=== PATIENT | male | born 1935 | race Caucasian/White ===

== ENCOUNTER 2016-07-21 20:59 | Inpatient (IN) | payer MEDICARE, OTHER ==
[~2016-07-21] VITALS: Ht 190.5 cm; Wt 129.3 kg
[~2016-07-21 20:59] MED LIST: ASPI-275 PO; GLPZ5T PO; HYDR25TA4 PO; INSU100I SUBQ; INSU100I9 SUBQ; LISI-567 PO; MELO-259 PO; METF10002 PO; MULT-56 PO; OMEG1CAP31 PO; SIMV40TA5 PO; TAMS0.4C98 PO; VIT1CAPS8 PO
[2016-07-21 21:15] VITALS: BP 147/65; PULSE 65; RESP 18; O2SAT 96
--- NOTE | 2016-07-21 21:22 | ED.REPORT ---
HPI-Abd Pain M 40 and Over Date of Service Jul 21, 2016 ED Provider: Jordy Mahoney MD Patient is a 81 year old male with a history of diabetes mellitus, coronary artery disease, hypertension, cardiac pacemaker, and known large abdominal wall hernia who presents to the ED via EMS with severe right-sided abdominal pain associated with his hernia which started after eating dinner tonight. Patient states that the pain waxes and wanes, and is sometimes unbearable. He reports associated nausea but denies vomiting. His pain is improved on arrival to the ED , after receiving Fentanyl and Zofran from EMS. The patient states that he has a hernia from a previous appendectomy, with subsequent rupture of initial hernia repair. His previous surgeons stated that the hernia could not be repaired again due to the complexity of the hernia. The patient reports that food often comes back up after eating and that he was advised to use a band around his abdomen in order to improve this. However, he states that his symptoms are improved without this band. The patient underwent Barium swallow this morning to investigate this further, which showed mild esophageal dysmotility, reducible hiatal hernia, and moderate reflux. Patient was informed that this procedure could cause constipation. He reports a small bowel movement this morning before the procedure, but he has not had another bowel movement since that time. He denies a fever. Nursing Notes Stated Complaint: ABDOMINAL PAIN Chief Complaint: Male Abdominal Pain Nursing Notes Reviewed: Yes Allergies: Coded Allergies: Tuna (Verified Allergy, Unknown, 07/21/16) Uncoded Allergies: artificial sweeteners (Allergy, Intermediate, 03/31/10) vision changes Scheduled Alfuzosin ER (Alfuzosin ER) 10 Mg Tab.er.24h 10 MG PO DAILY Aspirin (Ecotrin) 325 Mg Tablet.dr 325 MG PO DAILY Atorvastatin (Lipitor) 20 Mg Tablet 20 MG PO DAILY Hydrochlorothiazide (Hydrochlorothiazide) 25 Mg Tablet 25 MG PO DAILY Insulin Aspart (NovoLOG U-100 Pen) 100 Unit/Ml Insuln.pen 12 UNITS SUBQ TIDAC If blood sugar between 130-160 give 12 units Novolog sliding scale raised in increments to a max of 20 units Insulin Detemir (Levemir U100 Flexpen Insulin) 100 Unit/1 Ml Insuln.pen 40 UNIT SUBQ QPM-INSULIN Lisinopril (Lisinopril) 20 Mg Tablet 20 MG PO DAILY Multivitamin (Daily Vitamin) 1 Each Tablet 1 EACH PO DAILY [place]-3 Fatty Acids/Fish Oil (Fish Oil Softgel) 1 Each Capsule 1 EACH PO DAILY Vit C/Vit E/[place]in/Min/[place]-3 (Ocuvite Softgel) 1 Each Capsule 1 EACH PO DAILY General Time Seen by MD: 21:22 Chief Complaint Abdominal pain Hx Obtained From: Patient Arrived By: Ambulance Sudden in Onset?: No Onset Occurred: 1 - 4 hours ago Symptom Duration: Waxes and wanes Location: : Diffuse Quality: Painful, Stabbing Severity: Current: Mild Severity: Maximum: Severe Recent Healthcare: No recent doctor visit, No recent hospitalization Similar Sx Previous: Yes Past Medical History Past Medical History Abdominal Hernia 1. Coronary artery disease. a. CABG in 1992. b. CABG in 2002. 2. 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 3. Diabetes mellitus type 2. 4. Hypertension. 5. Hyperlipidemia. 6. Benign prostatic hypertrophy. 7. History of diabetic foot ulcers. 8. Osteoarthritis. 9. Chronic back pain. Reports: Coronary artery disease, Diabetes mellitus, Hyperlipidemia, Hypertension Past Surgical History 1. CABG in 1992 and 2002. 2. Pacemaker placement in 2005. 3. Appendectomy. 4. multiple abdominal wall hernia repairs Reports: Appendectomy, CABG Reports: Pacemaker insertion Smoking History Never Smoker Social History Other Social History: Good social support, , Local resident Ambulatory Status Independent Review of Systems Constitutional: Denies: Chills, Fever GI: Reports: Abdominal pain, Constipation, Nausea, Vomiting Complete sys rev & neg: except as marked. Physical Exam Initial Vital Signs Vital Signs (First) Date Time Temp Pulse Resp B/P Pulse Ox O2 Delivery O2 Flow Rate FiO2 07/21/16 21:15 36.6 65 18 147/65 96 Room Air Initial VS: Reviewed Head / Eyes: Atraumatic, Normocephalic, PERRL ENT: Mucous membranes moist, Conjunctiva normal, No scleral icterus Neck: Supple, Full range of motion Extremities: Vascular intact, Neuro intact, No swelling Skin: Warm, Dry, No cyanosis Neurologic: Alert, Oriented, Nonfocal Psychiatric: Mood/affect normal, Behavior normal, Normal thought content General/Constitutional: Awake, Alert, No acute distress, Well hydrated Respiratory / Chest: Breath sounds NL, Breath sounds = bilat, No respiratory distress, No rales, No rhonchi, No wheezing Cardiovascular: Heart rate NL, Regular rhythm, Heart sounds NL, No murmurs Abdomen: Soft, BS normoactive Tenderness/Guarding/Rebound: Positive: Tender diffuse Organomegaly / Mass / Hernia: Positive: Hernia is tender (mildly, but not firm) , Hernia umbilical (large paramedian hernia on the right) Back: Painless range of motion Interpretation & Diagnostics Lab Results Interpretation Result Diagram: 07/21/16211207/21/162112 Test 07/21/16 21:13 07/21/16 22:00 White Blood Count 10.3th/mm3 (3.8-10.1) Red Blood Count 4.50mil/mm3 (4.40-5.80) Hemoglobin 14.3g/dL (13.8-17.2) Hematocrit 41.6% (41.0-50.0) Mean Corpuscular Volume 92.4fL (81-100) Mean Corpuscular Hemoglobin 31.8pg (27.0-35.0) Mean Corpuscular Hemoglobin Concent 34.4% (32.0-37.0) Red Cell Distribution Width 12.9% (12.3-15.4) Platelet Count 218bil/L (150-400) Neutrophils (%) (Auto) 77.3% (40-74) Lymphocytes (%) (Auto) 13.0% (14-46) Monocytes (%) (Auto) 8.0% (4-12) Eosinophils (%) (Auto) 1.4% (0-5) Basophils (%) (Auto) 0.1% (0-3) Hold Purple Top Tube Received (Received) Hold Blue Top Tube Received (Received) Sodium Level 138mEq/L (134-144) Potassium Level 4.6mEq/L (3.5-5.2) Chloride Level 100mEq/L (97-108) Carbon Dioxide Level 19mmol/L (18-29) Blood Urea Nitrogen 34mg/dL (8-27) Creatinine 1.50mg/dL (0.76-1.27) Estimat Glomerular Filtration Rate 48mL/min (>59) Glucose Level 175mg/dL (60-99) Calcium Level 10.1mg/dL (8.5-10.1) Magnesium Level 1.8mg/dL (1.6-2.6) Total Bilirubin 0.4mg/dL (0.0-1.2) Aspartate Amino Transf (AST/SGOT) 24U/L (0-50) Alanine Aminotransferase (ALT/SGPT) 24U/L (0-44) Alkaline Phosphatase 92U/L (25-160) Total Protein 7.8g/dL (6.4-8.4) Albumin 4.6g/dL (3.4-5.0) Lipase 12U/L (13-60) Hold Red Top Tube Received (Received) Hold [place] Top Tube Received (Received) Hold Urine Received (Received) CT Abd / Pelvis Interpretation CONCLUSION: Incarcerated umbilical hernia causing bowel obstruction. Cannot exclude mild diverticulitis affecting the sigmoid colon. No perforation or abscess. Cholelithiasis is noted. Ultrasound could further evaluate. Nonspecific prostate enlargement is noted and would require further evaluation for complete characterization. Please correlate. Indeterminate right renal cyst or cystic lesion required further evaluation to completely characterize. Radiologist: Lewis Kaur DO 07/22/2016 - 12:09:31 AM [facility] Study type: Abdominal CT IV contrast Interpretation / Wet Read by: Interpret - Radiologist Re-Eval/Medical Decision Med Decision/Clinical Course 81-year-old with a large ventral hernia related to prior abdominal surgery for ruptured appendix. He just had a barium swallow with fairly viscus barium, now has crampy colicky pain that is worsening and improving in waves, but significant and severe on arrival. CT scan shows high-grade bowel obstruction associated with this hernia. He is difficult to control his regards his nausea. He was given an NG tube, and is admitted now to medicine service with consultation to surgery. Transported in stable condition. Radiology also sees some evidence of low grade diverticulitis, and he is begun with antibiotics for that possibility while in the hospital. Source of Hx: Old records Time of Eval: 21:30 Re-Evaluation/Progress Note: Patient has now started vomiting in the ED. Time of Eval: 00:20 Re-Evaluation/Progress Note: Informed the patient and his of the results of his CT scan, with the finding of a bowel obstruction and an incarcerated hernia. Patient understands and agrees with the plan to be admitted to the hospital for further care. All questions were addressed. Consultation #1: Referral / Consult Name: Kei Moise MD Consulted With: Surgeon Call Returned at: 00:20 Crusher Loader Operator: Will see patient, Agrees with eval, Agrees with plan Note: Spoke with Dr. Moise, surgeon, who agrees to act as consult during patient's hospital admission. Consultation #2: Referral / Consult Name: Varun Richardson MD Consulted With: Hospitalist Call Returned at: 00:22 Crusher Loader Operator: Will see patient, Agrees with eval, Agrees with plan, Accepts admit Note: Spoke with Dr. Richardson, hospitalist, who agrees to accept admit. Counseled Regarding: Diagnosis, Lab results, Need for admission Discharge & Departure Primary Impression: Incarcerated umbilical hernia Additional Impressions: Small bowel obstruction Diverticulitis Diverticulitis site: unspecified part of intestinal tract Diverticulitis bleeding: without bleeding Diverticulitis complication: without perforation or abscess Qualified Code: K57.92 - Diverticulitis of intestine, part unspecified, without perforation or abscess without bleeding Disposition: ADMITTED TO HOSPITAL Vital Signs - All Vital Signs Date Time Temp Pulse Resp B/P Pulse Ox O2 Delivery O2 Flow Rate FiO2 07/22/16 00:40 100 16 152/86 97 Room Air 07/21/16 21:15 36.6 65 18 147/65 96 Room Air )( All Prior VS Reviewed: Yes Condition: Stable Referrals: Brady Martinez MD (PCP) Ashley Attestation Portions of this note were transcribed by Merly Manzano. I, Dr. Mahoney personally performed the history, physical exam and medical decision-making; I reviewed and confirmed the accuracy of the information in the transcribed note. Signed by: Ashley Portillo, 07/22/2016 0148 copies to: Brady Martinez MD, Christopher W MD Jul 21, 2016 21:22 Merly Manzano Jul 21, 2016 21:34
[2016-07-21 21:29] LABS: BASOPHILS % (AUTO) 0.1 % (0-3); EOSINOPHILS % (AUTO) 1.4 % (0-5); Mean Corpuscular Hemoglobin 31.8 pg (27.0-35.0); Mean Corpuscular Volume 92.4 fL (81-100); NEUTROPHILS % (AUTO) 77.3 % (40-74); Platelet Count 218 bil/L (150-400)
[2016-07-21] MEDS ORDERED: 0.9% Sodium Chloride 1,000 ML IV ONE (21:35)
[2016-07-21] MEDS ORDERED: Ondansetron 2 mg/mL 2 mL Inj IVPUSH ONE (21:35)
[2016-07-21 21:47] LABS: Magnesium 1.8 mg/dL (1.6-2.6)
[2016-07-21] MEDS: HYDROmorphone 1 mg/mL Inj IVPUSH PRN ×3 (22:10→23:34)
[2016-07-21] MEDS ORDERED: Promethazine Inj 12.5 MG in Dextrose 5%-Pha MIX 50 ML IV ONE (22:30)
[2016-07-22] VITALS (7 sets, daily range): BP systolic 147–169; BP diastolic 74–86; PULSE 65–102; RESP 16–20; O2SAT 92–97
[2016-07-22] MEDS ORDERED: Piperacillin-Tazo 3.375 Gm Inj 3.375 GM in Dextrose 5% Minibag Plus 50 ML IV ONE (00:15)
[2016-07-22] MEDS ORDERED: Alum-Mag Hydrox-Simeth 30 mL Suspension PO PRN (00:25)
[2016-07-22] MEDS ORDERED: Polyethylene Glycol (PEG) 17 Gm Powder PO PRN (00:25)
[2016-07-22] MEDS: 0.9% Sodium Chloride 1,000 ML IV SCH ×3 (01:02→18:02)
[2016-07-22] MEDS ORDERED: Glucose 40% Oral Gel 15 Gm Tube PO PRN ×2 (01:10→10:20)
[2016-07-22] MEDS: HYDROmorphone 1 mg/mL Inj IVPUSH PRN ×2 (01:20→04:08)
[2016-07-22] MEDS ORDERED: ATOR20TA PO (02:07)
[2016-07-22] MEDS ORDERED: ALFU10TA11 PO (02:07)
--- NOTE | 2016-07-22 02:27 | NUR ---
Admission Pt here for SBO. NG placed to low cont sxn. Pt tolerated procedure. Appears to be resting comfortably. No complaints. Oriented to call light/fall precautions. Abd is soft and distended. NG output is bright yellow fluid. Care ongoing
--- NOTE | 2016-07-22 02:40 | PCM.HPMED ---
Subjective Date of Service Jul 22, 2016 Primary Provider: Admitting Physician: Primary Care Physician: Brady Martinez MD Attending Physician: Admit Status: From the Emergency Department, Full Admit, Non-Telemetry Chief Complaint: Abdominal pain History of Present Illness: Cholo Verdugo is a 81 year old male with Diabetes mellitus, coronary artery disease, hypertension, cardiac pacemaker, and known large abdominal wall hernia who presents to [facility] Emergency department via EMS with severe right-sided abdominal pain. Pain was 8/110 intensity at the time, sharp pain associated with his hernia that started after eating dinner tonight. Patient states that the patient waxes and wanes, and is sometimes unbearable. He reports associated nausea but denies vomiting. Patient reported some bowel movement this morning. Denies any melena or hematochezia. Denies any fever or chills. The patient states that he has a hernia from a previous appendectomy, which has ruptured in the past. His previous surgeons stated that the hernia could not be repaired again due to the complexity of the hernia. The patient reports that food often comes back up after eating food and that he was advised to use a band around his abdomen in order to improve this. However, he states that his symptoms are improved without this band. The patient underwent Barium swallow this morning to investigate this further, which showed mild esophageal dysmotility, reducible hiatal hernia, and moderate reflux. Case discussed with Dr Mahoney, CT finding discussed and he spoke to Dr Moise from surgery. NG tube placed. Review of Systems: Pertinent positives as noted in HPI. All other systems were reviewed and are negative Allergies Coded Allergies: Tuna (Verified Allergy, Unknown, 07/21/16) Uncoded Allergies: artificial sweeteners (Allergy, Intermediate, 03/31/10) vision changes Home Medications From [facility], not yet confirmed Cholo Verdugo [id number] 07/14/2016 01:10 PM 06/26 alfuzosin ER 10 mg tablet,extended release 24 hr take 1 tablet by oral route every day aspirin 81 mg tablet,delayed release take 1 tablet by oral route every day atorvastatin 20 mg tablet take 1 tablet by oral route every evening (replaces simvastatin) hydrochlorothiazide 25 mg tablet TAKE 1 TABLET DAILY FOR HEART Levemir FlexTouch 100 unit/mL (3 mL) subcutaneous insulin pen inject by subcutaneous route per prescriber's instructions. Insulin dosing requires individualization. lisinopril 20 mg tablet take 1 tablet (20MG) by oral route every day for high blood pressure. Multiple Vitamin Tab take 1 tablet by ORAL route every day with food nitroglycerin 0.[address] 1 tablet (0.4MG) by Sublingual route at the 1st sign of attack; may repeat every 5 min until relief; if pain persists after 3 tablets in 15 min, prompt medical attention is recommended Novolog Flexpen 100 unit/mL subcutaneous inject by subcutaneous route as per insulin sliding scale protocol,12-20 units with each meal for diabetes. Ocuvite tablet Vitamin B-12 take 1 capsule by oral route every day Zantac 1 tablet by mouth daily as needed PMH 1. Coronary artery disease. a. CABG in 1992. b. CABG in 2002. 2. 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 3. Diabetes mellitus type 2. 4. Hypertension. 5. Hyperlipidemia. 6. Benign prostatic hypertrophy. 7. History of diabetic foot ulcers. 8. Osteoarthritis. 9. Chronic back pain. 10. Incisional hernia 11. Obesity . Surgical History 1. CABG in 1992 and 2002. 2. Pacemaker placement in 2005. 3. Appendectomy. Family History His father of heart disease. His mother of old age. Social History Hx Alcohol Use: No Hx Substance Use: No Hx Tobacco Use: No Smoking Status: Former Smoker (quit 1963) Exam Vital Signs Vital Sign - Last Date Time Temp Pulse Resp B/P Pulse Ox O2 Delivery O2 Flow Rate FiO2 07/21/16 21:15 36.6 65 18 147/65 96 Room Air Exam General: Alert, Oriented X3, Cooperative, No acute Distress Eyes: PERRLA, Scleral Anicteric Mouth: Mouth Normal, Mucous Membranes Moist/[place] Neck: Supple, no Thyromegaly, trachea central. Chest & Lungs: Clear to auscultation & percussion, No adventitious breath sounds, no crackles, no wheeze Cardiovascular: Normal S1, Normal S2, No Murmurs/Rubs/Gallops, Regular Rate/ Rhythm, (No JVD, no peripheral edema) Pulses: Radial (present and equal), Dorsalis Pedi (present and equal) Abdomen: Soft, large paramedian hernia on the right, mildly tender on palpation Back: Painless range of motion Musculoskeletal: Unremarkable. Normal range of motion, no swollen or erythematous joints Extremities: No edema, no cyanosis, no clubbing. Skin: No rashes. Warm and dry, no erythematous areas Neurological: Grossly neurologically intact, Normal Speech, Sensation Intact Lymphatic: Lymph nodes Cervical and Axillary not palpable. Lab and Diagnostics Labs Laboratory Tests Test 07/21/16 21:13 07/21/16 22:00 White Blood Count 10.3th/mm3 (3.8-10.1) Red Blood Count 4.50mil/mm3 (4.40-5.80) Hemoglobin 14.3g/dL (13.8-17.2) Hematocrit 41.6% (41.0-50.0) Mean Corpuscular Volume 92.4fL (81-100) Mean Corpuscular Hemoglobin 31.8pg (27.0-35.0) Mean Corpuscular Hemoglobin Concent 34.4% (32.0-37.0) Red Cell Distribution Width 12.9% (12.3-15.4) Platelet Count 218bil/L (150-400) Neutrophils (%) (Auto) 77.3% (40-74) Lymphocytes (%) (Auto) 13.0% (14-46) Monocytes (%) (Auto) 8.0% (4-12) Eosinophils (%) (Auto) 1.4% (0-5) Basophils (%) (Auto) 0.1% (0-3) Hold Purple Top Tube Received (Received) Hold Blue Top Tube Received (Received) Sodium Level 138mEq/L (134-144) Potassium Level 4.6mEq/L (3.5-5.2) Chloride Level 100mEq/L (97-108) Carbon Dioxide Level 19mmol/L (18-29) Blood Urea Nitrogen 34mg/dL (8-27) Creatinine 1.50mg/dL (0.76-1.27) Estimat Glomerular Filtration Rate 48mL/min (>59) Glucose Level 175mg/dL (60-99) Calcium Level 10.1mg/dL (8.5-10.1) Magnesium Level 1.8mg/dL (1.6-2.6) Total Bilirubin 0.4mg/dL (0.0-1.2) Aspartate Amino Transf (AST/SGOT) 24U/L (0-50) Alanine Aminotransferase (ALT/SGPT) 24U/L (0-44) Alkaline Phosphatase 92U/L (25-160) Total Protein 7.8g/dL (6.4-8.4) Albumin 4.6g/dL (3.4-5.0) Lipase 12U/L (13-60) Hold Red Top Tube Received (Received) Hold [place] Top Tube Received (Received) Hold Urine Received (Received) Result Diagram: 07/21/16211207/21/162112 X-Rays, CTs and MRIs X-RAY BARIUM SWALLOW ESOPHAGUS 07/21 IMPRESSION: 1. Mild esophageal dysmotility. 2. Small reducible hernia and moderate reflux. Dictated by: Paul Reyes RRA Interpreted: Cecilia Guerin MD on 07/21/2016 at 11:11 Transcribed by: DANIELLE on 07/21/2016 at 11:12 Approved by: Cecilia Guerin MD, PhD on 07/21/2016 at 17:08 CT Abdomen and pelvis with contrast Conclusion: Incarcerated umbilical hernia causing bowel obstruction. Cannot exclude mild diverticulitis affecting the sigmoid colon. No perforation or abscess. Cholelithiasis is noted. Ultrasound could further evaluate. read by Lewis Kaur DO Assessment & Plan Cholo Verdugo is a 81 year old male with Diabetes mellitus, coronary artery disease, hypertension, cardiac pacemaker, and known large abdominal wall hernia who presents to [facility] Emergency department via EMS with severe right-sided abdominal pain. 1. Acute abdominal pain due to Small bowel obstruction with incarcerated umbilical hernia. Present on admission Patient had been evaluated by the General surgeons concerning surgery to his umbilical hernia but was not a good surgical candidate. If this turns into an emergency situation, proceed with surgery without any prior cardiac testing - nothing by mouth - IV fluids resuscitation, holding diuretics - Surgical consult, obtained - continue NG tube decompression 2. Hiatal Hernia with Esophageal dysmotility. Present on admission Etiology of the esophageal dysmotility is unclear. I am not sure if there is a link to issue described above. - consider Gastroenterology consult 3. Acute Kidney injury due to pre renal azotemia. Present on admission due to hypovolemia from inadequate PO intake in the last few days - continue IV fluids - avoid nephrotoxic insults in hospital - monitor urine output 4 Diabetes Type 2 - low correction Lispro algorithm - will half dose of long acting insulin while NPO - holding Nutritional insulin coverage 5 Hypertension, Chronic - holding Lisinopril for now till renal function clears - holding Hydrochlorothiazide to avoid dehydration while NPO - will use Calcium channel trey or beta trey if BP is required - Acetaminophen as needed for mild pain/fever/headache - Bowel regimen as needed - Antiemetic as needed Patient admitted under inpatient status with expected length of stay > 2 midnights for severity of present symptoms, complexities of treatment plan and risk for adverse event . Resuscitation Status: CPR: Attempt Resuscitation Varun Richardson MD Jul 22, 2016 00:30
[2016-07-22] MEDS ORDERED: HYDROmorphone 1 mg/mL Inj IVPUSH PRN (06:05)
[2016-07-22 08:17] LABS: BASOPHILS % (AUTO) 0.1 % (0-3); EOSINOPHILS % (AUTO) 0 % (0-5); MONOCYTES % (AUTO) 8.9 % (4-12); Mean Corpuscular Volume 93.2 fL (81-100); NEUTROPHILS % (AUTO) 86.2 % (40-74); Platelet Count 202 bil/L (150-400)
[2016-07-22] MEDS ORDERED: Insulin LISPRO 300 Unit/3 mL Inj SUBQ SCH (08:30)
--- NOTE | 2016-07-22 09:09 | DRSVH ---
PROCEDURE: CT ABDOMEN AND PELVIS WITH CONTRAST ([id number]) INDICATIONS: abdo pain, recurrent hernia/obstruction TECHNIQUE: After the administration of intravenous contrast, 5 mm thick sections acquired from the diaphragm to the symphysis. 5 mm coronal and sagittal reformats were acquired. For radiation dose reduction, the following was used: automated exposure control, adjustment of mA and/or kV according to patient siz e. COMPARISON: None. FINDINGS: Preliminary report by scene shifter radiology Image quality: Excellent. ABDOMEN: Lung bases: Lung bases are clear. Heart size is normal. Permanent pacemaker. Distal esophagus is fl uid-filled, compatible with reflux noted on prior esophagram. Solid organs: Liver and spleen are normal in size and enhancement. Gallbladder contains numerous ga llstones. Biliary system is non dilated. Atrophic pancreas enhances normally. No adrenal nodules. Kidneys demonstrate normal size and enhancement, without hydronephrosis there is a punctate nonobstru cting calculus in the lower pole of the left kidney and a small exophytic hypodense cyst or cystic ma ss in the lower pole of the right kidney.. Peritoneum and bowel: Dilated bowel loops are present proximal to bowel entrapped within a periumbili mague ventral hernia on the right. There are numerous subcutaneous sutures down midline raising possibi lity of incisional hernia. Bowel loops distal to the hernia appear normal in caliber, compatible with obstruction within the hernia. No apparent bowel wall thickening although difficult to assess second sully to beam hardening artifact from the dense contrast material within bowel from prior esophagram. T he appendix is normal. There is sigmoid diverticulosis with probable fat stranding although partially obscured by artifact. Nodes and vessels: No retroperitoneal or mesenteric adenopathy by size criteria. Atheromatous aorta and inferior vena cava are normal in size. Miscellaneous: No ascites PELVIS: Genitourinary: Bladder wall thickness is normal. The prostate is markedly enlarged measuring 9.7 x 9 .7 cm. Miscellaneous: No inguinal hernias or adenopathy. Bones: No suspicious bony lesions. Multilevel degenerative disc disease. No vertebral body compress ion fractures. IMPRESSION: 1. Partial small bowel obstruction secondary to incarcerated hernia in the right periumbilical region . 2. Sigmoid diverticulosis. Mild diverticulitis cannot be excluded. 3. Cholelithiasis. 4. Marked prostatic hypertrophy. Prostate cancer cannot be excluded. Findings are concordant with the preliminary report Dictated by: Jonas Au M.D. on 07/22/2016 at 8:53 Approved by: Jonas Au M.D. on 07/22/2016 at 9:08
--- NOTE | 2016-07-22 09:15 | CONS ---
[address] [address] CONSULTATION REPORT PATIENT: SAYRA NGUYEN : 1935 MR#: [id number] ADMIT: 07/22/2016 JOB ID: [id number] DATE OF SERVICE: 07/22/2016 CHIEF COMPLAINT: SBO, incisional hernia. HISTORY OF PRESENT ILLNESS: The patient is an 81-year-old male who presented to the emergency department yesterday due to abdominal pain. The patient has been having some dysphagia issues, so the patient underwent a barium swallow just yesterday morning. After the study, the patient started to have progressive abdominal pain related to his pre-existing ventral hernia. This started to get worse at noon and the hernia protruded out and became rock hard. The patient has a history of ruptured appendicitis back in the 70s in [place], and he has had this incisional hernia for at least five plus years. Workup in the emergency department yesterday did demonstrate a white blood count of 10.3, and a CT scan was performed that suggested incarcerated ventral hernia causing the small bowel obstruction. Currently, the patient is in a hospital bed with an NG tube in place. His pain is almost completely gone, and he has been burping. So far, he has not had any flatus or bowel movement. His hernia is nice and soft this morning. PAST MEDICAL HISTORY: Diabetes, CAD status post CABG x2, hypertension, pacemaker insertion, BPH, osteoarthritis, chronic back pain, ruptured appendicitis back in the 70s in [place] with subsequent incisional ventral hernia. MEDICATIONS AT HOME: Include alfuzosin, aspirin, Lipitor, hydrochlorothiazide, insulin, lisinopril, vitamins. ALLERGIES: 1. TUNA. 2. ARTIFICIAL SWEETENERS. SOCIAL HISTORY: The patient lives with his in [place]. He has a son. He does not smoke. FAMILY HISTORY: Positive for heart disease. REVIEW OF SYSTEMS: Positive for the recent dysphagia and ventral hernia and abdominal pain. All other systems reviewed were negative. PHYSICAL EXAMINATION: The patient is currently in the hospital bed with an NG tube in place. His BMI is 35.6. Head is normocephalic, atraumatic. There is no scleral icterus. NG tube is in place through his nose. Neck is supple. Heart is in regular rate. Lungs are clear. Abdomen is obese. There is a visible large protrusion through the right periumbilical region. It is nice and soft this morning. There is no tenderness to palpation. The fascial defect is large and I am able to push through the fascial defect. However, the hernia comes right back out with tensing of his abdomen. Extremities show no clubbing and no cyanosis. Neurologically, the patient is awake and alert, and answers appropriately. LABORATORY EXAMINATION: Last night showed a white blood count 10.3, hematocrit 41.6, platelet count is 218. Sodium is 138, potassium 4.6, creatinine 1.5. Total bilirubin 0.4. Lipase of 12. DIAGNOSTIC STUDIES: The barium swallow that he had yesterday morning showed mild esophageal dysmotility, a small reducible hernia and moderate reflux. ASSESSMENT: This is an 81-year-old, obese male with diabetes, hypertension, pacemaker and coronary artery bypass graft x2 who has a snf pre-existing incisional hernia, which got acutely worse yesterday. Currently, the hernia is nice and soft without any strangulation. I would get an abdominal x-ray today and possibly remove his nasogastric tube and start him on a diet. Options were discussed with the patient in terms of followup with the surgery clinic to schedule for elective repair versus referral to the [facility] for repair. In the meantime the patient should be provided with an abdominal binder. The patient will think about it and get back to me on his decision but at this time, I do not think we need to proceed to urgent surgical repair. KHANG
[2016-07-22] MEDS: Insulin LISPRO 300 Unit/3 mL Inj SUBQ SCH ×3 (10:27→20:30)
--- NOTE | 2016-07-22 10:29 | DRSVH ---
PROCEDURE: X-RAY ABDOMEN WITH ERECT AND/OR DECUBITUS VIEWS ([id number]) INDICATIONS: f/u sbo TECHNIQUE: 2 views of the abdomen were acquired. COMPARISON: [facility], CR, CHEST 2VW, 02/18/2014, 9:09. [facility], CT, CT ABD PELVIS W CON, 07/21/2016, 23:42. FINDINGS: Surgical changes and devices: None. Bowel: Abnormal bowel gas pattern is present. Asymmetric dilatation of small bowel throughout the a bdomen and pelvis with paucity of gas within the colon. No pneumatosis or bowel wall thickening. No pneumoperitoneum. Soft tissues: No masses; visualized solid organ contours appear normal in size. No suspicious abdom inal calcifications. Bones: No suspicious bony abnormalities. IMPRESSION: Persistent small bowel obstructive pattern. Dictated by: Paul ROCKWELL Interpreted: Dmitriy Au MD on 07/22/2016 at 10:27 Transcribed by: JULIETTE on 07/22/2016 at 10:28 Approved by: Jonas Au M.D. on 07/22/2016 at 14:16
--- NOTE | 2016-07-22 14:11 | DRSVH ---
PROCEDURE: X-RAY KUB ([id number]) INDICATIONS: f/u sbo, follow oral contrast TECHNIQUE: One view of the abdomen acquired. COMPARISON: [facility], CR, XR ABD W ERECT + OR DECUB 2 VW, 07/22/2016, 9:29. FINDINGS: Surgical changes and devices: None. Bowel: Abnormal bowel gas pattern is present. Asymmetric dilatation of small bowel throughout the a bdomen and pelvis with paucity of gas within the colon. No pneumatosis or bowel wall thickening. No pneumoperitoneum. Soft tissues: No suspicious abdominal calcifications. Visualized solid organ contours appear normal in size. Bones: No suspicious bony lesions. IMPRESSION: Persistent small bowel obstructive pattern redemonstrated. Dictated by: Paul ROCKWELL Interpreted: Dmitriy Au MD on 07/22/2016 at 14:11 Transcribed by: JULIETTE on 07/22/2016 at 14:11 Approved by: Jonas Au M.D. on 07/22/2016 at 14:18
--- NOTE | 2016-07-22 19:49 | PCM.PNMED ---
Subjective Date of Service Jul 22, 2016 Subjective Patient is feeling a little bit better than he was yesterday. However, he is still very weak and had a significant amount of difficulty just getting up out of bed into the wheelchair to go down for his x-ray. His abdominal pain and discomfort has improved. Exam Vital Signs Vital Sign - Last Date Time Temp Pulse Resp B/P Pulse Ox O2 Delivery O2 Flow Rate FiO2 07/22/16 16:25 36.6 65 155/76 93 Room Air 07/22/16 14:44 20 Intake and Output 07/21/16 07/21/16 07/22/16 Cumulative From/Thru 15:00 23:00 07:00 07/21/16 21:15 - 07/22/16 05:44 Intake Total 1243 ml 1243 ml Output Total 1000 ml 1000 ml Balance 243 ml 243 ml Intake Oral 0 ml 0 ml IV Total 1243 ml 1243 ml Output Urine Total 150 ml 150 ml Gastric Drainage Total 350 ml 350 ml Emesis 500 ml 500 ml Exam General: Patient does not appear to be in any significant distress at present time. HEENT: Head is atraumatic normocephalic. Eyes: Pupils are equally round and reactive to light and accommodation. Extraocular muscles are intact. Sclera are white anicteric. Subconjunctival mucosa is pink. Ears are unremarkable. There is a nasogastric tube in the nose, site is unremarkable. Oropharynx: There are no mucosal lesions, there is no thrush, there is no pharyngitis. Neck: Is supple, there are no nodes, or masses, or tenderness. Chest: Is clear to auscultation and percussion. There are no rales, rhonchi, wheezes or rubs. However, breath sounds are slightly diminished at the bases. Heart: Rate, rhythm is regular. There is no murmur, rub or gallop. Abdomen: Hypoactive bowel sounds are present. Abdomen is soft, nontender, no organomegaly or masses were appreciated. Extremities: Are symmetrical and well perfused. There is no edema, there is no cellulitis, no rash. Neurologic: There are no focal neurological deficits. Cranial nerves II through XII are intact. There are no sensory or motor deficits. Psychiatric: Patients mood is calm and shows no sign of agitation. Genital: Deferred Rectal: Deferred Lab and Diagnostics Result Diagram: 07/22/16 0800 07/22/16 0800 X-Rays, CTs and MRIs X-RAY BARIUM SWALLOW ESOPHAGUS 07/21 IMPRESSION: 1. Mild esophageal dysmotility. 2. Small reducible hernia and moderate reflux. Dictated by: Paul ROCKWELL Interpreted: Cecilia Guerin MD on 07/21/2016 at 11:11 Transcribed by: DANIELLE on 07/21/2016 at 11:12 Approved by: Cecilia Guerin MD, PhD on 07/21/2016 at 17:08 CT Abdomen and pelvis with contrast Conclusion: Incarcerated umbilical hernia causing bowel obstruction. Cannot exclude mild diverticulitis affecting the sigmoid colon. No perforation or abscess. Cholelithiasis is noted. Ultrasound could further evaluate. read by Lewis Kaur DO PROCEDURE: X-RAY KUB ([id number]) INDICATIONS: f/u sbo, follow oral contrast TECHNIQUE: One view of the abdomen acquired. COMPARISON: [facility], CR, XR ABD W ERECT + OR DECUB 2 VW, 2016, 9:29. FINDINGS: Surgical changes and devices: None. Bowel: Abnormal bowel gas pattern is present. Asymmetric dilatation of small bowel throughout the abdomen and pelvis with paucity of gas within the colon. No pneumatosis or bowel wall thickening. No pneumoperitoneum. Soft tissues: No suspicious abdominal calcifications. Visualized solid organ contours appear normal in size. Bones: No suspicious bony lesions. IMPRESSION: Persistent small bowel obstructive pattern redemonstrated. Dictated by: Paul ROCKWELL Interpreted: Dmitriy Au MD on 07/22/2016 at 14: 11 Transcribed by: JULIETTE on 07/22/2016 at 14:11 Approved by: Jonas Au M.D. on 07/22/2016 at 14:18 Assessment & Plan Cholo Verdugo is an 81 year old male with Diabetes mellitus, coronary artery disease, status post coronary artery bypass graft 2, hypertension, cardiac pacemaker, and known large abdominal wall hernia who presents to [facility] Emergency department via EMS with severe right-sided abdominal pain. 1. Acute abdominal pain due to Small bowel obstruction with incarcerated umbilical hernia. Present on admission Patient had been evaluated by the General surgeons concerning surgery to his umbilical hernia but was not a good surgical candidate. If this turns into an emergency situation, proceed with surgery without any prior cardiac testing - Continue Nothing by mouth - IV fluids resuscitation, holding diuretics - Surgical consult, obtained with Dr. Jonas Pack recommends the following: "This is an 81-year-old, obese male with diabetes, hypertension, pacemaker and coronary artery bypass graft x2 who has a snf pre-existing incisional hernia, which got acutely worse yesterday. Currently, the hernia is nice and soft without any strangulation. I would get an abdominal x-ray today and possibly remove his nasogastric tube and start him on a diet. Options were discussed with the patient in terms of followup with the surgery clinic to schedule for elective repair versus referral to the [facility] for repair. In the meantime the patient should be provided with an abdominal binder. The patient will think about it and get back to me on his decision but at this time, I do not think we need to proceed to urgent surgical repair." - Continue NG tube decompression for now 2. Hiatal Hernia with Esophageal dysmotility. Present on admission Etiology of the esophageal dysmotility is unclear. I am not sure if there is a link to issue described above. - consider Gastroenterology consult 3. Acute Kidney injury due to pre renal azotemia. Present on admission due to hypovolemia from inadequate PO intake in the last few days - continue IV fluids - avoid nephrotoxic insults in hospital - monitor urine output - Check daily labs 4. Diabetes Type 2 - low correction Lispro algorithm - will half dose of long acting insulin while NPO - holding Nutritional insulin coverage 5 Hypertension, Chronic - holding Lisinopril for now till renal function clears - holding Hydrochlorothiazide to avoid dehydration while NPO - will use Calcium channel trey or beta trey if BP is required - Acetaminophen as needed for mild pain/fever/headache - Bowel regimen as needed - Antiemetic as needed Disposition: Patient is likely to have NG tube removed tomorrow and will begin a clear liquid diet. Suspect patient will be able to be discharged next 24-48 hours. . Pain Evaluation: Adequate Pain Control GI Prophylaxis: Proton Pump Inhibitor VTE Prophylaxis: Sub-Q Heparin (Unfractionated) Resuscitation Status: CPR: Attempt Resuscitation Jordy Spivey MD Jul 22, 2016 19:49
--- NOTE | 2016-07-22 19:58 | NUR ---
activity/NG Pt up to go to xray and Cat scan a couple times today, SOB with activity weened pt off O2 sating 93-94% on RA. NG clamped at 3pm, per Dr Pack's instructions, no nausea the rest of the shift. Pt passed gas x1 Abdominal binder place pt MD orders.
[2016-07-22] MEDS: Heparin 5,000 Unit/mL Inj SUBQ SCH (21:07)
[2016-07-22] MEDS: Ondansetron 2 mg/mL 2 mL Inj IVPUSH PRN (21:12)
[2016-07-22] MEDS: Pantoprazole 4 mg/mL 10 mL Inj IVPUSH SCH (21:38)
[2016-07-23] MEDS: Ondansetron 2 mg/mL 2 mL Inj IVPUSH PRN (01:42)
[2016-07-23] MEDS: Insulin LISPRO 300 Unit/3 mL Inj SUBQ SCH ×4 (02:30→20:30)
[2016-07-23 04:08] VITALS: BP 144/73; PULSE 66; RESP 18; O2SAT 94
[2016-07-23] MEDS: 0.9% Sodium Chloride 1,000 ML IV SCH ×3 (04:13→22:48)
[2016-07-23 06:09] LABS: BASOPHILS % (AUTO) 0.1 % (0-3); EOSINOPHILS % (AUTO) 0.3 % (0-5); MONOCYTES % (AUTO) 12.3 % (4-12); Mean Corpuscular Hemoglobin 31.5 pg (27.0-35.0); Mean Corpuscular Volume 95.6 fL (81-100); NEUTROPHILS % (AUTO) 78.5 % (40-74); Platelet Count 187 bil/L (150-400)
[2016-07-23 06:21] LABS: Magnesium 1.8 mg/dL (1.6-2.6)
--- NOTE | 2016-07-23 07:57 | NUR ---
Social Work Initial Assessment: SW met with patient at bedside to discuss discharge plan. Patient is a 81 year old male admitted on 07/22/16 for SBO incerated ventral hernia. Patient payer as Medicare and [employer]. Patient has no longterm disability nor VA benefits. Patient PCP as MD Martinez. Patient states residing with Sarah, in [facility]. Patient states being independent with needs and uses a cane at home. Patient states pharmacy of choice as [facility]. Patient has no previous HHC, SNF, or AD history. Patient denied completion of AD form at this time. Patient currently has NG tube. Patient denied any discharge needs at this time. SW to follow as further needs arise. PLAN: Home with , via POV, pending clinical course. SW to follow as further needs arise. Arlet ANTHONY Addendum: 07/23/16 at 0800 by GARY DEWITT Amended: Links added.
--- NOTE | 2016-07-23 08:23 | PCM.PNSURG ---
Subjective Visit Information: Reason for Visit Sbo Incerated Ventral Hernia Surgery/Surgery Date Post-Op Day # Date of Admission: Jul 22, 2016 at 00:54 Hospital Day # Subjective: NGT has been clamped since yesterday afternoon, been passing flatus 6-7 times and had a BM this AM while at Xray, feeling a lot better, slept well Objective Objective Awake, sitting up at edge of bed Abd: soft, nontender hernia site, abd binder in place Vital Sign- Last 8 Hours Date Time Temp Pulse Resp B/P Pulse Ox O2 Delivery O2 Flow Rate FiO2 07/23/16 04:08 36.5 66 18 144/73 94 Room Air 07/23/16 03:51 Supplement Oxygen Intake and Output- Last 8 Hour 07/23/16 Cumulative From/Thru 07:00 07/21/16 21:15 - 07/23/16 06:31 Intake Total 1207 ml 2450 ml Output Total 1125 ml 3225 ml Balance 82 ml -775 ml Intake Oral 0 ml 0 ml IV Total 1207 ml 2450 ml Output Urine Total 375 ml 1025 ml Gastric Drainage Total 650 ml 1600 ml Emesis 100 ml 600 ml # Bowel Movements 0 0 Result Diagram: 07/23/16 0525 07/23/16 0525 Assessment & Plan Impression SBO, resolved Ventral incisional hernia DM Problems: Plan D/C NGT and start clears and advance as tolerated OK to d/c home later today if tolerates diet. F/U with Gen Surg Clinic to discuss repair of ventral hernia VTE Prophylaxis: Sub-Q Heparin (Unfractionated) Resuscitation Status: CPR: Attempt Resuscitation Lokesh Pack MD Jul 23, 2016 08:23
[2016-07-23] MEDS: Pantoprazole 4 mg/mL 10 mL Inj IVPUSH SCH ×2 (08:34→22:36)
[2016-07-23] MEDS: Heparin 5,000 Unit/mL Inj SUBQ SCH ×2 (09:10→22:38)
--- NOTE | 2016-07-23 09:15 | NUR ---
NG tube NG tube d/c intact per order Pt tolerated well No complaints of nausea at this time
[2016-07-23 09:34] VITALS: BP 147/62; PULSE 67; RESP 24; O2SAT 99
--- NOTE | 2016-07-23 10:14 | DRSVH ---
PROCEDURE: X-RAY ABDOMEN WITH ERECT AND/OR DECUBITUS VIEWS ([id number]) INDICATIONS: SMALL BOWEL OBSTRUCTION TECHNIQUE: 2 views of the abdomen were acquired. COMPARISON: [facility], CR, XR KUB, 07/22/2016, 13:32. FINDINGS: Surgical changes and devices: None. Bowel: Residual contrast agent seen throughout the bowel and there is persistent dilation of multiple small bowel loops and otherwise normal appearance of contrast media within the colon. Soft tissues: No masses; visualized solid organ contours appear normal in size. No suspicious abdom inal calcifications. Bones: No suspicious bony abnormalities. IMPRESSION: Persistent small bowel dilatation with contrast media noted within the colon suggesting p artial small bowel obstruction. Recommend clinical correlation. Dictated by: Paul Reyes RRA Interpreted: Cecilia Guerin MD on 07/23/2016 at 10:12 Transcribed by: DANIELLE on 07/23/2016 at 10:13 Approved by: Cecilia Guerin MD, PhD on 07/23/2016 at 10:55
--- NOTE | 2016-07-23 12:47 | NUR ---
ACTIVITY/GI Patient denies pain. NGT was d/cd per orders. Clear liquids was started. Patient has been tolerating clear liquids without any nausea or abdominal pain. Denies SOB. Patient has been able to ambulate in the room with SBA. Gait is steady. + Flatus. Per patient he had a small BM this morning. Care continues.
--- NOTE | 2016-07-23 17:27 | NUR ---
Ambulation / DC Pt ambulating with steady gait independently in room and to bathroom. All D/C instruction understood and reviewed. Pt states that she understands all instructions. Leaves via WC with caregiver friend for transportation to home. All belongings with pt. IV discontinued. Addendum: 07/23/16 at 1740 by OLGA GANDHI RN WRONG PT DISREGARD
[2016-07-23 17:28] VITALS: BP 166/72; PULSE 65; RESP 19; O2SAT 96
[2016-07-23 19:50] VITALS: BP 148/68; PULSE 61; RESP 20; O2SAT 97
--- NOTE | 2016-07-23 21:43 | PCM.PNMED ---
Subjective Date of Service Jul 23, 2016 Subjective Patient is feeling much better and is pleased to have his nasogastric tube removed. He is drinking very little clear liquids and has not advanced his diet and clear liquids as of yet. He has no other new complaints. Exam Vital Signs Vital Sign - Last Date Time Temp Pulse Resp B/P Pulse Ox O2 Delivery O2 Flow Rate FiO2 07/23/16 19:50 37.0 61 20 148/68 97 Room Air Intake and Output 07/22/16 07/22/16 07/23/16 Cumulative From/Thru 15:00 23:00 07:00 07/21/16 21:15 - 07/23/16 06:31 Intake Total 0 ml 1207 ml 2450 ml Output Total 1100 ml 1125 ml 3225 ml Balance -1100 ml 82 ml -775 ml Intake Oral 0 ml 0 ml 0 ml IV Total 1207 ml 2450 ml Output Urine Total 500 ml 375 ml 1025 ml Gastric Drainage Total 600 ml 650 ml 1600 ml Emesis 100 ml 600 ml # Bowel Movements 0 0 Exam General: Patient does not appear to be in any significant distress at present time. He appears to be feeling much better. HEENT: Head is atraumatic normocephalic. Eyes: Pupils are equally round and reactive to light and accommodation. Extraocular muscles are intact. Sclera are white anicteric. Subconjunctival mucosa is pink. Ears are unremarkable. The nasogastric tube has been removed from the nose. Oropharynx: There are no mucosal lesions, there is no thrush, there is no pharyngitis. Neck: Is supple, there are no nodes, or masses, or tenderness. Chest: Is clear to auscultation and percussion. There are no rales, rhonchi, wheezes or rubs. However, breath sounds are slightly diminished at the bases. Heart: Rate, rhythm is regular. There is no new murmur, rub or gallop. Abdomen: Hypoactive bowel sounds are present. Abdomen is distended and tympanitic, soft and nontender. The ventral wall hernia is easily reducible. Extremities: Are symmetrical and well perfused. There is no edema, there is no cellulitis, no rash. Neurologic: There are no focal neurological deficits. Cranial nerves II through XII are intact. There are no sensory or motor deficits. Psychiatric: Patients mood is calm and shows no sign of agitation. Genital: Deferred Rectal: Deferred Lab and Diagnostics Result Diagram: 07/23/1625 07/23/16524 X-Rays, CTs and MRIs X-RAY BARIUM SWALLOW ESOPHAGUS 07/21 IMPRESSION: 1. Mild esophageal dysmotility. 2. Small reducible hernia and moderate reflux. Dictated by: Paul ROCKWELL Interpreted: Cecilia Guerin MD on 07/21/2016 at 11:11 Transcribed by: DANIELLE on 07/21/2016 at 11:12 Approved by: Cecilia Guerin MD, PhD on 07/21/2016 at 17:08 CT Abdomen and pelvis with contrast Conclusion: Incarcerated umbilical hernia causing bowel obstruction. Cannot exclude mild diverticulitis affecting the sigmoid colon. No perforation or abscess. Cholelithiasis is noted. Ultrasound could further evaluate. read by Lewis Kaur DO PROCEDURE: X-RAY KUB ([id number]) INDICATIONS: f/u sbo, follow oral contrast TECHNIQUE: One view of the abdomen acquired. COMPARISON: [facility], CR, XR ABD W ERECT + OR DECUB 2 VW, 2016, 9:29. FINDINGS: Surgical changes and devices: None. Bowel: Abnormal bowel gas pattern is present. Asymmetric dilatation of small bowel throughout the abdomen and pelvis with paucity of gas within the colon. No pneumatosis or bowel wall thickening. No pneumoperitoneum. Soft tissues: No suspicious abdominal calcifications. Visualized solid organ contours appear normal in size. Bones: No suspicious bony lesions. IMPRESSION: Persistent small bowel obstructive pattern redemonstrated. Dictated by: Paul ROCKWELL Interpreted: Dmitriy Au MD on 07/22/2016 at 14: 11 Transcribed by: JULIETTE on 07/22/2016 at 14:11 Approved by: Jonas Au M.D. on 07/22/2016 at 14:18 Assessment & Plan Cholo Verdugo is an 81 year old male with Diabetes mellitus, coronary artery disease, status post coronary artery bypass graft 2, hypertension, cardiac pacemaker, and known large abdominal wall hernia who presents to [facility] Emergency department via EMS with severe right-sided abdominal pain. 1. Acute abdominal pain due to Small bowel obstruction with incarcerated umbilical hernia. Present on admission Patient had been evaluated by the General surgeons concerning surgery to his umbilical hernia but was not a good surgical candidate. If this turns into an emergency situation, proceed with surgery without any prior cardiac testing - Continue Nothing by mouth - IV fluids resuscitation, holding diuretics - Surgical consult, obtained with Dr. 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 Currently, the hernia is nice and soft without any strangulation. I would get an abdominal x-ray today and possibly remove his nasogastric tube and start him on a diet. Options were discussed with the patient in terms of followup with the surgery clinic to schedule for elective repair versus referral to the [facility] for repair. In the meantime the patient should be provided with an abdominal binder. The patient will think about it and get back to me on his decision but at this time, I do not think we need to proceed to urgent surgical repair." - NG tube was removed this morning - Advance diet as tolerated. Will start with clear liquids. 2. Hiatal Hernia with Esophageal dysmotility. Present on admission Etiology of the esophageal dysmotility is unclear. I am not sure if there is a link to issue described above. - consider Gastroenterology consult 3. Acute Kidney injury due to pre renal azotemia. Present on admission due to hypovolemia from inadequate PO intake in the last few days - continue IV fluids - avoid nephrotoxic insults in hospital - monitor urine output - Check daily labs 4. Diabetes Type 2 - Continue low correction Lispro algorithm - We have given half dose of long acting insulin while NPO and will need to increase long-acting insulin in accordance with his oral intake. - Continue holding Nutritional insulin coverage 5 Hypertension, Chronic - Continue holding Lisinopril for now till renal function clears - Continue holding Hydrochlorothiazide to avoid dehydration while by mouth intake is minimal - will use Calcium channel trey or beta trey if BP is required - Acetaminophen as needed for mild pain/fever/headache - Bowel regimen as needed - Antiemetic as needed Disposition: Dependent on how patient does with NG tube out and how he tolerates advancing a diet uspect patient will be able to be discharged next 24- 48 hours. . Pain Evaluation: Adequate Pain Control GI Prophylaxis: Proton Pump Inhibitor VTE Prophylaxis: Sub-Q Heparin (Unfractionated) VTE Mechanical Devices: Intermittant Pneumatic CD Resuscitation Status: CPR: Attempt Resuscitation CareyJordy MD Jul 23, 2016 21:43
[2016-07-24] MEDS: Insulin LISPRO 300 Unit/3 mL Inj SUBQ SCH ×2 (02:30→10:13)
[2016-07-24 05:06] VITALS: BP 144/69; PULSE 60; RESP 20; O2SAT 99
[2016-07-24 06:18] LABS: BASOPHILS % (AUTO) 0.2 % (0-3); EOSINOPHILS % (AUTO) 3.1 % (0-5); MONOCYTES % (AUTO) 12.2 % (4-12); Mean Corpuscular Hemoglobin 31.4 pg (27.0-35.0); Mean Corpuscular Volume 96.5 fL (81-100); NEUTROPHILS % (AUTO) 68.3 % (40-74); Platelet Count 152 bil/L (150-400)
[2016-07-24 06:39] LABS: Magnesium 1.8 mg/dL (1.6-2.6)
--- NOTE | 2016-07-24 06:39 | NUR ---
GI Medium formed stool overnight. Denies nausea or pain. Appears comfortable. Abdominal binder on, up independently in room.
--- NOTE | 2016-07-24 08:44 | PCM.PNSURG ---
Subjective Visit Information: Reason for Visit Sbo Incerated Ventral Hernia Surgery/Surgery Date Post-Op Day # Date of Admission: Jul 22, 2016 at 00:54 Hospital Day #3 Subjective: Drinking liquids with no nausea or vomiting. Several formed bowel movements last night. Continues to pass flatus. Denies pain. Ambulatory in the room. Requesting hospital discharge. Postop General: Other (as above) Gastrointestinal: Good Appetite, Tolerating Oral Feedings, No N/V, Passing Stool Pain Management: No or Minimal Pain Postop Activity: Ambulating in Room Only Objective Vital Sign- Last 8 Hours Date Time Temp Pulse Resp B/P Pulse Ox O2 Delivery O2 Flow Rate FiO2 07/24/16 05:06 36.9 60 20 144/69 99 Room Air Intake and Output- Last 8 Hour 07/24/16 Cumulative From/Thru 07:00 07/21/16 21:15 - 07/24/16 06:38 Intake Total 2016 ml 6837 ml Output Total 375 ml 4300 ml Balance 1641 ml 2537 ml Intake Oral 820 ml 1970 ml IV Total 1196 ml 4867 ml Output Urine Total 375 ml 2100 ml Gastric Drainage Total 1600 ml Emesis 600 ml # Voids 1 1 # Bowel Movements 1 1 General: Alert, Cooperative, No Acute Distress Lungs: Clear to Auscultation Heart: Regular Rate/Rhythm Abdomen: Soft, Non-tender, Protuberant, Other (reducible ventral hernia to palpation) Extremities: Thigh&Calf Soft/Nontender Neuro: Normal Speech Catheters: None Result Diagram: 07/24/16 0504 07/24/16 0504 Assessment & Plan Impression Primary diagnoses: 1. Partial small bowel obstruction. Resolved. 2. Incisional ventral abdominal hernia, reducible. Other diagnoses: 1. Coronary artery disease. a. CABG in 1992. b. CABG in 2002. 2. 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 3. Diabetes mellitus type 2. 4. Hypertension. 5. Hyperlipidemia. 6. Benign prostatic hypertrophy. 7. History of diabetic foot ulcers. 8. Osteoarthritis. 9. Chronic back pain. 10. Incisional hernia 11. Obesity, BMI 35.6 12. Former cigarette smoker Problems: Plan 1. Diet as tolerated. 2. Follow up with a general surgeon either as [facility] or in 3-6 weeks for planning of repair of incisional ventral hernia. VTE Prophylaxis: Sub-Q Heparin (Unfractionated) Resuscitation Status: CPR: Attempt Resuscitation Juan Alicea PA-C Jul 24, 2016 08:44
[2016-07-24] MEDS: Heparin 5,000 Unit/mL Inj SUBQ SCH (10:10)
[2016-07-24] MEDS: Pantoprazole 4 mg/mL 10 mL Inj IVPUSH SCH (10:10)
--- NOTE | 2016-07-24 10:14 | PCM.DIMED ---
Discharge Instructions Date of Service Jul 24, 2016 Dates of Hospitalization Jul 22, 2016 at 00:54 Discharge Diagnosis Discharge Diagnosis Incarcerated ventral hernia with bowel obstruction Diet Heart Healthy Activity No restrictions (May resume usual activity gradually as tolerated) Call your provider Fever or Chills, Shortness of breath, Bleeding, Chest pain, Vomitting, Excessive diarrhea, Weakness (unilateral), Other Patient Instructions Follow-up Provider: Brady Martinez MD Follow-up with PCP in: 1 week Provider: Lokesh Pack MD Follow-up in: 2 weeks (For elective Hernia repair) Jordy Spivey MD Jul 24, 2016 10:14
--- NOTE | 2016-07-24 11:29 | NUR ---
Social Work Discharge: SW acknowledged order for discharge. SW met with patient at bedside to discuss discharge plan. Patient states plan as home with who to assist with needs. Patient states to provide transport home upon discharge. Patient states being independent with needs and has no identified discharge needs at this time. Patient ambulating in room. No other needs identified at this time. SW to follow. PLAN: Home with via POV, pending clinical course. SW to follow. Arlet ANTHONY
--- NOTE | 2016-07-24 11:55 | NUR ---
Discharge Patient DC to home with spouse. All DC education and instructions given to patient and spouse by this RN. Both verbalize understanding of all. Follow up appt. made for patient prior to DC with Dr. Pack at surgery clinic. IV access DC'd with no s/s of infection. No new prescriptions given at this time.
--- NOTE | 2016-07-25 01:55 | PCM.DC.MED ---
Discharge Summary Date of Service Jul 24, 2016 Dates of Hospitalization Date of Hospital Admission Jul 22, 2016 at 00:54 Date of Discharge: Jul 24, 2016 Providers: Admitting Physician: Varun Richardson MD Primary Care Physician: Brady Martinez MD Attending Physician: Varun Richardson MD Diagnosis at Time of Discharge Diagnosis at Time of Discharge Incarcerated ventral hernia with bowel obstruction Procedures XRay, CTs & MRIs X-RAY BARIUM SWALLOW ESOPHAGUS 07/21 IMPRESSION: 1. Mild esophageal dysmotility. 2. Small reducible hernia and moderate reflux. Dictated by: Paul ROCKWELL Interpreted: Cecilia Guerin MD on 07/21/2016 at 11:11 Transcribed by: DANIELLE on 07/21/2016 at 11:12 Approved by: Cecilia Guerin MD, PhD on 07/21/2016 at 17:08 CT Abdomen and pelvis with contrast Conclusion: Incarcerated umbilical hernia causing bowel obstruction. Cannot exclude mild diverticulitis affecting the sigmoid colon. No perforation or abscess. Cholelithiasis is noted. Ultrasound could further evaluate. read by Lewis Kaur DO PROCEDURE: X-RAY KUB ([id number]) INDICATIONS: f/u sbo, follow oral contrast TECHNIQUE: One view of the abdomen acquired. COMPARISON: [facility], CR, XR ABD W ERECT + OR DECUB 2 VW, 2016, 9:29. FINDINGS: Surgical changes and devices: None. Bowel: Abnormal bowel gas pattern is present. Asymmetric dilatation of small bowel throughout the abdomen and pelvis with paucity of gas within the colon. No pneumatosis or bowel wall thickening. No pneumoperitoneum. Soft tissues: No suspicious abdominal calcifications. Visualized solid organ contours appear normal in size. Bones: No suspicious bony lesions. IMPRESSION: Persistent small bowel obstructive pattern redemonstrated. Dictated by: Paul ROCKWELL Interpreted: Dmitriy Au MD on 07/22/2016 at 14: 11 Transcribed by: JULIETTE on 07/22/2016 at 14:11 Approved by: Jonas Au M.D. on 07/22/2016 at 14:18 Brief History Cholo Verdugo is a 81 year old male with Diabetes mellitus, coronary artery disease, hypertension, cardiac pacemaker, and known large abdominal wall hernia who presents to [facility] Emergency department via EMS with severe right-sided abdominal pain. Pain was 8/110 intensity at the time, sharp pain associated with his hernia that started after eating dinner tonight. Patient states that the patient waxes and wanes, and is sometimes unbearable. He reports associated nausea but denies vomiting. Patient reported some bowel movement this morning. Denies any melena or hematochezia. Denies any fever or chills. The patient states that he has a hernia from a previous appendectomy, which has ruptured in the past. His previous surgeons stated that the hernia could not be repaired again due to the complexity of the hernia. The patient reports that food often comes back up after eating food and that he was advised to use a band around his abdomen in order to improve this. However, he states that his symptoms are improved without this band. The patient underwent Barium swallow this morning to investigate this further, which showed mild esophageal dysmotility, reducible hiatal hernia, and moderate reflux. Case discussed with Dr Mahoney, CT finding discussed and he spoke to Dr Moise from surgery. NG tube placed. Hospital Course Cholo Verdugo is an 81 year old male with Diabetes mellitus, coronary artery disease, status post coronary artery bypass graft 2, hypertension, cardiac pacemaker, and known large abdominal wall hernia who presents to [facility] Emergency department via EMS with severe right-sided abdominal pain. 1. Acute abdominal pain due to Small bowel obstruction with incarcerated umbilical hernia. Present on admission Patient had been evaluated by the General surgeons concerning surgery to his umbilical hernia but was not a good surgical candidate. If this turns into an emergency situation, proceed with surgery without any prior cardiac testing - Continue Nothing by mouth - IV fluids resuscitation, holding diuretics - Surgical consult, obtained with Dr. 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 Currently, the hernia is nice and soft without any strangulation. I would get an abdominal x-ray today and possibly remove his nasogastric tube and start him on a diet. Options were discussed with the patient in terms of followup with the surgery clinic to schedule for elective repair versus referral to the [facility] for repair. In the meantime the patient should be provided with an abdominal binder. The patient will think about it and get back to me on his decision but at this time, I do not think we need to proceed to urgent surgical repair." - NG tube was removed this morning - Advance diet as tolerated. Will start with clear liquids. 2. Hiatal Hernia with Esophageal dysmotility. Present on admission Etiology of the esophageal dysmotility is unclear. I am not sure if there is a link to issue described above. - consider Gastroenterology consult 3. Acute Kidney injury due to pre renal azotemia. Present on admission due to hypovolemia from inadequate PO intake in the last few days - continue IV fluids - avoid nephrotoxic insults in hospital - monitor urine output - Check daily labs 4. Diabetes Type 2 - Continue low correction Lispro algorithm - We have given half dose of long acting insulin while NPO and will need to increase long-acting insulin in accordance with his oral intake. - Continue holding Nutritional insulin coverage 5 Hypertension, Chronic - Continue holding Lisinopril for now till renal function clears - Continue holding Hydrochlorothiazide to avoid dehydration while by mouth intake is minimal - will use Calcium channel trey or beta trey if BP is required - Acetaminophen as needed for mild pain/fever/headache - Bowel regimen as needed - Antiemetic as needed Disposition: Patient is being discharged home with his . . Exam Vital Signs (Last) Date Time Temp Pulse Resp B/P Pulse Ox O2 Delivery O2 Flow Rate FiO2 07/24/16 05:06 36.9 60 20 144/69 99 Room Air Exam General: Patient does not appear to be in any significant distress at present time. He appears to be feeling much better. HEENT: Head is atraumatic normocephalic. Eyes: Pupils are equally round and reactive to light and accommodation. Extraocular muscles are intact. Sclera are white anicteric. Subconjunctival mucosa is pink. Ears are unremarkable. The nasogastric tube has been removed from the nose. Oropharynx: There are no mucosal lesions, there is no thrush, there is no pharyngitis. Neck: Is supple, there are no nodes, or masses, or tenderness. Chest: Is clear to auscultation and percussion. There are no rales, rhonchi, wheezes or rubs. However, breath sounds are slightly diminished at the bases. Heart: Rate, rhythm is regular. There is no new murmur, rub or gallop. Abdomen: Hypoactive bowel sounds are present. Abdomen is distended and tympanitic, soft and nontender. The ventral wall hernia is easily reducible. Extremities: Are symmetrical and well perfused. There is no edema, there is no cellulitis, no rash. Neurologic: There are no focal neurological deficits. Cranial nerves II through XII are intact. There are no sensory or motor deficits. Psychiatric: Patients mood is calm and shows no sign of agitation. Genital: Deferred Rectal: Deferred Test 07/21/16 21:13 07/21/16 22:00 07/22/16 08:00 07/23/16 05:25 Hold Purple Top Tube Received (Received) Hold Blue Top Tube Received (Received) Lipase 12U/L (13-60) Hold Red Top Tube Received (Received) Hold [place] Top Tube Received (Received) Hold Urine Received (Received) Hemoglobin A1c 7.1% (4.8-5.6) Phosphorus Level 4.0mg/dL (2.5-4.9) Test 07/24/16 05:04 White Blood Count 4.5th/mm3 (3.8-10.1) Red Blood Count 3.44mil/mm3 (4.40-5.80) Hemoglobin 10.8g/dL (13.8-17.2) Hematocrit 33.2% (41.0-50.0) Mean Corpuscular Volume 96.5fL (81-100) Mean Corpuscular Hemoglobin 31.4pg (27.0-35.0) Mean Corpuscular Hemoglobin Concent 32.5% (32.0-37.0) Red Cell Distribution Width 13.0% (12.3-15.4) Platelet Count 152bil/L (150-400) Neutrophils (%) (Auto) 68.3% (40-74) Lymphocytes (%) (Auto) 16.0% (14-46) Monocytes (%) (Auto) 12.2% (4-12) Eosinophils (%) (Auto) 3.1% (0-5) Basophils (%) (Auto) 0.2% (0-3) Sodium Level 139mEq/L (134-144) Potassium Level 4.3mEq/L (3.5-5.2) Chloride Level 107mEq/L (97-108) Carbon Dioxide Level 20mmol/L (18-29) Blood Urea Nitrogen 34mg/dL (8-27) Creatinine 1.28mg/dL (0.76-1.27) Estimat Glomerular Filtration Rate 57mL/min (>59) Glucose Level 152mg/dL (60-99) Calcium Level 7.8mg/dL (8.5-10.1) Magnesium Level 1.8mg/dL (1.6-2.6) Total Bilirubin 0.4mg/dL (0.0-1.2) Aspartate Amino Transf (AST/SGOT) 22U/L (0-50) Alanine Aminotransferase (ALT/SGPT) 20U/L (0-44) Alkaline Phosphatase 58U/L (25-160) Total Protein 5.5g/dL (6.4-8.4) Albumin 3.5g/dL (3.4-5.0) Discharge Medications Discharge Medications Alfuzosin ER (Alfuzosin ER) 10 Mg Tab.er.24h 10 MG PO DAILY (Reported) Aspirin (Ecotrin) 325 Mg Tablet.dr 325 MG PO DAILY (Reported) Atorvastatin (Lipitor) 20 Mg Tablet 20 MG PO DAILY (Reported) Hydrochlorothiazide (Hydrochlorothiazide) 25 Mg Tablet 25 MG PO DAILY (Reported ) Insulin Aspart (NovoLOG U-100 Pen) 100 Unit/Ml Insuln.pen 12 UNITS SUBQ TIDAC ( Reported) If blood sugar between 130-160 give 12 units Novolog sliding scale raised in increments to a max of 20 units Insulin Detemir (Levemir U100 Flexpen Insulin) 100 Unit/1 Ml Insuln.pen 40 UNIT SUBQ QPM-INSULIN (Reported) Lisinopril (Lisinopril) 20 Mg Tablet 20 MG PO DAILY (Reported) Multivitamin (Daily Vitamin) 1 Each Tablet 1 EACH PO DAILY (Reported) [place]-3 Fatty Acids/Fish Oil (Fish Oil Softgel) 1 Each Capsule 1 EACH PO DAILY ( Reported) Vit C/Vit E/Lutein/Min/[place]-3 (Ocuvite Softgel) 1 Each Capsule 1 EACH PO DAILY (Reported) Followup Plan Disposition: Patient being discharged home with his . Discharge Diet: Heart Healthy Discharge Activity: No restrictions (May resume usual activity gradually as tolerated) Follow-up Provider: Brady Martinez MD Follow-up with PCP in: 1 week Provider: Lokesh Pack MD Follow-up in: 2 weeks (For elective Hernia repair) Time spent Time spent on discharging this patient was greater than 35 minutes, over half of which was involved in counseling and coordination of care. Jordy Spivey MD Jul 25, 2016 01:55
[2016-09-19] MEDS ORDERED: PSYL798P2 PO (13:09)
== END 2016-07-24 11:55 | disposition home or self-care (01) | DRG 394 ==
LOC: SED 20:59 → EDUNIT# 20:59 → EDBD 20:59 → OSC 07-22 00:54
PROVIDERS: ADMIT Hospitalist; ATTEND Hospitalist
DX: K43.6 Other and unspecified ventral hernia with obstruction, without gangrene (principal); N17.9 Acute kidney failure, unspecified; E11.9 Type 2 diabetes mellitus without complications; I25.10 Atherosclerotic heart disease of native coronary artery without angina pectoris; I10 Essential (primary) hypertension; M19.90 Unspecified osteoarthritis, unspecified site; R13.10 Dysphagia, unspecified; N40.0 Benign prostatic hyperplasia without lower urinary tract symptoms; E78.5 Hyperlipidemia, unspecified; Z87.891 Personal history of nicotine dependence; Z98.61 Coronary angioplasty status; Z90.49 Acquired absence of other specified parts of digestive tract; Z95.0 Presence of cardiac pacemaker; Z79.4 Long term (current) use of insulin; Z79.82 Long term (current) use of aspirin

== ENCOUNTER 2016-08-08 12:55 | Inpatient (IN) | payer MEDICARE, OTHER ==
[~2016-08-08] VITALS: Ht 190.5 cm; Wt 122.2 kg
[~2016-08-08 12:55] MED LIST changes: +ALFU10TA11 PO; +ATOR20TA PO
[2016-08-08 12:58] VITALS: BP 126/53; PULSE 74; RESP 15; O2SAT 97
--- NOTE | 2016-08-08 13:40 | ED.REPORT ---
HPI-General Illness Date of Service Aug 08, 2016 ED Provider: Malcolm Wise PA-C Al is a 81-year-old male with a history of diabetes and heart disease who is brought in by his with chief complaint of increased fatigue and confusion. reports increased exhaustion, disorientation, forgetfulness and confusion over the last 9 days. She reports that he had a Borges catheter placed approximately 10 days ago. He was discharged from the hospital figure second after an admission for a bowel obstruction secondary to incarcerated hernia. he has an appointment to be seen by a surgeon on Thursday. He has an appointment to be seen by urology August 20. Admits recent history of diarrhea and shortness of breath. Denies fever, chills, sweats, melena, hematochezia, hematuria, wheezes or upper respiratory symptoms, back pain. Also complains of pain and swelling in his left middle finger. Nursing Notes Stated Complaint: WEAKNESS/DECREASED LOC Chief Complaint: General Complaint Nursing Notes Reviewed: Yes Allergies: Coded Allergies: Tuna (Verified Allergy, Unknown, 08/08/16) Uncoded Allergies: artificial sweeteners (Allergy, Intermediate, 03/31/10) vision changes Scheduled Alfuzosin ER (Alfuzosin ER) 10 Mg Tab.er.24h 10 MG PO BID Aspirin (Aspirin) 325 Mg Tablet 325 MG PO QAM Atorvastatin (Lipitor) 20 Mg Tablet 20 MG PO DAILY Hydrochlorothiazide (Hydrochlorothiazide) 25 Mg Tablet 25 MG PO DAILY Insulin Aspart (NovoLOG U-100 Pen) 100 Unit/Ml Insuln.pen 12 UNITS SUBQ TIDAC If blood sugar between 130-160 give 12 units Novolog sliding scale raised in increments to a max of 20 units Insulin Detemir (Levemir Flextouch) 100 Unit/1 Ml Insuln.pen 40 UNITS SUBQ QPM Lisinopril (Lisinopril) 20 Mg Tablet 20 MG PO DAILY Multivitamin (Multivitamins) 1 Each Capsule 1 EACH PO DAILY [place]-3S/Dha/Epa/Fish Oil/D3 (Fish Oil + D3 Softgel) 1 Each Capsule 1 EACH PO DAILY Vit C/Vit E/Lutein/Min/[place]-3 (Ocuvite Softgel) 1 Each Capsule 1 EACH PO DAILY General Time Seen by MD: 13:09 Chief Complaint Weakness Past Medical History Past Medical History Abdominal Hernia 1. Coronary artery disease. a. CABG in 1992. b. CABG in 2002. 2. 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 3. Diabetes mellitus type 2. 4. Hypertension. 5. Hyperlipidemia. 6. Benign prostatic hypertrophy. 7. History of diabetic foot ulcers. 8. Osteoarthritis. 9. Chronic back pain. Reports: Coronary artery disease, Diabetes mellitus, Hyperlipidemia, Hypertension Past Surgical History 1. CABG in 1992 and 2002. 2. Pacemaker placement in 2005. 3. Appendectomy. 4. multiple abdominal wall hernia repairs Reports: Appendectomy, CABG Reports: Pacemaker insertion Smoking History Former Smoker Social History Other Social History: Good social support, , Local resident Ambulatory Status Independent Review of Systems Negative unless stated otherwise in history of present illness Physical Exam General: Well appearing, well developed, well nourished, no acute distress. Head: Atraumatic, normocephalic. No mastoid tenderness. Eyes: No scleral icterus or injection. No discharge. PERRL. Vision grossly intact. Ears: Pinna and tragus nontender with manipulation. External auditory canal patent, atraumatic and without discharge. Tympanic membrane mantilla, shiny and translucent without fluid, bulging, retraction or perforation. Hearing grossly intact. Nose: Symmetrical, nares patent without discharge. No frontal or maxillary sinus tenderness. Mouth/pharynx: normal dentition, mucus membranes moist. Tonsils 2+ and symmetrical, uvula midline. Pharynx noninjected, no cobblestoning or discharge. Voice clear. Neck: No tenderness or lymphadenopathy. Trachea midline. Respiratory: Regular rate and rhythm. Breath sounds present, clear to auscultation and equal bilaterally. No respiratory distress. No increased work of breathing, speaks in complete sentences. Cardiovascular: Regular rate and rhythm, without murmur, gallop or rub. No pedal edema. Gastrointestinal: Right anterior abdominal hernia, supported with a truss. No erythema, peritoneal signs, tenderness, guarding or rebound. Hyperactive bowel sounds Skin: Warm and dry. Left third finger: Reduced range of motion in the PIP and DIP joint with overlying swelling, erythema and tenderness from roughly the PIP joint to the distal end. Slight [place] nodes noted. Neurological: Grossly nonfocal. Psychological: Alert and oriented. Speech appropriate, linear and logical. Behavior appropriate. Vital Signs Vital Signs Date Time Temp Pulse Resp B/P Pulse Ox O2 Delivery O2 Flow Rate FiO2 08/08/16 12:58 36.0 74 15 126/53 97 Room Air Initial VS: Reviewed, Vital signs normal Interpretation & Diagnostics Lab Results Interpretation Result Diagram: 08/08/16 1335 08/08/16 1335 Test 08/08/16 13:28 08/08/16 13:35 Urine Color Yellow (YELLOW) Urine Appearance Cloudy (CLEAR,HAZY) Urine pH 6.0 (5.0-8.0) Urine Specific [place] 1.025 (1.003-1.035) Urine Protein 100mg/dL (NEG,TRACE) Urine Glucose (UA) Negativemg/dL (NEGATIVE) Urine Ketones Negativemg/dL (NEGATIVE) Urine Occult Blood Large (NEGATIVE) Urine Nitrite Negative (NEGATIVE) Urine Bilirubin Negative (NEGATIVE) Urine Urobilinogen Normalmg/dL (NORMAL) Urine Leukocyte Esterase Large (NEGATIVE) Urine RBC 11-50/hpf (0-2) Urine WBC Packed/hpf (0-5) Urine Epithelial Cells Occasional/hpf (NONE-MOD) Urine Crystals None seen (NONE SEEN) Urine Bacteria Many/hpf (NONE-FEW) Urine Hyaline Casts None/lpf (NONE) Urine Granular Casts None seen (NONE SEEN) Urine Waxy Casts None seen (NONE SEEN) Urine Red Blood Cell Casts None seen (NONE SEEN) Urine White Blood Cell Casts None seen (NONE SEEN) Urine Mucus None seen (None Seen) Urine Trichomonas None seen (NONE SEEN) Urine Yeast None (NONE SEEN) Urinalysis Comment None Urine Culture Reflexed Indicated White Blood Count 16.7th/mm3 (3.8-10.1) Red Blood Count 3.57mil/mm3 (4.40-5.80) Hemoglobin 10.9g/dL (13.8-17.2) Hematocrit 33.4% (41.0-50.0) Mean Corpuscular Volume 93.6fL (81-100) Mean Corpuscular Hemoglobin 30.5pg (27.0-35.0) Mean Corpuscular Hemoglobin Concent 32.6% (32.0-37.0) Red Cell Distribution Width 12.7% (12.3-15.4) Platelet Count 285bil/L (150-400) Neutrophils (%) (Auto) 90.0% (40-74) Lymphocytes (%) (Auto) 4.0% (14-46) Monocytes (%) (Auto) 5.1% (4-12) Eosinophils (%) (Auto) 0.2% (0-5) Basophils (%) (Auto) 0.1% (0-3) Prothrombin Time 11.4sec (8.1-12.5) Prothromb Time International Ratio 1.06ratio Activated Partial Thromboplast Time 29.8sec (22.8-33.0) Sodium Level 132mEq/L (134-144) Potassium Level 5.0mEq/L (3.5-5.2) Chloride Level 97mEq/L (97-108) Carbon Dioxide Level 15mmol/L (18-29) Blood Urea Nitrogen 62mg/dL (8-27) Creatinine 1.96mg/dL (0.76-1.27) Estimat Glomerular Filtration Rate 35mL/min (>59) Glucose Level 396mg/dL (60-99) Lactic Acid Level 2.1mmol/L (0.4-2.0) Calcium Level 8.2mg/dL (8.5-10.1) Total Bilirubin 0.5mg/dL (0.0-1.2) Aspartate Amino Transf (AST/SGOT) 41U/L (0-50) Alanine Aminotransferase (ALT/SGPT) 88U/L (0-44) Alkaline Phosphatase 183U/L (25-160) Total Protein 6.2g/dL (6.4-8.4) Albumin 3.1g/dL (3.4-5.0) Lab Results Interpretation: Mildly elevated lactate at 2.1 Elevated BUN and creatinine with estimated GFR of 35 Glucose of 396 Mildly elevated ALT, ALP Mildly reduced total protein and albumin, Sodium, carbon dioxide and calcium Leukocytosis at 16.7 with left shift. Anemia noted with a hemoglobin of 10.9 and hematocrit of 33.4 Evidence of urinary tract infection with cloudy appearance elevated urine protein occult blood and leukocyte esterase, red blood cells white blood cells and bacteria Re-Eval/Medical Decision Med Decision/Clinical Course I discussed this case with Dr. Dubon. 81-year-old male with a recent history of bowel obstruction and catheterization presents with increased confusion and fatigue. Physical exam is benign, with the exception of redness, swelling and tenderness of the left third digit. Vital signs normal. Evidence of urinary tract infection on urinalysis. CBC reveals leukocytosis and anemia. CMP reveals reduced kidney function. Lactate 2.1. Though the patient is not clearly septic, seems reasonable to seek admission considering reduced level of consciousness with leukocytosis. I discussed the case with Dr. Enciso who accepts admission. I started IV ceftriaxone at her request. Time of Eval: 14:48 Re-Evaluation/Progress Note: Discussed lab results with Dr. Dubon, who feels this result to pursue admission. I discussed this with the patient and family who are amenable. Consultation : Referral / Consult Name: Keyon Enciso MD Consulted With: Hospitalist Requested Call at: 14:48 Call Returned at: 14:56 Dam Attendant: Accepts admit Note: Start Rocephin Discharge & Departure Primary Impression: Urinary tract infection associated with catheterization of urinary tract Encounter type: initial encounter Qualified Code: T83.51XA - Infection and inflammatory reaction due to indwelling urinary catheter, initial encounter Disposition: ADMITTED TO HOSPITAL Referrals: Brady Martinez MD (PCP) EDSupervising Provider for APC: Shan Dubon MD copies to: Brady Martinez MD, Seth PA-C Aug 08, 2016 13:40
[2016-08-08 13:45] LABS: BASOPHILS % (AUTO) 0.1 % (0-3); Mean Corpuscular Volume 93.6 fL (81-100)
[2016-08-08 13:50] LABS: APPEARANCE,URINE CLOUDY (CLEAR,HAZY); COLOR,URINE YELLOW (YELLOW)
[2016-08-08 13:51] LABS: EOSINOPHILS % (AUTO) 0.2 % (0-5); MONOCYTES % (AUTO) 5.1 % (4-12); Mean Corpuscular Hemoglobin 30.5 pg (27.0-35.0); Platelet Count 285 bil/L (150-400)
[2016-08-08 13:51] LABS: OCCULT BLOOD,URINE LARGE (NEGATIVE); UROBILINOGEN,URINE NORMAL (NORMAL)
[2016-08-08] MEDS ORDERED: cefTRIAXone Inj 1,000 MG in Dextrose 5% Minibag Plus 50 ML IV ONE (15:00)
[2016-08-08] MEDS: 0.9% Sodium Chloride 1,000 ML IV SCH (15:00)
[2016-08-08] MEDS: 0.9% Sodium Chloride 500 ML IV SCH ×2 (15:19→21:59)
[2016-08-08] MEDS ORDERED: Glucose 40% Oral Gel 15 Gm Tube PO PRN (15:20)
[2016-08-08] MEDS ORDERED: Ondansetron 2 mg/mL 2 mL Inj IVPUSH PRN (15:20)
[2016-08-08] MEDS ORDERED: OMEG-86 PO (15:36)
[2016-08-08] MEDS ORDERED: MULT1CAP33 PO (15:36)
[2016-08-08] MEDS ORDERED: INSU100I25 SUBQ (15:36)
[2016-08-08] MEDS ORDERED: ASPI325T32 PO (15:36)
[2016-08-08 15:47] LABS: INR 1.06 ratio
--- NOTE | 2016-08-08 16:35 | NUR ---
Admit Pt was admitted to [facility] room 1017 at 1635 via stretcher. Pt was able to transfer SBA to bed. Pt A&Ox3. ROTHMAN. Denies pain or nausea. NS running at 100cc/hr. Borges catheter present on admission with leg bag attached. Family at bedside. Significant hernia on his right side of the abdomen. Abdominal binder at bedside. Care continues.
[2016-08-08 16:40] VITALS: BP 169/51; PULSE 73; RESP 16; O2SAT 97
--- NOTE | 2016-08-08 17:27 | DRSVH ---
PROCEDURE: US ABDOMEN, LIMITED ([id number]) INDICATIONS: Liver, transaminitis, evaluate hepatitis. TECHNIQUE: Real-time focused scanning was performed of the abdomen with image documentation. COMPARISON: [facility], CT, CT ABD PELVIS W CON, 07/21/2016, 23:42. FINDINGS: Liver is diffusely increased in echogenicity. No focal hepatic abnormalities identified. Normal hepatic size. No discrete hepatic masses visualized. A 5 mm hepatic dome cyst is present. Multiple gallstones and no gallbladder wall thickening. No biliary dilatation. Pancreas not visuali zed. IMPRESSION: 1. Increased hepatic echogenicity noted, likely related to fatty infiltration of the liver but other sources of hepatocellular disease cannot be excluded. Recommend clinical correlation. 2. Cholelithiasis without evidence for cholecystitis. Dictated by: Paul ROCKWELL Interpreted: Brook Mcintosh MD on 08/08/2016 at 17:12 Transcribed by: BIANCA on 08/08/2016 at 20:27 Approved by: Brook Mcintosh M.D. on 08/09/2016 at 17:05
--- NOTE | 2016-08-08 17:42 | PCM.HPMED ---
Subjective Date of Service Aug 08, 2016 Primary Provider: Admitting Physician: Primary Care Physician: Brady Martinez MD Attending Physician: Chief Complaint: Fatigued/confused per HISTORY was OBTAINED FROM PATIENT / [facility] NOTES History of present illness 81-year-old male with 10 day history of Galvan catheter07/29/16, she has become confused and tired per , initially seen at urgent care then sent to the ER.lightheaded. galvan placed in PCP office due to inability to void, w/ >1L output after 2 attempts w/ subsequent hematuria eventually resolved. He had taken alfuzosin chronically has not missed dosing, pending urologist visit. prior UTI hx. ongoing exhaustion. fecal incontinence formed last night while asleep. + BM no vomiting no abdominal pain currently, Third finger swelling Last admitted 07/22 - 07/24/2016 for incisional ventral hernia related bowel obstruction, given complicated patient, deemed nonoperative at [facility], treated with NG tube/bowel rest, referred to [facility] for repair 2016 In the ER afebrile heart rate 74, 126/53, room air weight 122 kg // Rocephin normal saline Review of Systems - none of the following - F/C/sick contact / wt change/ MALIK / / sob / cough / cp / acid reflux // bleeding/bruising / leg swelling / rash ambulates FAMILY HX heart disease, brother prostate cancer SOCIAL HXformer smoker no etoh MEDICATIONS Alfuzosin ER (Alfuzosin ER) 10 Mg Tab.er.24h 10 MG PO DAILY Aspirin (Ecotrin) 325 Mg Tablet. 325 MG PO DAILY Atorvastatin (Lipitor) 20 Mg Tablet 20 MG PO DAILY Hydrochlorothiazide (Hydrochlorothiazide) 25 Mg Tablet 25 MG PO DAILY Insulin Aspart (NovoLOG U-100 Pen) 100 Unit/Ml Insuln.pen 12 UNITS SUBQ TIDAC If blood sugar between 130-160 give 12 units Novolog sliding scale raised in increments to a max of 20 units Insulin Detemir (Levemir U100 Flexpen Insulin) 100 Unit/1 Ml Insuln.pen 40 UNIT SUBQ QPM-INSULIN Lisinopril (Lisinopril) 20 Mg Tablet 20 MG PO DAILY Multivitamin (Daily Vitamin) 1 Each Tablet 1 EACH PO DAILY [place]-3 Fatty Acids/Fish Oil (Fish Oil Softgel) 1 Each Capsule 1 EACH PO DAILY Vit C/Vit E/Lutein/Min/[place]-3 (Ocuvite Softgel) 1 Each Capsule 1 EACH PO DAILY Past Medical/Surgical HX CABG 2, 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 Osteoarthritis.. Chronic back pain. Allergies Coded Allergies: Tuna (Verified Allergy, Unknown, 08/08/16) Uncoded Allergies: artificial sweeteners (Allergy, Intermediate, 03/31/10) vision changes PMH Social History Hx Alcohol Use: No Hx Substance Use: No Hx Tobacco Use: No Smoking Status: Former Smoker Exam Vital Signs Vital Sign - Last Date Time Temp Pulse Resp B/P Pulse Ox O2 Delivery O2 Flow Rate FiO2 08/08/16 12:58 36.0 74 15 126/53 97 Room Air Lab and Diagnostics Labs Exam on admission room air NAD A and O x 3 mood affect WNL NC/AT no icterus no injected eyes EOMI PERRL /no pharyngeal lesions/ no oral lesions / hearing intact Supple neck CTAB equal chest rise / no accessory muscle use / speaks in full sentences / no rrw RRR S1 S2 / no mrg / 2+ radial pulses Soft nt nd + BS no hepatosplenomegaly No edema no cyanosis no ecchymosis of lower extremities No rash / no jaundice ROTHMAN symmetrical facies sternotomy scar right lower abdomen scars from tube/drain x 2 infraumbilical laparatomy scar reducible RLQ hernia Trop pending 90% neutrophils lactic acid 2.1 UCx pending UA travis esterase and bacteria present no yeast LFT ALT 88, alkaline phosphatase 183 albumin 3.1 Imaging 07/23/2016 PROCEDURE: X-RAY ABDOMEN WITH ERECT AND/OR DECUBITUS VIEWS ([id number] ) INDICATIONS: SMALL BOWEL OBSTRUCTION TECHNIQUE: 2 views of the abdomen were acquired. COMPARISON: [facility], CR, XR KUB, 07/22/2016, 13:32. FINDINGS: Surgical changes and devices: None. Bowel: Residual contrast agent seen throughout the bowel and there is persistent dilation of multiple small bowel loops and otherwise normal appearance of contrast media within the colon. Soft tissues: No masses; visualized solid organ contours appear normal in size. No suspicious abdominal calcifications. Bones: No suspicious bony abnormalities. IMPRESSION: Persistent small bowel dilatation with contrast media noted within the colon suggesting partial small bowel obstruction. Recommend clinical correlation. 07/21/16 PROCEDURE: CT ABDOMEN AND PELVIS WITH CONTRAST ([id number]) INDICATIONS: abdo pain, recurrent hernia/obstruction TECHNIQUE: After the administration of intravenous contrast, 5 mm thick sections acquired from the diaphragm to the symphysis. 5 mm coronal and sagittal reformats were acquired. For radiation dose reduction, the following was used: automated exposure control, adjustment of mA and/or kV according to patient size. COMPARISON: None. 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 ABDOMEN: Lung bases: Lung bases are clear. Heart size is normal. Permanent pacemaker. Distal esophagus is fluid-filled, compatible with reflux noted on prior esophagram. Solid organs: Liver and spleen are normal in size and enhancement. Gallbladder contains numerous gallstones. Biliary system is non dilated. Atrophic pancreas enhances normally. No adrenal nodules. Kidneys demonstrate normal size and enhancement, without hydronephrosis there is a punctate nonobstructing calculus in the lower pole of the left kidney and a small exophytic hypodense cyst or cystic mass in the lower pole of the right kidney.. Peritoneum and bowel: Dilated bowel loops are present proximal to bowel entrapped within a periumbilical ventral hernia on the right. There are numerous subcutaneous sutures down midline raising possibility of incisional hernia. Bowel loops distal to the hernia appear normal in caliber, compatible with obstruction within the hernia. No apparent bowel wall thickening although difficult to assess secondary to beam hardening artifact from the dense contrast material within bowel from prior esophagram. The appendix is normal. There is sigmoid diverticulosis with probable fat stranding although partially obscured by artifact. Nodes and vessels: No retroperitoneal or mesenteric adenopathy by size criteria. Atheromatous aorta and inferior vena cava are normal in size. Miscellaneous: No ascites PELVIS: Genitourinary: Bladder wall thickness is normal. The prostate is markedly enlarged measuring 9.7 x 9.7 cm. Miscellaneous: No inguinal hernias or adenopathy. Bones: No suspicious bony lesions. Multilevel degenerative disc disease. No vertebral body compression fractures. IMPRESSION: 1. Partial small bowel obstruction secondary to incarcerated hernia in the right periumbilical region. 2. Sigmoid diverticulosis. Mild diverticulitis cannot be excluded. 3. Cholelithiasis. 4. Marked prostatic hypertrophy. Prostate cancer cannot be excluded. Result Diagram: 08/08/16 1335 08/08/165 Assessment & Plan Active issues and reason for admission Confusion/lethargy due to Galvan associated UTI with leukocytosis/lactic acidosis --change galvan, cover MRSA/gram neg w/ rocephine/vanco --pending ucx Mild hyponatremia, likely due to dehydration --poor eating and lightheaded at home lately --IVF mild elevated Creatinine 1.96 -- Baseline 1.3-1.5 New transaminitis -- Ultrasound liver pending --previously told in the 1970s that he had hepatitis when attempting to donate blood, no risk factors but pending hepatitis panel Chronic issues known prior to admission, present on admission CABG 2, 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 Osteoarthritis.. Chronic back pain. --resume home medications, Sliding-scale insulin Diet cardiac DM DVT prophylaxis scd ambulate Code full Disposition inpt Assessment and plan were discussed with patient family. Keyon Enciso MD Aug 08, 2016 15:32
[2016-08-08] MEDS: Insulin LISPRO 300 Unit/3 mL Inj SUBQ SCH ×2 (17:54→22:24)
[2016-08-08] MEDS ORDERED: Vancomycin Inj 2,000 MG in 0.9% Sodium Chloride 500 ML IV ONE (18:25)
--- NOTE | 2016-08-08 18:31 | PCM.PHAPRO ---
Progress Fatigued/confused per HISTORY was OBTAINED FROM PATIENT / MEDITECH NOTES History of present illness 81-year-old male with 10 day history of Galvan catheter07/29/16, she has become confused and tired per , initially seen at urgent care then sent to the ER.lightheaded. galvan placed in PCP office due to inability to void, w/ >1L output after 2 attempts w/ subsequent hematuria eventually resolved. He had taken alfuzosin chronically has not missed dosing, pending urologist visit. prior UTI hx. ongoing exhaustion. fecal incontinence formed last night while asleep. + BM no vomiting no abdominal pain currently, Third finger swelling Last admitted 07/22 - 07/24/2016 for incisional ventral hernia related bowel obstruction, given complicated patient, deemed nonoperative at [facility], treated with NG tube/bowel rest, referred to [facility] for repair 2016 In the ER afebrile heart rate 74, 126/53, room air weight 122 kg // Rocephin normal saline Review of Systems - none of the following - F/C/sick contact / wt change/ MALIK / / sob / cough / cp / acid reflux // bleeding/bruising / leg swelling / rash ambulates FAMILY HX heart disease, brother prostate cancer SOCIAL HXformer smoker no etoh MEDICATIONS Alfuzosin ER (Alfuzosin ER) 10 Mg Tab.er.24h 10 MG PO DAILY Aspirin (Ecotrin) 325 Mg Tablet.dr 325 MG PO DAILY Atorvastatin (Lipitor) 20 Mg Tablet 20 MG PO DAILY Hydrochlorothiazide (Hydrochlorothiazide) 25 Mg Tablet 25 MG PO DAILY Insulin Aspart (NovoLOG U-100 Pen) 100 Unit/Ml Insuln.pen 12 UNITS SUBQ TIDAC If blood sugar between 130-160 give 12 units Novolog sliding scale raised in increments to a max of 20 units Insulin Detemir (Levemir U100 Flexpen Insulin) 100 Unit/1 Ml Insuln.pen 40 UNIT SUBQ QPM-INSULIN Lisinopril (Lisinopril) 20 Mg Tablet 20 MG PO DAILY Multivitamin (Daily Vitamin) 1 Each Tablet 1 EACH PO DAILY [place]-3 Fatty Acids/Fish Oil (Fish Oil Softgel) 1 Each Capsule 1 EACH PO DAILY Vit C/Vit E/Lutein/Min/[place]-3 (Ocuvite Softgel) 1 Each Capsule 1 EACH PO DAILY Past Medical/Surgical HX CABG 2, 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 Osteoarthritis.. Chronic back pain. Patient is an 75 y.o. male receiving vancomycin for catheter uti.. WBC count is 16.7 and the patient is afebrile. Patient is 75 kg, 75 inches tall with a SCr of 1.96 mg/dL-- estimated CrCl of 44mL/min. Based on patient parameters vancomycin will be dosed at 1750mg q24h with a target trough of 15-20 /mL. Trough will be drawn prior to the 3th dose on 08/10 @ 1900. Pharmacy will follow daily and adjust as appropriate. Thank you for the consult in the care of this patient. RTM PharmD Uriah Patel Aug 08, 2016 18:31
[2016-08-08] MEDS ORDERED: Alfuzosin 10 mg ER24 Tablet PO SCH (20:30)
[2016-08-08] MEDS: Vancomycin Dose per Pharmacist XX SCH (21:03)
[2016-08-08 22:10] VITALS: BP 156/77; RESP 16; O2SAT 96
[2016-08-08] MEDS: Insulin GLARgine 100 Unit/mL Syringe SUBQ SCH (22:23)
[2016-08-08] MEDS ORDERED: Lidocaine 2% 6mL Topical Jelly TOPICAL ONE (22:30)
[2016-08-09] MEDS: 0.9% Sodium Chloride 1,000 ML IV SCH ×3 (01:00→20:59)
[2016-08-09 01:23] VITALS: BP 137/69; PULSE 60; RESP 16; O2SAT 96
--- NOTE | 2016-08-09 04:07 | NUR ---
Galvan catheter Changed leg bag to larger collection bag, draining freely to gravity. Md decided to wait and change galvan catheter during day in case urology is required to assist based on difficulty of insertion at clinic. IV fluids and antibiotics infused. Pt has remained alert and fully oriented, bed alarm on for safety. Pt has not been out of bed this shift. Hourly rounding ongoing.
[2016-08-09 04:08] LABS: Hepatitis A Antibody IgM Negative (Negative); Hepatitis B Core Antibody IgM Negative (Negative)
[2016-08-09] MEDS: 0.9% Sodium Chloride 500 ML IV SCH ×4 (04:39→20:59)
[2016-08-09 05:26] VITALS: BP 147/77; PULSE 64; RESP 16; O2SAT 93
[2016-08-09 06:41] LABS: Mean Corpuscular Hemoglobin 30.3 pg (27.0-35.0); Mean Corpuscular Volume 93.8 fL (81-100)
[2016-08-09] MEDS: Vancomycin Dose per Pharmacist XX SCH (08:13)
[2016-08-09] MEDS: Insulin LISPRO 300 Unit/3 mL Inj SUBQ SCH ×4 (08:13→22:23)
--- NOTE | 2016-08-09 10:45 | DRSVH ---
PROCEDURE: X-RAY FINGERS, TWO VIEWS INDICATIONS: pain,left middle finger TECHNIQUE: AP hand, 2 views of the third finger(s) acquired. COMPARISON: None. FINDINGS: Bones: No fractures or dislocations. No suspicious bony lesions. Prominent PIP in the IP degenerat mauri changes particularly within the second and third digit are present Soft tissues: No suspicious soft tissue calcifications. IMPRESSION: Prominent PIP and DIP joint space narrowing particularly within the second and third digi ts suggestive of osteoarthritis. Dictated by: Brook Mcintosh M.D. on 08/09/2016 at 10:42 Approved by: Brook Mcintosh M.D. on 08/09/2016 at 10:43
--- NOTE | 2016-08-09 10:48 | NUR ---
Borges Cath Changed Borges cath per MD order. Pt had some thick drainage from the urethra prior to new cath change. Pt tolerated cath change well, used a 14f coude. Large collection container hanging to gravity.
[2016-08-09 12:32] VITALS: BP 161/72; PULSE 63; RESP 16; O2SAT 97
--- NOTE | 2016-08-09 15:54 | NUR ---
Evaluation completed. Please go to "Notes" then click on "Assessments and Notes" (bottom left corner of screen). Then select appropriate discipline tab on top of screen.
--- NOTE | 2016-08-09 16:14 | PCM.PNMED ---
Subjective Date of Service Aug 09, 2016 Subjective Afebrile. Confusion resolved. Complaints of fatigue. Galvan exchanged. Left middle finger swelling and pain but improving. KAMILLA and acidosis improving. Exam Vital Signs Vital Sign - Last Date Time Temp Pulse Resp B/P Pulse Ox O2 Delivery O2 Flow Rate FiO2 08/09/16 12:32 36.9 63 16 161/72 97 Room Air Intake and Output 08/08/16 08/08/16 08/09/16 Cumulative From/Thru 15:00 23:00 07:00 08/08/16 12:58 - 08/09/16 03:05 Intake Total 610 ml 1247 ml 1857 ml Output Total 400 ml 400 ml Balance 210 ml 1247 ml 1457 ml Intake Oral 400 ml 400 ml IV Total 210 ml 1247 ml 1457 ml Output Urine Total 400 ml 400 ml # Bowel Movements 0 0 Exam NAD A and O x 3 mood affect WNL NC/AT no icterus no injected eyes EOMI PERRL /no pharyngeal lesions/ no oral lesions / hearing intact Supple neck CTAB equal chest rise / no accessory muscle use / speaks in full sentences / no rrw RRR S1 S2 / no mrg / 2+ radial pulses Soft nt nd + BS no hepatosplenomegaly No edema no cyanosis no ecchymosis of lower extremities No rash / no jaundice sternotomy scar right lower abdomen scars from tube/drain x 2 infraumbilical laparatomy scar reducible RLQ hernia IVs and Medications Medications Reviewed: Medications were reviewed in detail Lab and Diagnostics Result Diagram: 08/09/1637 08/09/1637 Assessment & Plan Active issues and reason for admission # Sepsis due to UTI -evidences of sepsis: Confusion/lethargy , acute liver injury, leukocytosis/ lactic acidosis, acidosis with initial bicarbonate 15, KAMILLA with initial creatinine 1.96 --changed galvan, initially covered MRSA/gram neg w/ rocephine/vanco,will descalate to ceftriaxone , urine culture not helpful --ucx bacterial contamination # KAMILLA -initial Creatinine 1.96, improved to 1.4, bicarbonate improved from 15 to 19 -- Baseline cr 1.3-1.5 # Mild hyponatremia, likely due to dehydration, improved --IVF # transaminitis due to sepsis -- Ultrasound liver unrevealing --previously told in the 1970s that he had hepatitis when attempting to donate blood, no risk factors but pending hepatitis panel #Left middle finger osteoarthritis, acute -X-ray consistent with osteoarthritis -Pain control. Swelling improving # Dm -levemir 15 u HS ,ISS Chronic issues known prior to admission, present on admission #CABG 2, 3 blood vessels then 4blood vessel #Pacemaker, hypertension #GERD #UTI history Diabetes type II Appendectomy/recurrent incisional hernia associated small bowel obstructions Hiatal hernia/esophageal dysmotility AK I Hypertension Diet cardiac DM DVT prophylaxis scd ambulate Code full Disposition discharge in 2-3 days pending improvement of sepsis VTE Mechanical Devices: Intermittant Pneumatic CD Gary Jolly MD Aug 09, 2016 16:13
[2016-08-09] MEDS ORDERED: cefTRIAXone Inj 1,000 MG in Dextrose 5% Minibag Plus 50 ML IV SCH (17:50)
[2016-08-09] MEDS ORDERED: Vancomycin Inj 1,500 MG in 0.9% Sodium Chloride 500 ML IV SCH (20:00)
[2016-08-09 20:14] VITALS: BP 174/72; PULSE 64; RESP 18; O2SAT 98
[2016-08-09] MEDS: Insulin GLARgine 100 Unit/mL Syringe SUBQ SCH (22:22)
[2016-08-10 04:47] VITALS: BP 171/72; PULSE 63; RESP 16; O2SAT 96
[2016-08-10 06:49] LABS: BASOPHILS % (AUTO) 0.2 % (0-3); EOSINOPHILS % (AUTO) 1.6 % (0-5); MONOCYTES % (AUTO) 6.5 % (4-12); Mean Corpuscular Volume 93.5 fL (81-100); NEUTROPHILS % (AUTO) 83.4 % (40-74); Platelet Count 299 bil/L (150-400)
[2016-08-10] MEDS: 0.9% Sodium Chloride 1,000 ML IV SCH (07:00)
[2016-08-10] MEDS: 0.9% Sodium Chloride 500 ML IV SCH (07:19)
--- NOTE | 2016-08-10 07:32 | NUR ---
Galvan Pt complains of minimal pain in L hand, no complaints r/t galvan. IV running 100 ml/h, patent but pump frequently requires backprime. No complaints of SOB or chest pain. No N/V this shift. Pt AOx4. Care continues
[2016-08-10 07:43] LABS: Magnesium 1.7 mg/dL (1.6-2.6)
[2016-08-10] MEDS: Insulin LISPRO 300 Unit/3 mL Inj SUBQ SCH ×2 (08:00→12:09)
[2016-08-10 08:04] VITALS: BP 163/70; PULSE 60; RESP 20; O2SAT 98
--- NOTE | 2016-08-10 10:47 | PCM.DIMED ---
Discharge Instructions Date of Service Aug 10, 2016 Dates of Hospitalization Aug 08, 2016 at 15:30 Discharge Diagnosis Discharge Diagnosis # Sepsis due to UTI # KAMILLA ,resolved # recent Small bowel obstruction with incarcerated umbilical hernia # Mild hyponatremia, likely due to dehydration, improved # transaminitis due to sepsis #Left middle finger osteoarthritis, acute # Dm Chronic issues known prior to admission, present on admission #CABG 2, #Pacemaker, hypertension #GERD #UTI history # Diabetes type II Diet Low fat, Low Sodium, Heart Healthy, Diabetic Activity Limited until seen by PCP Call your provider Fever or Chills, Shortness of breath, Bleeding, Chest pain, Vomitting, Excessive diarrhea, Weakness (unilateral) Patient Instructions you were hospitalized due to urinary tract infection. You received IV antibiotics. Please continue Augmentin for 5 more days. Follow-up plan Please follow-up with PCP in 1 week. Please follow-up with surgery Dr. Pack tomorrow as scheduled. Please follow-up with urology. Follow-up Provider: Brady Martinez MD Follow-up with PCP in: 1 week Provider: Lokesh Pack MD Follow-up in: 1 week (08/11/16 10 Am ) Gary Jolly MD Aug 10, 2016 10:47
[2016-08-10] MEDS ORDERED: AMOX-366 PO (10:49)
--- NOTE | 2016-08-10 11:12 | NUR ---
Social Work Note: Initial Assessment Data& Assessment: EMR Reviewed. SW met with pt at bedside to discuss discharge planning, SW role explained. SW provided SW phone number on pt white board. Cholo Verdugo is a 81 year old male admitted on 08/08/2016 for UTI and Confusion. Pt has [employer] and [employer] supplemental insurance coverage. Pt sees Brady Martinez MD for primary care. Pt lives in [place] with his in a one story home and is independent at baseline. Pt drives and uses a cane for ambulation assistance. Pt denies any HH or SNF hx. Pt denies any LTC insurance or VA benefits. Pt is a retired [employer] though. Pt provided with [employer] paperwork to review and complete when possible. Pt confirmed he has someone coming to transport him home. Pt is hoping to be discharged today in order to make it to another appointment tomorrow morning. Pt denies any other needs at this time. SW to continue to follow if any needs arise. Plan: Anticipated discharge home via POV when medically ready. Pt confirmed he has someone coming to transport him home. Pt denies any other needs at this time. SW to continue to follow if any needs arise. RAJ Deshpande Addendum: 08/10/16 at 1117 by MYRIAM DEWITT Amended: Links added.
--- NOTE | 2016-08-10 11:17 | NUR ---
YELENA signed RAJ Deshpande
[2016-08-10 14:13] VITALS: BP 174/72; PULSE 65; RESP 20; O2SAT 98
--- NOTE | 2016-08-10 14:59 | NUR ---
Discharge He discharged about 1450 and started to walk out on his own. The FIELD AGRONOMIST went after him to ensure that he had a ride to go home which he did. Discussed and gave him the discharge paperwork (MD/nurse instructions, care notes, hard copy prescriptions). Discontinued his IV intact. Noted some redness around his IV site. His questions and concerns were addressed. He took all his belongings with him. Addendum: 08/10/16 at 1504 by GAIL RESTREPO RN Before discharge this nurse changed his Borges bag to a leg bag per his request. Sent a fresh Borges bag home with him for night time use.
--- NOTE | 2016-08-10 15:53 | PCM.DC.MED ---
Discharge Summary Date of Service Aug 10, 2016 Dates of Hospitalization Date of Hospital Admission Aug 08, 2016 at 15:30 Date of Discharge: Aug 10, 2016 Providers: Admitting Physician: Keyon Enciso MD Primary Care Physician: Brady Martinez MD Attending Physician: Keyon Enciso MD Diagnosis at Time of Discharge Diagnosis at Time of Discharge # Sepsis due to UTI # KAMILLA ,resolved # recent Small bowel obstruction with incarcerated umbilical hernia # Mild hyponatremia, likely due to dehydration, improved # transaminitis due to sepsis #Left middle finger osteoarthritis, acute # Dm Chronic issues known prior to admission, present on admission #CABG 2, #Pacemaker, hypertension #GERD #UTI history # Diabetes type II Consultations none Procedures XRay, CTs & MRIs PROCEDURE: X-RAY FINGERS, TWO VIEWS INDICATIONS: pain,left middle finger TECHNIQUE: AP hand, 2 views of the third finger(s) acquired. COMPARISON: None. FINDINGS: Bones: No fractures or dislocations. No suspicious bony lesions. Prominent PIP in the IP degenerative changes particularly within the second and third digit are present Soft tissues: No suspicious soft tissue calcifications. IMPRESSION: Prominent PIP and DIP joint space narrowing particularly within the second and third digits suggestive of osteoarthritis. Dictated by: Brook Mcintosh M.D. on 08/09/2016 at 10:42 PROCEDURE: US ABDOMEN, LIMITED ([id number]) INDICATIONS: Liver, transaminitis, evaluate hepatitis. TECHNIQUE: Real-time focused scanning was performed of the abdomen with image documentation. COMPARISON: [facility], CT, CT ABD PELVIS W CON, 07/21/2016, 23:42. FINDINGS: Liver is diffusely increased in echogenicity. No focal hepatic abnormalities identified. Normal hepatic size. No discrete hepatic masses visualized. A 5 mm hepatic dome cyst is present. Multiple gallstones and no gallbladder wall thickening. No biliary dilatation. Pancreas not visualized. IMPRESSION: 1. Increased hepatic echogenicity noted, likely related to fatty infiltration of the liver but other sources of hepatocellular disease cannot be excluded. Recommend clinical correlation. 2. Cholelithiasis without evidence for cholecystitis. Dictated by: Paul Reyes RRA Interpreted: Brook Mcintosh MD on 08/08/2016 at 17:12 Brief History as per HPI performed by Dr enciso on 08/08/16 History of present illness 81-year-old male with 10 day history of Galvan catheter2/7/17, she has become confused and tired per , initially seen at urgent care then sent to the ER.lightheaded. galvan placed in PCP office due to inability to void, w/ >1L output after 2 attempts w/ subsequent hematuria eventually resolved. He had taken alfuzosin chronically has not missed dosing, pending urologist visit. prior UTI hx. ongoing exhaustion. fecal incontinence formed last night while asleep. + BM no vomiting no abdominal pain currently, Third finger swelling Last admitted 07/22 - 07/24/2016 for incisional ventral hernia related bowel obstruction, given complicated patient, deemed nonoperative at [facility], treated with NG tube/bowel rest, referred to [facility] for repair 2016 In the ER afebrile heart rate 74, 126/53, room air weight 122 kg // Rocephin normal saline Hospital Course Active issues and reason for admission # Sepsis due to UTI -evidences of sepsis: Confusion/lethargy , acute liver injury, leukocytosis/ lactic acidosis, acidosis with initial bicarbonate 15, KAMILLA with initial creatinine 1.96 --changed galvan, initially covered MRSA/gram neg w/ rocephine/vanco,will descalate to ceftriaxone , urine culture not helpful. Will discharge him on Augmentin for 5 more days --ucx bacterial contamination # KAMILLA -initial Creatinine 1.96, improved to 1.4, bicarbonate improved from 15 to 19 -- Baseline cr 1.3-1.5 #Recent SBO due to incarcerated hernia -He has an appointment for surgical evaluation tomorrow # Urinary retention due to BPH -Discharged with Galvan. Follow-up with Dr. Oz Pack # Mild hyponatremia, likely due to dehydration, improved --IVF # transaminitis due to sepsis -- Ultrasound liver unrevealing --previously told in the 1970s that he had hepatitis when attempting to donate blood, no risk factors but pending hepatitis panel #Left middle finger osteoarthritis, acute -X-ray consistent with osteoarthritis -Pain control. Swelling improving # Dm -levemir 15 u HS ,ISS. Patient takes Levemir 45 units and his lispiro 12 units 3 times a day. advised to follow his blood glucose closely. Chronic issues known prior to admission, present on admission #CABG 2, #Pacemaker, hypertension #GERD #UTI history Diabetes type II Appendectomy/ Hiatal hernia/esophageal dysmotility AK I Hypertension Diet cardiac DM DVT prophylaxis scd ambulate Code full Disposition discharge in 2-3 days pending improvement of sepsis Exam Vital Signs (Last) Date Time Temp Pulse Resp B/P Pulse Ox O2 Delivery O2 Flow Rate FiO2 08/10/16 14:13 36.6 65 20 174/72 98 Room Air Exam NAD A and O x 3 mood affect WNL NC/AT no icterus no injected eyes EOMI PERRL /no pharyngeal lesions/ no oral lesions / hearing intact Supple neck CTAB equal chest rise / no accessory muscle use / speaks in full sentences / no rrw RRR S1 S2 / no mrg / 2+ radial pulses Soft nt nd + BS no hepatosplenomegaly No edema no cyanosis no ecchymosis of lower extremities No rash / no jaundice sternotomy scar right lower abdomen scars from tube/drain x 2 infraumbilical laparatomy scar reducible RLQ hernia Test 08/08/16 13:28 08/08/16 13:35 08/08/16 15:50 08/08/16 18:12 Urine Color Yellow (YELLOW) Urine Appearance Cloudy (CLEAR,HAZY) Urine pH 6.0 (5.0-8.0) Urine Specific [place] 1.025 (1.003-1.035) Urine Protein 100mg/dL (NEG,TRACE) Urine Glucose (UA) Negativemg/dL (NEGATIVE) Urine Ketones Negativemg/dL (NEGATIVE) Urine Occult Blood Large (NEGATIVE) Urine Nitrite Negative (NEGATIVE) Urine Bilirubin Negative (NEGATIVE) Urine Urobilinogen Normalmg/dL (NORMAL) Urine Leukocyte Esterase Large (NEGATIVE) Urine RBC 11-50/hpf (0-2) Urine WBC Packed/hpf (0-5) Urine Epithelial Cells Occasional/hpf (NONE-MOD) Urine Crystals None seen (NONE SEEN) Urine Bacteria Many/hpf (NONE-FEW) Urine Hyaline Casts None/lpf (NONE) Urine Granular Casts None seen (NONE SEEN) Urine Waxy Casts None seen (NONE SEEN) Urine Red Blood Cell Casts None seen (NONE SEEN) Urine White Blood Cell Casts None seen (NONE SEEN) Urine Mucus None seen (None Seen) Urine Trichomonas None seen (NONE SEEN) Urine Yeast None (NONE SEEN) Urinalysis Comment None Urine Culture Reflexed Indicated Prothrombin Time 11.4sec (8.1-12.5) Prothromb Time International Ratio 1.06ratio Activated Partial Thromboplast Time 29.8sec (22.8-33.0) Lactic Acid Level 2.1mmol/L (0.4-2.0) Ammonia 29ug/dL (18-53) Troponin T 0.017ug/L (0.0-0.011) Hepatitis A IgM Antibody Negative (Negative) Hepatitis B Surface Antigen Negative (Negative) Hepatitis B Core IgM Antibody Negative (Negative) Hepatitis C Antibody <0.1s/co ratio (0.0-0.9) Hepatitis C Comment Comment (.) Test 08/10/16 05:50 White Blood Count 13.3th/mm3 (3.8-10.1) Red Blood Count 3.36mil/mm3 (4.40-5.80) Hemoglobin 10.4g/dL (13.8-17.2) Hematocrit 31.4% (41.0-50.0) Mean Corpuscular Volume 93.5fL (81-100) Mean Corpuscular Hemoglobin 31.0pg (27.0-35.0) Mean Corpuscular Hemoglobin Concent 33.1% (32.0-37.0) Red Cell Distribution Width 12.4% (12.3-15.4) Platelet Count 299bil/L (150-400) Neutrophils (%) (Auto) 83.4% (40-74) Lymphocytes (%) (Auto) 6.9% (14-46) Monocytes (%) (Auto) 6.5% (4-12) Eosinophils (%) (Auto) 1.6% (0-5) Basophils (%) (Auto) 0.2% (0-3) Sodium Level 135mEq/L (134-144) Potassium Level 4.4mEq/L (3.5-5.2) Chloride Level 100mEq/L (97-108) Carbon Dioxide Level 19mmol/L (18-29) Blood Urea Nitrogen 36mg/dL (8-27) Creatinine 1.16mg/dL (0.76-1.27) Estimat Glomerular Filtration Rate 64mL/min (>59) Glucose Level 141mg/dL (60-99) Calcium Level 8.3mg/dL (8.5-10.1) Magnesium Level 1.7mg/dL (1.6-2.6) Total Bilirubin 0.3mg/dL (0.0-1.2) Aspartate Amino Transf (AST/SGOT) 61U/L (0-50) Alanine Aminotransferase (ALT/SGPT) 96U/L (0-44) Alkaline Phosphatase 185U/L (25-160) Total Protein 5.9g/dL (6.4-8.4) Albumin 3.0g/dL (3.4-5.0) Microbiology Results Ordered: URINE CULT Procedure Result Verified Site Microbiology ROSA CULT URINE Final 08/09/16 Organism 1 BACTERIAL CONTAMINATION U COLONY COUNT/QUANTITY >100,000 CFU/ml SENSITIVITY COMMENTS > Three organisms isolated, no further workup Discharge Medications Discharge Medications Alfuzosin ER (Alfuzosin ER) 10 Mg Tab.er.24h 10 MG PO BID (Reported) Amoxicillin/Clav K 875-125 mg (Augmentin 875-125 mg) 1 Each Tablet 1 TABLET PO BID Prescribed by: ZACH TIWARI MD Aspirin (Aspirin) 325 Mg Tablet 325 MG PO QAM (Reported) Atorvastatin (Lipitor) 20 Mg Tablet 20 MG PO DAILY (Reported) Hydrochlorothiazide (Hydrochlorothiazide) 25 Mg Tablet 25 MG PO DAILY (Reported ) Insulin Aspart (NovoLOG U-100 Pen) 100 Unit/Ml Insuln.pen 12 UNITS SUBQ TIDAC ( Reported) If blood sugar between 130-160 give 12 units Novolog sliding scale raised in increments to a max of 20 units Insulin Detemir (Levemir Flextouch) 100 Unit/1 Ml Insuln.pen 40 UNITS SUBQ QPM ( Reported) Lisinopril (Lisinopril) 20 Mg Tablet 20 MG PO DAILY (Reported) Multivitamin (Multivitamins) 1 Each Capsule 1 EACH PO DAILY (Reported) [place]-3S/Dha/Epa/Fish Oil/D3 (Fish Oil + D3 Softgel) 1 Each Capsule 1 EACH PO DAILY (Reported) Vit C/Vit E/Lutein/Min/[place]-3 (Ocuvite Softgel) 1 Each Capsule 1 EACH PO DAILY (Reported) Followup Plan Disposition: home Follow-up plan Please follow-up with PCP in 1 week. Please follow-up with surgery Dr. Pack tomorrow as scheduled. Please follow-up with urology. Discharge Diet: Low fat, Low Sodium, Heart Healthy, Diabetic Discharge Activity: Limited until seen by PCP Patient Instructions you were hospitalized due to urinary tract infection. You received IV antibiotics. Please continue Augmentin for 5 more days. Follow-up Provider: Brady Martinez MD Follow-up with PCP in: 1 week Provider: Lokesh Pack MD Follow-up in: 1 week (08/11/16 10 Am ) Time spent 35 minutes coordinating discharge copies to: Brady Martinez MD; Cecilia Pack MD; Lokesh Pack MD, Melaku MD Aug 10, 2016 15:53
[2016-08-10] MEDS ORDERED: Vancomycin Serum Trough XX ONE (19:00)
[2016-08-11] MEDS ORDERED: CYAN1TAB42 PO (14:04)
[2016-08-11] MEDS ORDERED: NITR0.4T SL (14:04)
[2016-08-11] MEDS ORDERED: RANI75TA21 PO (14:04)
[2016-09-19] MEDS ORDERED: PSYL798P2 PO (13:09)
== END 2016-08-10 14:52 | disposition home or self-care (01) | DRG 699 ==
LOC: SED 12:55 → OSC 15:30
PROVIDERS: ADMIT Urology; ATTEND Urology
DX: T83.511A Infection and inflammatory reaction due to indwelling urethral catheter, initial encounter (principal); E87.2 Acidosis; E87.1 Hypo-osmolality and hyponatremia; N17.9 Acute kidney failure, unspecified; N39.0 Urinary tract infection, site not specified; I25.10 Atherosclerotic heart disease of native coronary artery without angina pectoris; Z95.1 Presence of aortocoronary bypass graft; Z95.0 Presence of cardiac pacemaker; E11.9 Type 2 diabetes mellitus without complications; I10 Essential (primary) hypertension; E78.5 Hyperlipidemia, unspecified; Z87.891 Personal history of nicotine dependence; Z79.4 Long term (current) use of insulin; M19.042 Primary osteoarthritis, left hand; N40.0 Benign prostatic hyperplasia without lower urinary tract symptoms

== ENCOUNTER 2016-08-11 08:54 | Inpatient (IN) | payer MEDICARE, OTHER ==
[~2016-08-11] VITALS: Ht 190.5 cm; Wt 121.6 kg
[2016-08-11] VITALS (7 sets, daily range): BP systolic 135–152; BP diastolic 49–68; PULSE 60–68; RESP 11–24; O2SAT 95–98
[~2016-08-11 08:54] MED LIST changes: +AMOX-366 PO; -ASPI-275 PO; +ASPI325T32 PO; -GLPZ5T PO; +INSU100I25 SUBQ; -INSU100I9 SUBQ; -MELO-259 PO; -METF10002 PO; -MULT-56 PO; +MULT1CAP33 PO; +OMEG-86 PO; -OMEG1CAP31 PO; -SIMV40TA5 PO; -TAMS0.4C98 PO
--- NOTE | 2016-08-11 09:04 | ED.REPORT ---
HPI-Trauma Multiple Date of Service Aug 11, 2016 ED Provider: Gera Cruz MD 81 year old male with a history of chronic back pain, CAD, CABG x2, diabetes, and HTN presents to the ER via EMS due to a mechanical ground level fall secondary to generalized weakness this morning upon awakening. He states that he stood up out of bed and fell when he took his first step, striking his head and right arm on a cabinet. Patient denies LOC, lateralized weakness, facial droop, slurred speech, chest pain, use of blood thinners, and any other injuries secondary to the fall. Patient was discharged from the hospital here yesterday after a three day admission for UTI and sepsis. Nursing Notes Stated Complaint: GROUND LEVEL FALL Nursing Notes Reviewed: Yes Allergies: Coded Allergies: Tuna (Verified Allergy, Unknown, 08/11/16) Uncoded Allergies: artificial sweeteners (Allergy, Intermediate, 03/31/10) vision changes Scheduled Alfuzosin ER (Alfuzosin ER) 10 Mg Tab.er.24h 10 MG PO BID Amoxicillin/Clav K 875-125 mg (Augmentin 875-125 mg) 1 Each Tablet 1 TABLET PO BID Aspirin (Aspirin) 325 Mg Tablet 325 MG PO QAM Atorvastatin (Lipitor) 20 Mg Tablet 20 MG PO DAILY Cyanocobalamin/Folic Acid (Vitamin H37-Hdbcd Acid Tablet) 1 Each Tablet 1 EACH PO DAILY Hydrochlorothiazide (Hydrochlorothiazide) 25 Mg Tablet 25 MG PO DAILY Insulin Detemir (Levemir Flextouch) 100 Unit/1 Ml Insuln.pen 40 UNITS SUBQ QPM Lisinopril (Lisinopril) 20 Mg Tablet 20 MG PO DAILY Multivitamin (Multivitamins) 1 Each Capsule 1 EACH PO DAILY [place]-3S/Dha/Epa/Fish Oil/D3 (Fish Oil + D3 Softgel) 1 Each Capsule 1 EACH PO DAILY Vit C/Vit E/Lutein/Min/[place]-3 (Ocuvite Softgel) 1 Each Capsule 1 EACH PO DAILY Scheduled PRN Insulin Aspart (NovoLOG U-100 Pen) 100 Unit/Ml Insuln.pen 0-21 UNITS SUBQ TID PRN PRN sliding scale Nitroglycerin SL (Nitrostat) 0.4 Mg Tab.subl 0.4 MG SL Q5MIN PRN PRN For Chest Pain Ranitidine (Zantac OTC) 75 Mg Tablet 75 MG PO DAILY PRN PRN For Dyspepsia or Heartburn General Time Seen by Provider: 09:03 Chief Complaint Head pain/injury Hx Obtained From: Patient Arrived By: Ambulance Onset Occurred: Just prior to arrival Symptom Duration: Since onset Caused by: Fall from (ground level) Context: Occurred at: Home Location: : Arm right: Head Quality: Painful Severity: Current: Moderate Severity: Maximum: Moderate Associated with: Denies: Chest pain, Loss of consciousness..., Neuro symptoms pre-arriv Recent Healthcare: Recent hospitalization Past Medical History Past Medical History Abdominal Hernia 1. Coronary artery disease. a. CABG in 1992. b. CABG in 2002. 2. 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 3. Diabetes mellitus type 2. 4. Hypertension. 5. Hyperlipidemia. 6. Benign prostatic hypertrophy. 7. History of diabetic foot ulcers. 8. Osteoarthritis. 9. Chronic back pain. Reports: Coronary artery disease, Diabetes mellitus, Hyperlipidemia, Hypertension Past Surgical History 1. CABG in 1992 and 2002. 2. Pacemaker placement in 2005. 3. Appendectomy. 4. multiple abdominal wall hernia repairs Reports: Appendectomy, CABG Reports: Pacemaker insertion Smoking History Former Smoker Social History Other Social History: Good social support, , Local resident Ambulatory Status Independent Review of Systems Constitutional: Reports: Weakness - generalized, Denies: Chills, Fever Respiratory: Reports: Shortness of breath, Denies: Non-productive cough Cardiovascular: Denies: Chest pain GI: Denies: Nausea, Vomiting Musculoskeletal: Reports: Extremity pain (Right Arm), Denies: Back pain, Joint pain, Lumbar pain, Neck pain, Thoracic pain Neurologic: Reports: Headache, Denies: Change LOC, Confusion, Dizziness, Focal weakness, Lightheaded, Slurred speech, Syncope Complete sys rev & neg: except as marked. Physical Exam Physical Exam Notes: Initial Vital Signs Vital Signs (First) Date Time Temp Pulse Resp B/P Pulse Ox O2 Delivery O2 Flow Rate FiO2 08/11/16 09:07 36.5 60 11 152/49 95 Room Air Initial VS: Reviewed ENT: Mucous membranes moist, Conjunctiva normal, No scleral icterus Skin: Warm, Dry, No cyanosis General/Constitutional: Awake, Alert, Well developed, Well nourished Head / Eyes: Atraumatic, Normocephalic, PERRL, No periorbital swelling, Eyelids NL Neck: Atraumatic, Supple, Full range of motion, No swelling, Non-tender, No midline vertebral tend, No masses, No crepitus, No JVD, No tracheal deviation Respiratory / Chest: Atraumatic, Breath sounds NL, Breath sounds = bilat, No respiratory distress, No rales, No rhonchi, No wheezing, No stridor Midline sternotomy scar. Cardiovascular: Heart rate NL, Regular rhythm, Heart sounds NL, Cap refill not delayed, Peripheral circulation NL Abdomen: Atraumatic, Soft, Non-tender, No guarding, No rebound, No distention Reducible anterior abdominal wall hernia. Midline surgical scar. Back: Atraumatic, Inspection NL, Non-tender, No midline vertebral tend, No paraspinal tenderness, No CVA tenderness Upper Extremity / MS: Full range of motion, No deformity, Neurologic intact, Vascular intact Upper Ext Brief Normals: Shoulder R exam normal, Shoulder L exam normal, Elbow R exam normal, Elbow L exam normal, Wrist R exam normal, Wrist L exam normal 6x6cm skin tear to the right proximal forearm. No focal bony tenderness of the upper extremities. Lower Extremity / Pelvis / MS: Full range of motion, No deformity, Neurologic intact, Vascular intact Urine bag on the right lower extremity. Superficial abrasion over the right knee. Male Genitourinary: Inspection NL, Penis NL, Testes NL Borges catheter present. Interpretation & Diagnostics Lab Results Interpretation Result Diagram: 08/11/16 0924 08/11/16 0924 Test 08/11/16 09:24 08/11/16 09:45 White Blood Count 20.0th/mm3 (3.8-10.1) Red Blood Count 3.85mil/mm3 (4.40-5.80) Hemoglobin 11.9g/dL (13.8-17.2) Hematocrit 35.5% (41.0-50.0) Mean Corpuscular Volume 92.2fL (81-100) Mean Corpuscular Hemoglobin 30.9pg (27.0-35.0) Mean Corpuscular Hemoglobin Concent 33.5% (32.0-37.0) Red Cell Distribution Width 12.6% (12.3-15.4) Platelet Count 353bil/L (150-400) Neutrophils (%) (Auto) 92.1% (40-74) Lymphocytes (%) (Auto) 2.3% (14-46) Monocytes (%) (Auto) 4.3% (4-12) Eosinophils (%) (Auto) 0.1% (0-5) Basophils (%) (Auto) 0.1% (0-3) Prothrombin Time 12.4sec (8.1-12.5) Prothromb Time International Ratio 1.16ratio D-Dimer > 35.0mg/L (<0.50) Sodium Level 132mEq/L (134-144) Potassium Level 4.7mEq/L (3.5-5.2) Chloride Level 96mEq/L (97-108) Carbon Dioxide Level 16mmol/L (18-29) Blood Urea Nitrogen 48mg/dL (8-27) Creatinine 1.81mg/dL (0.76-1.27) Estimat Glomerular Filtration Rate 38mL/min (>59) Glucose Level 284mg/dL (60-99) Calcium Level 9.0mg/dL (8.5-10.1) Magnesium Level 1.9mg/dL (1.6-2.6) Total Bilirubin 0.5mg/dL (0.0-1.2) Aspartate Amino Transf (AST/SGOT) 114U/L (0-50) Alanine Aminotransferase (ALT/SGPT) 133U/L (0-44) Alkaline Phosphatase 218U/L (25-160) Pro-B-Type Natriuretic Peptide 4458pg/mL (0-486) Total Protein 7.3g/dL (6.4-8.4) Albumin 3.2g/dL (3.4-5.0) Procalcitonin 2.27ng/mL (0.00-0.08) Lactic Acid Level 1.3mmol/L (0.4-2.0) ECG Interpretation ECG Interpretation: Atrial-sensed ventricular-paced rhythm, rate 60 When compared to 02/18/2014 patient remaines in atrial-sensed ventricular-paced rhythm, decreased from 100bpm to 60bpm. Time: 09:58 Interpreted by: ED physician X-Ray Chest Interpretation Chest Xray Interpretation: IMPRESSION: 1. No acute cardiopulmonary disease. Dictated by: Charles Zheng M.D. on 08/11/2016 at 10:45 Approved by: Charles Zheng M.D. on 08/11/2016 at 10:47 View: Portable, 1 view Interpretation / Wet Read by: Interpret - Radiologist CT Head Interpretation IMPRESSION: 1. No acute intracranial abnormality. 2. Left frontal extra-axial mass consistent with a meningioma appears slightly increased in size compared to the prior study given differences in technique. 3. Mild cerebral volume loss and chronic white matter small vessel ischemic changes. Dictated by: Charles Zheng M.D. on 08/11/2016 at 10:34 Approved by: Charles Zheng M.D. on 08/11/2016 at 10:39 Study: Head CT no contrast Interpretation / Wet Read by: Interpret - Radiologist Re-Eval/Medical Decision Med Decision/Clinical Course 81 year old male with a history of chronic back pain, CAD, CABG x2, diabetes, and HTN presents to the ER via EMS due to a mechanical ground level fall secondary to generalized weakness this morning upon awakening. He states that he stood up out of bed and fell when he took his first step, striking his head and right arm on a cabinet. Patient denies LOC, lateralized weakness, facial droop, slurred speech, chest pain, use of blood thinners, and any other injuries secondary to the fall. Patient was discharged from the hospital here yesterday after a three day admission for UTI and sepsis. Upon arrival, the patient is afebrile with stable vital signs and in no apparent distress though he reports feeling generally weak and fatigued. Laboratory studies were notable as below: Leukocytosis 20 up from 13 Hct 35.5 stable Troponin 0.062 elevated from 0.017 two days ago BUN 48 up from 36 Creatinine 1.81 up from 1.16 Glucose 284 Moderately elevated transaminases BNP 4458 EKG was obtained and interpreted by myself as documented above. CXR: Obtained, reviewed and interpreted by myself shows no evidence of acute infiltrates, effusions or pneumothorax. Cardiac and mediastinal silhouette normal. No bony or soft tissue abnormalities. CT scan of the head demonstrated no acute intracranial process The patient has significant leukocytosis he is afebrile without any signs of acute infectious process. CT scan of the head demonstrates no evidence of intracranial hemorrhage resulting from his fall. Chest x-ray demonstrates no pneumonia. While the patient does have a positive troponin EKG does not demonstrate ST elevation TN. His elevated troponin is difficult to interpret in the setting of his significant acute kidney injury and therefore we have opted to withhold heparinization. He has received 324 mg of aspirin. The patient is at this time unable to adequately care for himself at home due to his generalized weakness. I discussed the patient with the admitting hospitalist and he will be transferred for further workup and management. Re-Evaluation/Progress : Time of Eval: 11:15 Re-Evaluation/Progress Note: Patient is now accompanied by his who is at the bedside. Discussed lab and radiology results and need for admission. Patient is amenable to the plan. All other questions addressed. Consultation : Consulted With: Hospitalist Call Returned at: 11:12 Sports Editor: Agrees with eval, Agrees with plan, Accepts admit Counseled Regarding: Diagnosis, Lab results, Need for admission Discharge & Departure Impression: Primary Impression: NSTEMI (non-ST elevated myocardial infarction) Additional Impressions: Acute kidney injury Fall from ground level Generalized weakness Leukocytosis Leukocytosis type: unspecified Qualified Code: D72.829 - Elevated white blood cell count, unspecified Closed head injury Encounter type: initial encounter Qualified Code: S09.90XA - Unspecified injury of head, initial encounter Disposition: ADMITTED TO HOSPITAL Discharge Condition All VS Reviewed: Yes Condition: Stable Additional Instructions: Thank you for seeking care at emergency room. It is difficult for us to make definitive diagnoses in the ED but we believe that you are experiencing . Our primary goal today in the ED was to evaluate you for any life-threatening conditions. Your evaluation was reassuring. You will be discharged with a prescription for . Please take as directed. You should follow-up with your primary doctor this week. You should return to the ED immediately if you develop worsening , or any other concerning signs or symptoms. Thank you for letting us partake in your care today. Referrals: Brady Martinez MD (PCP) Crit Care Except Billable Proc Time Spent: 75-104 minutes Services Performed: Patient management by me, Time spent at bedside, Reviewing test results, Reviewing imaging, Discussing patient care, Documentation in record, Time with fam/surrogate Scribe Attestation Portions of this note were transcribed by Jules Holt. I, Dr. Cruz, personally performed the history, physical exam and medical decision-making; I reviewed and confirmed the accuracy of the information in the transcribed note. Signed by: Ashley Chacon, 08/11/2016 and 11:16 copies to: Brady Martinez MD, Beck O MD Aug 11, 2016 09:04 JULES HOLT Aug 11, 2016 09:22
[2016-08-11 09:28] LABS: BASOPHILS % (AUTO) 0.1 % (0-3); EOSINOPHILS % (AUTO) 0.1 % (0-5); MONOCYTES % (AUTO) 4.3 % (4-12); Mean Corpuscular Hemoglobin 30.9 pg (27.0-35.0); Mean Corpuscular Volume 92.2 fL (81-100); NEUTROPHILS % (AUTO) 92.1 % (40-74); Platelet Count 353 bil/L (150-400)
[2016-08-11 09:32] LABS: INR 1.16 ratio
[2016-08-11 10:06] LABS: TROPONIN T 0.062 ug/L (0.0-0.011)
--- NOTE | 2016-08-11 10:41 | DRSVH ---
PROCEDURE: CT BRAIN WITHOUT CONTRAST ([id number]) INDICATIONS: trauma TECHNIQUE: Noncontrast 4.5 mm thick angled axial sections acquired from the foramen magnum to the vertex, with c oronal reformats. COMPARISON: [facility], CT, BRAIN W/O CONTRAST, 03/31/2010, 11:39. FINDINGS: Image quality: There is mild motion artifact limiting evaluation. CSF spaces: Basal cisterns are patent. No extra-axial fluid collections. The ventricles are symmet adrien in size. There is mild cerebral volume loss, with resultant ventricular and sulcal prominence. Brain: No intracranial hemorrhage or midline shift. There is a left frontal extra-axial calcified m ass redemonstrated which appears slightly increased in size compared to the prior study. This measur es up to approximately 1.8 x 0.8 x 1.7 cm and again likely represents a meningioma. There is mild as sociated mass effect on the underlying frontal lobe. There are a few subcortical, periventricular an d deep white matter hypodensities consistent with mild chronic small vessel ischemic changes. There is intracranial internal carotid artery atherosclerosis. Skull and face: Calvarium and visualized facial bones appear intact, without suspicious lesions. Sinuses: Visualized sinuses and mastoids are clear. IMPRESSION: 1. No acute intracranial abnormality. 2. Left frontal extra-axial mass consistent with a meningioma appears slightly increased in size co mpared to the prior study given differences in technique. 3. Mild cerebral volume loss and chronic white matter small vessel ischemic changes. Dictated by: Charles Zheng M.D. on 08/11/2016 at 10:34 Approved by: Charles Zheng M.D. on 08/11/2016 at 10:39
--- NOTE | 2016-08-11 10:48 | DRSVH ---
PROCEDURE: X-RAY CHEST ONE VIEW, PORTABLE ([id number]) INDICATIONS: sob TECHNIQUE: One view of the chest was acquired. COMPARISON: [facility], CR, CHEST 2VW, 02/18/2014, 9:09. FINDINGS: Surgical changes and devices: Left chest wall pacemaker and leads appear stable in position. Postsur gical changes are also redemonstrated in the mediastinum. Lungs and pleura: No pleural effusions or pneumothorax. Visualized lungs are clear. Mediastinum: Mediastinal contours appear unchanged. Heart size is borderline enlarged. Bones and chest wall: No suspicious bony lesions. Overlying soft tissues appear unremarkable. IMPRESSION: 1. No acute cardiopulmonary disease. Dictated by: Charles Zheng M.D. on 08/11/2016 at 10:45 Approved by: Charles Zheng M.D. on 08/11/2016 at 10:47
[2016-08-11] MEDS ORDERED: Polyethylene Glycol (PEG) 17 Gm Powder PO PRN (11:50)
[2016-08-11] MEDS ORDERED: Ondansetron 2 mg/mL 2 mL Inj IVPUSH PRN (11:50)
[2016-08-11] MEDS ORDERED: Alum-Mag Hydrox-Simeth 30 mL Suspension PO PRN (11:50)
[2016-08-11 12:55] LABS: Magnesium 1.9 mg/dL (1.6-2.6)
[2016-08-11] MEDS: 0.9% Sodium Chloride 1,000 ML IV SCH ×2 (12:59→19:59)
[2016-08-11] MEDS ORDERED: CYAN1TAB42 PO (14:04)
[2016-08-11] MEDS ORDERED: NITR0.4T SL (14:04)
[2016-08-11] MEDS ORDERED: RANI75TA21 PO (14:04)
--- NOTE | 2016-08-11 14:20 | DRSVH ---
PROCEDURE: US VENOUS LEG DUPLEX BILATERAL INDICATIONS: swelling TECHNIQUE: Real-time imaging, as well as color and pulse Doppler interrogation, were performed of the deep veins of both legs from the inguinal ligament to the popliteal fossa. COMPARISON: None. FINDINGS: The deep veins are normally compressible, and free of intraluminal thrombus. Color and pu lse Doppler demonstrate normal phasic intravascular flow. There is normal augmentation response to d istal compression maneuver. IMPRESSION: No deep venous thrombosis identified within either the left or right lower extremities. Dictated by: Paul ROCKWELL Interpreted: Brook Mcintosh MD on 08/11/2016 at 14:19 Transcribed by: PAM on 08/11/2016 at 14:20 Approved by: Brook Mcintosh M.D. on 08/11/2016 at 16:48
[2016-08-11] MEDS: Piperacillin-Tazo 3.375 Gm Inj 3.375 GM in Dextrose 5% Minibag Plus 50 ML IV SCH (15:01)
--- NOTE | 2016-08-11 15:23 | NUR ---
ADMIT Report received from Kavitha Polk RN in ED. Pt brought onto floor via gurney. Unable/weak to transfer. Belongings recorded, waiver signed. at bedside. VSS, no c/o pain, A&Ox3, TELE placed. Med rec finished by admit nurse, paged. IV NS continued from ED. Admission interventions to be finished shortly. Pt oriented to unit, room, call light. Plan of care on board and explained to pt.
[2016-08-11] MEDS ORDERED: Glucose 40% Oral Gel 15 Gm Tube PO PRN (15:25)
[2016-08-11] MEDS: Insulin LISPRO 300 Unit/3 mL Inj SUBQ SCH ×2 (17:30→22:00)
--- NOTE | 2016-08-11 17:34 | DRSVH ---
[facility] [address] [place] [address] Echocardiogram Report Name: SAYRA NGUYEN Date: 08/11/2016 Height: 75 in Hospital Exam Location: [facility] Weight: 266 lb Gender: Male BSA: 2.5 m2 : 1935 Age: 81 yrs BP: 146/52 mmHg Reason For Study: CAD Ordering Physician: Performed By: Zaria Gutierrez Referring Physician: Brady Martinez Interpretation Summary Left ventricular wall thickness is mildly increased. Left ventricular systolic function is normal. The ejection fraction is estimated to be 55-60%. There is a mild dyssynchronous contraction pattern due to the paced rhythm. The right ventricle grossly appears normal in size with probable normal systolic function. There is a pacemaker lead in the right ventricle. The right ventricular systolic pressure is estimated at 36 mmHg assuming a right atrial pressure of 3 mm Hg. The left atrium is mildly dilated. The right atrium is mildly dilated. There is mild aortic regurgitation, mitral regurgitation, and tricuspid regurgitation. The aortic root is mildly dilated. The ascending aorta is mild-moderately enlarged. The aortic arch is mildly enlarged. No significant changes since prior echo study on 07/13/2010. Procedure: A two-dimensional transthoracic echocardiogram with color flow and Doppler was performed. The study quality was technically difficult. Comparison is made with the echocardiogram of 07-13-10. The patient has a paced rhythm. Left Ventricle: The left ventricle is normal in size. Left ventricular wall thickness is mildly increased. Left ventricular systolic function is normal. The ejection fraction is estimated to be 55-60%. There is a mild dyssynchronous contraction pattern due to the paced rhythm. Right Ventricle: The right ventricle grossly appears normal in size with probable normal systolic function. There is a pacemaker lead in the right ventricle. Atria: The left atrium is mildly dilated. The right atrium is mildly dilated. There is a catheter/pacemaker lead seen in the right atrium. The interatrial septum is intact with no evidence for an atrial septal defect. Mitral Valve: The mitral valve is grossly normal. There is mild mitral regurgitation. Aortic Valve: The aortic valve is trileaflet. The aortic valve opens well. The aortic valve is mildly calcified. There is mild aortic regurgitation. Tricuspid Valve: The tricuspid valve leaflets are thin and pliable. There is mild tricuspid regurgitation. The right ventricular systolic pressure is estimated at 36 mmHg assuming a right atrial pressure of 3 mm Hg. Pulmonic Valve: The pulmonic valve is normal in structure and function. There is trace pulmonic regurgitation. Great Vessels: The aortic root is mildly dilated. The ascending aorta is mild-moderately enlarged. The aortic arch is mildly enlarged. The IVC is of normal diameter and collapses greater than 50% with a sniff. This suggests a low right atrial pressure of 3 mm Hg. Pericardium/ Pleura There is no pericardial effusion. There is no pleural effusion. MMode/2D Measurements & Calculations LVIDd LA dimension: 5.8 cm RA long axis: 5.0 cm Ao root diam : 5.6 cm LVIDs LA A2 area: 23.8 cm RA area: 23.3 cm Aortic Jxn: 3.6 cm : 3.8 cm LA A4 area: 26.9 cm RA vol: 91.6 ml asc Aorta Diam FS: 31.7 % LA length (vol) RA : 37.0 ml/m IVSd: 1.3 cm RVDd major: 6.3 cm Ao Arch Diam (Prox LVPWd LA vol: 89.5 ml Trans): 3.6 cm : 1.0 cm LA vol index : 36.1 ml/m2 ARLETTE (plan) LV monreal. diameter/BSA LV sys. diameter/BSA RVD1 (basal) : 4.4 cm2 (cm/m^2): 2.2 (cm/m^2): 1.5 : 4.1 cm RVD2 (mid) : 3.9 cm Doppler Measurements & Calculations Ao V2 max MV E max rigoberto MV E/A: 0.91 TR max rigoberto : 174.5 cm/sec : 76.8 cm/sec Med Peak E' Rigoberto : 286.6 cm/sec Ao max PG MV A max rigoberto TR max PG : 12.2 mmHg : 84.8 cm/sec E/E' med: 10.9 : 32.8 mmHg Ao mean PG MV P1/2t: 104.5 msec Lat Peak E' Rigoberto PA V2 max : 110.4 cm/sec LVOT Max Rigoberto E/E' lat: 7.2 PA mean PG : 97.0 cm/sec E/e' average: 9.0 sev ratio Pulm A Revs Dur PA Accel Time : 0.11 sec MV A dur: 0.16 sec MV dec time MV P1/2t max rigoberto Ao V2 mean LV V1 max PG : 0.35 sec : 110.9 cm/sec MVA(P1/2t): 2.1 cm2 Ao V2 VTI: 43.0 cm LV V1 VTI : 24.2 cm PA V2 mean Pulm A Revs Dur - MV A : 74.8 cm/sec Dur: -0.03 msec Reading Physician:PM
--- NOTE | 2016-08-11 17:59 | PCM.HPMED ---
Subjective Date of Service Aug 11, 2016 Primary Provider: Admitting Physician: Gary Jolly MD Primary Care Physician: Brayd Martinez MD Attending Physician: Gary Jolly MD Admit Status: Full Admit, Admit to Green Team Chief Complaint: Generalized weakness/1 day falling episode/1 day History of Present Illness: 81-year-old gentleman with indwelling Borges inserted 2 weeks ago for urinary retention was discharged yesterday from hospital after admitted for sepsis due to UTI and KAMILLA. He initially presented with confusion and Kamilla creatinine 1.96. He was treated with IV fluids and antibiotics. Confusion resolved ,KAMILLA and leukocytosis resolved and discharged home on oral Augmentin. He also had a recent admission for small bowel obstruction due to incarcerated incisional hernia few weeks ago. He had an appointment with surgeon today at 10 Am for evaluation of hernia repair which he did not want to miss the appt. He had 2 episodes of watery diarrhea after discharge from hospital. He had 2 episodes of fall last night. He felt lightheaded and fell twice. He injured his right elbow and right knee when he fell. He states he has generalized weakness. Denies chest pain. Denies fever. Denies abdominal pain. Denies pain at hernia site. Denies nausea or vomiting. In ED, HR 60, RR 11, BP 152/49, saturating 95% on room air, afebrile Worsened Leukocytosis at 20,Na 132, bicarbonate 16, creatinine 1.84, LA 1.3, LFT 3-4x elevated, troponin is elevated at 0.062, BNP 4458, elevated d-dimer > 35, lower extremity duplex negative for DVT EKG no ST-T wave changes, chest x-ray unremarkable. Brain CT and echo unremarkable Review of Systems: A comprehensive review of systems performed, pertinent positives and negatives included history of present illness Allergies Coded Allergies: Tuna (Verified Allergy, Unknown, 08/11/16) Uncoded Allergies: artificial sweeteners (Allergy, Intermediate, 03/31/10) vision changes Home Medications Alfuzosin ER (Alfuzosin ER) 10 Mg Tab.er.24h 10 MG PO BID Amoxicillin/Clav K 875-125 mg (Augmentin 875-125 mg) 1 Each Tablet 1 TABLET PO BID Aspirin (Aspirin) 325 Mg Tablet 325 MG PO QAM Atorvastatin (Lipitor) 20 Mg Tablet 20 MG PO DAILY Cyanocobalamin/Folic Acid (Vitamin J12-Hlfyj Acid Tablet) 1 Each Tablet 1 EACH PO DAILY Hydrochlorothiazide (Hydrochlorothiazide) 25 Mg Tablet 25 MG PO DAILY Insulin Detemir (Levemir Flextouch) 100 Unit/1 Ml Insuln.pen 40 UNITS SUBQ QPM Lisinopril (Lisinopril) 20 Mg Tablet 20 MG PO DAILY Multivitamin (Multivitamins) 1 Each Capsule 1 EACH PO DAILY [place]-3S/Dha/Epa/Fish Oil/D3 (Fish Oil + D3 Softgel) 1 Each Capsule 1 EACH PO DAILY Vit C/Vit E/Lutein/Min/[place]-3 (Ocuvite Softgel) 1 Each Capsule 1 EACH PO DAILY Scheduled PRN Insulin Aspart (NovoLOG U-100 Pen) 100 Unit/Ml Insuln.pen 0-21 UNITS SUBQ TID PRN PRN sliding scale Nitroglycerin SL (Nitrostat) 0.4 Mg Tab.subl 0.4 MG SL Q5MIN PRN PRN For Chest Pain Ranitidine (Zantac OTC) 75 Mg Tablet 75 MG PO DAILY PRN PRN For Dyspepsia or Heartburn PMH 1. Coronary artery disease. a. CABG in 1992. b. CABG in 2002. 2. 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 3. Diabetes mellitus type 2. 4. Hypertension. 5. Hyperlipidemia. 6. Benign prostatic hypertrophy. 7. History of diabetic foot ulcers. 8. Osteoarthritis. 9. Chronic back pain. 10. Incisional hernia 11. Obesity 12. Recent sepsis due to UTI Indwelling Borges catheter BPH Surgical History 1. CABG in 1992 and 2002. 2. Pacemaker placement in 2005. 3. Appendectomy. Family History His father of heart disease. His mother of old age. Social History Hx Alcohol Use: Yes Alcoholic Drinks Per Day: once a month Hx Substance Use: No Hx Tobacco Use: No Smoking Status: Former Smoker Exam Vital Signs Vital Sign - Last Date Time Temp Pulse Resp B/P Pulse Ox O2 Delivery O2 Flow Rate FiO2 08/11/16 17:05 36.9 68 24 135/64 96 Room Air Exam Gen. patient is lying comfortably in hospital bed HEENT: Head is normocephalic atraumatic, Pupils equal and reactive, extraocular movements intact, Lungs clear to auscultation bilaterally Heart regular rate and rhythm without murmurs gallops or rubs Abdomen soft nontender without hepatosplenomegaly, no tenderness at his incisional hernia site Extremities pulses are present dorsalis pedis posterior tibialis and radial. tSkin is warm and dry there are no rashes, Psych alert and oriented to person place and time Neuro cranial nerves II through XII are grossly intact Lymph: There is no lymphadenopathy appreciated in the cervical supra infraclavicular regions : Borges in place Lab and Diagnostics Result Diagram: 08/11/1692308/11/16923 X-Rays, CTs and MRIs PROCEDURE: US VENOUS LEG DUPLEX BILATERAL INDICATIONS: swelling TECHNIQUE: Real-time imaging, as well as color and pulse Doppler interrogation, were performed of the deep veins of both legs from the inguinal ligament to the popliteal fossa. COMPARISON: None. FINDINGS: The deep veins are normally compressible, and free of intraluminal thrombus. Color and pulse Doppler demonstrate normal phasic intravascular flow. There is normal augmentation response to distal compression maneuver. IMPRESSION: No deep venous thrombosis identified within either the left or right lower extremities. Dictated by: Paul Reyes RRRon Interpreted: Brook Mcintosh MD on 08/11/2016 at 14: 19 PROCEDURE: CT BRAIN WITHOUT CONTRAST ([id number]) INDICATIONS: trauma TECHNIQUE: Noncontrast 4.5 mm thick angled axial sections acquired from the foramen magnum to the vertex, with coronal reformats. COMPARISON: [facility], CT, BRAIN W/O CONTRAST, 03/31/2010, 11:39. FINDINGS: Image quality: There is mild motion artifact limiting evaluation. CSF spaces: Basal cisterns are patent. No extra-axial fluid collections. The ventricles are symmetric in size. There is mild cerebral volume loss, with resultant ventricular and sulcal prominence. Brain: No intracranial hemorrhage or midline shift. There is a left frontal extra-axial calcified mass redemonstrated which appears slightly increased in size compared to the prior study. This measures up to approximately 1.8 x 0.8 x 1.7 cm and again likely represents a meningioma. There is mild associated mass effect on the underlying frontal lobe. There are a few subcortical, periventricular and deep white matter hypodensities consistent with mild chronic small vessel ischemic changes. There is intracranial internal carotid artery atherosclerosis. Skull and face: Calvarium and visualized facial bones appear intact, without suspicious lesions. Sinuses: Visualized sinuses and mastoids are clear. IMPRESSION: 1. No acute intracranial abnormality. 2. Left frontal extra-axial mass consistent with a meningioma appears slightly increased in size compared to the prior study given differences in technique. 3. Mild cerebral volume loss and chronic white matter small vessel ischemic changes. Dictated by: Charles Zheng M.D. on 08/11/2016 at 10:34 PROCEDURE: X-RAY CHEST ONE VIEW, PORTABLE ([id number]) INDICATIONS: sob TECHNIQUE: One view of the chest was acquired. COMPARISON: [facility], CR, CHEST 2VW, 02/18/2014, 9:09. FINDINGS: Surgical changes and devices: Left chest wall pacemaker and leads appear stable in position. Postsurgical changes are also redemonstrated in the mediastinum. Lungs and pleura: No pleural effusions or pneumothorax. Visualized lungs are clear. Mediastinum: Mediastinal contours appear unchanged. Heart size is borderline enlarged. Bones and chest wall: No suspicious bony lesions. Overlying soft tissues appear unremarkable. IMPRESSION: 1. No acute cardiopulmonary disease. Dictated by: Charles Zheng M.D. on 08/11/2016 at 10:45 Assessment & Plan 81-year-old gentleman with indwelling Borges inserted 2 weeks ago for urinary retention, recent admission for small bowel obstruction due to incarcerated incisional hernia, recent admission due to sepsis due to UTI discharged yesterday became pulsatile due to fall episodes and generalized weakness # sepsis -Worsening leukocytosis,HR 24,KAMILLA, acute liver injury -source unclear at this time. Partially treated UTI versus C. difficile colitis versus others -wbc 20,procal 2.27, CXr negative -UA, blood and urine culture pending -Started on Zosyn. will consider empiric po vanco if any further episode of diarrhea #Acute diarrhea,poa -C. difficile requested -will consider empiric po vanco if any further episode of diarrhea # KAMILLA -Multifactorial :suspected mild rhabdo,sepsis,diarrhea -cr 1.81 ( was 1.1 08/10) -NS at 100ml/h -will also do CT abd given suspected ongoing UTI to rule out any obstruction and given transaminitis and recent small bowel obstruction due to incarcerated incisional hernia # Transaminitis,acute --Possibly due to sepsis and mild rhabdo due to fall -IVF -CT abd pending # suspected mild rhabdo -CPK pending -IVF # Suspected demand ischemia due to sepsis -Continue normal saline -c/w ASA,B -echo unchanged and no wall motion abnormality -trend trops,no need for AC # Elevated d-dimer,acute -LE duplex negative for DVT,ACS unlikely given unchanged echo -May need to consider empiric anticoagulation and urgent VQ scan if any breathing issues,cant do CTA given KAMILLA #Indwelling Borges due to BPH # Recent SBO awaiting hernia repair, # Increased hemangioma on CT,unclear significance at this point chronic issues # DM #CAD s/p CABG ,HTN Full code ,verified with patient Patient admitted under inpatient status with expected length of stay > 2 midnights for severity of present symptoms, complexities of treatment plan and risk for adverse events Resuscitation Status: CPR: Attempt Resuscitation copies to: Brady Martinez MD, Melaku MD Aug 11, 2016 17:59
[2016-08-11 18:19] LABS: BASOPHILS % (AUTO) 0.1 % (0-3); EOSINOPHILS % (AUTO) 0.2 % (0-5); MONOCYTES % (AUTO) 4.3 % (4-12); Mean Corpuscular Hemoglobin 30.7 pg (27.0-35.0); Mean Corpuscular Volume 92.8 fL (81-100); NEUTROPHILS % (AUTO) 92.1 % (40-74); Platelet Count 275 bil/L (150-400)
[2016-08-11 19:08] LABS: APPEARANCE,URINE HAZY (CLEAR,HAZY); COLOR,URINE YELLOW (YELLOW); OCCULT BLOOD,URINE LARGE (NEGATIVE); PH,URINE 6.5 (5.0-8.0)
[2016-08-11 19:09] LABS: UROBILINOGEN,URINE NORMAL (NORMAL)
[2016-08-11 19:12] LABS: TROPONIN T 0.056 ug/L (0.0-0.011)
--- NOTE | 2016-08-11 19:21 | NUR ---
Galvan Upon arrival in ED, pt had not voided into Galvan. Pt reports no discomfort. Given IVF, still no void. Bladder scanner showed >999. Cath care preformed, Galvan irrigated with NS, unable to clear. Advanced catheter several inches and galvan became patent. Bladder drained, pt reports feeling more comfortable.
--- NOTE | 2016-08-11 20:21 | DRSVH ---
PROCEDURE: CT ABDOMEN AND PELVIS WITHOUT CONTRAST ([id number]) INDICATIONS: transaminitis,KAMILLA TECHNIQUE: Noncontrast 5 mm thick sections acquired from the diaphragms to the symphysis. 5 mm coronal and sagi ttal reformats were then performed. For radiation dose reduction, the following was used: automated exposure control, adjustment of mA and/or kV according to patient size. COMPARISON: [facility], CT, CT ABD PELVIS W CON, 07/21/2016, 23:42. FINDINGS: Image quality: Excellent. ABDOMEN: Lung bases: Lung bases are clear except for slight bibasilar atelectasis. Heart size is normal. Solid organs: Liver and spleen are normal in size. Gallbladder does not appear inflamed or distende d but contains multiple peripherally calcified moderately large and moderate sized gallstones, layeri ng dependently. Pancreas is normal in contours. No adrenal nodules. Kidneys are normal in size, wi thout nephrolithiasis. There is several vascular calcifications on the right, and a new finding of m ild to moderate hydronephrosis bilaterally, not present 07/21/16 year in contrast enhanced study. Peritoneum and bowel: Unenhanced bowel loops demonstrate normal wall thickness and caliber. No free fluid or air. Nodes and vessels: No retroperitoneal or mesenteric adenopathy by size criteria. Aorta and inferior vena cava are normal in caliber. Miscellaneous: No ventral hernias. PELVIS: Genitourinary: Bladder wall thickness is normal difficult to accurately assess, and a Borges catheter now empties the bladder lumen. There is a very large prostate gland, previously the case, with ecce ntric calcifications on the left. Miscellaneous: No inguinal hernias or adenopathy. A rectus sheath body wall hernia is present in th e periumbilical area, centered to the right of midline, containing small bowel that does not appear i ncarcerated or strangulated. The body wall defect in this area measures approximately 4-5 cm in maxi mal diameter and the bowel wall extending through the defect into the subcutaneous fat shows no abnor mal mural thickening or adjacent edema. Bones: No suspicious bony lesions. No vertebral body compression fractures. IMPRESSION: The prostate gland is prominently enlarged, and associated with this finding is drainage of the bladder by a Borges catheter in place. However, there is a new finding of mild to moderate trice ateral hydronephrosis not present during recent CT scanning 07/21/16. Right paramedian periumbilical body wall small bowel hernia, without evidence of incarceration or str angulation. Oral contrast has transited through the small bowel across this area into the deeper pel vis. Faceted gallstones are prominent within the gallbladder lumen but no acute cholecystitis or biliary d istention is present. Dictated by: Romero Cisneros M.D. on 08/11/2016 at 20:11 Approved by: Romero Cisneros M.D. on 08/11/2016 at 20:21
[2016-08-12] VITALS (8 sets, daily range): BP systolic 133–173; BP diastolic 57–72; PULSE 59–70; RESP 17–26; O2SAT 96–99
[2016-08-12] MEDS: Insulin GLARgine 100 Unit/mL Syringe SUBQ SCH ×2 (01:00→22:21)
[2016-08-12] MEDS: Piperacillin-Tazo 3.375 Gm Inj 3.375 GM in Dextrose 5% Minibag Plus 50 ML IV SCH ×2 (01:43→12:09)
--- NOTE | 2016-08-12 02:57 | NUR ---
Galvan Pt voided into galvan, pale yellow urine. 1200ml output as of 299. Will continue to monitor.
[2016-08-12] MEDS: Insulin LISPRO 300 Unit/3 mL Inj SUBQ SCH ×4 (07:40→22:22)
[2016-08-12] MEDS: 0.9% Sodium Chloride 1,000 ML IV SCH ×2 (07:40→17:55)
[2016-08-12] MEDS: D3 PO SCH (08:30)
[2016-08-12] MEDS: FOLIC ACID PO SCH (08:30)
[2016-08-12] MEDS: EPA PO SCH (08:30)
[2016-08-12] MEDS ORDERED: Alfuzosin 10 mg ER24 Tablet PO SCH (08:30)
[2016-08-12] MEDS: CYANOCOBALAMIN PO SCH (08:30)
[2016-08-12] MEDS: OMEGA PO SCH (08:30)
[2016-08-12] MEDS: FISH OIL PO SCH (08:30)
[2016-08-12] MEDS: DHA PO SCH (08:30)
[2016-08-12 08:38] LABS: Mean Corpuscular Hemoglobin 30.7 pg (27.0-35.0); Mean Corpuscular Volume 94.2 fL (81-100)
[2016-08-12] MEDS: Vitamins C,E, Omega-3, Mineral Tablet PO SCH (09:50)
--- NOTE | 2016-08-12 16:50 | NUR ---
Social Work Initial Assessment: SW met with patient at bedside to discuss discharge plan. Patient is a 81 year old male admitted on 08/11/16 for nonstemi, KAMILLA, and ground level fall. Patient payer as Medicare. secondary. 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 Patient PCP as MD Martinez. Patient resides in [facility] in a single story home with . Patient has 3 steps to enter into home with railing. Patient has no previous HHC, or SNF history. Patient has a walker and cane for use at home. Patient states having no AD but in the process of getting document notarized. Patient pharmacy of choice as [facility]. Patient states being independent with needs prior to admit. SW discussed discharge options of HHC pending further clinical course. SW provided patient with HHC choice list for review. SW will continue to follow. PLAN: Home with via POV. Possible rule out for HHC at discharge. SW will continue to follow. Arlet ANTHONY Addendum: 08/12/16 at 1657 by GARY DEWITT Amended: Links added.
--- NOTE | 2016-08-12 17:18 | PCM.PNMED ---
Subjective Date of Service Aug 12, 2016 Subjective Patient is alert and oriented, back to baseline mental status per Patient and family is wondering what to do for his hernia kept in galvan cath, draining well. no lower belly pain, back pain was febrile to 37.9 around [place] HD remained stable, Exam Vital Signs Vital Sign - Last Date Time Temp Pulse Resp B/P Pulse Ox O2 Delivery O2 Flow Rate FiO2 08/12/16 12:43 37.1 67 19 168/69 99 Nasal Cannula 2.00 Intake and Output 08/11/16 08/11/16 08/12/16 Cumulative From/Thru 15:00 23:00 07:00 08/11/16 09:07 - 08/12/16 05:48 Intake Total 1000 ml 200 ml 200 ml 1400 ml Output Total 2150 ml 2150 ml Balance 1000 ml 200 ml -1950 ml -750 ml Intake Oral 200 ml 200 ml 400 ml IV Total 1000 ml 1000 ml Output Urine Total 2150 ml 2150 ml # Bowel Movements 1 0 1 Exam NAD, comfortably laying down on the bed no JVD, MMM, no LAD RRR, nl s1, s2 no mrg CTAB, no w,c S,ND,NT,normoactive BS+ warm, no edema, pulses 2/2 IVs and Medications Medications Reviewed: Medications were reviewed in detail Lab and Diagnostics Result Diagram: 08/12/1680408/12/16804 X-Rays, CTs and MRIs PROCEDURE: US VENOUS LEG DUPLEX BILATERAL INDICATIONS: swelling TECHNIQUE: Real-time imaging, as well as color and pulse Doppler interrogation, were performed of the deep veins of both legs from the inguinal ligament to the popliteal fossa. COMPARISON: None. FINDINGS: The deep veins are normally compressible, and free of intraluminal thrombus. Color and pulse Doppler demonstrate normal phasic intravascular flow. There is normal augmentation response to distal compression maneuver. IMPRESSION: No deep venous thrombosis identified within either the left or right lower extremities. Dictated by: Paul ROCKWELL Interpreted: Brook Mcintosh MD on 08/11/2016 at 14: 19 PROCEDURE: CT BRAIN WITHOUT CONTRAST ([id number]) INDICATIONS: trauma TECHNIQUE: Noncontrast 4.5 mm thick angled axial sections acquired from the foramen magnum to the vertex, with coronal reformats. COMPARISON: [facility], CT, BRAIN W/O CONTRAST, 03/31/2010, 11:39. FINDINGS: Image quality: There is mild motion artifact limiting evaluation. CSF spaces: Basal cisterns are patent. No extra-axial fluid collections. The ventricles are symmetric in size. There is mild cerebral volume loss, with resultant ventricular and sulcal prominence. Brain: No intracranial hemorrhage or midline shift. There is a left frontal extra-axial calcified mass redemonstrated which appears slightly increased in size compared to the prior study. This measures up to approximately 1.8 x 0.8 x 1.7 cm and again likely represents a meningioma. There is mild associated mass effect on the underlying frontal lobe. There are a few subcortical, periventricular and deep white matter hypodensities consistent with mild chronic small vessel ischemic changes. There is intracranial internal carotid artery atherosclerosis. Skull and face: Calvarium and visualized facial bones appear intact, without suspicious lesions. Sinuses: Visualized sinuses and mastoids are clear. IMPRESSION: 1. No acute intracranial abnormality. 2. Left frontal extra-axial mass consistent with a meningioma appears slightly increased in size compared to the prior study given differences in technique. 3. Mild cerebral volume loss and chronic white matter small vessel ischemic changes. Dictated by: Charles Zheng M.D. on 08/11/2016 at 10:34 PROCEDURE: X-RAY CHEST ONE VIEW, PORTABLE ([id number]) INDICATIONS: sob TECHNIQUE: One view of the chest was acquired. COMPARISON: [facility], , CHEST 2VW, 02/18/2014, 9:09. FINDINGS: Surgical changes and devices: Left chest wall pacemaker and leads appear stable in position. Postsurgical changes are also redemonstrated in the mediastinum. Lungs and pleura: No pleural effusions or pneumothorax. Visualized lungs are clear. Mediastinum: Mediastinal contours appear unchanged. Heart size is borderline enlarged. Bones and chest wall: No suspicious bony lesions. Overlying soft tissues appear unremarkable. IMPRESSION: 1. No acute cardiopulmonary disease. Dictated by: Charles Zheng M.D. on 08/11/2016 at 10:45 Assessment & Plan 81-year-old gentleman with indwelling Galvan inserted 2 weeks ago for urinary retention, recent admission for small bowel obstruction due to incarcerated incisional hernia, recent admission due to sepsis due to UTI discharged yesterday became pulsatile due to fall episodes and generalized weakness acute, active #sepsis +Worsening leukocytosis/HR/fever/, end organ damage with KAMILLA, acute liver injury. Source urine vs infectious colitis. procal 2.27, CXr negative -Empirically started zosyn, clinically improved, continue for now -FU infectious w/u, UCX ngtd, BCX, will send stool PCR -trends wbc, procal, fever curve, bolus if MAP<65 #Acute diarrhea,poa, abdomen remained benign, -monitor stool consistency and frequency -stool PCR as above # KAMILLA, likely post obstructive with clogged galvan, sepsis, diarrhea, CT showed bilateral hydronephrosis, no abscess. cr 1.81 ( was 1.1 08/10) -NS at 100ml/h , improving with IVF -trend cr, avoid renal toxin, adjust meds renally. -strict i/o # Transaminitis,acute, Possibly due to sepsis and mild rhabdo due to fall -trends # suspected mild rhabdo in the setting of post obstructive uropathy, CPK trending down with IVF -continue IVF chronic, stable # Suspected demand ischemia due to sepsis, troponins plataued x3, no active chest pain. -c/w ASA,BB -echo unchanged and no wall motion abnormality # Elevated d-dimer,acute, likely elevated in acute stress. LE duplex negative for DVT,ACS unlikely given unchanged echo #Indwelling Galvan due to BPH, will continue, follow up with OP. # Recent SBO awaiting hernia repair, # Increased hemangioma on CT,unclear significance at this point # DM, stable, will continue lispro SS, #CAD s/p CABG ,HTN dispo: likely to stay 1-2more days given sepsis Full code ,verified with patient VTE Mechanical Devices: Intermittant Pneumatic CD Resuscitation Status: CPR: Attempt Resuscitation Time spent 35 minutes Ángel Patricio MD Aug 12, 2016 17:18
[2016-08-12 17:52] LABS: Bilirubin, Direct 0.2 mg/dL (0.0-0.3)
--- NOTE | 2016-08-12 22:28 | NUR ---
Breathing Pt sleeping on and off during day, reports being tired. Upon wakening, noticeable deeper groggy voice, confirmed observation with at bedside. Lung sounds were raspy and wet on L side. Elevated HOB, instructed pt to deep breathe, instructed pt to take out dentures when sleeping to reduce obstruction. Soon/later pt voice back to baseline, lung sounds are more clear.
[2016-08-13] VITALS (7 sets, daily range): BP systolic 135–159; BP diastolic 60–73; PULSE 60–65; RESP 18–22; O2SAT 95–98
[2016-08-13] MEDS: Piperacillin-Tazo 3.375 Gm Inj 3.375 GM in Dextrose 5% Minibag Plus 50 ML IV SCH ×2 (02:02→13:16)
[2016-08-13] MEDS: 0.9% Sodium Chloride 1,000 ML IV SCH (04:15)
--- NOTE | 2016-08-13 05:41 | NUR ---
O2 Sat's Heavy mouth breather at night, would periodically desaturate to low 80's with NC so switched to oxymask with good effect remaining in upper 90's. Now respirations periodically fall to 6-7 then patient takes a deep breath and cycles back up to 18-25 according to MP30. O2 sat's remaining in upper 90's. Oxymask is particularly uncomfortable for patient at the tip an underside of nose, applied Azar NG nose guard with good effect.
[2016-08-13 06:24] LABS: BASOPHILS % (AUTO) 0 % (0-3); EOSINOPHILS % (AUTO) 2.3 % (0-5); MONOCYTES % (AUTO) 6.7 % (4-12); Mean Corpuscular Hemoglobin 30.6 pg (27.0-35.0); Mean Corpuscular Volume 94.4 fL (81-100); NEUTROPHILS % (AUTO) 82.4 % (40-74); Platelet Count 202 bil/L (150-400)
[2016-08-13 07:06] LABS: Magnesium 1.6 mg/dL (1.6-2.6); Phosphorus 3.2 mg/dL (2.5-4.9)
[2016-08-13] MEDS: Insulin LISPRO 300 Unit/3 mL Inj SUBQ SCH ×4 (08:00→21:54)
[2016-08-13] MEDS: D3 PO SCH (08:30)
[2016-08-13] MEDS: CYANOCOBALAMIN PO SCH (08:30)
[2016-08-13] MEDS: FOLIC ACID PO SCH (08:30)
[2016-08-13] MEDS: Vitamins C,E, Omega-3, Mineral Tablet PO SCH (08:30)
[2016-08-13] MEDS: DHA PO SCH (08:30)
[2016-08-13] MEDS: EPA PO SCH (08:30)
[2016-08-13] MEDS: FISH OIL PO SCH (08:30)
[2016-08-13] MEDS: OMEGA PO SCH (08:30)
[2016-08-13] MEDS: Heparin 5,000 Unit/mL Inj SUBQ SCH ×2 (09:17→21:08)
--- NOTE | 2016-08-13 10:16 | DRSVH ---
PROCEDURE: X-RAY CHEST ONE VIEW, PORTABLE ([id number]) INDICATIONS: hypoxia suspect pul vasc congestion TECHNIQUE: One view of the chest was acquired. COMPARISON: [facility], CR, XR CHEST 1VW (PORTABLE), 08/11/2016, 9:22. FINDINGS: Surgical changes and devices: Post median sternotomy. Stable position of left cardiac pacer. Lungs and pleura: No pleural effusions or pneumothorax. Lungs are clear. Mediastinum: Mediastinal contours appear normal. Heart size is normal. Bones and chest wall: No suspicious bony lesions. Overlying soft tissues appear unremarkable. IMPRESSION: No acute cardiopulmonary disease. Dictated by: Paul ROCKWELL Interpreted: Romero Cisneros MD on 08/13/2016 at 10:15 Transcribed by: MAURO on 08/13/2016 at 10:16 Approved by: Romero Cisneros M.D. on 08/13/2016 at 17:46
--- NOTE | 2016-08-13 10:57 | NUR ---
Social Work Continued Discharge Planning: SW spoke to patient and to discuss discharge plan. 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 HHC/SNF choice list provided previously. PT assessment pending. Patient and states plan as SNF placement if recommended upon discharge. Choice as [facility] or [facility]. SW advised that following therapy eval and assessment, SW will determine SNF vs HHC plans definitively. SW also discussed alterative plans for HHC and private duty care in addition if HHC recommended at discharge. Patient states she has contacted contractor to assist with grab bars installment. Contractor to attend home on Thursday. Patient mentioned [facility] whom she to contact if home if planned. Estimate costs of private duty care also discussed with . Therapy ordered. Therapy pending assessment, SW will proceed with discharge plan accordingly following eval. SW requested that preemptive referral be sent to [facility] and [facility]. SW will continue to follow. PLAN: SNF ([facility] vs [facility]) vs home with HHC and possible private duty care, pending therapy eval and clinical course Arlet ANTHONY
[2016-08-13] MEDS: Polyethylene Glycol (PEG) 17 Gm Powder PO SCH (11:55)
--- NOTE | 2016-08-13 13:31 | NUR ---
NUTRITION ASSESSMENT ASSESS: Pt is an 81 yo male admitted w/ Non-STEMI, KAMILLA, and ground level fall. Pt discharged 3 days ago from previous admission for sepsis r/t UTI and KAMILLA. Per notes, pt had 2 bouts of diarrhea since discharge. He also had recent admission for SBO d/t incarcerated incisional hernia, and is following up w/ surgery for hernia repair. Per notes, pt is septic and has worsening leukocytosis. 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 BUN 34, Energy Sales Broker 1.37, Gluc 132, Ca 7.7, AST 126, ALT 131, Total Energy Sales Broker Kinase 1024, Alb 2.6, Procalcitonin MEDS: Reviewed. Lipitor, MVI, Beta Carotene, Insulin GI: BM x 1 (08/11). Recent episodes of diarrhea noted. SKIN: Ayden 15 Abdominal hernia noted. CURRENT WT: 121.6 kg BMI: 33.5 kg/m2 IBW: 86.4 kg DIET: Diabetic, Consistent Carb. PO 25-75% EST. NEEDS: BMI, KAMILLA Kcals: 2084-5962 kcal/kg BW (22-25 kcal/kg BW) Pro: 70-85 g/kg IBW (0.8-1.0 g/kg IBW) NUTRITION DIAGNOSIS: 1.) Altered nutrition-related lab values related to KAMILLA as evidenced by elevated BUN and Energy Sales Broker levels. 2.) Inadequate oral intake related to acute illness and GI symptoms as evidenced by PO intake of 25-75%. NUTRITION INTERVENTION: 1.) Add Glucerna to L&D tray to ensure adequate nutritional intake. MONITOR / EVAL: PO intake, GI, labs, wt, nutrition status, POC. Will continue to monitor per moderate nutritional risk guidelines. Addendum: 08/13/16 at [address] Auxiliary student documentation reviewed. I agree with above documentation. Terrance Goodrich, WHIT, CD
--- NOTE | 2016-08-13 13:53 | PCM.PNMED ---
Subjective Date of Service Aug 13, 2016 Subjective had episode of hypoxia overnight, noted low80% while sleeping, pt didn't particularly feel difficulty breathing as he was sleeping Stated that he was diagnosed sleep apnea in the past, never on CPAP machine denied any SOB, cough, sputum this AM CXR AM was unremarkable. IVF discontinued final UCX negative. no BM since Thursday, tolerating diet well, denied abdominal pain, n, v Exam Vital Signs Vital Sign - Last Date Time Temp Pulse Resp B/P Pulse Ox O2 Delivery O2 Flow Rate FiO2 08/13/16 10:23 60 08/13/16 09:52 37.2 22 141/60 95 Nasal Cannula 3.00 Intake and Output 08/12/16 08/12/16 08/13/16 Cumulative From/Thru 15:00 23:00 07:00 08/11/16 09:07 - 08/13/16 06:19 Intake Total 250 ml 1265 ml 2915 ml Output Total 1120 ml 3270 ml Balance -870 ml 1265 ml -355 ml Intake Oral 250 ml 650 ml IV Total 1265 ml 2265 ml Output Urine Total 1120 ml 3270 ml # Bowel Movements 0 1 Exam NAD, comfortably laying down on the bed no JVD, MMM, no LAD RRR, nl s1, s2 no mrg CTAB, no w,c S,ND,NT, hyperactive BS+, large ventral hernia, soft/reducible, on abdominal band warm, no edema, pulses 2/2 IVs and Medications Medications Reviewed: Medications were reviewed in detail Lab and Diagnostics Result Diagram: 08/13/16 0555 08/13/16 0555 X-Rays, CTs and MRIs PROCEDURE: US VENOUS LEG DUPLEX BILATERAL INDICATIONS: swelling TECHNIQUE: Real-time imaging, as well as color and pulse Doppler interrogation, were performed of the deep veins of both legs from the inguinal ligament to the popliteal fossa. COMPARISON: None. FINDINGS: The deep veins are normally compressible, and free of intraluminal thrombus. Color and pulse Doppler demonstrate normal phasic intravascular flow. There is normal augmentation response to distal compression maneuver. IMPRESSION: No deep venous thrombosis identified within either the left or right lower extremities. Dictated by: Paul Reyes RRA Interpreted: Brook Mcintosh MD on 08/11/2016 at 14: 19 PROCEDURE: CT BRAIN WITHOUT CONTRAST ([id number]) INDICATIONS: trauma TECHNIQUE: Noncontrast 4.5 mm thick angled axial sections acquired from the foramen magnum to the vertex, with coronal reformats. COMPARISON: [facility], CT, BRAIN W/O CONTRAST, 03/31/2010, 11:39. FINDINGS: Image quality: There is mild motion artifact limiting evaluation. CSF spaces: Basal cisterns are patent. No extra-axial fluid collections. The ventricles are symmetric in size. There is mild cerebral volume loss, with resultant ventricular and sulcal prominence. Brain: No intracranial hemorrhage or midline shift. There is a left frontal extra-axial calcified mass redemonstrated which appears slightly increased in size compared to the prior study. This measures up to approximately 1.8 x 0.8 x 1.7 cm and again likely represents a meningioma. There is mild associated mass effect on the underlying frontal lobe. There are a few subcortical, periventricular and deep white matter hypodensities consistent with mild chronic small vessel ischemic changes. There is intracranial internal carotid artery atherosclerosis. Skull and face: Calvarium and visualized facial bones appear intact, without suspicious lesions. Sinuses: Visualized sinuses and mastoids are clear. IMPRESSION: 1. No acute intracranial abnormality. 2. Left frontal extra-axial mass consistent with a meningioma appears slightly increased in size compared to the prior study given differences in technique. 3. Mild cerebral volume loss and chronic white matter small vessel ischemic changes. Dictated by: Charles Zheng M.D. on 08/11/2016 at 10:34 PROCEDURE: X-RAY CHEST ONE VIEW, PORTABLE ([id number]) INDICATIONS: sob TECHNIQUE: One view of the chest was acquired. COMPARISON: [facility], CR, CHEST 2VW, 02/18/2014, 9:09. FINDINGS: Surgical changes and devices: Left chest wall pacemaker and leads appear stable in position. Postsurgical changes are also redemonstrated in the mediastinum. Lungs and pleura: No pleural effusions or pneumothorax. Visualized lungs are clear. Mediastinum: Mediastinal contours appear unchanged. Heart size is borderline enlarged. Bones and chest wall: No suspicious bony lesions. Overlying soft tissues appear unremarkable. IMPRESSION: 1. No acute cardiopulmonary disease. Dictated by: Charles Zheng M.D. on 08/11/2016 at 10:45 Assessment & Plan 81-year-old gentleman with indwelling Galvan inserted 2 weeks ago for urinary retention, recent admission for small bowel obstruction due to incarcerated incisional hernia, recent admission due to sepsis due to UTI discharged yesterday became pulsatile due to fall episodes and generalized weakness acute, active #sepsis +Worsening leukocytosis/HR/fever/, end organ damage with KAMILLA, acute liver injury. initially procal 2.27, CXR negative. Possible source initially thought to be urine but final UCX is negative. still possibility of intra- abdominal infectious process despite unremarkable CT findings(non-contrast) -Empirically started zosyn, clinically improved, continue for now -FU infectious w/u, UCX ngtd, BCX, will send stool PCR -trends wbc, procal, fever curve, bolus if MAP<65 #Acute diarrhea,poa, abdomen remained benign, no BM for3D -monitor stool consistency and frequency -stool PCR as above -started bowel regimen today # KAMILLA, likely post obstructive with clogged galvan, sepsis, diarrhea, CT showed bilateral hydronephrosis, no abscess. cr 1.81 ( was 1.1 08/10) -NS at 100ml/h stopped today given elevated BNP, improving with IVF, encourage oral hydration -trend cr, avoid renal toxin, adjust meds renally. -strict i/o # Transaminitis,acute, Possibly due to sepsis and mild rhabdo due to fall -trends CK # suspected mild rhabdo in the setting of post obstructive uropathy, CPK trending down with IVF -continue hydration #hypoxic episode, 08/12-, likely due to underling REAGAN. -monitor for now, consider trial of CPAP in house chronic, stable # Suspected demand ischemia due to sepsis, troponins plataued x3, no active chest pain. -c/w ASA,BB -echo unchanged and no wall motion abnormality # Elevated d-dimer,acute, likely elevated in acute stress. LE duplex negative for DVT,ACS unlikely given unchanged echo #Indwelling Galvan due to BPH, will continue, follow up with OP. # Recent SBO awaiting hernia repair, tolerating diet well, needs to reschedule elective repair upon d/c # Increased hemangioma on CT, not active. # DM, stable, will continue lispro SS, #CAD s/p CABG ,HTN dispo: likely to stay 1-2more days given sepsis Full code ,verified with patient VTE Mechanical Devices: Intermittant Pneumatic CD Resuscitation Status: CPR: Attempt Resuscitation Time spent 35min Ángel Patricio MD Aug 13, 2016 12:29
--- NOTE | 2016-08-13 15:19 | NUR ---
NUTRITION ASSESSMENT ASSESS: Pt is an 81 yo male admitted w/ Non-STEMI, KAMILLA, and ground level fall. Pt discharged 3 days ago from previous admission for sepsis r/t UTI and KAMILLA. Per notes, pt had 2 bouts of diarrhea since discharge. He also had recent admission for SBO d/t incarcerated incisional hernia, and is following up w/ surgery for hernia repair. Per notes, pt is septic and has worsening leukocytosis. Pt has variable PO intake and expressed interest in trying [place] Ensure to help ensure adequate intake. 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 BUN 34, Quality Systems Technician 1.37, Gluc 132, Ca 7.7, AST 126, ALT 131, Total Quality Systems Technician Kinase 1024, Alb 2.6, Procalcitonin MEDS: Reviewed. Lipitor, MVI, Beta Carotene, Insulin GI: BM x 1 (08/11). Recent episodes of diarrhea noted. SKIN: Ayden 15 Abdominal hernia noted. CURRENT WT: 121.6 kg BMI: 33.5 kg/m2 IBW: 86.4 kg DIET: Diabetic, Consistent Carb. PO 25-75% EST. NEEDS: BMI, KAMILLA Kcals: 8517-2821 kcal/kg BW (22-25 kcal/kg BW) Pro: 70-85 g/kg IBW (0.8-1.0 g/kg IBW) NUTRITION DIAGNOSIS: 1.) Altered nutrition-related lab values related to KAMILLA as evidenced by elevated BUN and Quality Systems Technician levels. 2.) Inadequate oral intake related to acute illness and GI symptoms as evidenced by PO intake of 25-75%. NUTRITION INTERVENTION: 1.) Add [place] Ensure to L tray. MONITOR / EVAL: PO intake, GI, labs, wt, nutrition status, POC. Will continue to monitor per moderate nutritional risk guidelines. Addendum: 08/13/16 at [address] Auxiliary student documentation reviewed. I agree with above documentation with the following change: Pt with artificial sweetener allergy so will send ensure at lunch only instead of Glucerna at Lunch and dinner. Terrance Goodrich, WHIT, CD
--- NOTE | 2016-08-13 20:56 | NUR ---
Blood glucose Pt's blood glucose reading was 215 before dinner. Pt was A&Ox4 and able to answer questions appropriately. Pt's skin was pink, warm, and dry. Administered insulin with RN per pt's sliding scale protocols. Will continue to monitor.
[2016-08-13] MEDS: Insulin GLARgine 100 Unit/mL Syringe SUBQ SCH (21:15)
[2016-08-14] VITALS (8 sets, daily range): BP systolic 150–172; BP diastolic 66–92; PULSE 60–64; RESP 18–23; O2SAT 96–99
[2016-08-14] MEDS: Piperacillin-Tazo 3.375 Gm Inj 3.375 GM in Dextrose 5% Minibag Plus 50 ML IV SCH ×2 (01:23→13:31)
--- NOTE | 2016-08-14 02:26 | NUR ---
Borges On reassessment yellow thick cloudy drainage noted at meatus of penis. Catheter care performed.
[2016-08-14 06:28] LABS: BASOPHILS % (AUTO) 0.2 % (0-3); EOSINOPHILS % (AUTO) 3.2 % (0-5); MONOCYTES % (AUTO) 10.3 % (4-12); Mean Corpuscular Hemoglobin 30.7 pg (27.0-35.0); Mean Corpuscular Volume 94.1 fL (81-100); NEUTROPHILS % (AUTO) 72.4 % (40-74); Platelet Count 203 bil/L (150-400)
[2016-08-14 06:47] LABS: Magnesium 1.7 mg/dL (1.6-2.6); Phosphorus 3.4 mg/dL (2.5-4.9)
[2016-08-14] MEDS: Insulin LISPRO 300 Unit/3 mL Inj SUBQ SCH ×4 (08:00→22:11)
[2016-08-14] MEDS: FOLIC ACID PO SCH (08:30)
[2016-08-14] MEDS: EPA PO SCH (08:30)
[2016-08-14] MEDS: FISH OIL PO SCH (08:30)
[2016-08-14] MEDS: OMEGA PO SCH (08:30)
[2016-08-14] MEDS: D3 PO SCH (08:30)
[2016-08-14] MEDS: CYANOCOBALAMIN PO SCH (08:30)
[2016-08-14] MEDS: DHA PO SCH (08:30)
--- NOTE | 2016-08-14 08:53 | NUR ---
Gave access and faxed facesheet to [facility] and faxed referral to [facility] per [employer]PER[employer] HELPER
[2016-08-14] MEDS: Polyethylene Glycol (PEG) 17 Gm Powder PO SCH (09:44)
[2016-08-14] MEDS: Heparin 5,000 Unit/mL Inj SUBQ SCH ×2 (09:46→20:23)
[2016-08-14] MEDS: Vitamins C,E, Omega-3, Mineral Tablet PO SCH (09:50)
--- NOTE | 2016-08-14 11:52 | PCM.PNMED ---
Subjective Date of Service Aug 14, 2016 Subjective Patient stated he had one episode vomiting yesterday 2 bowel movement since yesterday Remained afebrile, hemodynamically stable Exam Vital Signs Vital Sign - Last Date Time Temp Pulse Resp B/P Pulse Ox O2 Delivery O2 Flow Rate FiO2 08/14/16 09:56 36.7 60 20 153/66 98 Nasal Cannula 3.00 Intake and Output 08/13/16 08/13/16 08/14/16 Cumulative From/Thru 15:00 23:00 07:00 08/11/16 09:07 - 08/14/16 06:30 Intake Total 500 ml 1100 ml 85 ml 4600 ml Output Total 1000 ml 750 ml 5020 ml Balance -500 ml 350 ml 85 ml -420 ml Intake Oral 500 ml 1100 ml 2250 ml IV Total 85 ml 2350 ml Output Urine Total 1000 ml 750 ml 5020 ml # Bowel Movements 0 1 2 Exam NAD, comfortably laying down on the bed no JVD, MMM, no LAD RRR, nl s1, s2 no mrg CTAB, no w,c S,ND,NT,normoactive BS+ warm, no edema, pulses 2/2 IVs and Medications Medications Reviewed: Medications were reviewed in detail Lab and Diagnostics Result Diagram: 08/14/16 0608/14/16 0601 X-Rays, CTs and MRIs PROCEDURE: US VENOUS LEG DUPLEX BILATERAL INDICATIONS: swelling TECHNIQUE: Real-time imaging, as well as color and pulse Doppler interrogation, were performed of the deep veins of both legs from the inguinal ligament to the popliteal fossa. COMPARISON: None. FINDINGS: The deep veins are normally compressible, and free of intraluminal thrombus. Color and pulse Doppler demonstrate normal phasic intravascular flow. There is normal augmentation response to distal compression maneuver. IMPRESSION: No deep venous thrombosis identified within either the left or right lower extremities. Dictated by: Paul Reyes RRA Interpreted: Brook Mcintosh MD on 08/11/2016 at 14: 19 PROCEDURE: CT BRAIN WITHOUT CONTRAST ([id number]) INDICATIONS: trauma TECHNIQUE: Noncontrast 4.5 mm thick angled axial sections acquired from the foramen magnum to the vertex, with coronal reformats. COMPARISON: [facility], CT, BRAIN W/O CONTRAST, 03/31/2010, 11:39. FINDINGS: Image quality: There is mild motion artifact limiting evaluation. CSF spaces: Basal cisterns are patent. No extra-axial fluid collections. The ventricles are symmetric in size. There is mild cerebral volume loss, with resultant ventricular and sulcal prominence. Brain: No intracranial hemorrhage or midline shift. There is a left frontal extra-axial calcified mass redemonstrated which appears slightly increased in size compared to the prior study. This measures up to approximately 1.8 x 0.8 x 1.7 cm and again likely represents a meningioma. There is mild associated mass effect on the underlying frontal lobe. There are a few subcortical, periventricular and deep white matter hypodensities consistent with mild chronic small vessel ischemic changes. There is intracranial internal carotid artery atherosclerosis. Skull and face: Calvarium and visualized facial bones appear intact, without suspicious lesions. Sinuses: Visualized sinuses and mastoids are clear. IMPRESSION: 1. No acute intracranial abnormality. 2. Left frontal extra-axial mass consistent with a meningioma appears slightly increased in size compared to the prior study given differences in technique. 3. Mild cerebral volume loss and chronic white matter small vessel ischemic changes. Dictated by: Charles Zheng M.D. on 08/11/2016 at 10:34 PROCEDURE: X-RAY CHEST ONE VIEW, PORTABLE ([id number]) INDICATIONS: sob TECHNIQUE: One view of the chest was acquired. COMPARISON: [facility], , CHEST 2VW, 02/18/2014, 9:09. FINDINGS: Surgical changes and devices: Left chest wall pacemaker and leads appear stable in position. Postsurgical changes are also redemonstrated in the mediastinum. Lungs and pleura: No pleural effusions or pneumothorax. Visualized lungs are clear. Mediastinum: Mediastinal contours appear unchanged. Heart size is borderline enlarged. Bones and chest wall: No suspicious bony lesions. Overlying soft tissues appear unremarkable. IMPRESSION: 1. No acute cardiopulmonary disease. Dictated by: Charles Zheng M.D. on 08/11/2016 at 10:45 Assessment & Plan 81-year-old gentleman with indwelling Galvan inserted 2 weeks ago for urinary retention, recent admission for small bowel obstruction due to incarcerated incisional hernia, recent admission due to sepsis due to UTI discharged yesterday became pulsatile due to fall episodes and generalized weakness acute, active #sepsis +Worsening leukocytosis/HR/fever/, end organ damage with KAMILLA, acute liver injury. initially procal 2.27, CXR negative. Possible source initially thought to be urine but final UCX is negative. still possibility of intra- abdominal infectious process despite unremarkable CT findings(non-contrast) -Empirically started zosyn, clinically improved, continue for now -Appreciate Dr. Khan input regarding choice of abx -FU infectious w/u, UCX ngtd, BCX, will send stool PCR -trends wbc, procal, fever curve, bolus if MAP<65 #Acute diarrhea,poa, abdomen remained benign, no BM for3D -monitor stool consistency and frequency -stool PCR as above -started bowel regimen 08/13 # KAMILLA, likely post obstructive with clogged galvan, sepsis, diarrhea, CT showed bilateral hydronephrosis, no abscess. cr 1.81 ( was 1.1 08/10) -NS at 100ml/h stopped 08/13 given elevated BNP, improving with IVF, encourage oral hydration -trend cr, avoid renal toxin, adjust meds renally. -strict i/o # Transaminitis,acute, Possibly due to sepsis and mild rhabdo due to fall -trends CK # suspected mild rhabdo in the setting of post obstructive uropathy, CPK trending down with IVF -continue hydration #hypoxic, apneic episodes, recurrent during hospitalization, likely due to underling REAGAN. -monitor for now, consider trial of CPAP in house chronic, stable # Suspected demand ischemia due to sepsis, troponins plataued x3, no active chest pain. -c/w ASA,BB -echo unchanged and no wall motion abnormality # Elevated d-dimer,acute, likely elevated in acute stress. LE duplex negative for DVT,ACS unlikely given unchanged echo #Indwelling Galvan due to BPH, will continue, follow up with OP. # Recent SBO awaiting hernia repair, tolerating diet well, needs to reschedule elective repair upon d/c # Increased hemangioma on CT, not active. # DM, stable, will continue lispro SS, #CAD s/p CABG ,HTN dispo: likely to stay 1-2more days given sepsis Full code ,verified with patient VTE Mechanical Devices: Intermittant Pneumatic CD Resuscitation Status: CPR: Attempt Resuscitation Time spent 35 minutes Ángel Patricio MD Aug 14, 2016 11:52
--- NOTE | 2016-08-14 13:50 | NUR ---
Social Work: Readiness for d/c Data: Pt is on day 3 of hospitalization. EMR reviewed, pt discussed in rounds. states pt likely to d/c tomorrow. BRACER requested UR specialist send referrals to [facility] Ana Kasper and Sherry. BRACER will continue to follow. Assessment: Pt who is independent at baseline. Plan: Pt will d/c to SNF, [facility] Ana Kasper and Sherry referred. BRACER will continue to follow. RAJ Blake
--- NOTE | 2016-08-14 18:48 | NUR ---
Activity Patient reporting he is feeling "much better". Ambulating in hallway with FFW. Patient "tires easily", steady on feet.
--- NOTE | 2016-08-14 19:48 | CONS ---
[address] [address] CONSULTATION REPORT PATIENT: SAYRA NGUYEN : 1935 MR#: [id number] ADMIT: 08/11/2016 JOB ID: [id number] DATE OF SERVICE: 08/14/2016 INFECTIOUS DISEASE CONSULTATION: I thank Dr. Patricio for this consult. REASON FOR CONSULTATION: Unexplained leukocytosis in a patient with numerous recent admissions. HISTORY OF PRESENT ILLNESS: The patient is an 81-year-old retired [place] man with a complex medical history over the past month or so. He has a longstanding history of abdominal wall hernia which dates back to his days in the [place] and a ruptured appendix. At the end of June he was admitted with what was felt to be an incarcerated hernia. This was treated nonsurgically and the patient improved and the patient was discharged after just a very brief hospital stay of about three days. Unfortunately he then returned to the hospital again on August 08 for his second admission. He had developed urinary retention on or about July 29 and for that reason was sent to the ED and a Borges was placed, which drained over 1 L of urine. The plan was for him to keep the Borges catheter for a few weeks and follow up in Urology. Unfortunately, the patient became confused and very tired and was subsequently sent to the ED. At that time it was noted that the patient had pyuria and a urine culture was done which grew mixed organisms. In addition, he was found to have an elevated creatinine as well as a new mild transaminitis. This was during his admission on August 08. He subsequently improved in terms of his mental status and there were no positive cultures of significance except for the mixed urine and was discharged on August 10, just four days ago. 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 Because of these symptoms he came back to the emergency department, where he was found to have a worsening leukocytosis as well as LFTs which were still quite elevated. The patient was subsequently readmitted and re-cultured with a presumptive diagnosis of worsening complicated urinary tract infection. The patient was then re-cultured and started on Zosyn and stool for C. diff requested. It was noted that his LFTs were up and another set of hepatitis serologies were ordered. ID was consulted today regarding the nature of this infection and how long the antibiotics should be continued. This afternoon the patient and his tell me he is feeling substantially better. They emphasize that he has never had fevers or chills or sweats throughout this month of three hospital admissions. The patient was confused just prior to his August 08 admission but that has completely resolved. He has never had any significant sore throat. He has a chronic cough due to one of his blood pressure meds but that has not changed. He has had no shortness or productive sputum whatsoever, though he does have a chronic cough. He has not had any more pain referable to his right-sided abdominal wall hernia and he denies having any particular problems with his Borges catheter. He states that his diarrhea has actually improved and more or less resolved since his readmission. PAST MEDICAL HISTORY: 1. Organic heart disease. a. 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 b. Coronary artery disease. c. Status post CABG x2 in 1992 and 2002. 2. Diabetes mellitus. 3. Hypertension. 4. BPH. 5. History of recurrent diabetic foot ulcers. 6. Chronic back pain. 7. Large abdominal wall hernia. 8. Recurrent UTIs. 9. Indwelling Borges since July 29, 2016. SOCIAL HISTORY: The patient quit smoking when the surgeon general's warning came out in the mid 1960s. He drinks alcohol infrequently. He is a retired [place] gentleman who had extensive service, in [place] in particular. 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 FAMILY HISTORY: No family history of tuberculosis in his parents, siblings, or any other close relatives. REVIEW OF SYSTEMS: Was done. This afternoon the patient states he has no significant headache, no visual complaint, and no sore throat. He has no stiff neck. He has a chronic dry cough, but no productive cough. No chest pain and no shortness of breath. No abdominal pain, nausea, or vomiting, though he did have one episode of vomiting yesterday which was very brief and a minimal amount. He has the Borges catheter in place so he does not have urgency, frequency, or dysuria. He has had some relatively formed stools since admission, though his reports he had true diarrhea when he was on the outside. He does not have any acute ulcers on his feet and no problems with his pacer. The remainder of the review of systems is noncontributory and/or negative. PHYSICAL EXAMINATION: Reveals a nontoxic gentleman who appears about his stated age of 81. He is afebrile, temp 36.6. He was 37.9 back on the , and that is about his only even marginal temperature elevation out of all these admissions the last month. His pulse is in the 60s, respiratory rate 20, blood pressure 161/92. He is saturating well on 3 L. His mental status is clear this afternoon. Sinuses nontender. Eyes without conjunctivitis or scleral icterus. Oral cavity without thrush or pharyngitis. Neck is supple. No cervical adenopathy. Lungs: While sitting up quite clear actually posteriorly. No rales or rhonchi are heard. Cardiac tones with a 1/6 systolic murmur heard across the precordium. According to the patient this has been previously noted. He does have a large reducible abdominal wall hernia. No hepatosplenomegaly or ascites is noted. Borges catheter is in place and draining clear yellow urine. No inguinal adenopathy is noted. There is no synovitis of any joints. He has no skin breakdown on his feet. 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 LABORATORY STUDIES: Include white count 4700; it was 20,000 on the . The diff on the white count has basically completely normalized. The creatinine has also normalized; it was as high as 2 basically back on August 08 and is now down to 1.15. The LFTs are going the other way, however. His ALT was normal back on July 23 when he initially had the issue with possible incarcerated hernia and it has now slowly risen to 149. His albumin is 2.7. Procalcitonin was as high as 2.27 on August 11 and is now down to 1.15. Micro studies reveal urine from the when he was readmitted and had bacterial contamination greater than three organisms with 10-50 white cells. Subsequent urine cultures have been negative and blood cultures have been negative. IMAGING: Has included a chest x-ray which is clear and an abdominopelvic CT scan which showed a prominent prostate and moderate bilateral hydronephrosis. Note that this is being compared to a CT that was done prior to the placement of the Borges. Gallstones are present, but no cholecystitis. An abdominal ultrasound that was done back on the looks like a fatty liver, and there was cholelithiasis noted, but no cholecystitis. IMPRESSION: This is a difficult case of a gentleman who was admitted at the end of June with what was thought to be an incarcerated hernia which subsequently resolved. On July 29 he required placement of a Borges because of urinary tract obstruction and he was admitted here on August 08 with what sounds like a complicated urinary tract infection. The culture yielded mixed cami, which suggests maybe it was collected from the Borges bag or somewhere nonsterile site. In any event, it seemed to improve and he was sent home only to return with falling and weakness. At this point it is very difficult to figure what is going on. The patient is clearly getting better in terms of the way he feels and his laboratory studies, as his white count has now normalized, his renal function is improving, and his procalcitonin is dropping. We do not have a specific bacterial etiology here but I think this is likely a complicated urinary tract infection. There is certainly no evidence for pneumonia, meningitis, pharyngitis, or diabetic foot infection. The patient's abdominal wall hernia is benign. A separate issue is why he has this mild to moderate elevation of his LFTs. I would think first and foremost this could be due to a medication he has received during the course of these events the last three weeks. It is unlikely that a chronic viral process such as hepatitis B, C, or E is causing this. RECOMMENDATIONS: 1. I would continue with the IV Zosyn at least in the short run and carefully watch his white count and procalcitonin. 2. As his white count and procalcitonin and overall clinical status improve, I would consider a transition to an oral quinolone such as Cipro or levofloxacin perhaps to complete 10 days or so of therapy dated from the date of this readmission. 3. The patient's liver function should be carefully watched as an outpatient. If they continue to climb I think another ultrasound of the right upper quadrant would be indicated, as well as a careful review of his medicines to make sure that this is not a medication-induced toxicity. 4. I will be leaving out of the country for 10 days starting tomorrow morning and will not be able to follow up on this case, except perhaps if you wanted to e-mail me using my [employer] e-mail. Thank you very much for this consultation on this most ambiguous case.
--- NOTE | 2016-08-14 20:17 | NUR ---
Elevated glucose Pt's blood sugar level was 258 before dinner. Pt was A&Ox4 and answered questions appropriately. skin was pale, warm, and dry. Administered insulin per pt's sliding scale protocols. Will continue to monitor.
[2016-08-14] MEDS: Insulin GLARgine 100 Unit/mL Syringe SUBQ SCH (20:24)
[2016-08-15] MEDS ORDERED: 0.9% Sodium Chloride 250 ML ONE (02:17)
[2016-08-15] MEDS: Piperacillin-Tazo 3.375 Gm Inj 3.375 GM in Dextrose 5% Minibag Plus 50 ML IV SCH ×2 (02:22→14:47)
[2016-08-15 04:07] LABS: Hepatitis A Antibody IgM Negative (Negative); Hepatitis B Core Antibody IgM Negative (Negative)
[2016-08-15 04:25] VITALS: BP 172/79; PULSE 60; RESP 20; O2SAT 97
[2016-08-15 06:13] LABS: BASOPHILS % (AUTO) 0.2 % (0-3); EOSINOPHILS % (AUTO) 3.6 % (0-5); MONOCYTES % (AUTO) 10.6 % (4-12); Mean Corpuscular Hemoglobin 30.4 pg (27.0-35.0); NEUTROPHILS % (AUTO) 69.2 % (40-74); Platelet Count 203 bil/L (150-400)
[2016-08-15 06:40] LABS: Magnesium 1.5 mg/dL (1.6-2.6); Phosphorus 4.1 mg/dL (2.5-4.9)
[2016-08-15] MEDS: Insulin LISPRO 300 Unit/3 mL Inj SUBQ SCH ×4 (07:30→20:06)
[2016-08-15] MEDS ORDERED: Magnesium Sulf 2 Gm/50mL Water 2 GM in IV Premix 1 EACH IV ONE (07:35)
[2016-08-15] MEDS: OMEGA PO SCH (08:30)
[2016-08-15] MEDS: D3 PO SCH (08:30)
[2016-08-15] MEDS: FOLIC ACID PO SCH (08:30)
[2016-08-15] MEDS: EPA PO SCH (08:30)
[2016-08-15] MEDS: FISH OIL PO SCH (08:30)
[2016-08-15] MEDS: DHA PO SCH (08:30)
[2016-08-15] MEDS: Heparin 5,000 Unit/mL Inj SUBQ SCH ×2 (08:30→20:07)
[2016-08-15] MEDS: CYANOCOBALAMIN PO SCH (08:30)
[2016-08-15] MEDS: Vitamins C,E, Omega-3, Mineral Tablet PO SCH (08:50)
[2016-08-15] MEDS: Polyethylene Glycol (PEG) 17 Gm Powder PO SCH (08:50)
--- NOTE | 2016-08-15 13:14 | PCM.PNMED ---
Subjective Date of Service Aug 15, 2016 Subjective pt denied any symptoms tolerating diet well nurse reported urethral discharge, ID consulted yesterday Exam Vital Signs Vital Sign - Last Date Time Temp Pulse Resp B/P Pulse Ox O2 Delivery O2 Flow Rate FiO2 08/15/16 08:30 Supplement Oxygen 08/15/16 04:25 36.6 60 20 172/79 97 3.00 Intake and Output 08/14/16 08/14/16 08/15/16 Cumulative From/Thru 15:00 23:00 07:00 08/11/16 09:07 - 08/15/16 06:58 Intake Total 200 ml 1290 ml 286 ml 6376 ml Output Total 1050 ml 900 ml 1400 ml 8370 ml Balance -850 ml 390 ml -1114 ml -1994 ml Intake Oral 200 ml 654 ml 236 ml 3340 ml IV Total 636 ml 50 ml 3036 ml Output Urine Total 1050 ml 900 ml 1400 ml 8370 ml # Bowel Movements 1 0 3 Exam NAD, comfortably laying down on the bed no JVD, MMM, no LAD RRR, nl s1, s2 no mrg CTAB, no w,c S,ND,NT,normoactive BS+ warm, no edema, pulses 2/2 Lab and Diagnostics Result Diagram: 08/15/16 0547 08/15/16 0547 X-Rays, CTs and MRIs PROCEDURE: US VENOUS LEG DUPLEX BILATERAL INDICATIONS: swelling TECHNIQUE: Real-time imaging, as well as color and pulse Doppler interrogation, were performed of the deep veins of both legs from the inguinal ligament to the popliteal fossa. COMPARISON: None. FINDINGS: The deep veins are normally compressible, and free of intraluminal thrombus. Color and pulse Doppler demonstrate normal phasic intravascular flow. There is normal augmentation response to distal compression maneuver. IMPRESSION: No deep venous thrombosis identified within either the left or right lower extremities. Dictated by: Paul Reyes RRA Interpreted: Brook Mcintosh MD on 08/11/2016 at 14: 19 PROCEDURE: CT BRAIN WITHOUT CONTRAST ([id number]) INDICATIONS: trauma TECHNIQUE: Noncontrast 4.5 mm thick angled axial sections acquired from the foramen magnum to the vertex, with coronal reformats. COMPARISON: [facility], CT, BRAIN W/O CONTRAST, 03/31/2010, 11:39. FINDINGS: Image quality: There is mild motion artifact limiting evaluation. CSF spaces: Basal cisterns are patent. No extra-axial fluid collections. The ventricles are symmetric in size. There is mild cerebral volume loss, with resultant ventricular and sulcal prominence. Brain: No intracranial hemorrhage or midline shift. There is a left frontal extra-axial calcified mass redemonstrated which appears slightly increased in size compared to the prior study. This measures up to approximately 1.8 x 0.8 x 1.7 cm and again likely represents a meningioma. There is mild associated mass effect on the underlying frontal lobe. There are a few subcortical, periventricular and deep white matter hypodensities consistent with mild chronic small vessel ischemic changes. There is intracranial internal carotid artery atherosclerosis. Skull and face: Calvarium and visualized facial bones appear intact, without suspicious lesions. Sinuses: Visualized sinuses and mastoids are clear. IMPRESSION: 1. No acute intracranial abnormality. 2. Left frontal extra-axial mass consistent with a meningioma appears slightly increased in size compared to the prior study given differences in technique. 3. Mild cerebral volume loss and chronic white matter small vessel ischemic changes. Dictated by: Charles Zheng M.D. on 08/11/2016 at 10:34 PROCEDURE: X-RAY CHEST ONE VIEW, PORTABLE ([id number]) INDICATIONS: sob TECHNIQUE: One view of the chest was acquired. COMPARISON: [facility], , CHEST 2VW, 02/18/2014, 9:09. FINDINGS: Surgical changes and devices: Left chest wall pacemaker and leads appear stable in position. Postsurgical changes are also redemonstrated in the mediastinum. Lungs and pleura: No pleural effusions or pneumothorax. Visualized lungs are clear. Mediastinum: Mediastinal contours appear unchanged. Heart size is borderline enlarged. Bones and chest wall: No suspicious bony lesions. Overlying soft tissues appear unremarkable. IMPRESSION: 1. No acute cardiopulmonary disease. Dictated by: Charles Zheng M.D. on 08/11/2016 at 10:45 Assessment & Plan 81-year-old gentleman with indwelling Galvan inserted 2 weeks ago for urinary retention, recent admission for small bowel obstruction due to incarcerated incisional hernia, recent admission due to sepsis due to UTI discharged yesterday became pulsatile due to fall episodes and generalized weakness acute, active #sepsis +Worsening leukocytosis/HR/fever/, end organ damage with KAMILLA, acute liver injury. initially procal 2.27, CXR negative. Possible source initially thought to be urine but final UCX is negative, given newly found urethral discharge, this seems to be the source, unlikely intra-abdominal infectious process despite unremarkable CT findings(non-contrast) -Empirically started zosyn, clinically improved, continue for now -Appreciate Dr. Khan input regarding choice of abx, recommended continue zosyn for now -will send cultures from urethral discharge -trends wbc, procal, fever curve, bolus if MAP<65 #Acute diarrhea,poa, abdomen remained benign, -monitor stool consistency and frequency -stool PCR as above -started bowel regimen 08/13 # KAMILLA, likely post obstructive with clogged galvan, sepsis, diarrhea, CT showed bilateral hydronephrosis, no abscess. cr 1.81 ( was 1.1 08/10) -NS at 100ml/h stopped 08/13 given elevated BNP, improving with IVF, encourage oral hydration -trend cr, avoid renal toxin, adjust meds renally. -strict i/o # Transaminitis,acute, Possibly due to sepsis and mild rhabdo due to fall -trends CK # suspected mild rhabdo in the setting of post obstructive uropathy, CPK trending down with IVF -continue hydration #hypoxic, apneic episodes, recurrent during hospitalization, likely due to underling REAGAN. -monitor for now, consider trial of CPAP in house chronic, stable # Suspected demand ischemia due to sepsis, troponins plataued x3, no active chest pain. -c/w ASA,BB -echo unchanged and no wall motion abnormality # Elevated d-dimer,acute, likely elevated in acute stress. LE duplex negative for DVT,ACS unlikely given unchanged echo #Indwelling Galvan due to BPH, will continue, follow up with OP. # Recent SBO awaiting hernia repair, tolerating diet well, needs to reschedule elective repair upon d/c # Increased hemangioma on CT, not active. # DM, stable, will continue lispro SS, #CAD s/p CABG ,HTN dispo: likely to stay 1-2more days given sepsis Full code ,verified with patient VTE Mechanical Devices: Intermittant Pneumatic CD Resuscitation Status: CPR: Attempt Resuscitation Time spent 35min Ángel Patricio MD Aug 15, 2016 12:05
[2016-08-15 13:58] VITALS: BP 170/72; PULSE 62; RESP 20; O2SAT 96
--- NOTE | 2016-08-15 14:59 | NUR ---
Social Work: Readiness for d/c Data: pt is on day 4 of hospitalization. EMR reviewed, pt discussed in rounds. states pt likely ready for d/c tomorrow. PT recommending home with outpt PT. MANAGER INTELLIGENCE met with pt to discuss D/C. Pt is agreeable to going home with outpt PT, states his can transport home. Likely no further d/c planning needs. MANAGER INTELLIGENCE will continue to follow if needs arise. Assessment: Pt who is independent at baseline. Plan: Pt will d/c home via POV with spouse when medically stable with outpt PT. Likely no further d/c planning needs. MANAGER INTELLIGENCE will continue to follow if needs arise. RAJ Blake
--- NOTE | 2016-08-15 18:53 | NUR ---
Culture: Pt with large amounts of discharge around Borges cath. Faustina care as needed, swab sent for culture per MD orders. Care ongoing.
[2016-08-15] MEDS: Insulin GLARgine 100 Unit/mL Syringe SUBQ SCH (20:05)
[2016-08-15 20:53] VITALS: BP 162/68; PULSE 60; RESP 20; O2SAT 94
[2016-08-16] MEDS ORDERED: 0.9% Sodium Chloride 250 ML ONE (00:32)
[2016-08-16] MEDS: Piperacillin-Tazo 3.375 Gm Inj 3.375 GM in Dextrose 5% Minibag Plus 50 ML IV SCH ×2 (00:36→13:07)
[2016-08-16 04:32] VITALS: BP 152/83; PULSE 62; RESP 20; O2SAT 96
--- NOTE | 2016-08-16 05:50 | NUR ---
MOOD Pt was cheerful and maintained an optimistic view point of his current situation during shift. Involved in medication pass and showed good knowledge and understanding of Meds given.
[2016-08-16 07:58] LABS: BASOPHILS % (AUTO) 0.1 % (0-3); EOSINOPHILS % (AUTO) 3.6 % (0-5); MONOCYTES % (AUTO) 6.9 % (4-12); Mean Corpuscular Hemoglobin 30.4 pg (27.0-35.0); Mean Corpuscular Volume 89.2 fL (81-100); NEUTROPHILS % (AUTO) 72.9 % (40-74); Platelet Count 232 bil/L (150-400)
[2016-08-16] MEDS: Insulin LISPRO 300 Unit/3 mL Inj SUBQ SCH ×4 (08:00→21:17)
[2016-08-16] MEDS: FOLIC ACID PO SCH (08:30)
[2016-08-16] MEDS: D3 PO SCH (08:30)
[2016-08-16] MEDS: OMEGA PO SCH (08:30)
[2016-08-16] MEDS: CYANOCOBALAMIN PO SCH (08:30)
[2016-08-16] MEDS: DHA PO SCH (08:30)
[2016-08-16] MEDS: FISH OIL PO SCH (08:30)
[2016-08-16] MEDS: EPA PO SCH (08:30)
[2016-08-16 08:37] LABS: Magnesium 1.7 mg/dL (1.6-2.6)
--- NOTE | 2016-08-16 09:05 | NUR ---
YELENA signed. RAJ Mccurdy
[2016-08-16] MEDS: Vitamins C,E, Omega-3, Mineral Tablet PO SCH (09:15)
[2016-08-16] MEDS: Heparin 5,000 Unit/mL Inj SUBQ SCH ×2 (09:15→21:16)
[2016-08-16] MEDS: Polyethylene Glycol (PEG) 17 Gm Powder PO SCH (09:15)
[2016-08-16 14:55] VITALS: BP 115/60; PULSE 60; RESP 20; O2SAT 95
--- NOTE | 2016-08-16 15:05 | PCM.PNMED ---
Subjective Date of Service Aug 16, 2016 Subjective no overnight event still having persistent urethral discharge Exam Vital Signs Vital Sign - Last Date Time Temp Pulse Resp B/P Pulse Ox O2 Delivery O2 Flow Rate FiO2 08/16/16 14:55 36.7 60 20 115/60 95 Room Air 08/15/16 04:25 3.00 Intake and Output 08/15/16 08/15/16 08/16/16 Cumulative From/Thru 15:00 23:00 07:00 08/11/16 09:07 - 08/16/16 06:02 Intake Total 949 ml 200 ml 7525 ml Output Total 1480 ml 1325 ml 82552 ml Balance -531 ml -1125 ml -3650 ml Intake Oral 949 ml 200 ml 4489 ml IV Total 3036 ml Output Urine Total 1480 ml 1325 ml 95719 ml # Bowel Movements 1 4 Exam NAD, comfortably laying down on the bed no JVD, MMM, no LAD RRR, nl s1, s2 no mrg CTAB, no w,c S,ND,NT,normoactive BS+ warm, no edema, pulses 2/2 IVs and Medications Medications Reviewed: Medications were reviewed in detail Lab and Diagnostics Result Diagram: 08/16/16 0720 08/16/16 0720 X-Rays, CTs and MRIs PROCEDURE: US VENOUS LEG DUPLEX BILATERAL INDICATIONS: swelling TECHNIQUE: Real-time imaging, as well as color and pulse Doppler interrogation, were performed of the deep veins of both legs from the inguinal ligament to the popliteal fossa. COMPARISON: None. FINDINGS: The deep veins are normally compressible, and free of intraluminal thrombus. Color and pulse Doppler demonstrate normal phasic intravascular flow. There is normal augmentation response to distal compression maneuver. IMPRESSION: No deep venous thrombosis identified within either the left or right lower extremities. Dictated by: Paul Reyes RRA Interpreted: Brook Mcintosh MD on 08/11/2016 at 14: 19 PROCEDURE: CT BRAIN WITHOUT CONTRAST ([id number]) INDICATIONS: trauma TECHNIQUE: Noncontrast 4.5 mm thick angled axial sections acquired from the foramen magnum to the vertex, with coronal reformats. COMPARISON: [facility], CT, BRAIN W/O CONTRAST, 03/31/2010, 11:39. FINDINGS: Image quality: There is mild motion artifact limiting evaluation. CSF spaces: Basal cisterns are patent. No extra-axial fluid collections. The ventricles are symmetric in size. There is mild cerebral volume loss, with resultant ventricular and sulcal prominence. Brain: No intracranial hemorrhage or midline shift. There is a left frontal extra-axial calcified mass redemonstrated which appears slightly increased in size compared to the prior study. This measures up to approximately 1.8 x 0.8 x 1.7 cm and again likely represents a meningioma. There is mild associated mass effect on the underlying frontal lobe. There are a few subcortical, periventricular and deep white matter hypodensities consistent with mild chronic small vessel ischemic changes. There is intracranial internal carotid artery atherosclerosis. Skull and face: Calvarium and visualized facial bones appear intact, without suspicious lesions. Sinuses: Visualized sinuses and mastoids are clear. IMPRESSION: 1. No acute intracranial abnormality. 2. Left frontal extra-axial mass consistent with a meningioma appears slightly increased in size compared to the prior study given differences in technique. 3. Mild cerebral volume loss and chronic white matter small vessel ischemic changes. Dictated by: Charles Zheng M.D. on 08/11/2016 at 10:34 PROCEDURE: X-RAY CHEST ONE VIEW, PORTABLE ([id number]) INDICATIONS: sob TECHNIQUE: One view of the chest was acquired. COMPARISON: [facility], , CHEST 2VW, 02/18/2014, 9:09. FINDINGS: Surgical changes and devices: Left chest wall pacemaker and leads appear stable in position. Postsurgical changes are also redemonstrated in the mediastinum. Lungs and pleura: No pleural effusions or pneumothorax. Visualized lungs are clear. Mediastinum: Mediastinal contours appear unchanged. Heart size is borderline enlarged. Bones and chest wall: No suspicious bony lesions. Overlying soft tissues appear unremarkable. IMPRESSION: 1. No acute cardiopulmonary disease. Dictated by: Charles Zheng M.D. on 08/11/2016 at 10:45 Assessment & Plan 81-year-old gentleman with indwelling Galvan inserted 2 weeks ago for urinary retention, recent admission for small bowel obstruction due to incarcerated incisional hernia, recent admission due to sepsis due to UTI discharged yesterday became pulsatile due to fall episodes and generalized weakness acute, active #sepsis +Worsening leukocytosis/HR/fever/, end organ damage with KAMILLA, acute liver injury. initially procal 2.27, CXR negative. Possible source initially thought to be urine but final UCX is negative, given newly found urethral discharge, this seems to be the source, unlikely intra-abdominal infectious process despite unremarkable CT findings(non-contrast) -Empirically started zosyn, clinically improved, continue for now -Appreciate Dr. Khan input regarding choice of abx, recommended continue zosyn for now -awaits final result of urethral discharge culture, it will dictate oral abx, then will d/c -trends wbc, procal, fever curve, bolus if MAP<65 # Transaminitis,acute, Possibly due to sepsis and mild rhabdo due to fall, stable, CT abd unremarkable. # suspected mild rhabdo in the setting of post obstructive uropathy, CPK trending down with IVF, keep galvan on d/c #hypoxic, apneic episodes, recurrent during hospitalization, likely due to underling REAGAN. -monitor for now, consider trial of CPAP in house chronic, stable, resolved #Acute diarrhea,poa, abdomen remained benign, -monitor stool consistency and frequency -stool PCR as above -started bowel regimen 08/13 # KAMILLA, likely post obstructive with clogged galvan, sepsis, diarrhea, CT showed bilateral hydronephrosis, no abscess. cr 1.81 ( was 1.1 08/10) -NS at 100ml/h stopped 08/13 given elevated BNP, improving with IVF, encourage oral hydration -trend cr, avoid renal toxin, adjust meds renally. -strict i/o # Suspected demand ischemia due to sepsis, troponins plataued x3, no active chest pain. -c/w ASA,BB -echo unchanged and no wall motion abnormality # Elevated d-dimer,acute, likely elevated in acute stress. LE duplex negative for DVT,ACS unlikely given unchanged echo #Indwelling Galvan due to BPH, will continue, follow up with OP. # Recent SBO awaiting hernia repair, tolerating diet well, needs to reschedule elective repair upon d/c # Increased hemangioma on CT, not active. # DM, stable, will continue lispro SS, #CAD s/p CABG ,HTN dispo: likely to stay 1-2more days until culture result comes back. Full code ,verified with patient VTE Mechanical Devices: Intermittant Pneumatic CD Resuscitation Status: CPR: Attempt Resuscitation Time spent 35min Ángel Patricio MD Aug 16, 2016 15:05
--- NOTE | 2016-08-16 15:31 | NUR ---
Dressing Change Dressing changed on Rt forearm. Vaseline gauze applied to wound, covered by telfa and secured with stretch bandage. Addendum: 08/16/16 at 1934 by MARGE BOWLING RN Patient reporting upper abdominal pressure/discomfort, "I think I ate too much lunch". Abdomen soft, palpable hernia, non painful to the touch. Patient denies abdominal pain or nausea.
[2016-08-16 17:12] VITALS: BP 118/72; PULSE 60; RESP 20; O2SAT 98
[2016-08-16] MEDS: Insulin GLARgine 100 Unit/mL Syringe SUBQ SCH (21:17)
[2016-08-16 21:22] VITALS: BP 152/65; PULSE 60; RESP 20; O2SAT 93
[2016-08-17] MEDS: Piperacillin-Tazo 3.375 Gm Inj 3.375 GM in Dextrose 5% Minibag Plus 50 ML IV SCH ×2 (01:53→13:54)
[2016-08-17 04:49] VITALS: BP 151/66; PULSE 64; RESP 20; O2SAT 96
--- NOTE | 2016-08-17 06:11 | NUR ---
NOC activity Pt denies chest pain, sob, n/v or abd discomfort. Borges catheter draining and intact. Noted greenish discharges on pt's penal head to catheter area. Cleaned preston-area with saline and gauze. Blood sugar checks done, and administered insulin per sliding scale and as ordered. IV ABx administered as scheduled. VSS and has been afebrile overnight.
[2016-08-17 07:07] LABS: BASOPHILS % (AUTO) 0.1 % (0-3); EOSINOPHILS % (AUTO) 3.1 % (0-5); MONOCYTES % (AUTO) 6.4 % (4-12); Mean Corpuscular Hemoglobin 30.4 pg (27.0-35.0); Mean Corpuscular Volume 93.2 fL (81-100); NEUTROPHILS % (AUTO) 75.3 % (40-74); Platelet Count 249 bil/L (150-400)
[2016-08-17 07:42] LABS: Magnesium 1.6 mg/dL (1.6-2.6); Phosphorus 3.9 mg/dL (2.5-4.9)
[2016-08-17] MEDS: Insulin LISPRO 300 Unit/3 mL Inj SUBQ SCH ×4 (09:42→21:00)
[2016-08-17] MEDS: Polyethylene Glycol (PEG) 17 Gm Powder PO SCH (09:51)
[2016-08-17] MEDS: CYANOCOBALAMIN PO SCH (09:52)
[2016-08-17] MEDS: FISH OIL PO SCH (09:52)
[2016-08-17] MEDS: DHA PO SCH (09:52)
[2016-08-17] MEDS: FOLIC ACID PO SCH (09:52)
[2016-08-17] MEDS: Heparin 5,000 Unit/mL Inj SUBQ SCH ×2 (09:52→20:06)
[2016-08-17] MEDS: OMEGA PO SCH (09:52)
[2016-08-17] MEDS: D3 PO SCH (09:52)
[2016-08-17] MEDS: EPA PO SCH (09:52)
--- NOTE | 2016-08-17 10:44 | PCM.PNMED ---
Subjective Date of Service Aug 17, 2016 Subjective No overnight event awaits final culture results Exam Vital Signs Vital Sign - Last Date Time Temp Pulse Resp B/P Pulse Ox O2 Delivery O2 Flow Rate FiO2 08/17/16 09:52 Supplement Oxygen 08/17/16 04:49 36.5 64 20 151/66 96 08/15/16 04:25 3.00 Intake and Output 08/16/16 08/16/16 08/17/16 Cumulative From/Thru 15:00 23:00 07:00 08/11/16 09:07 - 08/17/16 06:24 Intake Total 1336 ml 1101 ml 9962 ml Output Total 1000 ml 1175 ml 43865 ml Balance 336 ml -74 ml -3388 ml Intake Oral 1336 ml 600 ml 6425 ml IV Total 501 ml 3537 ml Output Urine Total 1000 ml 1175 ml 11807 ml # Bowel Movements 0 4 Exam NAD, comfortably laying down on the bed no JVD, MMM, no LAD RRR, nl s1, s2 no mrg CTAB, no w,c S,ND,NT,normoactive BS+ warm, no edema, pulses 2/2 IVs and Medications Medications Reviewed: Medications were reviewed in detail Lab and Diagnostics Result Diagram: 08/17/1665408/17/16 0655 X-Rays, CTs and MRIs PROCEDURE: US VENOUS LEG DUPLEX BILATERAL INDICATIONS: swelling TECHNIQUE: Real-time imaging, as well as color and pulse Doppler interrogation, were performed of the deep veins of both legs from the inguinal ligament to the popliteal fossa. COMPARISON: None. FINDINGS: The deep veins are normally compressible, and free of intraluminal thrombus. Color and pulse Doppler demonstrate normal phasic intravascular flow. There is normal augmentation response to distal compression maneuver. IMPRESSION: No deep venous thrombosis identified within either the left or right lower extremities. Dictated by: Paul Reyes RRA Interpreted: Brook Mcintosh MD on 08/11/2016 at 14: 19 PROCEDURE: CT BRAIN WITHOUT CONTRAST ([id number]) INDICATIONS: trauma TECHNIQUE: Noncontrast 4.5 mm thick angled axial sections acquired from the foramen magnum to the vertex, with coronal reformats. COMPARISON: [facility], CT, BRAIN W/O CONTRAST, 03/31/2010, 11:39. FINDINGS: Image quality: There is mild motion artifact limiting evaluation. CSF spaces: Basal cisterns are patent. No extra-axial fluid collections. The ventricles are symmetric in size. There is mild cerebral volume loss, with resultant ventricular and sulcal prominence. Brain: No intracranial hemorrhage or midline shift. There is a left frontal extra-axial calcified mass redemonstrated which appears slightly increased in size compared to the prior study. This measures up to approximately 1.8 x 0.8 x 1.7 cm and again likely represents a meningioma. There is mild associated mass effect on the underlying frontal lobe. There are a few subcortical, periventricular and deep white matter hypodensities consistent with mild chronic small vessel ischemic changes. There is intracranial internal carotid artery atherosclerosis. Skull and face: Calvarium and visualized facial bones appear intact, without suspicious lesions. Sinuses: Visualized sinuses and mastoids are clear. IMPRESSION: 1. No acute intracranial abnormality. 2. Left frontal extra-axial mass consistent with a meningioma appears slightly increased in size compared to the prior study given differences in technique. 3. Mild cerebral volume loss and chronic white matter small vessel ischemic changes. Dictated by: hCarles Zheng M.D. on 08/11/2016 at 10:34 PROCEDURE: X-RAY CHEST ONE VIEW, PORTABLE ([id number]) INDICATIONS: sob TECHNIQUE: One view of the chest was acquired. COMPARISON: [facility], , CHEST 2VW, 02/18/2014, 9:09. FINDINGS: Surgical changes and devices: Left chest wall pacemaker and leads appear stable in position. Postsurgical changes are also redemonstrated in the mediastinum. Lungs and pleura: No pleural effusions or pneumothorax. Visualized lungs are clear. Mediastinum: Mediastinal contours appear unchanged. Heart size is borderline enlarged. Bones and chest wall: No suspicious bony lesions. Overlying soft tissues appear unremarkable. IMPRESSION: 1. No acute cardiopulmonary disease. Dictated by: Charles Zheng M.D. on 08/11/2016 at 10:45 Assessment & Plan 81-year-old gentleman with indwelling Galvan inserted 2 weeks ago for urinary retention, recent admission for small bowel obstruction due to incarcerated incisional hernia, recent admission due to sepsis due to UTI discharged yesterday became pulsatile due to fall episodes and generalized weakness acute, active #sepsis +Worsening leukocytosis/HR/fever/, end organ damage with KAMILLA, acute liver injury. initially procal 2.27, CXR negative. Possible source initially thought to be urine but final UCX is negative, given newly found urethral discharge, this seems to be the source, unlikely intra-abdominal infectious process despite unremarkable CT findings(non-contrast) -Empirically started zosyn, clinically improved, continue for now -Appreciate Dr. Khan input regarding choice of abx, recommended continue zosyn for now -awaits final result of urethral discharge culture, it will dictate oral abx, then will d/c -trends wbc, procal, fever curve, bolus if MAP<65 # Transaminitis,acute, Possibly due to sepsis and mild rhabdo due to fall, stable, CT abd unremarkable. # suspected mild rhabdo in the setting of post obstructive uropathy, CPK trending down with IVF, keep galvan on d/c #hypoxic, apneic episodes, recurrent during hospitalization, likely due to underling REAGAN. -monitor for now, consider trial of CPAP in house chronic, stable, resolved #Acute diarrhea,poa, abdomen remained benign, -monitor stool consistency and frequency -stool PCR as above -started bowel regimen 08/13 # KAMILLA, likely post obstructive with clogged galvan, sepsis, diarrhea, CT showed bilateral hydronephrosis, no abscess. cr 1.81 ( was 1.1 08/10) -NS at 100ml/h stopped 08/13 given elevated BNP, improving with IVF, encourage oral hydration -trend cr, avoid renal toxin, adjust meds renally. -strict i/o # Suspected demand ischemia due to sepsis, troponins plataued x3, no active chest pain. -c/w ASA,BB -echo unchanged and no wall motion abnormality # Elevated d-dimer,acute, likely elevated in acute stress. LE duplex negative for DVT,ACS unlikely given unchanged echo #Indwelling Galvan due to BPH, will continue, follow up with OP. # Recent SBO awaiting hernia repair, tolerating diet well, needs to reschedule elective repair upon d/c # Increased hemangioma on CT, not active. # DM, stable, will continue lispro SS, #CAD s/p CABG ,HTN dispo:d/c home with oral agent when culture of urethral discharge back Full code ,verified with patient VTE Mechanical Devices: Intermittant Pneumatic CD Resuscitation Status: CPR: Attempt Resuscitation Time spent 35min Ángel Patricio MD Aug 17, 2016 10:44
[2016-08-17] MEDS: Vitamins C,E, Omega-3, Mineral Tablet PO SCH (11:34)
--- NOTE | 2016-08-17 12:47 | NUR ---
Social Work-readiness for discharge: Data:EMR reviewed. Pt is on day 6 of hospitalization for non stemi per H&P. Pt is 1-2 days out from discharge. GILA followed up with pt and Sarah at bedside,SW role explained. Pt's has questions about [facility] and also [facility] for DPOA. SW provided her with information. PT has cleared pt for home with outpt vs HH. 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 HH choice list provided. Pt and have no agency preference. SW referred to rotating calender and made referral to [facility] for RN and Pt, access given.Pt's to provide transport home. SW provided updated plan and phone number on white board in room. F2F in folder. SW will continue to follow. Assessment:Pt who would benefit from HH. Plan:Pt to discharge home when medically stable via POV. Referral made to [facility] for RN and PT. F2F in folder. SW will continue to follow. RAJ Mccurdy
--- NOTE | 2016-08-17 12:50 | NUR ---
choice list provided. RAJ Mccurdy
[2016-08-17 14:21] VITALS: BP 150/69; PULSE 60; RESP 18; O2SAT 94
--- NOTE | 2016-08-17 19:10 | NUR ---
Jony Discuss Borges Cath with Dr. Patricio. Informed him my concerns about having the Cath since 08/11. Dr. Patricio told me that indwelling Cath are good for 2 weeks and that the patient's penile discharge in not related to the cath.
[2016-08-17] MEDS ORDERED: 0.9% Sodium Chloride 250 ML ONE (19:58)
[2016-08-17 20:21] VITALS: BP 168/73; PULSE 60; RESP 18; O2SAT 97
[2016-08-17] MEDS: Insulin GLARgine 100 Unit/mL Syringe SUBQ SCH (21:00)
[2016-08-18] MEDS: Piperacillin-Tazo 3.375 Gm Inj 3.375 GM in Dextrose 5% Minibag Plus 50 ML IV SCH (01:18)
[2016-08-18 04:34] VITALS: BP 150/74; PULSE 60; RESP 18; O2SAT 95
[2016-08-18 06:20] LABS: BASOPHILS % (AUTO) 0.2 % (0-3); EOSINOPHILS % (AUTO) 2.8 % (0-5); MONOCYTES % (AUTO) 5.2 % (4-12); Mean Corpuscular Hemoglobin 30.4 pg (27.0-35.0); Mean Corpuscular Volume 94.1 fL (81-100); Platelet Count 275 bil/L (150-400)
[2016-08-18 06:35] LABS: Magnesium 1.7 mg/dL (1.6-2.6); Phosphorus 3.8 mg/dL (2.5-4.9)
--- NOTE | 2016-08-18 07:43 | NUR ---
Ambulation: Pt ambulated around the unit with staff assist and a FWW prior to bed last evening. Denies pain. Was able to sleep several hours through the night.
[2016-08-18] MEDS: Insulin LISPRO 300 Unit/3 mL Inj SUBQ SCH ×2 (07:59→11:35)
[2016-08-18] MEDS: FISH OIL PO SCH (08:00)
[2016-08-18] MEDS: OMEGA PO SCH (08:00)
[2016-08-18] MEDS: EPA PO SCH (08:00)
[2016-08-18] MEDS: Vitamins C,E, Omega-3, Mineral Tablet PO SCH (08:00)
[2016-08-18] MEDS: FOLIC ACID PO SCH (08:00)
[2016-08-18] MEDS: CYANOCOBALAMIN PO SCH (08:00)
[2016-08-18] MEDS: DHA PO SCH (08:00)
[2016-08-18] MEDS: D3 PO SCH (08:00)
[2016-08-18] MEDS: Heparin 5,000 Unit/mL Inj SUBQ SCH (08:01)
[2016-08-18] MEDS: Polyethylene Glycol (PEG) 17 Gm Powder PO SCH (08:30)
[2016-08-18] MEDS ORDERED: CIPR-231 PO (10:57)
--- NOTE | 2016-08-18 11:10 | PCM.DIMED ---
Discharge Instructions Date of Service Aug 18, 2016 Dates of Hospitalization Aug 11, 2016 at 11:26 Discharge Diagnosis Discharge Diagnosis # Acute sepsis due to acute E. Coli urinary tract infection, present on admission. Improving # Acute kidney injury, present on admission. Resolved # Acute Transaminitis, present on admission. Unclear etiology but likely due to acute sepsis. Improving - will need followup with primary care provider to ensure resolution. # Acute rhabdomyolysis present on admission. Presumed resolved # Acute hypoxic, apneic episodes, recurrent during hospitalization, likely due to underling obstructive sleep apnea. - followup with primary care provider for consideration further outpatient sleep study # Acute diarrhea present on admission. resolved. # Suspected acute demand ischemia due to sepsis with Troponin elevation likely amplified by underlying acute kidney injury. - Echocardiogram without acute change and without wall motion abnormality # Elevated D-Dimer, acute, present on admission. Likely elevated due to acute stress and sepsis. # Urinary retention with ongoing indwelling Borges due to BPH - further followup by urology as outpatient # Recent small bowel obstruction, awaiting hernia repair, - needs to reschedule elective repair with general surgery after discharge # Increased hemangioma on CT, not active. # Diabetes Mellitus, stable Diet Low fat, Low Sodium, Heart Healthy, Diabetic Activity No restrictions (use walker for ambulation) Call your provider Fever or Chills, Shortness of breath, Bleeding, Chest pain, Vomitting, Excessive diarrhea Patient Instructions Seek immediate medical attention if any new or worsening signs or symptoms occur. Follow-up plan 1. Followup with urology (Dr. Cecilia Pack) on Thursday08/20/16 at 9:[address] [address] 2. Followup with primary care provider (Dr. Jordy Pepe covering for Dr. Martinez) on 08/21/16 at 10:[address] [address] Follow-up Provider: Cecilia Pack MD Provider: Jordy Pepe MD, Masoud Aug 18, 2016 11:10
--- NOTE | 2016-08-18 13:13 | NUR ---
DISCHARGE Patient ambulated around unit hallway x1 with SBA and FWW. Galvan catheter patent and draining, yellow urine. Drainage bag switched to a leg bag. Also gave patient a larger drainage bag to take home. Patient stated he felt comfortable with galvan catheter care, ie: draining, switching catheter bags and providing meatal care, since he had a catheter before. Hard copy Rx was given to patient. Outpatient plan discussed with patient and by Dr. Crenshaw. Patient verbalized understanding of discharge plans. IV catheter was removed and gauze dressing applied. Transferred into wheelchair and taken outside to personal vehicle and left with all personal belongings.
--- NOTE | 2016-08-18 18:19 | PCM.DC.MED ---
Discharge Summary Date of Service Aug 18, 2016 Dates of Hospitalization Date of Hospital Admission Aug 11, 2016 at 11:26 Date of Discharge: Aug 18, 2016 Providers: Admitting Physician: Gary Jolly MD Primary Care Physician: Brady Martinez MD Attending Physician: Gary Jolly MD Diagnosis at Time of Discharge Diagnosis at Time of Discharge # Acute sepsis due to acute E. Coli urinary tract infection, present on admission. Improving # Acute kidney injury, present on admission. Resolved # Acute Transaminitis, present on admission. Unclear etiology but likely due to acute sepsis. Improving - will need followup with primary care provider to ensure resolution. # Acute rhabdomyolysis present on admission. Presumed resolved # Acute hypoxic, apneic episodes, recurrent during hospitalization, likely due to underling obstructive sleep apnea. - followup with primary care provider for consideration further outpatient sleep study # Acute diarrhea present on admission. resolved. # Suspected acute demand ischemia due to sepsis with Troponin elevation likely amplified by underlying acute kidney injury. - Echocardiogram without acute change and without wall motion abnormality # Elevated D-Dimer, acute, present on admission. Likely elevated due to acute stress and sepsis. # Urinary retention with ongoing indwelling Borges due to BPH - further followup by urology as outpatient # Recent small bowel obstruction, awaiting hernia repair, - needs to reschedule elective repair with general surgery after discharge # Increased hemangioma on CT, not active. # Diabetes Mellitus, stable Consultations 1. Infectious Disease Procedures XRay, CTs & MRIs PROCEDURE: US VENOUS LEG DUPLEX BILATERAL INDICATIONS: swelling TECHNIQUE: Real-time imaging, as well as color and pulse Doppler interrogation, were performed of the deep veins of both legs from the inguinal ligament to the popliteal fossa. COMPARISON: None. FINDINGS: The deep veins are normally compressible, and free of intraluminal thrombus. Color and pulse Doppler demonstrate normal phasic intravascular flow. There is normal augmentation response to distal compression maneuver. IMPRESSION: No deep venous thrombosis identified within either the left or right lower extremities. Dictated by: Paul Reyes Ron Interpreted: Brook Mcintosh MD on 08/11/2016 at 14: 19 PROCEDURE: CT BRAIN WITHOUT CONTRAST ([id number]) INDICATIONS: trauma TECHNIQUE: Noncontrast 4.5 mm thick angled axial sections acquired from the foramen magnum to the vertex, with coronal reformats. COMPARISON: [facility], CT, BRAIN W/O CONTRAST, 03/31/2010, 11:39. FINDINGS: Image quality: There is mild motion artifact limiting evaluation. CSF spaces: Basal cisterns are patent. No extra-axial fluid collections. The ventricles are symmetric in size. There is mild cerebral volume loss, with resultant ventricular and sulcal prominence. Brain: No intracranial hemorrhage or midline shift. There is a left frontal extra-axial calcified mass redemonstrated which appears slightly increased in size compared to the prior study. This measures up to approximately 1.8 x 0.8 x 1.7 cm and again likely represents a meningioma. There is mild associated mass effect on the underlying frontal lobe. There are a few subcortical, periventricular and deep white matter hypodensities consistent with mild chronic small vessel ischemic changes. There is intracranial internal carotid artery atherosclerosis. Skull and face: Calvarium and visualized facial bones appear intact, without suspicious lesions. Sinuses: Visualized sinuses and mastoids are clear. IMPRESSION: 1. No acute intracranial abnormality. 2. Left frontal extra-axial mass consistent with a meningioma appears slightly increased in size compared to the prior study given differences in technique. 3. Mild cerebral volume loss and chronic white matter small vessel ischemic changes. Dictated by: Charles Zheng M.D. on 08/11/2016 at 10:34 PROCEDURE: X-RAY CHEST ONE VIEW, PORTABLE ([id number]) INDICATIONS: sob TECHNIQUE: One view of the chest was acquired. COMPARISON: [facility], , CHEST 2VW, 02/18/2014, 9:09. FINDINGS: Surgical changes and devices: Left chest wall pacemaker and leads appear stable in position. Postsurgical changes are also redemonstrated in the mediastinum. Lungs and pleura: No pleural effusions or pneumothorax. Visualized lungs are clear. Mediastinum: Mediastinal contours appear unchanged. Heart size is borderline enlarged. Bones and chest wall: No suspicious bony lesions. Overlying soft tissues appear unremarkable. IMPRESSION: 1. No acute cardiopulmonary disease. Dictated by: Charles Zheng M.D. on 08/11/2016 at 10:45 Brief History As noted in H&P by Dr. Jolly: 81-year-old gentleman with indwelling Borges inserted 2 weeks ago for urinary retention was discharged yesterday from hospital after admitted for sepsis due to UTI and KACY. He initially presented with confusion and Kacy creatinine 1.96. He was treated with IV fluids and antibiotics. Confusion resolved ,KACY and leukocytosis resolved and discharged home on oral Augmentin. He also had a recent admission for small bowel obstruction due to incarcerated incisional hernia few weeks ago. He had an appointment with surgeon today at 10 Am for evaluation of hernia repair which he did not want to miss the appt. He had 2 episodes of watery diarrhea after discharge from hospital. He had 2 episodes of fall last night. He felt lightheaded and fell twice. He injured his right elbow and right knee when he fell. He states he has generalized weakness. Denies chest pain. Denies fever. Denies abdominal pain. Denies pain at hernia site. Denies nausea or vomiting. In ED, HR 60, RR 11, BP 152/49, saturating 95% on room air, afebrile Worsened Leukocytosis at 20,Na 132, bicarbonate 16, creatinine 1.84, LA 1.3, LFT 3-4x elevated, troponin is elevated at 0.062, BNP 4458, elevated d-dimer > 35, lower extremity duplex negative for DVT EKG no ST-T wave changes, chest x-ray unremarkable. Brain CT and echo unremarkable Hospital Course acute, active #sepsis +Worsening leukocytosis/HR/fever/, end organ damage with KACY, acute liver injury. initially procal 2.27, CXR negative. Possible source initially thought to be urine but final UCX is negative, given newly found urethral discharge, this seems to be the source -Empirically started zosyn, clinically improved, continue for now -Appreciate Dr. Khan input regarding choice of abx, recommended continue zosyn while inpatient and then change to Cipro to finish total 10 day course of Abx on discharge -urethral discharge culture growing phipps-sensitive E. Coli # Urinary retention with ongoing Borges on presentation -c/w Borges on d/c and f/u with urology (Dr. Pack) in 2 days as outpatient # Transaminitis,acute, Possibly due to sepsis and mild rhabdo due to fall, stable, CT abd unremarkable. - improving - likely due to presenting sepsis - discussed with PCP (Dr. Pepe) who will f/u on repeat labs later this week as outpatient # suspected mild rhabdo in the setting of post obstructive uropathy, CPK trending down with IVF, keep Borges on d/c #hypoxic, apneic episodes, recurrent during hospitalization, likely due to underling REAGAN. -monitor for now - further f/u as outpatient chronic, stable, resolved #Acute diarrhea,poa - resolved. patient reports solid BM on day of d/c # KACY, likely post obstructive with clogged Borges, sepsis, diarrhea, CT showed bilateral hydronephrosis, no abscess. cr 1.81 ( was 1.1 08/10) - Resolved with IVF - will d/c Hctz on discharge # Suspected demand ischemia due to sepsis, troponins plataued x3, no active chest pain. -c/w ASA,BB -echo unchanged and no wall motion abnormality # Elevated d-dimer,acute, likely elevated in acute stress. LE duplex negative for DVT,ACS unlikely given unchanged echo # Recent SBO awaiting hernia repair, tolerating diet well, needs to reschedule elective repair upon d/c # Increased hemangioma on CT, not active. # DM, stable #CAD s/p CABG by day of d/c lungs CTA bilat. Abdomen soft, nt, nd, +bs Exam Vital Signs (Last) Date Time Temp Pulse Resp B/P Pulse Ox O2 Delivery O2 Flow Rate FiO2 08/18/16 04:34 36.4 60 18 150/74 95 Room Air 08/15/16 04:25 3.00 Test 08/11/16 09:24 08/11/16 18:00 08/11/16 18:30 08/12/16 08:05 Prothrombin Time 12.4sec (8.1-12.5) Prothromb Time International Ratio 1.16ratio D-Dimer > 35.0mg/L (<0.50) Lactic Acid Level 1.1mmol/L (0.4-2.0) Troponin T 0.056ug/L (0.0-0.011) Urine Color Yellow (YELLOW) Urine Appearance Hazy (CLEAR,HAZY) Urine pH 6.5 (5.0-8.0) Urine Specific [place] 1.030 (1.003-1.035) Urine Protein 30mg/dL (NEG,TRACE) Urine Glucose (UA) Negativemg/dL (NEGATIVE) Urine Ketones Negativemg/dL (NEGATIVE) Urine Occult Blood Large (NEGATIVE) Urine Nitrite Negative (NEGATIVE) Urine Bilirubin Negative (NEGATIVE) Urine Urobilinogen Normalmg/dL (NORMAL) Urine Leukocyte Esterase Moderate (NEGATIVE) Urine RBC 11-50/hpf (0-2) Urine WBC 0-5/hpf (0-5) Urine Epithelial Cells None/hpf (NONE-MOD) Urine Crystals None seen (NONE SEEN) Urine Bacteria Few/hpf (NONE-FEW) Urine Hyaline Casts None/lpf (NONE) Urine Granular Casts None seen (NONE SEEN) Urine Waxy Casts None seen (NONE SEEN) Urine Red Blood Cell Casts None seen (NONE SEEN) Urine White Blood Cell Casts None seen (NONE SEEN) Urine Mucus None seen (None Seen) Urine Trichomonas None seen (NONE SEEN) Urine Yeast None (NONE SEEN) Urinalysis Comment None Urine Culture Reflexed Indicated Direct Bilirubin 0.2mg/dL (0.0-0.3) Pro-B-Type Natriuretic Peptide 3155pg/mL (0-486) Test 08/13/16 05:55 08/14/16 02:20 08/14/16 09:35 08/18/16 05:55 Total Creatine Kinase 1024U/L (21-232) Procalcitonin 1.15ng/mL (0.00-0.08) Urine Legionella pneumophilia Ag Negative (Negative) Hepatitis A IgM Antibody Negative (Negative) Hepatitis B Surface Antigen Negative (Negative) Hepatitis B Core IgM Antibody Negative (Negative) Hepatitis C Antibody <0.1s/co ratio (0.0-0.9) Hepatitis C Comment Comment (.) White Blood Count 9.4th/mm3 (3.8-10.1) Red Blood Count 3.55mil/mm3 (4.40-5.80) Hemoglobin 10.8g/dL (13.8-17.2) Hematocrit 33.4% (41.0-50.0) Mean Corpuscular Volume 94.1fL (81-100) Mean Corpuscular Hemoglobin 30.4pg (27.0-35.0) Mean Corpuscular Hemoglobin Concent 32.3% (32.0-37.0) Red Cell Distribution Width 12.8% (12.3-15.4) Platelet Count 275bil/L (150-400) Neutrophils (%) (Auto) 79.0% (40-74) Lymphocytes (%) (Auto) 11.6% (14-46) Monocytes (%) (Auto) 5.2% (4-12) Eosinophils (%) (Auto) 2.8% (0-5) Basophils (%) (Auto) 0.2% (0-3) Sodium Level 138mEq/L (134-144) Potassium Level 5.0mEq/L (3.5-5.2) Chloride Level 101mEq/L (97-108) Carbon Dioxide Level 25mmol/L (18-29) Blood Urea Nitrogen 23mg/dL (8-27) Creatinine 1.27mg/dL (0.76-1.27) Estimat Glomerular Filtration Rate 58mL/min (>59) Glucose Level 143mg/dL (60-99) Calcium Level 8.4mg/dL (8.5-10.1) Phosphorus Level 3.8mg/dL (2.5-4.9) Magnesium Level 1.7mg/dL (1.6-2.6) Total Bilirubin 0.3mg/dL (0.0-1.2) Aspartate Amino Transf (AST/SGOT) 77U/L (0-50) Alanine Aminotransferase (ALT/SGPT) 163U/L (0-44) Alkaline Phosphatase 168U/L (25-160) Total Protein 5.9g/dL (6.4-8.4) Albumin 3.1g/dL (3.4-5.0) Discharge Medications Discharge Medications Alfuzosin ER (Alfuzosin ER) 10 Mg Tab.er.24h 10 MG PO BID (Reported) Aspirin (Aspirin) 325 Mg Tablet 325 MG PO QAM (Reported) Atorvastatin (Lipitor) 20 Mg Tablet 20 MG PO DAILY (Reported) Ciprofloxacin (Cipro) 500 Mg Tablet 500 MG PO BID Prescribed by: TRES LEE MD Cyanocobalamin/Folic Acid (Vitamin L16-Phrjz Acid Tablet) 1 Each Tablet 1 EACH PO DAILY (Reported) Insulin Detemir (Levemir Flextouch) 100 Unit/1 Ml Insuln.pen 40 UNITS SUBQ QPM ( Reported) Lisinopril (Lisinopril) 20 Mg Tablet 20 MG PO DAILY (Reported) Multivitamin (Multivitamins) 1 Each Capsule 1 EACH PO DAILY (Reported) Sesser-3S/Dha/Epa/Fish Oil/D3 (Fish Oil + D3 Softgel) 1 Each Capsule 1 EACH PO DAILY (Reported) Vit C/Vit E/Lutein/Min/[place]er-3 (Ocuvite Softgel) 1 Each Capsule 1 EACH PO DAILY (Reported) As needed Insulin Aspart (NovoLOG U-100 Pen) 100 Unit/Ml Insuln.pen 0-21 UNITS SUBQ TID PRN PRN sliding scale (Reported) Nitroglycerin SL (Nitrostat) 0.4 Mg Tab.subl 0.4 MG SL Q5MIN PRN PRN For Chest Pain (Reported) Ranitidine (Zantac OTC) 75 Mg Tablet 75 MG PO DAILY PRN PRN For Dyspepsia or Heartburn (Reported) Followup Plan Disposition: Home Follow-up plan 1. Followup with urology (Dr. Cecilia Pack) on Thursday08/20/16 at 9:[address] [address] 2. Followup with primary care provider (Dr. Jordy Pepe covering for Dr. Martinez) on 08/21/16 at 10:[address] [address] Discharge Diet: Low fat, Low Sodium, Heart Healthy, Diabetic Discharge Activity: No restrictions (use walker for ambulation) Patient Instructions Seek immediate medical attention if any new or worsening signs or symptoms occur. Follow-up Provider: Cecilia Pack MD Provider: Jordy Pepe MD Time spent 35 min copies to: Brady Martinez MD; Cecilia Pack MD; Jordy Pepe MD, Masoud Aug 18, 2016 18:19
[2016-09-19] MEDS ORDERED: PSYL798P2 PO (13:09)
== END 2016-08-18 12:37 | disposition home or self-care (01) | DRG 698 ==
LOC: EDBD 08:54 → SED 08:54 → MPC 11:26
PROVIDERS: ADMIT Internal Medicine; ATTEND Internal Medicine
DX: T83.518A Infection and inflammatory reaction due to other urinary catheter, initial encounter (principal); A41.9 Sepsis, unspecified organism; A04.7 Enterocolitis due to Clostridium difficile; N17.9 Acute kidney failure, unspecified; I24.8 Other forms of acute ischemic heart disease; N39.0 Urinary tract infection, site not specified; T79.6XXA Traumatic ischemia of muscle, initial encounter; Z95.1 Presence of aortocoronary bypass graft; Z79.82 Long term (current) use of aspirin; Z79.4 Long term (current) use of insulin; Z95.0 Presence of cardiac pacemaker; Z87.891 Personal history of nicotine dependence; R74.0 Nonspecific elevation of levels of transaminase and lactic acid dehydrogenase [LDH]; E11.9 Type 2 diabetes mellitus without complications; G47.33 Obstructive sleep apnea (adult) (pediatric); B96.20 Unspecified Escherichia coli [E. coli] as the cause of diseases classified elsewhere; R33.9 Retention of urine, unspecified; N40.0 Benign prostatic hyperplasia without lower urinary tract symptoms; R29.6 Repeated falls

== ENCOUNTER 2016-08-20 09:51 | Emergency (ER) | payer MEDICARE, OTHER ==
[~2016-08-20] VITALS: Ht 190.5 cm; Wt 124.0 kg
[~2016-08-20 09:51] MED LIST changes: -AMOX-366 PO; +CIPR-231 PO; +CYAN1TAB42 PO; -HYDR25TA4 PO; +NITR0.4T SL; +RANI75TA21 PO
[2016-08-20 09:56] VITALS: BP 104/40; PULSE 60; RESP 20; O2SAT 99
--- NOTE | 2016-08-20 10:03 | ED.REPORT ---
HPI-General Illness Date of Service Aug 20, 2016 ED Provider: Serafin Cheng Pt is an 81 y/o male w/ a hx of CAD s/p CABG, pacemaker, IDDM, HTN, hyperlipidemia, presenting to the ED via EMS with his due to an episode of near-syncope which occurred prior to arrival.The patient was on an elevator going to a Urology appointment and began to feel lightheaded and started to slide down the wall without full loss of consciousness. His systolic BP was found to be 77 and sebastian to 111 by the time EMS arrived. He states that this episode lasted about 3 seconds and he is now asymptomatic. The patient felt hungry this morning but did not have anything to eat; his blood glucose was 130 today. He denies spinning sensation dizziness, CP, SOB, nausea, vomiting, focal numbness or weakness, cough, SOB, constipation, inability to pass gas. He finished his course of Cipro today. He was discharged from an admission 2 days ago due to an SBO secondary to an incarcerated hernia which is inoperable. Nursing Notes Stated Complaint: DIZZY Chief Complaint: General Complaint Nursing Notes Reviewed: Yes Allergies: Coded Allergies: Tuna (Verified Allergy, Unknown, 08/11/16) Uncoded Allergies: artificial sweeteners (Allergy, Intermediate, 03/31/10) vision changes Scheduled Alfuzosin ER (Alfuzosin ER) 10 Mg Tab.er.24h 10 MG PO BID Aspirin (Aspirin) 325 Mg Tablet 325 MG PO QAM Atorvastatin (Lipitor) 20 Mg Tablet 20 MG PO DAILY Cephalexin (Keflex) 500 Mg Capsule 500 MG PO QID Ciprofloxacin (Cipro) 500 Mg Tablet 500 MG PO BID Cyanocobalamin/Folic Acid (Vitamin M25-Ktodg Acid Tablet) 1 Each Tablet 1 EACH PO DAILY Insulin Detemir (Levemir Flextouch) 100 Unit/1 Ml Insuln.pen 40 UNITS SUBQ QPM Lisinopril (Lisinopril) 20 Mg Tablet 20 MG PO DAILY Multivitamin (Multivitamins) 1 Each Capsule 1 EACH PO DAILY [place]-3S/Dha/Epa/Fish Oil/D3 (Fish Oil + D3 Softgel) 1 Each Capsule 1 EACH PO DAILY Vit C/Vit E/Lutein/Min/[place]-3 (Ocuvite Softgel) 1 Each Capsule 1 EACH PO DAILY Scheduled PRN Insulin Aspart (NovoLOG U-100 Pen) 100 Unit/Ml Insuln.pen 0-21 UNITS SUBQ TID PRN PRN sliding scale Nitroglycerin SL (Nitrostat) 0.4 Mg Tab.subl 0.4 MG SL Q5MIN PRN PRN For Chest Pain Ranitidine (Zantac OTC) 75 Mg Tablet 75 MG PO DAILY PRN PRN For Dyspepsia or Heartburn General Time Seen by MD: 10:02 Chief Complaint Other (near syncope) Hx Obtained From: Patient, Spouse, EMS Arrived By: Ambulance Sudden in Onset?: Yes Onset Occurred: Just prior to arrival Symptom Duration: 1 - 15 minutes Severity: Current: No pain currently Severity: Maximum: No pain Similar Sx Previous: No Past Medical History Past Medical History Abdominal Hernia 1. Coronary artery disease. a. CABG in 1992. b. CABG in 2002. 2. 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 3. IDDM 4. Hypertension. 5. Hyperlipidemia. 6. Benign prostatic hypertrophy. 7. History of diabetic foot ulcers. 8. Osteoarthritis. 9. Chronic back pain. Reports: Coronary artery disease, Diabetes mellitus, Hyperlipidemia, Hypertension Past Surgical History 1. CABG in 1992 and 2002. 2. Pacemaker placement in 2005. 3. Appendectomy. 4. multiple abdominal wall hernia repairs Reports: Appendectomy, CABG Reports: Pacemaker insertion Smoking History Former Smoker Social History Other Social History: Good social support, , Local resident Ambulatory Status Independent Review of Systems Full Review of Systems Respiratory: Denies: Non-productive cough, Shortness of breath Cardiovascular: Denies: Chest pain GI: Denies: Abdominal pain, Constipation, Nausea, Vomiting Neurologic: Reports: Lightheaded, Syncope (near), Denies: Change LOC, Confusion, Dizziness, Focal weakness, Headache, Numbness , Seizure, Shaking, Slurred speech, Spinning sensation, Unable to speak, Vision change Complete sys rev & neg: except as marked. Physical Exam Vital Signs Vital Signs Date Time Temp Pulse Resp B/P Pulse Ox O2 Delivery O2 Flow Rate FiO2 08/20/16 13:57 36.9 78 18 123/67 99 Room Air 08/20/16 11:28 62 18 117/45 98 Room Air 08/20/16 09:56 36.6 60 20 104/40 99 Room Air Initial VS: Reviewed, Vital signs normal Head / Eyes: Atraumatic, Normocephalic, PERRL ENT: Mucous membranes moist, Conjunctiva normal, No scleral icterus Neck: Supple, Full range of motion Respiratory: Breath sounds normal, Clear to auscultation, No respiratory distress Cardiovascular: Regular rate & rhythm, Heart sounds normal, Intact distal pulses Extremities: Vascular intact, Neuro intact, No swelling, No tenderness Skin: Warm, Dry, No cyanosis Psychiatric: Mood/affect normal, Behavior normal, Normal thought content General/Constitutional: Awake, Alert, No acute distress, Well appearing, Cooperative, Not toxic appearing Abdomen: Atraumatic, Soft, Non-tender, No guarding, No rebound 6 cm preston-incisional hernia on the right side of abdomen which contains bowel and is soft and easily reducible Neurologic: Oriented X3, Speech NL, No motor deficits, No sensory deficits, CN II - XII intact, Cerebellar NL, Memory NL Interpretation & Diagnostics Lab Results Interpretation Result Diagram: 08/20/16 1010 08/20/16 1010 Test 08/20/16 10:10 08/20/16 11:37 White Blood Count 9.2th/mm3 (3.8-10.1) Red Blood Count 3.40mil/mm3 (4.40-5.80) Hemoglobin 10.3g/dL (13.8-17.2) Hematocrit 32.3% (41.0-50.0) Mean Corpuscular Volume 95.0fL (81-100) Mean Corpuscular Hemoglobin 30.3pg (27.0-35.0) Mean Corpuscular Hemoglobin Concent 31.9% (32.0-37.0) Red Cell Distribution Width 13.0% (12.3-15.4) Platelet Count 287bil/L (150-400) Neutrophils (%) (Auto) 80.9% (40-74) Lymphocytes (%) (Auto) 10.4% (14-46) Monocytes (%) (Auto) 5.4% (4-12) Eosinophils (%) (Auto) 2.2% (0-5) Basophils (%) (Auto) 0.1% (0-3) Prothrombin Time 11.8sec (8.1-12.5) Prothromb Time International Ratio 1.10ratio D-Dimer 3.0mg/L (<0.50) Sodium Level 137mEq/L (134-144) Potassium Level 4.5mEq/L (3.5-5.2) Chloride Level 101mEq/L (97-108) Carbon Dioxide Level 21mmol/L (18-29) Blood Urea Nitrogen 32mg/dL (8-27) Creatinine 1.64mg/dL (0.76-1.27) Estimat Glomerular Filtration Rate 43mL/min (>59) Glucose Level 134mg/dL (60-99) Calcium Level 8.6mg/dL (8.5-10.1) Magnesium Level 1.8mg/dL (1.6-2.6) Total Bilirubin 0.5mg/dL (0.0-1.2) Aspartate Amino Transf (AST/SGOT) 31U/L (0-50) Alanine Aminotransferase (ALT/SGPT) 97U/L (0-44) Alkaline Phosphatase 136U/L (25-160) Troponin T 0.036ug/L (0.0-0.011) Total Protein 6.2g/dL (6.4-8.4) Albumin 3.3g/dL (3.4-5.0) Hold Kan Top Tube Received (Received) Urine Color Yellow (YELLOW) Urine Appearance Hazy (CLEAR,HAZY) Urine pH 5.5 (5.0-8.0) Urine Specific [place] 1.025 (1.003-1.035) Urine Protein Negativemg/dL (NEG,TRACE) Urine Glucose (UA) Negativemg/dL (NEGATIVE) Urine Ketones Negativemg/dL (NEGATIVE) Urine Occult Blood Trace (NEGATIVE) Urine Nitrite Negative (NEGATIVE) Urine Bilirubin Negative (NEGATIVE) Urine Urobilinogen Normalmg/dL (NORMAL) Urine Leukocyte Esterase Small (NEGATIVE) Urine RBC 0-2/hpf (0-2) Urine WBC 11-50/hpf (0-5) Urine Epithelial Cells Occasional/hpf (NONE-MOD) Urine Crystals None seen (NONE SEEN) Urine Bacteria Few/hpf (NONE-FEW) Urine Hyaline Casts None/lpf (NONE) Urine Granular Casts None seen (NONE SEEN) Urine Waxy Casts None seen (NONE SEEN) Urine Red Blood Cell Casts None seen (NONE SEEN) Urine White Blood Cell Casts None seen (NONE SEEN) Urine Mucus None seen (None Seen) Urine Trichomonas None seen (NONE SEEN) Urine Yeast None (NONE SEEN) Urinalysis Comment None Urine Culture Reflexed Indicated ECG Interpretation ECG Interpretation: Ventricular-paced complexes rate 60 Time: 10:22 Interpreted by: ED physician Normal ECG Interpretation: No acute ischemic changes X-Ray Chest Interpretation Chest Xray Interpretation: IMPRESSION: No definite acute cardiopulmonary process. Dictated by: Paul Reyes RRA Interpreted: Cecilia Guerin MD on 08/20/2016 at 11:56 Transcribed by: DANIELLE on 08/20/2016 at 11:56 View: Portable, 1 view Interpretation / Wet Read by: Interpret - Radiologist CT Chest Interpretation IMPRESSION: 1. No acute pulmonary embolus. 2. Cholelithiasis. No findings to suggest acute cholecystitis on this limited view of the gallbladder. 3. Enlarged left thyroid lobe. Consider nonemergent thyroid ultrasound further characterize this finding if clinically indicated. Dictated by: Gloria Alvarado M.D. on 08/20/2016 at 13:16 Approved by: Gloria Alvarado M.D. on 08/20/2016 at 13:28 Study type: CT pulm angiogram Interpretation / Wet Read by: Interpret - Radiologist Re-Eval/Medical Decision Med Decision/Clinical Course No obvious cardiogenic cause for the patient's symptoms can be identified, he has mild increase in creatinine which was treated with normal saline, additionally he has 11-50 white cells in his urine which will be treated with Keflex. His primary care doctor is contacted and agrees to follow him up as planned tomorrow. It should be noted that the patient requested to be discharged home as he continued to feel well through the course of his ER visit. Primary care provider is notified of several incidental findings on CAT scan and agrees to help follow these up as well as other current medical issues. Time of Eval: 13:46 Re-Evaluation/Progress Note: Able to pass the road test independently. Will contact his PCP. The patient would like to be discharged and keep his PCP appointment tomorrow. Informed pt of plan for treatment. Pt understands and agrees with plan for treatment. F/U and RTER warnings given. All questions addressed. Consultation : Referral / Consult Name: Brady Martinez MD Consulted With: Primary care physician Call Returned at: 13:53 Complaint Inspector: Agrees with eval, Agrees with plan Note: Will see the patient tomorrow morning. Counseled Regarding: Diagnosis, Lab results, Need for follow-up, When/why to return to ED Discharge & Departure Primary Impression: Near syncope Additional Impression: UTI (urinary tract infection) Urinary tract infection type: site unspecified Hematuria presence: without hematuria Qualified Code: N39.0 - Urinary tract infection, site not specified Disposition: Home Discharge Condition All VS Reviewed: Yes Condition: Stable Patient Instructions: Urinary Tract Infection in Men (ED) Additional Instructions: The cause of your near-syncope is unclear at this moment but it may be caused by dehydration. Your urine did show signs of infection but the testing may not be accurate because it came from a catheter. You do not admit to any common UTI symptoms. Take Keflex as directed. The CT scan showed no sign of blood clot in the lungs or pneumonia. There was no sign of heart or lung dysfunction. The liver function has improved dramatically. Your kidney function is slightly worse. I believe outpatient treatment is appropriate at this time. Keep your appointment with your primary care doctor tomorrow. Return to the emergency department if you develop a high fever, persistent vomiting, you have an episode of passing out, severe abdominal pain, shortness of breath, profound weakness, or for other concerning symptoms. Referrals: Brady Martinez MD (PCP) Elizabethibe Attestation Portions of this note were transcribed by Prateek Cooper. I, Dr. Cheng personally performed the history, physical exam and medical decision-making; I reviewed and confirmed the accuracy of the information in the transcribed note. Signed by Ashley Venegas, 08/20/16 - 1100 copies to: Brady Martinez MD, Timothy S DO Aug 20, 2016 10:03 PRATEEK COOPER Aug 20, 2016 10:22
[2016-08-20] MEDS ORDERED: 0.9% Sodium Chloride 1,000 ML IV ONE (10:20)
[2016-08-20 10:32] LABS: BASOPHILS % (AUTO) 0.1 % (0-3); EOSINOPHILS % (AUTO) 2.2 % (0-5); MONOCYTES % (AUTO) 5.4 % (4-12); Mean Corpuscular Hemoglobin 30.3 pg (27.0-35.0); NEUTROPHILS % (AUTO) 80.9 % (40-74); Platelet Count 287 bil/L (150-400)
[2016-08-20 10:52] LABS: Magnesium 1.8 mg/dL (1.6-2.6)
[2016-08-20 11:12] LABS: TROPONIN T 0.036 ug/L (0.0-0.011)
[2016-08-20 11:23] LABS: INR 1.1 ratio
[2016-08-20 11:28] VITALS: BP 117/45; PULSE 62; RESP 18; O2SAT 98
[2016-08-20 11:49] LABS: APPEARANCE,URINE HAZY (CLEAR,HAZY); COLOR,URINE YELLOW (YELLOW); OCCULT BLOOD,URINE TRACE (NEGATIVE); PH,URINE 5.5 (5.0-8.0); UROBILINOGEN,URINE NORMAL (NORMAL)
--- NOTE | 2016-08-20 11:56 | DRSVH ---
PROCEDURE: X-RAY CHEST ONE VIEW, PORTABLE ([id number]) INDICATIONS: near syncope TECHNIQUE: One view of the chest was acquired. COMPARISON: [facility], CR, XR CHEST 1VW (PORTABLE), 08/13/2016, 7:45. FINDINGS: Surgical changes and devices: Post median sternotomy. Stable positioning of a multilead left cardiac pacer. Lungs and pleura: No pleural effusions or pneumothorax. Lungs are clear. Mediastinum: Mediastinal contours appear normal. Heart size is normal. Bones and chest wall: No suspicious bony lesions. Overlying soft tissues appear unremarkable. IMPRESSION: No definite acute cardiopulmonary process. Dictated by: Paul ROCKWELL Interpreted: Cecilia Guerin MD on 08/20/2016 at 11:56 Transcribed by: DANIELLE on 08/20/2016 at 11:56 Approved by: Cecilia Guerin MD, PhD on 08/20/2016 at 17:15
--- NOTE | 2016-08-20 13:30 | DRSVH ---
PROCEDURE: CT ANGIO CHEST PULMONARY EMBOLISM ([id number]) INDICATIONS: near syncope elevated ddimer TECHNIQUE: After the administration of intravenous contrast, 2 mm thick sections acquired from the pulmonary api raine to the posterior costophrenic angles. 3-dimensional maximum intensity projection (MIP) coronal a nd sagittal reformats were then acquired through the thorax. For radiation dose reduction, the follo wing was used: automated exposure control, adjustment of mA and/or kV according to patient size. COMPARISON: None. FINDINGS: Image quality: Excellent. Pulmonary arteries: Pulmonary arteries are normal in size, and demonstrate no intraluminal filling d efects to suggest central pulmonary embolism. Lungs and pleura: Lung volumes are low. There is mild dependent atelectasis at the lung bases. No ple ural effusion or pneumothorax. Mediastinum: Heart size is enlarged, without pericardial effusion. No mediastinal or hilar adenopat hy. Thoracic aorta is normal in caliber and enhancement. Scattered atheromatous calcifications are p resent within the aortic arch. Esophagus is normal in caliber, without hiatal hernia. Bones and chest wall: Patient is status post median sternotomy. No suspicious bony lesions. Ribs and thoracic spine appear intact throughout. The right thyroid lobe is unremarkable. The left thyroid lo be is diffusely hypodense and enlarged. No axillary or supraclavicular adenopathy. Abdomen: Multiple gallstones are partially visualized in the gallbladder fundus. No gallbladder wall thickening. Visualized upper abdominal solid organs appear normal in the early arterial phase of enh ancement. IMPRESSION: 1. No acute pulmonary embolus. 2. Cholelithiasis. No findings to suggest acute cholecystitis on this limited view of the gallbladder . 3. Enlarged left thyroid lobe. Consider nonemergent thyroid ultrasound further characterize this find ing if clinically indicated. Dictated by: Gloria Alvarado M.D. on 08/20/2016 at 13:16 Approved by: Gloria Alvarado M.D. on 08/20/2016 at 13:28
[2016-08-20 13:57] VITALS: BP 123/67; PULSE 78; RESP 18; O2SAT 99
[2016-08-20] MEDS ORDERED: CEPH-512 PO (14:22)
[2016-09-19] MEDS ORDERED: PSYL798P2 PO (13:09)
== END 2016-08-20 14:31 | disposition home or self-care (01) ==
LOC: SED 09:51 → EDBD 09:51 → SED 14:31
DX: R55 Syncope and collapse (principal); N39.0 Urinary tract infection, site not specified; I11.9 Hypertensive heart disease without heart failure; E11.59 Type 2 diabetes mellitus with other circulatory complications; I25.10 Atherosclerotic heart disease of native coronary artery without angina pectoris; E78.5 Hyperlipidemia, unspecified; Z95.0 Presence of cardiac pacemaker; Z95.1 Presence of aortocoronary bypass graft; Z79.82 Long term (current) use of aspirin; Z79.4 Long term (current) use of insulin; Z87.891 Personal history of nicotine dependence; Z91.013 Allergy to seafood
CPT/HCPCS: 36415; 71010; 71275; 80053; 81000; 83735; 84484; 85025; 85379; 85610; 87086; 93005; 96360; 99285; A4300; G0463; J7030; Q9967

== ENCOUNTER 2016-08-31 00:59 | Emergency (ER) | payer MEDICARE, OTHER ==
[~2016-08-31] VITALS: Ht 190.5 cm; Wt 123.2 kg
[~2016-08-31 00:59] MED LIST changes: +CEPH-512 PO
[2016-08-31 01:08] VITALS: BP 136/62; PULSE 74; RESP 18; O2SAT 95
--- NOTE | 2016-08-31 01:30 | ED.REPORT ---
HPI- Male Date of Service Aug 31, 2016 ED Provider: Dr. yTree Humphreys MD An 81 year old male with a history of CAD s/p CABG, pacemaker, hypertension, hyperlipidemia and insulin dependent diabetes presents to the ED complaining of a catheter blockage that occurred earlier this evening. Patient reports urinary retention and bladder pressure. His catheter was last replaced on Thursday. Patient denies any other symptoms at this time. Patient was recently seen in the ED on 08/20 for a near-syncopal episode and has had 2 recent admissions (08/08, 08/11) for a GLF and UTI/confusion. Nursing Notes Stated Complaint: CATHETER BLOCKAGE Chief Complaint: Male Abdominal Pain Nursing Notes Reviewed: Yes Allergies: Coded Allergies: Tuna (Verified Allergy, Unknown, 08/31/16) Uncoded Allergies: artificial sweeteners (Allergy, Intermediate, 03/31/10) vision changes Scheduled Alfuzosin ER (Alfuzosin ER) 10 Mg Tab.er.24h 10 MG PO BID Aspirin (Aspirin) 325 Mg Tablet 325 MG PO QAM Atorvastatin (Lipitor) 20 Mg Tablet 20 MG PO DAILY Cephalexin (Keflex) 500 Mg Capsule 500 MG PO QID Ciprofloxacin (Cipro) 500 Mg Tablet 500 MG PO BID Cyanocobalamin/Folic Acid (Vitamin O76-Ihero Acid Tablet) 1 Each Tablet 1 EACH PO DAILY Insulin Detemir (Levemir Flextouch) 100 Unit/1 Ml Insuln.pen 40 UNITS SUBQ QPM Lisinopril (Lisinopril) 20 Mg Tablet 20 MG PO DAILY Multivitamin (Multivitamins) 1 Each Capsule 1 EACH PO DAILY [place]-3S/Dha/Epa/Fish Oil/D3 (Fish Oil + D3 Softgel) 1 Each Capsule 1 EACH PO DAILY Vit C/Vit E/Lutein/Min/[place]-3 (Ocuvite Softgel) 1 Each Capsule 1 EACH PO DAILY Scheduled PRN Insulin Aspart (NovoLOG U-100 Pen) 100 Unit/Ml Insuln.pen 0-21 UNITS SUBQ TID PRN PRN sliding scale Nitroglycerin SL (Nitrostat) 0.4 Mg Tab.subl 0.4 MG SL Q5MIN PRN PRN For Chest Pain Ranitidine (Zantac OTC) 75 Mg Tablet 75 MG PO DAILY PRN PRN For Dyspepsia or Heartburn General Time Seen by MD: 01:29 Chief Complaint Urinary catheter problem Hx Obtained From: Patient Arrived By: Walk-in Onset Occurred: 5 - 8 hours ago Symptom Duration: Since onset Location: : Abdomen lower Quality: Pressure Radiation: : Does not radiate Severity: Current: Mild Severity: Maximum: Mild Associated with: Reports: Abdominal pain Pertinent Negative: Pt denies other symptoms Recent Healthcare: Recent doctor visit, Recent hospitalization Past Medical History Past Medical History Abdominal Hernia 1. Coronary artery disease. a. CABG in 1992. b. CABG in 2002. 2. 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 3. IDDM 4. Hypertension. 5. Hyperlipidemia. 6. Benign prostatic hypertrophy. 7. History of diabetic foot ulcers. 8. Osteoarthritis. 9. Chronic back pain. Reports: Coronary artery disease, Diabetes mellitus, Hyperlipidemia, Hypertension Past Surgical History 1. CABG in 1992 and 2002. 2. Pacemaker placement in 2005. 3. Appendectomy. 4. multiple abdominal wall hernia repairs Reports: Appendectomy, CABG Reports: Pacemaker insertion Smoking History Former Smoker Social History Other Social History: Good social support, , Local resident Ambulatory Status Independent Review of Systems Pt is currently complaining of catheter blockage Constitutional: Denies: Chills, Fever GI: Reports: Abdominal pain, Denies: Nausea, Vomiting Male: Reports Urination decreased Complete sys rev & neg: except as marked. Respiratory: Denies: Shortness of breath Neurologic: Denies: Change LOC Physical Exam Initial Vital Signs Vital Signs (First) Date Time Temp Pulse Resp B/P Pulse Ox O2 Delivery O2 Flow Rate FiO2 08/31/16 01:08 36.9 74 18 136/62 95 Room Air Initial VS: Reviewed Head / Eyes: Atraumatic, Normocephalic, PERRL Extremities: Vascular intact, Neuro intact, No swelling, No tenderness Skin: Warm, Dry, No cyanosis Neurologic: Alert, Oriented, Nonfocal Psychiatric: Mood/affect normal, Behavior normal, Normal thought content Not indicated General/Constitutional: Awake, Alert Distress / Hydration: Positive: Distress mild (Minimal distress) Abdomen: Atraumatic, Soft Tenderness/Guarding/Rebound: Positive: Tender LLQ..., Tender LUQ... ABDOMEN: Tender/distension in lower abdomen Respiratory / Chest: Atraumatic, No respiratory distress Cardiovascular: Heart rate NL, Regular rhythm, Heart sounds NL Interpretation & Diagnostics Lab Results Interpretation Test 08/31/16 03:43 Urine Color Yellow (YELLOW) Urine Appearance Clear (CLEAR,HAZY) Urine pH 5.5 (5.0-8.0) Urine Specific [place] 1.020 (1.003-1.035) Urine Protein Negativemg/dL (NEG,TRACE) Urine Glucose (UA) Negativemg/dL (NEGATIVE) Urine Ketones Negativemg/dL (NEGATIVE) Urine Occult Blood Moderate (NEGATIVE) Urine Nitrite Negative (NEGATIVE) Urine Bilirubin Negative (NEGATIVE) Urine Urobilinogen Normalmg/dL (NORMAL) Urine Leukocyte Esterase Negative (NEGATIVE) Urine RBC 11-50/hpf (0-2) Urine WBC 0-5/hpf (0-5) Urine Epithelial Cells Occasional/hpf (NONE-MOD) Urine Crystals None seen (NONE SEEN) Urine Bacteria None/hpf (NONE-FEW) Urine Hyaline Casts None/lpf (NONE) Urine Granular Casts None seen (NONE SEEN) Urine Waxy Casts None seen (NONE SEEN) Urine Red Blood Cell Casts None seen (NONE SEEN) Urine White Blood Cell Casts None seen (NONE SEEN) Urine Mucus None seen (None Seen) Urine Trichomonas None seen (NONE SEEN) Urine Yeast None (NONE SEEN) Urine Culture Reflexed Not indicated Hold Urine Received (Received) Re-Eval/Medical Decision Med Decision/Clinical Course 81-year-old male with urinary retention secondary to plugged catheter. We were unable to irrigate so the catheter was replaced. He drained about 950 mL of urine. Urine was negative for white cells. He also has an area intertriginous skin irritation and breakdown around his scrotum. He was given instructions for caring for that. Wet mount was done and it did not show yeast. He will be discharged home and will follow up with his primary doctor for further evaluation and treatment. Re-Evaluation/Progress #1: Time of Eval: 03:44 Patient Status: Condition improved Re-Evaluation/Progress Note: Patient is rechecked. Nurse unable to irrigate and patient is informed of plan to replace the catheter. Re-Evaluation/Progress #2: Time of Eval: 05:17 Patient Status: Condition improved Re-Evaluation/Progress Note: Patient is rechecked. He is informed of his results. All of the patient's questions are adressed. He understands and agrees with the treatment plan to discharge. Counseled Regarding: Diagnosis, Need for follow-up, When/why to return to ED Discharge & Departure Impression: Primary Impression: Obstruction of indwelling urinary catheter Encounter type: initial encounter Qualified Code: T83.098A - Other mechanical complication of other indwelling urethral catheter, initial encounter Additional Impression: Intertrigo Disposition: Home Discharge Condition All VS Reviewed: Yes Condition: Improved Patient Instructions: How to Care for Your Borges Catheter (ED) Additional Instructions: The catheter was blocked and we couldn't clear it, so it was replaced. There is no evidence of urinary tract infection. There is skin breakdown around the scrotum. Use Desitin or similar zinc oxide barrier cream to protect the skin. Use frequent changes and powder to keep the area dryer. Allow the reddened areas to air dry and remain exposed as much as possible. Referrals: Brady Martinez MD (PCP) Scribe Attestation Portions of this note were transcribed by Luis Daniel Sierra. I, Dr. Humphreys personally performed the history, physical exam and medical decision-making; I reviewed and confirmed the accuracy of the information in the transcribed note. Signed by: Ashley Manriquez, 08/31/16 0520. copies to: Brady Martinez MD, Howard L MD Aug 31, 2016 01:30 LUIS DANIEL SIERRA Aug 31, 2016 01:47
[2016-08-31 05:10] LABS: APPEARANCE,URINE CLEAR (CLEAR,HAZY); COLOR,URINE YELLOW (YELLOW); OCCULT BLOOD,URINE MODERATE (NEGATIVE); PH,URINE 5.5 (5.0-8.0); UROBILINOGEN,URINE NORMAL (NORMAL)
[2016-09-19] MEDS ORDERED: PSYL798P2 PO (13:09)
== END 2016-08-31 05:20 | disposition home or self-care (01) ==
LOC: SED 00:59
DX: T83.098A Other mechanical complication of other urinary catheter, initial encounter (principal); Y84.6 Urinary catheterization as the cause of abnormal reaction of the patient, or of later complication, without mention of misadventure at the time of the procedure; Y93.9 Activity, unspecified; Y99.9 Unspecified external cause status; Y92.9 Unspecified place or not applicable; L30.4 Erythema intertrigo; E11.621 Type 2 diabetes mellitus with foot ulcer; I10 Essential (primary) hypertension; E78.5 Hyperlipidemia, unspecified; I25.10 Atherosclerotic heart disease of native coronary artery without angina pectoris; Z95.1 Presence of aortocoronary bypass graft; Z87.891 Personal history of nicotine dependence; Z79.82 Long term (current) use of aspirin; Z79.4 Long term (current) use of insulin

== ENCOUNTER 2016-09-09 20:15 | Inpatient (IN) | payer MEDICARE, OTHER ==
[~2016-09-09] VITALS: Ht 190.5 cm; Wt 129.2 kg
[2016-09-09] MEDS ORDERED: Ondansetron 2 mg/mL 2 mL Inj ONE (20:22)
[2016-09-09 20:42] VITALS: BP 167/68; PULSE 66; RESP 14; O2SAT 97
[2016-09-09] MEDS ORDERED: 0.9% Sodium Chloride 1,000 ML IV ONE (21:47)
--- NOTE | 2016-09-09 21:47 | ED.REPORT ---
HPI-Abd Pain M Under 40 Date of Service Sep 09, 2016 ED Provider: Richy Hall DO Patient is a 81 year old male with a history of coronary artery disease, CABG, cardiac pacemaker, diabetes mellitus, hypertension, BPH with indwelling catheter , small bowel obstruction, abdominal wall hernia s/p multiple hernia repairs who presents to the ED via EMS after he developed abdominal pain at 5pm this afternoon. Patient denies any pain associated with his hernia. Patient states that he awoke from nap experiencing pain. Earlier in the day he had been out shopping and ate a sandwich at [employer]. He is afraid that this is what caused his symptoms tonight. He reports associated nausea and vomiting but denies diarrhea. The urine draining from his catheter is darker and more foul smelling than usual. Patient denies hematemesis, fever, or chills. Nursing Notes Stated Complaint: NAUSEA Chief Complaint: Male Abdominal Pain Nursing Notes Reviewed: Yes Allergies: Coded Allergies: Tuna (Verified Allergy, Unknown, 08/31/16) Uncoded Allergies: artificial sweeteners (Allergy, Intermediate, 03/31/10) vision changes Scheduled Aspirin (Aspirin) 325 Mg Tablet 325 MG PO HS Atorvastatin (Lipitor) 20 Mg Tablet 20 MG PO HS Cyanocobalamin/Folic Acid (Vitamin V47-Dvlas Acid Tablet) 1 Each Tablet 1 EACH PO DAILY Insulin Detemir (Levemir Flextouch) 100 Unit/1 Ml Insuln.pen 20 UNITS SUBQ QPM Multivitamin (Multivitamins) 1 Each Capsule 1 EACH PO DAILY [place]-3S/Dha/Epa/Fish Oil/D3 (Fish Oil + D3 Softgel) 1 Each Capsule 1 EACH PO DAILY Terazosin (Terazosin) 10 Mg Capsule 10 MG PO HS Vit C/Vit E/Lutein/Min/[place]-3 (Ocuvite Softgel) 1 Each Capsule 1 EACH PO DAILY Scheduled PRN Insulin Aspart (NovoLOG U-100 Pen) 100 Unit/Ml Insuln.pen 0-21 UNITS SUBQ ACHS PRN PRN sliding scale Nitroglycerin SL (Nitrostat) 0.4 Mg Tab.subl 0.4 MG SL Q5MIN PRN PRN For Chest Pain Ranitidine (Zantac OTC) 75 Mg Tablet 75 MG PO DAILY PRN PRN For Dyspepsia or Heartburn General Time Seen by MD: 21:46 Chief Complaint Abdominal pain Hx Obtained From: Patient Arrived By: Ambulance Sudden in Onset?: Yes Onset Occurred: 5 - 8 hours ago Symptom Duration: Since onset Progression since Onset: Gradually worsening Location: : Diffuse Quality: Painful Severity: Current: Moderate Severity: Maximum: Moderate Recent Healthcare: No recent doctor visit, No recent hospitalization Similar Sx Previous: No Past Medical History Past Medical History 1. Coronary artery disease. a. CABG in 1992. b. CABG in 2002. 2. 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 3. IDDM 4. Hypertension. 5. Hyperlipidemia. 6. Benign prostatic hypertrophy with indwelling galvan catheter 7. History of diabetic foot ulcers. 8. Osteoarthritis. 9. Chronic back pain. 10. Abdominal Hernia s/p several repairs 11. Small bowel obstruction 12. prostate infection Reports: Coronary artery disease, Diabetes mellitus, Hyperlipidemia, Hypertension Past Surgical History 1. CABG in 1992 and 2002. 2. Pacemaker placement in 2005. 3. Appendectomy. 4. multiple abdominal wall hernia repairs Reports: Appendectomy, CABG Reports: Pacemaker insertion Smoking History Former Smoker Social History Other Social History: Good social support, , Local resident Ambulatory Status Independent Review of Systems Review of Systems Note: + dark foul smelling urine Constitutional: Denies: Chills, Fever GI: Reports: Abdominal pain, Nausea, Vomiting, Denies: Diarrhea, Hematemesis Complete sys rev & neg: except as marked. Physical Exam Initial Vital Signs Vital Signs (First) Date Time Temp Pulse Resp B/P Pulse Ox O2 Delivery O2 Flow Rate FiO2 09/09/16 20:42 36.5 66 14 167/68 97 Room Air Initial VS: Reviewed Head / Eyes: Atraumatic ENT: Conjunctiva normal, No scleral icterus Neck: Supple, Full range of motion Extremities: Vascular intact, Neuro intact, No swelling, No tenderness Skin: Warm, Dry, No cyanosis Neurologic: Alert, Oriented, Nonfocal Psychiatric: Mood/affect normal, Behavior normal, Normal thought content General/Constitutional: Awake, Alert, No acute distress Appearance / Presentation: Positive: Obese Respiratory / Chest: Breath sounds NL, Breath sounds = bilat, No respiratory distress, No rales, No rhonchi, No wheezing Cardiovascular: Heart rate NL, Regular rhythm, Heart sounds NL, No murmurs Abdomen: Soft Tenderness/Guarding/Rebound: Positive: Tender diffuse Organomegaly / Mass / Hernia: Positive: Hernia is reducible, Hernia ventral ( nontender) Back: not examined Interpretation & Diagnostics Lab Results Interpretation Result Diagram: 09/10/16 0250 09/10/16 0250 Test 09/09/16 22:26 09/09/16 22:43 Urine Color Yellow (YELLOW) Urine Appearance Cloudy (CLEAR,HAZY) Urine pH 6.0 (5.0-8.0) Urine Specific [place] 1.030 (1.003-1.035) Urine Protein Negativemg/dL (NEG,TRACE) Urine Glucose (UA) Negativemg/dL (NEGATIVE) Urine Ketones Negativemg/dL (NEGATIVE) Urine Occult Blood Large (NEGATIVE) Urine Nitrite Positive (NEGATIVE) Urine Bilirubin Negative (NEGATIVE) Urine Urobilinogen Normalmg/dL (NORMAL) Urine Leukocyte Esterase Large (NEGATIVE) Urine RBC 11-50/hpf (0-2) Urine WBC Packed/hpf (0-5) Urine Epithelial Cells Occasional/hpf (NONE-MOD) Urine Crystals None seen (NONE SEEN) Urine Bacteria Moderate/hpf (NONE-FEW) Urine Hyaline Casts Rare/lpf (NONE) Urine Granular Casts None seen (NONE SEEN) Urine Waxy Casts None seen (NONE SEEN) Urine Red Blood Cell Casts None seen (NONE SEEN) Urine White Blood Cell Casts None seen (NONE SEEN) Urine Mucus Present (None Seen) Urine Trichomonas None seen (NONE SEEN) Urine Yeast None (NONE SEEN) Urinalysis Comment None Urine Culture Reflexed Indicated Band Neutrophils % 0% (1-5) Lactic Acid Level 0.9mmol/L (0.4-2.0) Lipase 10U/L (13-60) ECG Interpretation ECG Interpretation: Sinus rhythm, Rate 74, ventricular paced rhythm Time: 22:25 Interpreted by: ED physician CT Abd / Pelvis Interpretation CONCLUSION: Small bowel obstruction secondary to 10 cm ventral abdominal hernia containing a loop of bowel. Diverticulosis with no evidence of diverticulitis. Enlarged heterogenous prostate gland is concerning for neoplasm. There appears to be invasion of the base of the bladder. Followup is recommended. Cholelithiasis with no evidence of acute cholecystitis. Gualberto Krishnan MD 09/10/2016 - 1:00:38 AM PDT Study type: Abdominal CT IV contrast Interpretation / Wet Read by: Interpret - Radiologist, Discussed w radiologist Re-Eval/Medical Decision Med Decision/Clinical Course Ventral hernia is soft and fully reducible. He feels much better after the hernia is reduced. While at goal of the hernia defect is small bowel pops back out and he has pain again. I think he probably will need eventual surgical intervention. For now he is going to hold pressure over the hernia defect but the binder back on them. We will admit for further disposition. Source of Hx: Old records Re-Evaluation/Progress : Time of Eval: 01:13 Re-Evaluation/Progress Note: Patient was informed that he has small bowel obstruction on CT scan, due to ventral hernia. Patient states that he was to have this hernia repaired by Dr. Pack, but it was delayed due to a prostate infectin. Patient was informed that his CT scan also had changes concerning for prostate cancer. He also has a UTI on labs. Patient will be admitted to the hospital for further care. Patient understands and agrees with this plan. All questions were addressed. Consultation : Referral / Consult Name: Varun Richardson MD Consulted With: Hospitalist Call Returned at: 01:25 Motor Room Controller: Will see patient, Agrees with eval, Agrees with plan, Accepts admit Note: Spoke with Dr. Richardson, hospitalist, who agrees to accept admit. Counseled Regarding: Diagnosis, Lab results, Need for admission Patient Discharge & Departure Primary Impression: Small bowel obstruction Additional Impression: UTI (urinary tract infection) Urinary tract infection type: acute cystitis Hematuria presence: with hematuria Qualified Code: N30.01 - Acute cystitis with hematuria Disposition: ADMITTED TO HOSPITAL Discharge Condition All VS Reviewed: Yes Condition: Stable Referrals: Brady Martinez MD (PCP) Ashley Attestation Portions of this note were transcribed by Merly Manzano. I, Dr. Hall personally performed the history, physical exam and medical decision-making; I reviewed and confirmed the accuracy of the information in the transcribed note. Signed by: Ashley Portillo, 09/10/2016 [id number] copies to: Brady Martinez MD, Todd P DO Sep 09, 2016 21:47 Merly Manzano Sep 09, 2016 22:32 (97-108) Carbon Dioxide Level 19mmol/L (18-29) Blood Urea Nitrogen 28mg/dL (8-27) Creatinine 1.02mg/dL (0.76-1.27) Estimat Glomerular Filtration Rate 75mL/min (>59) Glucose Level 127mg/dL (60-99) Lactic Acid Level 0.9mmol/L (0.4-2.0) Calcium Level 9.0mg/dL (8.5-10.1) Magnesium Level 1.7mg/dL (1.6-2.6) Total Bilirubin 0.4mg/dL (0.0-1.2) Aspartate Amino Transf (AST/SGOT) 16U/L (0-50) Alanine Aminotransferase (ALT/SGPT) 18U/L (0-44) Alkaline Phosphatase 104U/L (25-160) Total Protein 6.8g/dL (6.4-8.4) Albumin 3.6g/dL (3.4-5.0) Lipase 10U/L (13-60) Hold Kan Top Tube Received (Received) ECG Interpretation ECG Interpretation: Sinus rhythm, Rate 74, ventricular paced rhythm Time: 22:25 Interpreted by: ED physician CT Abd / Pelvis Interpretation CONCLUSION: Small bowel obstruction secondary to 10 cm ventral abdominal hernia containing a loop of bowel. Diverticulosis with no evidence of diverticulitis. Enlarged heterogenous prostate gland is concerning for neoplasm. There appears to be invasion of the base of the bladder. Followup is recommended. Cholelithiasis with no evidence of acute cholecystitis. Gualberto Krishnan MD 09/10/2016 - 1:00:38 AM PDT Study type: Abdominal CT IV contrast Interpretation / Wet Read by: Interpret - Radiologist, Discussed w radiologist Re-Eval/Medical Decision Source of Hx: Old records Re-Evaluation/Progress : Time of Eval: 01:13 Re-Evaluation/Progress Note: Patient was informed that he has small bowel obstruction on CT scan, due to ventral hernia. Patient states that he was to have this hernia repaired by Dr. Pack, but it was delayed due to a prostate infectin. Patient was informed that his CT scan also had changes concerning for prostate cancer. He also has a UTI on labs. Patient will be admitted to the hospital for further care. Patient understands and agrees with this plan. All questions were addressed. Consultation : Referral / Consult Name: Varun Richardson MD Consulted With: Hospitalist Call Returned at: 01:25 Motor Room Controller: Will see patient, Agrees with eval, Agrees with plan, Accepts admit Note: Spoke with Dr. Richardson, hospitalist, who agrees to accept admit. Counseled Regarding: Diagnosis, Lab results, Need for admission Patient Discharge & Departure Primary Impression: Small bowel obstruction Additional Impression: UTI (urinary tract infection) Urinary tract infection type: acute cystitis Hematuria presence: with hematuria Qualified Code: N30.01 - Acute cystitis with hematuria Disposition: ADMITTED TO HOSPITAL Discharge Condition All VS Reviewed: Yes Condition: Stable Referrals: Brady Martinez MD (PCP) Ashley Attestation Portions of this note were transcribed by Merly Manzano. I, Dr. Hall personally performed the history, physical exam and medical decision-making; I reviewed and confirmed the accuracy of the information in the transcribed note. Signed by: Ashley Portillo, 09/10/2016 0135 copies to: Brady Martinez MD, Todd P DO Sep 09, 2016 21:47 Merly Manzano Sep 09, 2016 22:32
[2016-09-09] MEDS ORDERED: Ondansetron 2 mg/mL 2 mL Inj IVPUSH PRN (21:50)
[2016-09-09 22:31] LABS: APPEARANCE,URINE CLOUDY (CLEAR,HAZY); COLOR,URINE YELLOW (YELLOW); OCCULT BLOOD,URINE LARGE (NEGATIVE); UROBILINOGEN,URINE NORMAL (NORMAL)
[2016-09-09] MEDS ORDERED: fentaNYL-PF 50 mCg/mL 2 mL Inj IVPUSH PRN (22:35)
[2016-09-09 22:59] LABS: Mean Corpuscular Volume 93.5 fL (81-100)
[2016-09-09 23:00] LABS: BASOPHILS % (AUTO) 0.1 % (0-3); MONOCYTES % (AUTO) 5.9 % (4-12); Mean Corpuscular Hemoglobin 30.4 pg (27.0-35.0); NEUTROPHILS % (AUTO) 86.2 % (40-74); Platelet Count 198 bil/L (150-400)
[2016-09-09 23:15] LABS: INR 1.02 ratio
[2016-09-09] MEDS ORDERED: cefTRIAXone Inj 2,000 MG in Dextrose 5% Minibag Plus 50 ML IV ONE (23:20)
[2016-09-09 23:54] LABS: Magnesium 1.7 mg/dL (1.6-2.6)
[2016-09-10] VITALS (18 sets, daily range): BP systolic 99–145; BP diastolic 41–103; PULSE 63–93; RESP 15–24; O2SAT 91–96
[2016-09-10] MEDS ORDERED: Ondansetron 2 mg/mL 2 mL Inj IVPUSH PRN ×2 (02:00→18:20)
[2016-09-10] MEDS ORDERED: Alum-Mag Hydrox-Simeth 30 mL Suspension PO PRN (02:00)
[2016-09-10] MEDS ORDERED: HYDROcodone-APAP 5-325 mg Tablet PO PRN ×2 (02:00→18:10)
[2016-09-10] MEDS ORDERED: Polyethylene Glycol (PEG) 17 Gm Powder PO PRN ×2 (02:00→18:10)
--- NOTE | 2016-09-10 02:36 | PCM.HPMED ---
Subjective Date of Service Sep 10, 2016 Primary Provider: Admitting Physician: Varun Richardson MD Primary Care Physician: Brady Martinez MD Attending Physician: Varun Richardson MD Chief Complaint: Abdominal pain with nausea and vomiting History of Present Illness: Patient is an 81 y.o. M with medical history of CAD, s/p CABG, cardiac pacemaker , DM II insulin dependent, HTN, BPH with indwelling catheter, SBO, abdominal hernia with multiple repairs. Patient presented to ED via EMS after he developed progressively worsening abdominal pain since the afternoon 09/09/16. Patient stated that he was not feeling well earlier today but was able to run errands and eat without pain, initially he thought the pain was due to acid reflux, stomach flu, however pain was sever enough to wake him from a nap, pain is described as crampy, sharp, diffuse, without radiation prompting call to EMS. Patient reported pain associated with nausea, vomiting without blood. Patient stated he is able to push the hernia back in and is able to pass gas. Denies diarrhea, constipation, last BM prior to admission to ED without blood or pus. Additionally, patient stated that he has been experiencing similar symptoms since June when he first developed the hernia, has had minimal relief with abdominal binder, pain has never to this extent prior. Patient stated that he was previously scheduled to have his hernia repaired by Dr. Pack, however this was rescheduled due to prostate infection. Last meal 7 pm 09/09/16. Review of Systems: Comprehensive review of systems conducted and was negative except for the pertinent positives listed above. Allergies Coded Allergies: Tuna (Verified Allergy, Unknown, 08/31/16) Uncoded Allergies: artificial sweeteners (Allergy, Intermediate, 03/31/10) vision changes Home Medications Alfuzosin ER (Alfuzosin ER) 10 Mg Tab.er.24h 10 MG PO BID Aspirin (Aspirin) 325 Mg Tablet 325 MG PO QAM Atorvastatin (Lipitor) 20 Mg Tablet 20 MG PO DAILY Cephalexin (Keflex) 500 Mg Capsule 500 MG PO QID Ciprofloxacin (Cipro) 500 Mg Tablet 500 MG PO BID Cyanocobalamin/Folic Acid (Vitamin P38-Cizri Acid Tablet) 1 Each Tablet 1 EACH PO DAILY Insulin Detemir (Levemir Flextouch) 100 Unit/1 Ml Insuln.pen 40 UNITS SUBQ QPM Lisinopril (Lisinopril) 20 Mg Tablet 20 MG PO DAILY Multivitamin (Multivitamins) 1 Each Capsule 1 EACH PO DAILY [place]-3S/Dha/Epa/Fish Oil/D3 (Fish Oil + D3 Softgel) 1 Each Capsule 1 EACH PO DAILY Vit C/Vit E/Lutein/Min/[place]-3 (Ocuvite Softgel) 1 Each Capsule 1 EACH PO DAILY Insulin Aspart (NovoLOG U-100 Pen) 100 Unit/Ml Insuln.pen 0-21 UNITS SUBQ TID PRN PRN sliding scale Nitroglycerin SL (Nitrostat) 0.4 Mg Tab.subl 0.4 MG SL Q5MIN PRN PRN For Chest Pain Ranitidine (Zantac OTC) 75 Mg Tablet 75 MG PO DAILY PRN PRN For Dyspepsia or Heartburn PMH 1. Coronary artery disease. a. CABG in 1992. b. CABG in 2002. 2. 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 3. IDDM 4. Hypertension. 5. Hyperlipidemia. 6. Benign prostatic hypertrophy with indwelling galvan catheter 7. History of diabetic foot ulcers. 8. Osteoarthritis. 9. Chronic back pain. 10. Abdominal Hernia s/p several repairs 11. Small bowel obstruction 12. prostate infection Surgical History 1. CABG in 1992 and 2002. 2. Pacemaker placement in 2005. 3. Appendectomy. 4. multiple abdominal wall hernia repairs Family History Brother with prostate cancer Social History Hx Alcohol Use: Yes (socially) Hx Substance Use: No Hx Tobacco Use: No Smoking Status: Former Smoker Exam Vital Signs Vital Sign - Last Date Time Temp Pulse Resp B/P Pulse Ox O2 Delivery O2 Flow Rate FiO2 09/10/16 02:18 79 15 145/59 93 Room Air 09/09/16 20:42 36.5 Intake and Output 09/09/16 09/09/16 09/10/16 Cumulative From/Thru 15:00 23:00 07:00 09/09/16 22:22 - 09/09/16 22:22 Intake Total 1000 ml 1000 ml Balance 1000 ml 1000 ml Intake IV Total 1000 ml 1000 ml Exam General: Alert, Oriented X3, Cooperative, No Acute Distress Head: Normocephalic, atraumatic. External ears normal. Eyes: PERRLA, EOMI. Anicteric sclerae. Mouth: Mouth Normal, Mucous Membranes Moist/[place] Neck: Neck supple with full range of motion. No JVD no carotid bruit Chest & Lungs: Wide AP diameter, diminished lungs sounds at bases, Clear to auscultation bilaterally with no crackles, wheezes, or rhonchi. Cardiovascular: Regular Rate/Rhythm, Normal S1, Normal S2, grade 1/ Soft systolic ejection murmur heard at RSB No Rubs/Gallops Abdomen: Large ventral hernia, easily reducible, no signs of incarceration, no erythema, bowel tones present in hernia, Tender to palpation diffusely, markedly distended, No masses, hyperactive bowel tones, Soft, no abdominal bruit heard, Musculoskeletal: Normal Range of Motion Extremities: No cyanosis/clubbing/bilaterally, pitting edema to mid tibia bilaterally Neurological: Grossly Neurologically Intact, Cranial Nerves 2-12 Intact, Normal Speech, Strength Normal 4/4 ext, Sensation Intact, Cerebellar Function nl Finger-Nose : Indwelling catheter draining dark urine with foul smell. Lab and Diagnostics Result Diagram: 09/09/16224209/09/162242 X-Rays, CTs and MRIs CT Abd / Pelvis CONCLUSION: Small bowel obstruction secondary to 10 cm ventral abdominal hernia containing a loop of bowel. Diverticulosis with no evidence of diverticulitis. Enlarged heterogenous prostate gland is concerning for neoplasm. There appears to be invasion of the base of the bladder. Followup is recommended. Cholelithiasis with no evidence of acute cholecystitis. Gualberto Krishnan MD 09/10/2016 - 1:00:38 AM PDT 12-lead ECG ECG Interpretation ECG Interpretation: Sinus rhythm, Rate 74, ventricular paced rhythm Time: 22:25 Interpreted by: ED physician No signs of ischemia, agree with interpretation Assessment & Plan Patient is an 81 y.o. M with medical history of CAD, s/p CABG, cardiac pacemaker , DM II insulin dependent, HTN, BPH with indwelling catheter, SBO, abdominal hernia with multiple repairs. Patient presented to ED via EMS after he developed progressively worsening abdominal pain since the afternoon 09/09/16. In ED patient give 2 g Rocephin IV, 1 L NS, he has been afebrile, in no acute distress. Last meal 7 pm 09/09/16. 1. Small Bowel Obstruction, acute - CT scan showed presence of SBO secondary to 10 cm ventral hernia - Continue IV Fluid hydration NS 100 mls/hr - Hydrocodone 5-325 mg 1-2 tab PO Q4 PRN pain - Place NG tube to suction for abdominal decompression - Repeat CBC and CMP in AM - consider General surgery consult in AM, if no improvement with conservative treatments - NPO 2. Ventral hernia, acute on chronic - Patient previously scheduled to have hernia repaired, but rescheduled due to prostate infection - CT scan showed presence of 10 cm ventral hernia - At this time hernia does not appear to be incarcerated - General surgery consult in AM 3. Urinary tract infection, acute - Likely related to indwelling catheter - UA showed presence of large ammounts of WBC and leukocyte esterase - Continue Ceftrixone - Culture pending - Continue IVF as above #1 4. Abnormal prostate gland on CT - Patient has history of prostate enlargement, however recent findings suggestive of evolving neoplastic process with bladder wall involvement. - Likely contributing to urinary retention - Consider Oncology consult in AM vs close outpatient followup Chronic Conditions Hypertension - Continue Home medication lisinopril 20 mg PO QD DM Type II insulin dependent - Regular home dose HS lantus 40 mg, and 12 units preprandial insulin - Start 20 units HS lantus this evening - Medium correctional scale ordered Hyperlipidemia - Hold home medication BPH -Continue home medication CODE STATUS: FULL DVT PROPHYLAXIS: SQ heparin Patient is admitted under inpatient status with expected length of stay greater than 2 midnights due to severity of presenting symptoms, risk of adverse event, and complexity of treatment plan. Attending Statement The patient was seen and examined together with Dr. Clark on 09/10 and I agree with the history, exam and plan as outlined in the note above. RAMIRO CLARK DO Sep 10, 2016 02:36 Varun Richardson MD Sep 10, 2016 04:30
[2016-09-10 02:58] LABS: BASOPHILS % (AUTO) 0 % (0-3); EOSINOPHILS % (AUTO) 1.3 % (0-5); MONOCYTES % (AUTO) 4.1 % (4-12); Mean Corpuscular Hemoglobin 30.1 pg (27.0-35.0); NEUTROPHILS % (AUTO) 84.2 % (40-74); Platelet Count 185 bil/L (150-400)
[2016-09-10] MEDS: 0.9% Sodium Chloride 1,000 ML IV SCH ×3 (03:01→20:08)
[2016-09-10 03:28] LABS: INR 1.03 ratio
[2016-09-10 03:29] LABS: Magnesium 1.6 mg/dL (1.6-2.6)
[2016-09-10] MEDS ORDERED: TERA10CA5 PO (04:21)
[2016-09-10] MEDS ORDERED: Glucose 40% Oral Gel 15 Gm Tube PO PRN (06:20)
--- NOTE | 2016-09-10 09:22 | DRSVH ---
PROCEDURE: CT ABDOMEN AND PELVIS WITH CONTRAST ([id number]) INDICATIONS: abdominal pain, vomiting TECHNIQUE: After the administration of intravenous contrast, 5 mm thick sections acquired from the diaphragm to the symphysis. 5 mm coronal and sagittal reformats were acquired. For radiation dose reduction, the following was used: automated exposure control, adjustment of mA and/or kV according to patient reny neal. COMPARISON: [facility], CT, CT ABD PELVIS W CON, 07/21/2016, 23:42. FINDINGS: Image quality: Excellent. ABDOMEN: Lung bases: Lung bases are clear. Heart size is normal. Solid organs: Liver and spleen are normal in size and enhancement. Gallbladder demonstrates multipl e calculi within its lumen. Biliary system is non dilated. Pancreas enhances normally. No adrenal nodules. Kidneys demonstrate normal size and enhancement, without hydronephrosis. Peritoneum and bowel: A small hiatal hernia. There is moderate gastric distention. There is moderate distention of multiple mid and proximal small bowel loops. There is a transition point between dilate d and nondilated small bowel at the right paramedian anterior abdominal wall hernia, as before. Dista l small bowel loops are nondistended. The appendix is not seen. No evidence of appendicitis. Colon is nondistended. No free fluid or air. Nodes and vessels: No retroperitoneal or mesenteric adenopathy by size criteria. Aorta and inferior vena cava are normal in size. Miscellaneous: A small bowel containing right anterior abdominal pelvic wall hernia is present, as be fore, currently measuring roughly 11.3 cm transverse. There is a transition point between dilated and nondilated small bowel at this hernia, indicating incarceration. PELVIS: Genitourinary: A Borges catheter is present. The prostate is markedly enlarged, as before. Miscellaneous: No inguinal hernias or adenopathy. Bones: No suspicious bony lesions. No vertebral body compression fractures. IMPRESSION: 1. Right anterior abdominal pelvic wall hernia containing small bowel, causing small bowel obstructio n. 2. Markedly enlarged prostate; underlying carcinoma cannot be excluded. 3. Small hiatal hernia. 4. Cholelithiasis. 5. Concordant with preliminary interpretation. Dictated by: Martin Snell M.D. on 09/10/2016 at 8:36 Approved by: Martin Snell M.D. on 09/10/2016 at 9:21
[2016-09-10] MEDS: Famotidine Inj 20 MG in IV Premix 1 EACH IV SCH ×2 (09:30→20:08)
[2016-09-10] MEDS: Insulin LISPRO 300 Unit/3 mL Inj SUBQ SCH ×4 (09:31→22:00)
[2016-09-10] MEDS ORDERED: fentaNYL-PF 50 mCg/mL 2 mL Inj ONE (10:00)
[2016-09-10] MEDS ORDERED: Propofol 10,000 mCg/mL 20 mL Inj ONE (10:00)
[2016-09-10] MEDS ORDERED: Phenylephrine/NS 100 mCg/mL 10 mL Syringe IVPUSH ONE (10:00)
--- NOTE | 2016-09-10 10:44 | PCM.PNSURG ---
Subjective Visit Information: Reason for Visit Small Bowel Obstruction,Uti Surgery/Surgery Date Post-Op Day # Date of Admission: Sep 10, 2016 at 01:34 Hospital Day # Subjective: pt known to me from Jun hospitalization, was readmitted last night due to n/v from incarcerated ventral hernia, now passing flatus, hernia is reducible and soft. Urine cx last night --> E coli >100K, has indwelling galvan catheter. is frustrated. Objective Objective Awake with NGT in place Abd: soft, reduced ventral hernia, soft, nontender Vital Sign- Last 8 Hours Date Time Temp Pulse Resp B/P Pulse Ox O2 Delivery O2 Flow Rate FiO2 09/10/16 08:02 36.9 79 20 130/64 96 Room Air 09/10/16 04:50 36.7 70 18 138/61 95 Room Air 09/10/16 02:53 77 09/10/16 02:47 36.6 72 20 142/54 95 Room Air Intake and Output- Last 8 Hour 09/10/16 Cumulative From/Thru 06:59 09/09/16 22:22 - 09/10/16 06:10 Intake Total 267 ml 1267 ml Output Total 325 ml 325 ml Balance -58 ml 942 ml Intake Oral 0 ml 0 ml IV Total 267 ml 1267 ml Output Urine Total 325 ml 325 ml Result Diagram: 09/10/16 0250 09/10/16 0250 Assessment & Plan Impression Incarcerated ventral hernia now reduced SBO likely resolved UTI with indwelling galvan catheter DM Pacemaker Problems: Plan Agree with Dr. Whitehead to remove NGT Discussed with pt and about resolving the urinary infection issue prior to ventral hernia repair with mesh Continue with catarino bowles for now. Get urology involved Lokesh Pack MD Sep 10, 2016 10:43
[2016-09-10] MEDS: Heparin 5,000 Unit/mL Inj SUBQ SCH ×3 (11:17→23:53)
[2016-09-10] MEDS ORDERED: Lidocaine 2% 5 mL Urojet Topical Jelly Syringe MUC_MEMBRM ONE (12:20)
[2016-09-10] MEDS ORDERED: Lidocaine 2% 6mL Topical Jelly TOPICAL ONE (12:30)
[2016-09-10] MEDS ORDERED: Lactated Ringer's 1,000 ML IV ONE (15:31)
[2016-09-10] MEDS ORDERED: Gentamicin 40 mg/mL 2 mL Inj INJ ONE (16:05)
--- NOTE | 2016-09-10 17:01 | PCM.HPANE ---
Patient Data Surgeon Admitting Provider:Varun Richardson MD Attending Provider:Varun Richardson MD Primary Care Physician:Brady Martinez MD Other Provider: Reason for Visit Small Bowel Obstruction,Uti Ht/WT & BMI Height (Feet): 6 Height (Inches): 3.00 Weight (Kilograms): 123.800 Body Mass Index 33.94 Allergies Coded Allergies: Tuna (Verified Allergy, Unknown, 08/31/16) Uncoded Allergies: artificial sweeteners (Allergy, Intermediate, 03/31/10) vision changes Past Anesthesia History Anesthesia History: Denies:: Anesthesia Reactions Diabetes History Hx Diabetes?: Yes (Type 2) Current Bedside Blood Glucose: 121 MRSA MRSA: No Medications Reported Medications Terazosin 10 Mg Omoucsj32 Mg PO HS #30 09/10/16 Ranitidine (Zantac OTC)75 Mg Mdnhqa24 Mg PO DAILY PRN For Dyspepsia or Heartburn #1 PKG Ref 0 08/11/16 Cyanocobalamin/Folic Acid (Vitamin K68-Wbyef Acid Tablet)1 Each Tablet1 Each PO DAILY 08/11/16 Nitroglycerin SL (Nitrostat)0.4 Mg Tab.subl0.4 Mg SL Q5MIN PRN For Chest Pain # 1 BOTTLE 08/11/16 [place]-3S/Dha/Epa/Fish Oil/D3 (Fish Oil + D3 Softgel)1 Each Capsule1 Each PO DAILY 08/08/16 Multivitamin (Multivitamins)1 Each Capsule1 Each PO DAILY 08/08/16 Insulin Detemir (Levemir Flextouch)100 Unit/1 Ml Insuln.pen20 Units SUBQ QPM 08/08/16 Aspirin 325 Mg Qcbnsa243 Mg PO HS 08/08/16 Atorvastatin (Lipitor)20 Mg Yqrijl08 Mg PO HS 07/22/16 Vit C/Vit E/Lutein/Min/[place]-3 (Ocuvite Softgel)1 Each Capsule1 Each PO DAILY 02/17/14 Insulin Aspart (NovoLOG U-100 Pen)100 Unit/Ml Insuln.pen0-21 Units SUBQ ACHS PRN sliding scale 02/17/14 Discontinued Reported Medications Alfuzosin ER 10 Mg Tab.er.24h10 Mg PO BID 07/22/16 Lisinopril 20 Mg Fqhwht37 Mg PO DAILY 02/17/14 Discontinued Scripts Cephalexin (Keflex)500 Mg Vjaoxok665 Mg PO QID #40 CAPSULE Prov:Serafin Cheng DO 08/20/16 Ciprofloxacin (Cipro)500 Mg Klhaam481 Mg PO BID #4 TABLET Ref 0 Prov:Zach Crenshaw 08/18/16 History History of ENT Problems?: No HEENT History: Denies:: Cataracts Dysphagia Sinus Problem Denture Type: Full- Upper Full- Lower Hx of Heart Problems?: Yes Cardiovascular History: Positive for:: Cardiac Surgery (Triple 1992, Quadruple bypass 2002, pacemaker 2005) Chest Pain (many years ago) Edema Hypertension Irregular Heartbeat (heart block) Pacemaker Denies:: Congestive Heart Failure Heart Murmur Thrombophlebitis Hx of Respiratory Problem?: Yes Respiratory History: Positive for:: Chest Surgery (HEART SURGERY) Dyspnea (occasional at random) Denies:: Asthma COPD Emphysema Hemoptysis Pneumonia Tuberculosis Hx Neurologic Problems?: No Neurological History: Denies:: Alzheimer's Disease CVA Dementia Dizziness Headaches Parkinson's Disease Seizures Hx of GI Problems?: Yes Gastrointestinal History: Positive for:: Gastroesphageal Reflux (barium swallow done) Heartburn 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, d/t shellfish) Denies:: Diverticulitis Gastrointestinal Bleeding Hiatal Hernia Rectal Bleeding Other GI Pertinent History: Abdominal hernia Hx of Problems?: Yes Genitourinary History: Positive for:: Urinary Tract Infection (08/10/16, current) Denies:: HX of Hemodialysis Kidney Stones HX of Peritoneal Dialysis: No Other Pertinent History: chronic catheter Male Hx: Positive for:: Prostate Problems (BPH) Denies:: Scrotal Mass Testicular Surgery Hx Musculoskeletal Problems?: Yes Musculoskeletal History: Denies:: Back Injury Joint Replacement Musculoskeletal Trauma Hx of Psycho/Social Problems?: No Psycho Social History: Denies:: Anxiety Bipolar Disorder Hx Depression Suicide Attempt Hx Surgeries?: Yes (triple and quad bypass, appy, pacemaker) Hx Any Other Health Problems?: Yes Other History: Positive for:: Hospitalization (two bypass surgeries 1992, 2002 , pacemaker, appy, 2017 urine retention) Denies:: Cancer Endocrine Disease Thyroid Disease History Blood Transfusions: Positive for:: Accept Blood Products? Denies:: Blood Transfuse Reaction Blood Transfusions Hx Diabetes: Yes (Type 2)Bedside Blood Glucose: 121 Hx Alcohol Use: Yes (occasional glass of wine)Hx Substance Use: No Smoking Status: Former Smoker Have You Smoked inLast 12 mo: No Stop/Bang Treated for Sleep Apnea?: No S-Snoring: Do You Snore Loudly: Yes T-Tired: feel tired, fatigued: No O-Obsered: Observed not breath: Yes P-Blood Pressure: treated: Yes B- Body Mass Index > 35 kg/m2: No A- Age over 50: Yes N- Neck Large Circumference: No G- Gender Male: Yes REAGAN Total Score: 4 Risk Assessment Category Category 1A: Patient has history of documented sleep apnea, and HAS NOT received any narcotic, sedative or anesthesia administration during this stay. Category 1B: Patient has history of documented sleep apnea, and HAS received any narcotic , sedative or anesthesia administration during this stay Category 2: Patient has SUSPECTED Obstructive Sleep Apnea, and HAS received any narcotic , sedative or anesthesia administration during this stay. Category 3: Patient has SUSPECTED Obstructive Sleep Apnea and HAS NOT received narcotic, sedative or anesthesia administration during this stay. Category 4: Outpatient in Procedural Areas with known sleep apnea or who screen positive for High Risk via the STOP/BANG questionnaire. Exam Exam Vital Signs Vital Signs Date Time Temp Pulse Resp B/P Pulse Ox O2 Delivery O2 Flow Rate FiO2 09/10/16 11:40 75 09/10/16 11:39 36.9 63 20 108/48 93 Room Air 09/10/16 08:02 36.9 79 20 130/64 96 Room Air General Appearance: Alert, Oriented X3, Cooperative, Mild Distress HEENT/AIRWAY: MP 2, Neck Movement (FROM), Mouth Opening (3 FBMO) Lungs: Normal Air Movement Heart: Regular Rate/Rhythm (pacemaker) Meds/Labs/Diagnostics Admission Meds Current Medications Ondansetron HCl 4 mg 4 mg STK-MED ONCE .ROUTE Last administered on 09/09/16 20 :32; Start 09/09/16 at 20:22; Stop 09/09/16 at 20:23; Status DC Sodium Chloride 1,000 ml @ 0 mls/hr Q0M ONCE IV Last administered on 22:21; Start 09/09/16 at 21:47; Stop 09/09/16 at 21:48; Status DC Ceftriaxone Sodium/Dextrose/ Water (Rocephin Inj/ D5W Minibag Plus) 50 ml @ 100 mls/hr ONCE ONCE IV Last administered on 09/09/16 23:52; Start 09/09/16 at 23:20; Stop 09/09/16 at 23:49; Status DC Heparin Sodium (Porcine) 5000 unit 5,000 unit Q8 SUBQ Last administered on 09/10 11:17; Start 09/10/16 at 08:30 Sodium Chloride 1,000 ml @ 100 mls/hr Q10H IV Last administered on 09/10/16 14:39; Start 09/10/16 at 01:58 Famotidine/Sodium Chloride/Premix (Pepcid Inj/IV Premix) 50 ml @ 100 mls/hr Q12 IV Last administered on 09/10/16 09:30; Start 09/10/16 at 08:30 Insulin Human Lispro Nutritional Dose to be given pr... [facility] SUBQ Last administered on 09/10/16 09:31; Start 09/10/16 at 08:00 Lactated Ringer's (Lr) 1,000 ml @ ud STK-MED ONCE IV Last administered on 09/10 15:31; Start 09/10/16 at 15:31; Stop 09/10/16 at 15:50; Status DC Bedside Blood Glucose: 121 Labs Test 09/09/16 22:26 09/09/16 22:43 09/10/16 02:50 09/10/16 02:55 Urine Color Yellow (YELLOW) Urine Appearance Cloudy (CLEAR,HAZY) Urine pH 6.0 (5.0-8.0) Urine Specific [place] 1.030 (1.003-1.035) Urine Protein Negativemg/dL (NEG,TRACE) Urine Glucose (UA) Negativemg/dL (NEGATIVE) Urine Ketones Negativemg/dL (NEGATIVE) Urine Occult Blood Large (NEGATIVE) Urine Nitrite Positive (NEGATIVE) Urine Bilirubin Negative (NEGATIVE) Urine Urobilinogen Normalmg/dL (NORMAL) Urine Leukocyte Esterase Large (NEGATIVE) Urine RBC 11-50/hpf (0-2) Urine WBC Packed/hpf (0-5) Urine Epithelial Cells Occasional/hpf (NONE-MOD) Urine Crystals None seen (NONE SEEN) Urine Bacteria Moderate/hpf (NONE-FEW) Urine Hyaline Casts Rare/lpf (NONE) Urine Granular Casts None seen (NONE SEEN) Urine Waxy Casts None seen (NONE SEEN) Urine Red Blood Cell Casts None seen (NONE SEEN) Urine White Blood Cell Casts None seen (NONE SEEN) Urine Mucus Present (None Seen) Urine Trichomonas None seen (NONE SEEN) Urine Yeast None (NONE SEEN) Urinalysis Comment None Urine Culture Reflexed Indicated Band Neutrophils % 0% (1-5) Lactic Acid Level 0.9mmol/L (0.4-2.0) Lipase 10U/L (13-60) White Blood Count 7.2th/mm3 (3.8-10.1) Red Blood Count 3.69mil/mm3 (4.40-5.80) Hemoglobin 11.1g/dL (13.8-17.2) Hematocrit 34.3% (41.0-50.0) Mean Corpuscular Volume 93.0fL (81-100) Mean Corpuscular Hemoglobin 30.1pg (27.0-35.0) Mean Corpuscular Hemoglobin Concent 32.4% (32.0-37.0) Red Cell Distribution Width 13.7% (12.3-15.4) Platelet Count 185bil/L (150-400) Neutrophils (%) (Auto) 84.2% (40-74) Lymphocytes (%) (Auto) 10.3% (14-46) Monocytes (%) (Auto) 4.1% (4-12) Eosinophils (%) (Auto) 1.3% (0-5) Basophils (%) (Auto) 0% (0-3) Prothrombin Time 11.0sec (8.1-12.5) Prothromb Time International Ratio 1.03ratio Activated Partial Thromboplast Time 30.3sec (22.8-33.0) Sodium Level 137mEq/L (134-144) Potassium Level 4.7mEq/L (3.5-5.2) Chloride Level 103mEq/L (97-108) Carbon Dioxide Level 18mmol/L (18-29) Blood Urea Nitrogen 27mg/dL (8-27) Creatinine 1.10mg/dL (0.76-1.27) Estimat Glomerular Filtration Rate 68mL/min (>59) Glucose Level 175mg/dL (60-99) Calcium Level 8.8mg/dL (8.5-10.1) Magnesium Level 1.6mg/dL (1.6-2.6) Total Bilirubin 0.4mg/dL (0.0-1.2) Aspartate Amino Transf (AST/SGOT) 18U/L (0-50) Alanine Aminotransferase (ALT/SGPT) 18U/L (0-44) Alkaline Phosphatase 99U/L (25-160) Total Protein 6.5g/dL (6.4-8.4) Albumin 3.4g/dL (3.4-5.0) Hold Kan Top Tube Received (Received) Plan Impression Patient chart reviewed, patient interviewed and anesthestic plan with risks, benefits, and alternatives discussed, and informed consent obtained. NPO Status: > 8hrs ASA Physical Status: ASA3 Severe Disease (IDDM, CAD) Anesthetic Plan: SAB Bene/Risks/Altern/Consents: Yes HP Complete Prior to Induction: Yes Seth Telles MD Sep 10, 2016 16:01
--- NOTE | 2016-09-10 18:02 | PCM.ANEP1 ---
Post Anesthesia Phase 1 PACU Phase 1 Assessment Vital Signs Vital Signs Date Time Temp Pulse Resp B/P Pulse Ox O2 Delivery O2 Flow Rate FiO2 09/10/16 11:40 75 09/10/16 11:39 36.9 63 20 108/48 93 Room Air Anesthetic Administered: SAB Level of Alertness: Awake, talking ROTHMAN's with Equal Strength: No (sab) Pain: No Pain Scale Score: 1 Nausea or Vomiting: No Oxygen Delivery: Simple Mask Lungs: Normal Air Movement Dermatome Level: T8 (Costal Margin) Seth Telles MD Sep 10, 2016 18:02
--- NOTE | 2016-09-10 18:03 | PCM.ANEP2 ---
Post Anesthesia Evaluation ASA/CMS Post Anesthesia VS in Patient's Normal Range?: Yes Resp Stable; Airway Patent?: Yes CV Function & Hydration Stable: Yes Mental Status Recovered?: Yes Pain control Satisfactory?: Yes N/V Control Satisfactory?: Yes Seth Telles MD Sep 10, 2016 18:03
[2016-09-10] MEDS ORDERED: fentaNYL-PF 50 mCg/mL 2 mL Inj IVPUSH PRN ×2 (18:10→18:20)
[2016-09-10] MEDS ORDERED: MetoCLOpramide 5 mg/mL 2 mL Inj IVPUSH PRN (18:20)
[2016-09-10] MEDS ORDERED: Lactated Ringer's 500 ML IV PRN (18:20)
[2016-09-10] MEDS ORDERED: EPHEDrine Sulfate 50 mg/mL Inj IVPUSH PRN (18:20)
[2016-09-10] MEDS ORDERED: Dexamethasone 4 mg/mL Inj IVPUSH PRN (18:20)
[2016-09-10] MEDS ORDERED: Labetalol 5 mg/mL 4 mL Inj IV PRN (18:20)
[2016-09-10] MEDS ORDERED: Phenylephrine 10,000 mCg/mL Inj IVPUSH PRN (18:20)
[2016-09-10] MEDS ORDERED: HYDROmorphone 1 mg/mL Inj IVPUSH PRN (18:20)
[2016-09-10] MEDS ORDERED: Lactated Ringer's 1,000 ML IV SCH (18:20)
[2016-09-10] MEDS: Lactated Ringer's 1,000 ML IV SCH (20:07)
--- NOTE | 2016-09-10 20:07 | CONS ---
[address] [address] CONSULTATION REPORT PATIENT: SAYAR NGUYEN : 1935 MR#: [id number] ADMIT: 09/10/2016 JOB ID: [id number] DATE OF SERVICE: 09/10/2016 REASON FOR CONSULTATION: Urinary retention, urosepsis. HISTORY OF PRESENT ILLNESS: The patient was admitted in urinary retention with urinary tract infection. Initially treated with ceftriaxone. He is a longstanding patient of the urology department. He has been tried on multiple alpha blockers with limited success. I think it highly unlikely that he will be able to void spontaneously following this lengthy catheterization. Until his catheter is out and the urinary tract infection is resolved, General Surgery cannot proceed with his incisional hernia repair. Past medical, social, family history: See admission note. EXAMINATION: Overweight 81-year-old, in no acute distress. There is an indwelling Borges catheter with some penile edema. RECOMMENDATION: TURP. This will be scheduled as soon as possible.
--- NOTE | 2016-09-10 20:58 | PCM.PNMED ---
Subjective Date of Service Sep 10, 2016 Subjective Overnight: No acute events since admission Today: Patient was seen prior to being taken to OR for TURP procedure by urology. At that point the patient stated that he was feeling better. The patient did not want his Borges catheter removed without urology as it was apparently very difficult to be placed in the first. The patient had no complaints at this time. No fever or chills noted. Exam Vital Signs Vital Sign - Last Date Time Temp Pulse Resp B/P Pulse Ox O2 Delivery O2 Flow Rate FiO2 09/10/16 20:00 36.6 67 20 113/50 96 Nasal Cannula 3.50 Intake and Output 09/09/16 09/09/16 09/10/16 Cumulative From/Thru 15:00 23:00 07:00 09/09/16 22:22 - 09/10/16 06:10 Intake Total 1000 ml 267 ml 1267 ml Output Total 325 ml 325 ml Balance 1000 ml -58 ml 942 ml Intake Oral 0 ml 0 ml IV Total 1000 ml 267 ml 1267 ml Output Urine Total 325 ml 325 ml Exam General: Alert, Oriented X3, Cooperative, No Acute Distress Head: Normocephalic, atraumatic. External ears normal. Eyes: PERRLA, EOMI. Anicteric sclerae. Mouth: Mouth Normal, Mucous Membranes Moist/[place] Neck: Neck supple with full range of motion. No JVD no carotid bruit Chest & Lungs: Clear to auscultation bilaterally with no crackles, wheezes, or rhonchi. Cardiovascular: Very distant heart sounds, Regular Rate and Rhythm, Normal S1, Normal S2, no murmurs rubs or gallops noted at this time Abdomen: Abdominal binder in place, Large ventral hernia, easily reducible, no signs of incarceration, no erythema, bowel tones present in hernia, nontender nondistended, No masses, normoactive bowel tones, Soft, no abdominal bruit heard , Musculoskeletal: Normal Range of Motion Extremities: No cyanosis/clubbing/bilaterally, pitting edema to mid tibia bilaterally Neurological: Grossly Neurologically Intact, Cranial Nerves 2-12 Intact, Normal Speech : Indwelling catheter draining dark urine Lab and Diagnostics Result Diagram: 09/10/16 0250 09/10/16 0250 X-Rays, CTs and MRIs CT Abd / Pelvis CONCLUSION: Small bowel obstruction secondary to 10 cm ventral abdominal hernia containing a loop of bowel. Diverticulosis with no evidence of diverticulitis. Enlarged heterogenous prostate gland is concerning for neoplasm. There appears to be invasion of the base of the bladder. Followup is recommended. Cholelithiasis with no evidence of acute cholecystitis. Gualberto Krishnan MD 09/10/2016 - 1:00:38 AM PDT 12-lead ECG ECG Interpretation ECG Interpretation: Sinus rhythm, Rate 74, ventricular paced rhythm Time: 22:25 Interpreted by: ED physician No signs of ischemia, agree with interpretation Assessment & Plan Patient is an 81 y.o. M with medical history of CAD, s/p CABG, cardiac pacemaker , DM II insulin dependent, HTN, BPH with indwelling catheter, SBO, abdominal hernia with multiple repairs. Patient presented to ED via EMS after he developed progressively worsening abdominal pain since the afternoon 09/09/16. In ED patient give 2 g Rocephin IV, 1 L NS, he has been afebrile, in no acute distress. Hospital day 1 1. Small Bowel Obstruction, acute, present on admission, resolved - CT scan showed presence of SBO secondary to 10 cm ventral hernia - Continue IV Fluid hydration NS 100 mls/hr - Hydrocodone 5-325 mg 1-2 tab PO Q4 PRN pain - Place NG tube to suction for abdominal decompression, discontinued this morning - General surgery consulted patient currently passing gas with SBO resolved no plans for hernia repair at this point 2. Ventral hernia, chronic, present on admission - Patient previously scheduled to have hernia repaired, but rescheduled due to prostate infection - CT scan showed presence of 10 cm ventral hernia - At this time hernia does not appear to be incarcerated - General surgery consult no plans for hernia repair at this point 3. Urinary tract infection, acute, present on admission - Likely related to indwelling catheter - UA showed presence of large ammounts of WBC and leukocyte esterase - Continue Ceftrixone - Culture pending - Continue IVF as above #1 4. Abnormal prostate gland on CT, present on admission, chronic - Patient has history of prostate enlargement, however recent findings suggestive of evolving neoplastic process with bladder wall involvement. - Likely contributing to urinary retention - Patient seen by urology today taken for TURP procedure - Consider Oncology consult 5 Hypertension, present on admission, chronic - Continue Home medication lisinopril 20 mg PO QD 6 diabetes mellitus type II insulin-dependent, chronic, present on admission - Regular home dose HS lantus 40 mg, and 12 units preprandial insulin - Start 20 units HS lantus this evening - Medium correctional scale ordered 7 Hyperlipidemia, chronic, present on admission - Hold home medication 8 benign prostatic hypertrophy, present on admission, chronic - Seen by urology taken for TURP procedure today - Continue home medication CODE STATUS: FULL DVT PROPHYLAXIS: SQ heparin Disposition: Patient likely to be inpatient for the next several days, no barriers to discharge at this time. Pain Evaluation: Adequate Pain Control Resuscitation Status: CPR: Attempt Resuscitation Attending Statement The patient was seen and examined together with Dr. Kaminski on 09/10/2016 and I agree with the history, exam and plan as outlined in the note above. . Rafat Kaminski DO Sep 10, 2016 20:58 Evin Sanford MD Sep 12, 2016 19:24
--- NOTE | 2016-09-10 21:27 | OP ---
[address] [address] OPERATIVE REPORT PATIENT: SAYRA NGUYEN : 1935 MR#: [id number] ADMIT: 09/10/2016 JOB ID: [id number] DATE OF SURGERY: 09/10/2016 SURGEON: Cecilia Pack MD PREOPERATIVE DIAGNOSIS(ES): 1. Urinary retention. 2. Benign prostatic hypertrophy. POSTOPERATIVE DIAGNOSIS(ES): 1. Urinary retention. 2. Benign prostatic hypertrophy. PROCEDURE: Transurethral resection of prostate. ANESTHESIA: Spinal anesthetic, Dr. Telles. DESCRIPTION OF PROCEDURE: Under spinal anesthetic, the patient was placed in lithotomy position. The genitalia prepped and draped in a sterile manner. The urethra was dilated to 30-Wel[place] with Mica sounds. An Rodgers type resectoscope was introduced into the bladder. Prostatic urethra showed an enormous prostate. The prostatic urethra was resected circumferentially to the capsule. There was a large middle lobe that was resected. Following achieval of hemostasis and removal of chips, a 24-Welsh 3-way Borges catheter was inserted and attached to continuous irrigation. The patient tolerated the procedure well. Estimated blood loss was 150 cc. The patient left the operating room in good condition under light anesthesia with lightly sanguinous saline irrigations.
[2016-09-10] MEDS: cefTRIAXone Inj 2,000 MG in Dextrose 5% Minibag Plus 50 ML IV SCH (23:04)
[2016-09-11] VITALS (7 sets, daily range): BP systolic 103–151; BP diastolic 47–76; PULSE 60–82; RESP 18–24; O2SAT 95–97
[2016-09-11 02:36] LABS: BASOPHILS % (AUTO) 0.1 % (0-3); EOSINOPHILS % (AUTO) 1.2 % (0-5); MONOCYTES % (AUTO) 6.5 % (4-12); Mean Corpuscular Hemoglobin 29.7 pg (27.0-35.0); Mean Corpuscular Volume 95.9 fL (81-100); NEUTROPHILS % (AUTO) 86.2 % (40-74); Platelet Count 151 bil/L (150-400)
[2016-09-11 02:58] LABS: INR 1.13 ratio
[2016-09-11] MEDS: Lactated Ringer's 1,000 ML IV SCH ×3 (05:17→17:21)
[2016-09-11] MEDS: 0.9% Sodium Chloride 1,000 ML IV SCH ×2 (07:58→17:21)
[2016-09-11] MEDS: Insulin LISPRO 300 Unit/3 mL Inj SUBQ SCH ×4 (08:00→21:27)
[2016-09-11] MEDS: Heparin 5,000 Unit/mL Inj SUBQ SCH ×2 (08:30→17:20)
[2016-09-11] MEDS: Famotidine Inj 20 MG in IV Premix 1 EACH IV SCH ×2 (09:41→20:30)
--- NOTE | 2016-09-11 16:16 | PCM.PNSURG ---
Subjective Date of Service: Sep 11, 2016 Visit Information: Reason for Visit Recurrent SBO from Incisional Hernia, Obstructive uropathy, Cholelithiasis Surgery/Surgery Date TURP 09/10/2016 Post-Op Day # 1 Date of Admission: Sep 10, 2016 at 01:34 Hospital Day # 2 Subjective: Tolerating PO, having bowel movements. Objective Vital Sign- Last 8 Hours Date Time Temp Pulse Resp B/P Pulse Ox O2 Delivery O2 Flow Rate FiO2 09/11/16 11:54 36.7 63 18 131/66 97 Room Air 09/11/16 09:30 Supplement Oxygen 09/11/16 09:00 36.9 77 19 128/76 97 Nasal Cannula 3.00 Intake and Output- Last 8 Hour 09/11/16 Cumulative From/Thru 07:00 09/09/16 22:22 - 09/11/16 05:58 Intake Total 1391 ml 4084 ml Output Total 2150 ml 3850 ml Balance -759 ml 234 ml Intake Oral 200 ml 200 ml IV Total 1191 ml 3884 ml Output Urine Total 2150 ml 3700 ml Estimated Blood Loss 150 ml # Bowel Movements 0 0 Abdomen: Soft, Other (Reducible hernia) Result Diagram: 09/11/1622409/11/16224 Assessment & Plan Impression Doing well. Problems: Plan F/u with me on 09/17/2016 at 2PM as an outpatient Will hopefully be doing well from urological stand point at that time Abx per ID/ medicine teams Stephy Whitehead MD Sep 11, 2016 16:16
--- NOTE | 2016-09-11 19:05 | PCM.PNMED ---
Subjective Date of Service Sep 11, 2016 Subjective overnight: Patient continues to have mild pink urine per Borges catheter after surgical procedure yesterday. Patient spiked temperature of 38.2 treated with Tylenol by the overnight. today: Today the patient states that he continues to have no pain. He has not had a good bowel movement but he states that he is having continual gas. He states he has not been eating a lot so he does not suspect to have a bowel movement he was made aware that he has a bowel regimen available to him when necessary. The patient states that he already has a scheduled for his hernia repair with Dr. Whitehead with an outpatient appointment on September 17 and surgery scheduled on September 24. Exam Vital Signs Vital Sign - Last Date Time Temp Pulse Resp B/P Pulse Ox O2 Delivery O2 Flow Rate FiO2 09/11/16 03:23 82 09/11/16 03:17 36.5 24 103/47 95 Nasal Cannula 3.00 Intake and Output 09/10/16 09/10/16 09/11/16 Cumulative From/Thru 15:00 23:00 07:00 09/09/16 22:22 - 09/11/16 05:58 Intake Total 1426 ml 1391 ml 4084 ml Output Total 1375 ml 2150 ml 3850 ml Balance 51 ml -759 ml 234 ml Intake Oral 0 ml 200 ml 200 ml IV Total 1426 ml 1191 ml 3884 ml Output Urine Total 1225 ml 2150 ml 3700 ml Estimated Blood Loss 150 ml 150 ml # Bowel Movements 0 0 Exam General: Alert, Oriented X3, Cooperative, No Acute Distress Head: Normocephalic, atraumatic. External ears normal. Eyes: PERRLA, EOMI. Anicteric sclerae. Mouth: Mouth Normal, Mucous Membranes Moist/[place] Neck: Neck supple with full range of motion. No JVD no carotid bruit Chest & Lungs: Clear to auscultation bilaterally with no crackles, wheezes, or rhonchi. Cardiovascular: Very distant heart sounds, Regular Rate and Rhythm, Normal S1, Normal S2, no murmurs rubs or gallops noted at this time Abdomen: Abdominal binder in place, Large ventral hernia, easily reducible, no signs of incarceration, no erythema, bowel tones present in hernia, nontender nondistended, No masses, normoactive bowel tones, Soft, no abdominal bruit heard , Musculoskeletal: Normal Range of Motion Extremities: No cyanosis/clubbing/bilaterally, pitting edema to mid tibia bilaterally Neurological: Grossly Neurologically Intact, Cranial Nerves 2-12 Intact, Normal Speech : Indwelling catheter draining dark pink urine Lab and Diagnostics Result Diagram: 09/11/1622409/11/16224 X-Rays, CTs and MRIs CT Abd / Pelvis CONCLUSION: Small bowel obstruction secondary to 10 cm ventral abdominal hernia containing a loop of bowel. Diverticulosis with no evidence of diverticulitis. Enlarged heterogenous prostate gland is concerning for neoplasm. There appears to be invasion of the base of the bladder. Followup is recommended. Cholelithiasis with no evidence of acute cholecystitis. Gualberto Krishnan MD 09/10/2016 - 1:00:38 AM PDT 12-lead ECG ECG Interpretation ECG Interpretation: Sinus rhythm, Rate 74, ventricular paced rhythm Time: 22:25 Interpreted by: ED physician No signs of ischemia, agree with interpretation Assessment & Plan Patient is an 81 y.o. M with medical history of CAD, s/p CABG, cardiac pacemaker , DM II insulin dependent, HTN, BPH with indwelling catheter, SBO, abdominal hernia with multiple repairs. Patient presented to ED via EMS after he developed progressively worsening abdominal pain since the afternoon 09/09/16. In ED patient give 2 g Rocephin IV, 1 L NS, he has been afebrile, in no acute distress. Hospital day 2 1. Small Bowel Obstruction, acute, present on admission, resolved - CT scan showed presence of SBO secondary to 10 cm ventral hernia - Continue IV Fluid hydration NS 100 mls/hr - Hydrocodone 5-325 mg 1-2 tab PO Q4 PRN pain - Place NG tube to suction for abdominal decompression, discontinued this morning - General surgery consulted patient currently passing gas with SBO resolved plans to follow up as an outpatient with Dr. Charley carmona on September 17 with surgery expected September 24 2. Ventral hernia, chronic, present on admission - Patient previously scheduled to have hernia repaired, but rescheduled due to prostate infection - CT scan showed presence of 10 cm ventral hernia - At this time hernia is not incarcerated - General surgery consulted patient currently passing gas with SBO resolved plans to follow up as an outpatient with Dr. Charley carmona on September 17 with surgery expected September 24oint 3. Urinary tract infection, acute, present on admission - Likely related to indwelling catheter - UA showed presence of large amounts of WBC and leukocyte esterase - Continue Ceftriaxone - Culture pending - Continue IVF as above #1 4. Abnormal prostate gland on CT, present on admission, chronic - Patient has history of prostate enlargement, however recent findings suggestive of evolving neoplastic process with bladder wall involvement. - Likely contributing to urinary retention - Patient seen by urology taken for TURP procedure 09/12 - Patient doing well per urology standpoint - Urgent follow-up with Dr. Pack after discharge 5 Hypertension, present on admission, chronic - Continue Home medication lisinopril 20 mg PO QD 6 diabetes mellitus type II insulin-dependent, chronic, present on admission - Regular home dose HS lantus 40 mg, and 12 units preprandial insulin - Start 20 units HS lantus this evening - Medium correctional scale ordered 7 Hyperlipidemia, chronic, present on admission - Hold home medication 8 benign prostatic hypertrophy, present on admission, chronic - Seen by urology taken for TURP procedure today - Continue home medication CODE STATUS: FULL DVT PROPHYLAXIS: SQ heparin Disposition: Patient likely to be inpatient for the next several days, no barriers to discharge at this time. Pain Evaluation: Adequate Pain Control GI Prophylaxis: H2 trey VTE Mechanical Devices: Intermittant Pneumatic CD Resuscitation Status: CPR: Attempt Resuscitation Attending Statement The patient was seen and examined together with Dr. Kaminski on 09/11/2016 and I agree with the history, exam and plan as outlined in the note above. . Rafat Kaminski DO Sep 11, 2016 08:01 Evin Sanford MD Sep 12, 2016 19:25
[2016-09-11] MEDS: INSULIN GLARGINE 100 UNIT/ML SUBQ SCH (21:37)
[2016-09-11] MEDS: cefTRIAXone Inj 2,000 MG in Dextrose 5% Minibag Plus 50 ML IV SCH (23:08)
[2016-09-12] VITALS (10 sets, daily range): BP systolic 136–173; BP diastolic 52–71; PULSE 60–67; RESP 16–28; O2SAT 91–100
[2016-09-12] MEDS: Heparin 5,000 Unit/mL Inj SUBQ SCH ×3 (01:34→15:59)
[2016-09-12 03:27] LABS: BASOPHILS % (AUTO) 0 % (0-3); EOSINOPHILS % (AUTO) 5.3 % (0-5); MONOCYTES % (AUTO) 9.8 % (4-12); Mean Corpuscular Hemoglobin 29.8 pg (27.0-35.0); Mean Corpuscular Volume 96.5 fL (81-100); NEUTROPHILS % (AUTO) 72.3 % (40-74); Platelet Count 130 bil/L (150-400)
[2016-09-12] MEDS: Lactated Ringer's 1,000 ML IV SCH ×4 (03:50→23:14)
[2016-09-12] MEDS: 0.9% Sodium Chloride 1,000 ML IV SCH ×3 (03:58→23:14)
[2016-09-12] MEDS: Insulin LISPRO 300 Unit/3 mL Inj SUBQ SCH ×4 (08:00→21:46)
--- NOTE | 2016-09-12 08:42 | PROG NOTE ---
[address] [address] PROGRESS NOTE PATIENT: SAYRA NGUYEN : 1935 MR#: [id number] ADMIT: 09/10/2016 JOB ID: [id number] DATE: 09/12/2016 SUBJECTIVE: The patient is postop day two TURP. His hematocrit and hemoglobin have dropped slightly to 7.7 and 24.9. He is experiencing no shortness of breath or fatigue. No lightheadedness or dizziness when up walking. His urine is clear off irrigation now for almost 24 hours. PLAN: My plan is to discharge him home with his Borges catheter on antibiotics. I will see him in the office in followup on Thursday for a trial of voiding.
[2016-09-12] MEDS ORDERED: Furosemide 10 mg/mL 2 mL Inj IV ONE ×2 (10:45→16:05)
[2016-09-12] MEDS: 0.9% Sodium Chloride 250 ML IV SCH ×2 (13:42→23:18)
--- NOTE | 2016-09-12 15:39 | PATH ---
SURGICAL PATHOLOGY Attending Physician:Cecilia Pack MD () CASE STATUS: Signed Out PATIENT NAME: SAYRA NGUYEN PID: [id number] : 1935 DATE COLLECTED:09/10/2016 00:00 SPECIMEN: Prostate, Chips CLINICAL HISTORY: BENIGN PROSTATIC HYPERPLASIA/RETENTION 1). PROSTATE CHIPS FINAL DIAGNOSIS: 1.PROSTATE CHIPS (TRANSURETHRAL RESECTION, 123 GRAMS): NODULAR HYPERPLASIA OF GLANDS AND STROMA. ICD10 CODE N40.1 GROSS DESCRIPTION: The specimen is received in one formalin filled container labeled with the patient's name, sublabeled "prostate chips" and consists of multiple portions of pink burden tissue which aggregate to 9.0 x 9.0 x 0.4 CM. Specimen weighs 123 g in total. Rep. sections are submitted in 5 cassettes. 09/11/2016 [facility] MICRO DESCRIPTION: See diagnosis. ICD-9 CODES: CPT CODES: 1: 56330 Electronically Signed Out Aaron Gutierrez MD [facility] [address], [place] [address] Technical component performed at [facility], [facility] [address], [place], [address]
--- NOTE | 2016-09-12 18:23 | PCM.PNMED ---
Subjective Date of Service Sep 12, 2016 Subjective overnight: Patient continues to have hematuria overnight and a significant drop in his hemoglobin now down to 7.7 from 11 at admission. Today: Urology signed off of this patient today. Patient will follow-up with urology on ThursdaySeptember 15 for evaluation of his indwelling Borges catheter. Patient was kept today for a blood transfusion given a history of coronary artery disease with multiple CABGs in the past. 2 units of typed and crossed packed red blood cells given today with 20 mg Lasix after the first unit. We will monitor patient for the next day and consider discharge tomorrow. Exam Vital Signs Vital Sign - Last Date Time Temp Pulse Resp B/P Pulse Ox O2 Delivery O2 Flow Rate FiO2 09/12/16 03:20 36.7 64 28 141/59 96 Room Air 09/11/16 09:00 3.00 Intake and Output 09/11/16 09/11/16 09/12/16 Cumulative From/Thru 15:00 23:00 07:00 09/09/16 22:22 - 09/12/16 06:17 Intake Total 4040 ml 2198 ml 44391 ml Output Total 3075 ml 2400 ml 9325 ml Balance 965 ml -202 ml 997 ml Intake Oral 2600 ml 600 ml 3400 ml IV Total 1440 ml 1598 ml 6922 ml Output Urine Total 3075 ml 2400 ml 9175 ml Estimated Blood Loss 150 ml # Bowel Movements 0 0 Exam General: Alert, Oriented X3, Cooperative, No Acute Distress Head: Normocephalic, atraumatic. External ears normal. Eyes: PERRLA, EOMI. Anicteric sclerae. Mouth: Mouth Normal, Mucous Membranes Moist/[place] Neck: Neck supple with full range of motion. No JVD no carotid bruit Chest & Lungs: Clear to auscultation bilaterally with no crackles, wheezes, or rhonchi. Cardiovascular: Very distant heart sounds, Regular Rate and Rhythm, Normal S1, Normal S2, no murmurs rubs or gallops noted at this time Abdomen: Abdominal binder in place, Large ventral hernia, easily reducible, no signs of incarceration, no erythema, bowel tones present in hernia, nontender nondistended, No masses, normoactive bowel tones, Soft, no abdominal bruit heard , Musculoskeletal: Normal Range of Motion Extremities: No cyanosis/clubbing/bilaterally, pitting edema to mid tibia bilaterally Neurological: Grossly Neurologically Intact, Cranial Nerves 2-12 Intact, Normal Speech : Indwelling catheter draining dark pink urine Lab and Diagnostics Result Diagram: 09/12/1625809/12/16258 X-Rays, CTs and MRIs CT Abd / Pelvis CONCLUSION: Small bowel obstruction secondary to 10 cm ventral abdominal hernia containing a loop of bowel. Diverticulosis with no evidence of diverticulitis. Enlarged heterogenous prostate gland is concerning for neoplasm. There appears to be invasion of the base of the bladder. Followup is recommended. Cholelithiasis with no evidence of acute cholecystitis. Gualberto Krishnan MD 09/10/2016 - 1:00:38 AM PDT 12-lead ECG ECG Interpretation ECG Interpretation: Sinus rhythm, Rate 74, ventricular paced rhythm Time: 22:25 Interpreted by: ED physician No signs of ischemia, agree with interpretation Assessment & Plan Patient is an 81 y.o. M with medical history of CAD, s/p CABG, cardiac pacemaker , DM II insulin dependent, HTN, BPH with indwelling catheter, SBO, abdominal hernia with multiple repairs. Patient presented to ED via EMS after he developed progressively worsening abdominal pain since the afternoon 09/09/16. In ED patient give 2 g Rocephin IV, 1 L NS, he has been afebrile, in no acute distress. Hospital day 3 1. Acute blood loss anemia, not present on admission, under evaluation - Hemoglobin today 7.7 which was down from 11.2 at admission - most significant drop in hemoglobin noted on day after surgery with dropped from 11.1 to 8 - Patient was consented today for 2 units of packed red blood cells given hemoglobin below 8 with significant history of coronary artery disease with multiple CABG - Patient will monitor for the next day post transfusion 2. Abnormal prostate gland on CT, present on admission, chronic - Patient has history of prostate enlargement, however recent findings suggestive of evolving neoplastic process with bladder wall involvement. - Likely contributing to urinary retention - Patient seen by urology taken for TURP procedure 09/12 - Patient doing well per urology standpoint - Urgent follow-up with Dr. Pack after discharge 3. Small Bowel Obstruction, acute, present on admission, resolved - CT scan showed presence of SBO secondary to 10 cm ventral hernia - Continue IV Fluid hydration NS 100 mls/hr - Hydrocodone 5-325 mg 1-2 tab PO Q4 PRN pain - Place NG tube to suction for abdominal decompression, discontinued this morning - General surgery consulted patient currently passing gas with SBO resolved plans to follow up as an outpatient with Dr. Charley carmona on September 17 with surgery expected September 24 4. Ventral hernia, chronic, present on admission - Patient previously scheduled to have hernia repaired, but rescheduled due to prostate infection - CT scan showed presence of 10 cm ventral hernia - At this time hernia is not incarcerated - General surgery consulted patient currently passing gas with SBO resolved plans to follow up as an outpatient with Dr. Charley carmona on September 17 with surgery expected September 24oint 5. Urinary tract infection, acute, present on admission - Likely related to indwelling catheter - UA showed presence of large amounts of WBC and leukocyte esterase - Continue Ceftriaxone - Culture pending - Continue IVF as above #1 6 diabetes mellitus type II insulin-dependent, chronic, present on admission - Regular home dose HS lantus 40 mg, and 12 units preprandial insulin - Start 20 units HS lantus this evening - Medium correctional scale ordered 7 Hyperlipidemia, chronic, present on admission - Hold home medication 8 benign prostatic hypertrophy, present on admission, chronic - Seen by urology taken for TURP procedure September 10, urology signed off September 12 , patient will follow-up with urology on September 15 - Continue home medication 5 Hypertension, present on admission, chronic - Continue Home medication lisinopril 20 mg PO QD CODE STATUS: FULL DVT PROPHYLAXIS: SQ heparin Disposition: Patient likely to be inpatient for one more day, no barriers to discharge at this time. GI Prophylaxis: H2 trey VTE Mechanical Devices: Intermittant Pneumatic CD Resuscitation Status: CPR: Attempt Resuscitation Attending Statement The patient was seen and examined together with Dr. Kaminski on 09/12/2016 and I agree with the history, exam and plan as outlined in the note above. . Rafat Kaminski DO Sep 12, 2016 07:39 Evin Sanford MD Sep 13, 2016 18:51
[2016-09-12] MEDS: INSULIN GLARGINE 100 UNIT/ML SUBQ SCH (21:45)
[2016-09-12] MEDS: cefTRIAXone Inj 2,000 MG in Dextrose 5% Minibag Plus 50 ML IV SCH (23:18)
[2016-09-13] MEDS: Heparin 5,000 Unit/mL Inj SUBQ SCH ×2 (02:53→08:29)
[2016-09-13 03:15] LABS: BASOPHILS % (AUTO) 0 % (0-3); EOSINOPHILS % (AUTO) 6.9 % (0-5); MONOCYTES % (AUTO) 8.3 % (4-12); Mean Corpuscular Hemoglobin 29.4 pg (27.0-35.0); NEUTROPHILS % (AUTO) 67.4 % (40-74); Platelet Count 152 bil/L (150-400)
[2016-09-13 04:00] VITALS: BP 158/60; PULSE 60; RESP 18; O2SAT 98
[2016-09-13] MEDS: 0.9% Sodium Chloride 1,000 ML IV SCH (07:17)
[2016-09-13] MEDS: Lactated Ringer's 1,000 ML IV SCH (07:17)
[2016-09-13 07:24] VITALS: BP 154/68; PULSE 60; RESP 18; O2SAT 98
[2016-09-13] MEDS: Insulin LISPRO 300 Unit/3 mL Inj SUBQ SCH (08:28)
[2016-09-13] MEDS ORDERED: CEFD300C3 PO (10:43)
--- NOTE | 2016-09-13 10:52 | PCM.PNMED ---
Subjective Date of Service Sep 13, 2016 Subjective overnight: Patient received 2 units of packed red blood cells overnight with a dose of Lasix 20 mg IV in between. H&H after transfusion was 9.5. Today: Hemoglobin dropped mildly overnight from 9.5-9.2. Patient has a follow- up appointment with his urologist on September 15 and a follow-up appointment with his general surgeon on September 17. The patient feels well and was able to ambulate today without issues he states that he is ready to go home and he understands the plan. He will be sent with some Borges catheter leg bag's freeze of ambulation. Exam Vital Signs Vital Sign - Last Date Time Temp Pulse Resp B/P Pulse Ox O2 Delivery O2 Flow Rate FiO2 09/13/16 07:24 36.5 60 18 154/68 98 Room Air 09/11/16 09:00 3.00 Intake and Output 09/12/16 09/12/16 09/13/16 Cumulative From/Thru 15:00 23:00 07:00 09/09/16 22:22 - 09/13/16 06:33 Intake Total 1697 ml 988 ml 80040 ml Output Total 3800 ml 1700 ml 91507 ml Balance -2103 ml -712 ml -1818 ml Intake Oral 1032 ml 813 ml 5245 ml IV Total 65 ml 175 ml 7162 ml Packed Cells 600 ml 600 ml Output Urine Total 3800 ml 1700 ml 66561 ml Estimated Blood Loss 150 ml # Bowel Movements 2 1 3 Exam General: Alert, Oriented X3, Cooperative, No Acute Distress Head: Normocephalic, atraumatic. External ears normal. Eyes: PERRLA, EOMI. Anicteric sclerae. Mouth: Mouth Normal, Mucous Membranes Moist/[place] Neck: Neck supple with full range of motion. No JVD no carotid bruit Chest & Lungs: Clear to auscultation bilaterally with no crackles, wheezes, or rhonchi. Cardiovascular: Very distant heart sounds, Regular Rate and Rhythm, Normal S1, Normal S2, no murmurs rubs or gallops noted at this time Abdomen: Abdominal binder in place, Large ventral hernia, easily reducible, no signs of incarceration, no erythema, bowel tones present in hernia, nontender nondistended, No masses, normoactive bowel tones, Soft, no abdominal bruit heard , Musculoskeletal: Normal Range of Motion Extremities: No cyanosis/clubbing/bilaterally, pitting edema to mid tibia bilaterally Neurological: Grossly Neurologically Intact, Cranial Nerves 2-12 Intact, Normal Speech : Indwelling catheter draining dark pink urine Lab and Diagnostics Result Diagram: 09/13/1624409/13/16244 Microbiology Microbiology DONALDO CULT URINE Final 09/11/16 Organism 1 ESCHERICHIA COLI U COLONY COUNT/QUANTITY >100,000 CFU/ml 1. ESCHERICHIA COLI M.I.C Interp --------- ------ * AMOXICILLIN/CLAVULATE <=2 S * AMPICILLIN <=2 S * CEFAZOLIN (CEPHALOSPORIN) UTI 4 S * CEFEPIME <=1 S * CEFTRIAXONE <=1 S * CEFUROXIME SODIUM 4 S * CIPROFLOXACIN <=0.25 S * ERTAPENEM <=0.5 S * GENTAMICIN <=1 S * IMIPENEM <=1 S * LEVOFLOXACIN <=0.12 S * NITROFURANTOIN <=16 S * TETRACYCLINE <=1 S * TOBRAMYCIN <=1 S * TRIMETHOPRIM/SULFAMETHOXAZOLE <=20 S X-Rays, CTs and MRIs CT Abd / Pelvis CONCLUSION: Small bowel obstruction secondary to 10 cm ventral abdominal hernia containing a loop of bowel. Diverticulosis with no evidence of diverticulitis. Enlarged heterogenous prostate gland is concerning for neoplasm. There appears to be invasion of the base of the bladder. Followup is recommended. Cholelithiasis with no evidence of acute cholecystitis. Gualberto Krishnan MD 09/10/2016 - 1:00:38 AM PDT 12-lead ECG ECG Interpretation ECG Interpretation: Sinus rhythm, Rate 74, ventricular paced rhythm Time: 22:25 Interpreted by: ED physician No signs of ischemia, agree with interpretation Assessment & Plan Patient is an 81 y.o. M with medical history of CAD, s/p CABG, cardiac pacemaker , DM II insulin dependent, HTN, BPH with indwelling catheter, SBO, abdominal hernia with multiple repairs. Patient presented to ED via EMS after he developed progressively worsening abdominal pain since the afternoon 09/09/16. In ED patient give 2 g Rocephin IV, 1 L NS, he has been afebrile, in no acute distress. Hospital day 4 1. Acute blood loss anemia, not present on admission, considered stable - Hemoglobin today 7.7 which was down from 11.2 at admission - most significant drop in hemoglobin noted on day after surgery with dropped from 11.1 to 8 - Patient was consented 09/12 for 2 units of packed red blood cells given hemoglobin below 8 with significant history of coronary artery disease with multiple CABG - Hemoglobin after 2 units packed RBC transfusion was 9.5, which dropped to 9.2 overnight. - Patient will follow up with his urologist Dr. Pack on September 15 for evaluation of his transurethral resection prostate surgery 2. Abnormal prostate gland on CT, present on admission, chronic - Patient has history of prostate enlargement, however recent findings suggestive of evolving neoplastic process with bladder wall involvement. - Likely contributing to urinary retention - Patient seen by urology taken for TURP procedure 09/12 - Patient doing well per urology standpoint - follow-up with Dr. Pack after discharge on September 15 - Pathology is currently pending 3. Small Bowel Obstruction, acute, present on admission, resolved - CT scan showed presence of SBO secondary to 10 cm ventral hernia - Continue IV Fluid hydration NS 100 mls/hr - Hydrocodone 5-325 mg 1-2 tab PO Q4 PRN pain - Place NG tube to suction for abdominal decompression, discontinued this morning - General surgery consulted patient currently passing gas with SBO resolved plans to follow up as an outpatient with Dr. Charley carmona on September 17 with surgery expected September 24 4. Ventral hernia, chronic, present on admission - Patient previously scheduled to have hernia repaired, but rescheduled due to prostate infection - CT scan showed presence of 10 cm ventral hernia - At this time hernia is not incarcerated - General surgery consulted patient currently passing gas with SBO resolved plans to follow up as an outpatient with Dr. Charley carmona on September 17 with surgery expected September 24oint 5. Urinary tract infection, acute, present on admission - Likely related to indwelling catheter - UA showed presence of large amounts of WBC and leukocyte esterase - Continue Ceftriaxone - Culture shows pansensitive Escherichia coli however given complication with urinary outflow obstruction and TURP procedure patient will be treated for the recommended extended course of antibiotics - Continue IVF as above #1 - Donaldo shows poor coverage with ampicillin and cefazolin, Augmentin is to broad of coverage, ciprofloxacin has known tendinopathy as a side effect so the patient will be placed on Omnicef as the urinary tract infection seems to be responding appropriately so ceftriaxone 6 diabetes mellitus type II insulin-dependent, chronic, present on admission - Regular home dose HS lantus 40 mg, and 12 units preprandial insulin - Start 20 units HS lantus this evening - Medium correctional scale ordered 7 Hyperlipidemia, chronic, present on admission - Hold home medication - Restart on discharge 8 benign prostatic hypertrophy, present on admission, chronic - Seen by urology taken for TURP procedure September 10, urology signed off September 12 , patient will follow-up with urology on September 15 - Continue home medication 5 Hypertension, present on admission, chronic - Continue Home medication lisinopril 20 mg PO QD Disposition: Patient will be discharged today without any barriers Pain Evaluation: Adequate Pain Control GI Prophylaxis: H2 trey VTE Mechanical Devices: Intermittant Pneumatic CD Resuscitation Status: CPR: Attempt Resuscitation Attending Statement The patient was seen and examined together with Dr. Kaminski on 09/13/2016 and I agree with the history, exam and plan as outlined in the note above. . Rafat Kaminski DO Sep 13, 2016 07:46 Evin Sanford MD Sep 14, 2016 07:54
--- NOTE | 2016-09-13 11:05 | PCM.DIMED ---
Rafat Kaminski DO 09/13/16 1105: Discharge Instructions Date of Service Sep 13, 2016 Dates of Hospitalization Sep 10, 2016 at 01:34 Discharge Diagnosis Discharge Diagnosis 1. Acute blood loss anemia 2. Abnormal prostate gland pathology pending 3. Small Bowel Obstruction 4. Ventral hernia 5. Urinary tract infection 6 diabetes mellitus type II insulin-dependent 7 Hyperlipidemia 8 benign prostatic hypertrophy 9 Hypertension Medication Instructions Please continue all your regular home medications as directed. You will also be started on an antibiotic cefdinir 300 mg taken twice a day by mouth. Please take this medication to completion for the full 5 day course. This will give you coverage on antibiotics for 8 days total. Recommendations are wall on antibiotics and at least for 1 week after finishing your antibiotics to also take a probiotic pill available at most pharmacies and health food stores or better yet to ingest foods which are rich in probiotic like a live active cultured yogurt, live cultured sauerkraut, or live cultured kimchi or kombucha. Test Results Your urinary tract infection was from an organism known is E coli which is sensitive to most antibiotics. Your urologist will give you the pathology results from your prostate procedure. Diet Heart Healthy, Diabetic Activity No restrictions, Other (avoid overexertion until your Borges catheter is removed) Call your provider Fever or Chills, Shortness of breath, Bleeding (specifically worsening blood into your Borges catheter bag), Chest pain, Vomitting, Excessive diarrhea (more than 4 times daily), Other (worsening lethargy) Patient Instructions Please take your antibiotics as directed and complete the full course of the prescription. Follow-up plan Please follow-up with your urologist Dr. Pack on September 15 for evaluation of your prostate. Please follow-up with your general surgeon Dr. Charley carmona on September 17 for evaluation of your ventral hernia. Please follow-up with your primary care physician Dr. Martinez within the next 2 weeks to discuss her recent hospitalization as well as your urology and general surgery follow-up appointments. Follow-up Provider: Brady Martinez MD Follow-up with PCP in: 2 weeks Provider: Stephy Whitehead MD Follow-up in: Other (September 17) Mid-level Provider (F9): Cecilia Pack MD Follow-up with Mid-level in: Other (September 15) Evin Sanford MD 09/13/16 1851: Discharge Instructions Attending's Statement The patient was seen and examined together with Dr. Kaminski on 09/13/2016 and I agree with the history, exam and plan as outlined in the note above. . Rafat Kaminski DO Sep 13, 2016 11:05 Evin Sanford MD Sep 13, 2016 18:51
[2016-09-13] MEDS ORDERED: SACC250C PO (11:06)
--- NOTE | 2016-09-13 14:59 | PCM.DC.MED ---
Discharge Summary Date of Service Sep 13, 2016 Dates of Hospitalization Date of Hospital Admission Sep 10, 2016 at 01:34 Date of Discharge: Sep 13, 2016 Providers: Admitting Physician: Varun Richardson MD Primary Care Physician: Brady Martinez MD Attending Physician: Varun Richardson MD Diagnosis at Time of Discharge Diagnosis at Time of Discharge 1. Acute blood loss anemia 2. Abnormal prostate gland pathology pending 3. Small Bowel Obstruction 4. Ventral hernia 5. Urinary tract infection 6 diabetes mellitus type II insulin-dependent 7 Hyperlipidemia 8 benign prostatic hypertrophy 9 Hypertension Consultations urology general surgery Procedures XRay, CTs & MRIs CT Abd / Pelvis CONCLUSION: Small bowel obstruction secondary to 10 cm ventral abdominal hernia containing a loop of bowel. Diverticulosis with no evidence of diverticulitis. Enlarged heterogenous prostate gland is concerning for neoplasm. There appears to be invasion of the base of the bladder. Followup is recommended. Cholelithiasis with no evidence of acute cholecystitis. Gualberto Krishnan MD 09/10/2016 - 1:00:38 AM PDT ECG 12 Lead ECG Interpretation ECG Interpretation: Sinus rhythm, Rate 74, ventricular paced rhythm Time: 22:25 Interpreted by: ED physician No signs of ischemia, agree with interpretation Invasive Procedures Transurethral resection of prostate Prostatic urethra showed an enormous prostate. The prostatic urethra was resected circumferentially to the capsule. There was a large middle lobe that was resected. <Electronically signed by Cecilia Pack MD> 09/12/16 0811 Brief History From the H&P of Dr. Som Horne "Patient is an 81 y.o. M with medical history of CAD, s/p CABG, cardiac pacemaker, DM II insulin dependent, HTN, BPH with indwelling catheter, SBO, abdominal hernia with multiple repairs. Patient presented to ED via EMS after he developed progressively worsening abdominal pain since the afternoon . Patient stated that he was not feeling well earlier today but was able to run errands and eat without pain, initially he thought the pain was due to acid reflux, stomach flu, however pain was sever enough to wake him from a nap, pain is described as crampy, sharp, diffuse, without radiation prompting call to EMS. Patient reported pain associated with nausea, vomiting without blood. Patient stated he is able to push the hernia back in and is able to pass gas. Denies diarrhea, constipation, last BM prior to admission to ED without blood or pus. Additionally, patient stated that he has been experiencing similar symptoms since June when he first developed the hernia, has had minimal relief with abdominal binder, pain has never to this extent prior. Patient stated that he was previously scheduled to have his hernia repaired by Dr. Pack, however this was rescheduled due to prostate infection. Last meal 7 pm 09/09/16. " Hospital Course 1. Acute blood loss anemia, not present on admission, considered stable - Hemoglobin today 7.7 which was down from 11.2 at admission - most significant drop in hemoglobin noted on day after surgery with dropped from 11.1 to 8 - Patient was consented 09/12 for 2 units of packed red blood cells given hemoglobin below 8 with significant history of coronary artery disease with multiple CABG - Hemoglobin after 2 units packed RBC transfusion was 9.5, which dropped to 9.2 overnight. - Patient will follow up with his urologist Dr. Pack on September 15 for evaluation of his transurethral resection prostate surgery 2. Abnormal prostate gland on CT, present on admission, chronic - Patient has history of prostate enlargement, however recent findings suggestive of evolving neoplastic process with bladder wall involvement. - Likely contributing to urinary retention - Patient seen by urology taken for TURP procedure 09/12 - Patient doing well per urology standpoint - follow-up with Dr. Pack after discharge on September 15 - Pathology is currently pending 3. Small Bowel Obstruction, acute, present on admission, resolved - CT scan showed presence of SBO secondary to 10 cm ventral hernia - Continue IV Fluid hydration NS 100 mls/hr - Hydrocodone 5-325 mg 1-2 tab PO Q4 PRN pain - Place NG tube to suction for abdominal decompression, discontinued this morning - General surgery consulted patient currently passing gas with SBO resolved plans to follow up as an outpatient with Dr. Charley carmona on September 17 with surgery expected September 24 4. Ventral hernia, chronic, present on admission - Patient previously scheduled to have hernia repaired, but rescheduled due to prostate infection - CT scan showed presence of 10 cm ventral hernia - At this time hernia is not incarcerated - General surgery consulted patient currently passing gas with SBO resolved plans to follow up as an outpatient with Dr. Charley carmona on September 17 with surgery expected September 24oint 5. Urinary tract infection, acute, present on admission - Likely related to indwelling catheter - UA showed presence of large amounts of WBC and leukocyte esterase - Continue Ceftriaxone - Culture shows pansensitive Escherichia coli however given complication with urinary outflow obstruction and TURP procedure patient will be treated for the recommended extended course of antibiotics - Continue IVF as above #1 - Donaldo shows poor coverage with ampicillin and cefazolin, Augmentin is to broad of coverage, ciprofloxacin has known tendinopathy as a side effect so the patient will be placed on Omnicef as the urinary tract infection seems to be responding appropriately so ceftriaxone 6 diabetes mellitus type II insulin-dependent, chronic, present on admission - Regular home dose HS lantus 40 mg, and 12 units preprandial insulin - Start 20 units HS lantus this evening - Medium correctional scale ordered 7 Hyperlipidemia, chronic, present on admission - Hold home medication - Restart on discharge 8 benign prostatic hypertrophy, present on admission, chronic - Seen by urology taken for TURP procedure September 10, urology signed off September 12 , patient will follow-up with urology on September 15 - Continue home medication 5 Hypertension, present on admission, chronic - Continue Home medication lisinopril 20 mg PO QD Exam Vital Signs (Last) Date Time Temp Pulse Resp B/P Pulse Ox O2 Delivery O2 Flow Rate FiO2 09/13/16 07:24 36.5 60 18 154/68 98 Room Air 09/11/16 09:00 3.00 Exam General: Alert, Oriented X3, Cooperative, No Acute Distress Head: Normocephalic, atraumatic. External ears normal. Eyes: PERRLA, EOMI. Anicteric sclerae. Mouth: Mouth Normal, Mucous Membranes Moist/[place] Neck: Neck supple with full range of motion. No JVD no carotid bruit Chest & Lungs: Clear to auscultation bilaterally with no crackles, wheezes, or rhonchi. Cardiovascular: Very distant heart sounds, Regular Rate and Rhythm, Normal S1, Normal S2, no murmurs rubs or gallops noted at this time Abdomen: Abdominal binder in place, Large ventral hernia, easily reducible, no signs of incarceration, no erythema, bowel tones present in hernia, nontender nondistended, No masses, normoactive bowel tones, Soft, no abdominal bruit heard , Musculoskeletal: Normal Range of Motion Extremities: No cyanosis/clubbing/bilaterally, pitting edema to mid tibia bilaterally Neurological: Grossly Neurologically Intact, Cranial Nerves 2-12 Intact, Normal Speech : Indwelling catheter draining dark pink urine Test 3/21/17 22:26 09/09/16 22:43 09/10/16 02:50 09/10/16 02:55 Urine Color Yellow (YELLOW) Urine Appearance Cloudy (CLEAR,HAZY) Urine pH 6.0 (5.0-8.0) Urine Specific [place] 1.030 (1.003-1.035) Urine Protein Negativemg/dL (NEG,TRACE) Urine Glucose (UA) Negativemg/dL (NEGATIVE) Urine Ketones Negativemg/dL (NEGATIVE) Urine Occult Blood Large (NEGATIVE) Urine Nitrite Positive (NEGATIVE) Urine Bilirubin Negative (NEGATIVE) Urine Urobilinogen Normalmg/dL (NORMAL) Urine Leukocyte Esterase Large (NEGATIVE) Urine RBC 11-50/hpf (0-2) Urine WBC Packed/hpf (0-5) Urine Epithelial Cells Occasional/hpf (NONE-MOD) Urine Crystals None seen (NONE SEEN) Urine Bacteria Moderate/hpf (NONE-FEW) Urine Hyaline Casts Rare/lpf (NONE) Urine Granular Casts None seen (NONE SEEN) Urine Waxy Casts None seen (NONE SEEN) Urine Red Blood Cell Casts None seen (NONE SEEN) Urine White Blood Cell Casts None seen (NONE SEEN) Urine Mucus Present (None Seen) Urine Trichomonas None seen (NONE SEEN) Urine Yeast None (NONE SEEN) Urinalysis Comment None Urine Culture Reflexed Indicated Band Neutrophils % 0% (1-5) Lipase 10U/L (13-60) Activated Partial Thromboplast Time 30.3sec (22.8-33.0) Hemoglobin A1c 7.2% (4.8-5.6) Magnesium Level 1.6mg/dL (1.6-2.6) Hold Kan Top Tube Received (Received) Test 09/11/16 02:25 09/12/16 02:59 09/13/16 02:45 Prothrombin Time 12.1sec (8.1-12.5) Prothromb Time International Ratio 1.13ratio Lactic Acid Level 0.9mmol/L (0.4-2.0) Triglycerides Level 104mg/dL (0-149) Cholesterol Level 85mg/dL (100-199) LDL Cholesterol, Calculated 38.200mg/dL (0-99) VLDL Cholesterol 20.800mg/dL HDL Cholesterol 26mg/dL (>39) Cholesterol/HDL Ratio 3.27 (0.0-4.4) Thyroid Stimulating Hormone (TSH) 0.490uIU/mL (0.450-4.500) Procalcitonin 0.75ng/mL (0.00-0.08) White Blood Count 5.8th/mm3 (3.8-10.1) Red Blood Count 3.13mil/mm3 (4.40-5.80) Hemoglobin 9.2g/dL (13.8-17.2) Hematocrit 28.8% (41.0-50.0) Mean Corpuscular Volume 92.0fL (81-100) Mean Corpuscular Hemoglobin 29.4pg (27.0-35.0) Mean Corpuscular Hemoglobin Concent 31.9% (32.0-37.0) Red Cell Distribution Width 14.5% (12.3-15.4) Platelet Count 152bil/L (150-400) Neutrophils (%) (Auto) 67.4% (40-74) Lymphocytes (%) (Auto) 17.1% (14-46) Monocytes (%) (Auto) 8.3% (4-12) Eosinophils (%) (Auto) 6.9% (0-5) Basophils (%) (Auto) 0% (0-3) Sodium Level 137mEq/L (134-144) Potassium Level 4.2mEq/L (3.5-5.2) Chloride Level 103mEq/L (97-108) Carbon Dioxide Level 21mmol/L (18-29) Blood Urea Nitrogen 24mg/dL (8-27) Creatinine 1.04mg/dL (0.76-1.27) Estimat Glomerular Filtration Rate 73mL/min (>59) Glucose Level 121mg/dL (60-99) Calcium Level 8.7mg/dL (8.5-10.1) Total Bilirubin 0.2mg/dL (0.0-1.2) Aspartate Amino Transf (AST/SGOT) 17U/L (0-50) Alanine Aminotransferase (ALT/SGPT) 16U/L (0-44) Alkaline Phosphatase 70U/L (25-160) Total Protein 5.6g/dL (6.4-8.4) Albumin 2.7g/dL (3.4-5.0) Microbiology Results Microbiology DONALDO CULT URINE Final 09/11/16-817 Organism 1 ESCHERICHIA COLI U COLONY COUNT/QUANTITY >100,000 CFU/ml 1. ESCHERICHIA COLI M.I.C Interp --------- ------ * AMOXICILLIN/CLAVULATE <=2 S * AMPICILLIN <=2 S * CEFAZOLIN (CEPHALOSPORIN) UTI 4 S * CEFEPIME <=1 S * CEFTRIAXONE <=1 S * CEFUROXIME SODIUM 4 S * CIPROFLOXACIN <=0.25 S * ERTAPENEM <=0.5 S * GENTAMICIN <=1 S * IMIPENEM <=1 S * LEVOFLOXACIN <=0.12 S * NITROFURANTOIN <=16 S * TETRACYCLINE <=1 S * TOBRAMYCIN <=1 S * TRIMETHOPRIM/SULFAMETHOXAZOLE <=20 S Discharge Medications Discharge Medications Aspirin (Aspirin) 325 Mg Tablet 325 MG PO HS (Reported) Atorvastatin (Lipitor) 20 Mg Tablet 20 MG PO HS (Reported) Cefdinir (Cefdinir) 300 Mg Capsule 300 MG PO BID Prescribed by: CODY RUIZ DO Cyanocobalamin/Folic Acid (Vitamin Y89-Rwpwn Acid Tablet) 1 Each Tablet 1 EACH PO DAILY (Reported) Insulin Detemir (Levemir Flextouch) 100 Unit/1 Ml Insuln.pen 20 UNITS SUBQ QPM ( Reported) Multivitamin (Multivitamins) 1 Each Capsule 1 EACH PO DAILY (Reported) [place]-3S/Dha/Epa/Fish Oil/D3 (Fish Oil + D3 Softgel) 1 Each Capsule 1 EACH PO DAILY (Reported) Saccharomyces Boulardii (Florastor) 250 Mg Capsule 250 MG PO BID Prescribed by: CODY RUIZ DO Terazosin (Terazosin) 10 Mg Capsule 10 MG PO HS (Reported) Vit C/Vit E/Lutein/Min/[place]-3 (Ocuvite Softgel) 1 Each Capsule 1 EACH PO DAILY (Reported) As needed Insulin Aspart (NovoLOG U-100 Pen) 100 Unit/Ml Insuln.pen 0-21 UNITS SUBQ ACHS PRN PRN sliding scale (Reported) Nitroglycerin SL (Nitrostat) 0.4 Mg Tab.subl 0.4 MG SL Q5MIN PRN PRN For Chest Pain (Reported) Ranitidine (Zantac OTC) 75 Mg Tablet 75 MG PO DAILY PRN PRN For Dyspepsia or Heartburn (Reported) Additional med instructions Please continue all your regular home medications as directed. You will also be started on an antibiotic cefdinir 300 mg taken twice a day by mouth. Please take this medication to completion for the full 5 day course. This will give you coverage on antibiotics for 8 days total. Recommendations are wall on antibiotics and at least for 1 week after finishing your antibiotics to also take a probiotic pill available at most pharmacies and health food stores or better yet to ingest foods which are rich in probiotic like a live active cultured yogurt, live cultured sauerkraut, or live cultured kimchi or kombucha. Followup Plan Disposition: home Follow-up plan Please follow-up with your urologist Dr. Pack on September 15 for evaluation of your prostate. Please follow-up with your general surgeon Dr. Charley carmona on September 17 for evaluation of your ventral hernia. Please follow-up with your primary care physician Dr. Martinez within the next 2 weeks to discuss her recent hospitalization as well as your urology and general surgery follow-up appointments. Discharge Diet: Heart Healthy, Diabetic Discharge Activity: No restrictions, Other (avoid overexertion until your Borges catheter is removed) Patient Instructions Please take your antibiotics as directed and complete the full course of the prescription. Follow-up Provider: Brady Martinez MD Follow-up with PCP in: 2 weeks Provider: Stephy Whitehead MD Follow-up in: Other (September 17) Mid-level Provider: Cecilia Pack MD Follow-up with Mid-level in: Other (September 15) Time spent Greater than 30 minutes was spent in preparation of discharge with greater than 50% of that time dedicated to patient counseling and coordination of care. . Attending Statement The patient was seen and examined together with Dr. Ruiz on 09/13/2016 and I agree with the history, exam and plan as outlined in the note above. . copies to: Brady Martinez MD, Nicholas K DO Sep 13, 2016 14:59 Evin Sanford MD Sep 14, 2016 07:56
[2016-09-19] MEDS ORDERED: PSYL798P2 PO (13:09)
== END 2016-09-13 12:27 | disposition home or self-care (01) | DRG 985 ==
LOC: SED 20:15 → PCC 09-10 01:34
PROVIDERS: ADMIT Hospitalist; ATTEND Hospitalist
PROC: 0VT08ZZ Resection of Prostate, Via Natural or Artificial Opening Endoscopic (ICD-10-PCS; principal; 2016-09-10 15:15)
PROC: 30233N1 Transfusion of Nonautologous Red Blood Cells into Peripheral Vein, Percutaneous Approach (ICD-10-PCS; 2016-09-12)
DX: K43.6 Other and unspecified ventral hernia with obstruction, without gangrene (principal); T83.511A Infection and inflammatory reaction due to indwelling urethral catheter, initial encounter; D62 Acute posthemorrhagic anemia; N40.1 Benign prostatic hyperplasia with lower urinary tract symptoms; N13.9 Obstructive and reflux uropathy, unspecified; R33.8 Other retention of urine; I25.10 Atherosclerotic heart disease of native coronary artery without angina pectoris; Z95.1 Presence of aortocoronary bypass graft; Z87.891 Personal history of nicotine dependence; Z95.0 Presence of cardiac pacemaker; E11.9 Type 2 diabetes mellitus without complications; Z79.4 Long term (current) use of insulin; I10 Essential (primary) hypertension; Z79.82 Long term (current) use of aspirin; E78.5 Hyperlipidemia, unspecified

== ENCOUNTER 2016-09-24 05:45 | Day surgery (SDC) | payer MEDICARE, OTHER ==
[~2016-09-24] VITALS: Ht 190.5 cm; Wt 120.9 kg
[2016-09-24] VITALS (14 sets, daily range): BP systolic 136–161; BP diastolic 53–76; PULSE 60–72; RESP 10–24; O2SAT 93–100
[2016-09-24] MEDS: Lactated Ringer's 1,000 ML IV SCH ×3 (05:00→07:27)
[~2016-09-24 05:45] MED LIST changes: -ALFU10TA11 PO; -CEPH-512 PO; -CIPR-231 PO; -LISI-567 PO; +PSYL798P2 PO; +TERA10CA5 PO
[2016-09-24] MEDS ORDERED: Ketamine 10 mg/mL 20 mL Inj ONE (05:46)
[2016-09-24] MEDS ORDERED: Rocuronium 10 mg/mL 5 mL Inj ONE (05:46)
[2016-09-24] MEDS ORDERED: Ondansetron 2 mg/mL 2 mL Inj ONE (05:46)
[2016-09-24] MEDS ORDERED: fentaNYL-PF 50 mCg/mL 2 mL Inj ONE (05:46)
[2016-09-24] MEDS ORDERED: Propofol 10,000 mCg/mL 20 mL Inj ONE (05:46)
[2016-09-24] MEDS ORDERED: Levofloxacin 500 mg/100 mL D5W IV ONE (06:00)
--- NOTE | 2016-09-24 07:28 | PCM.HPANE ---
Patient Data Surgeon Admitting Provider: Attending Provider:Stephy Whitehead MD Primary Care Physician:Brady Martinez MD Other Provider:Keeley [place] Anesthesia Reason for Visit Cholelithiasis, Incisional Hernia Ht/WT & BMI Height (Feet): 6 Height (Inches): 3.00 Weight (Kilograms): 120.9 Body Mass Index 33.00 Allergies Coded Allergies: Tuna (Verified Adverse Reaction, Severe, HALLUCINATIONS (TUNA OIL), ) Uncoded Allergies: artificial sweeteners (Adverse Reaction, Severe, VISION CHANGES, 09/19/16) Past Anesthesia History Anesthesia History: Denies:: Anesthesia Reactions, Malignant Hyperthermia Diabetes History Hx Diabetes?: Yes Type of Diabetes: Type II Glycemic Control: Insulin Dependent Current Bedside Blood Glucose: 167 MRSA MRSA: No Medications Blood Thinner: Aspirin Hypertension Medication: Yes (TERAZOSIN) Home Meds Incl Beta [place]: No Reported Medications Terazosin 10 Mg [id number] Mg PO HS #30 09/10/16 Ranitidine (Zantac OTC)75 Mg Aeqjie14 Mg PO DAILY PRN For Dyspepsia or Heartburn #1 PKG Ref 0 08/11/16 Cyanocobalamin/Folic Acid (Vitamin S58-Tfzol Acid Tablet)1 Each Tablet1 Each PO DAILY 08/11/16 Nitroglycerin SL (Nitrostat)0.4 Mg Tab.subl0.4 Mg SL Q5MIN PRN For Chest Pain # 1 BOTTLE 08/11/16 [place]-3S/Dha/Epa/Fish Oil/D3 (Fish Oil + D3 Softgel)1 Each Capsule1 Each PO DAILY 08/08/16 Multivitamin (Multivitamins)1 Each Capsule1 Each PO DAILY 08/08/16 Insulin Detemir (Levemir Flextouch)100 Unit/1 Ml Insuln.pen20 Units SUBQ QPM 08/08/16 Aspirin 325 Mg [id number] Mg PO HS 08/08/16 Atorvastatin (Lipitor)20 Mg Uhgfto29 Mg PO HS 07/22/16 Vit C/Vit E/Lutein/Min/[place]-3 (Ocuvite Softgel)1 Each Capsule1 Each PO DAILY 02/17/14 Insulin Aspart (NovoLOG U-100 Pen)100 Unit/Ml Insuln.pen0-21 Units SUBQ ACHS PRN sliding scale 02/17/14 Discontinued Reported Medications Psyllium Husk (with Sugar) (Metamucil Powder)538 Gm Powder2 Tsp PO DAILY 09/19/16 Discontinued Scripts Saccharomyces Boulardii (Florastor)250 Mg [id number] Mg PO BID #30 CAPSULE Prov:Rafat Kaminski DO 09/13/16 Cefdinir 300 Mg [id number] Mg PO BID #10 CAPSULE Prov:Rafat Kaminski DO 09/13/16 History History of ENT Problems?: Yes HEENT History: Positive for:: Hearing Problem Denies:: Cataracts Dysphagia Sinus Problem Denture Type: Full- Upper Full- Lower Hx of Heart Problems?: Yes Cardiovascular History: Positive for:: Abdominal Aortic Aneurism (ASCENDING AORTA MILD-MOD ENLARGED) Cardiac Surgery (Triple 1992, Quadruple bypass 2002, pacemaker 2005) Chest Pain Coronary Artery Disease Edema Hypertension (HYPERLIPIDEMIA) Irregular Heartbeat (heart block) Pacemaker (S/P INSERT 2005, NEW LEADS INSERTED 01/2014 AFTER MALFUNCTION) Valvular Heart Disease (MILD MR,AR,TR) Denies:: Congestive Heart Failure Heart Murmur (ECHO 07/2016 EF 55-60%) Thrombophlebitis Other Cardiac History: HX NORMOCYTIC ANEMIA Hx of Respiratory Problem?: Yes Respiratory History: Positive for:: Chest Surgery (S/P CABG X2) Cough (CHRONIC) Dyspnea (INTERMITTANT) Denies:: Asthma COPD Emphysema Hemoptysis Pneumonia Tuberculosis Use of C-PAP Machine (SNORES) Hx Neurologic Problems?: Yes Neurological History: Denies:: Alzheimer's Disease CVA Dementia Dizziness Headaches Parkinson's Disease Seizures Hx of GI Problems?: Yes Gastrointestinal History: Positive for:: Gall Bladder Disease (CHOLELITHIASIS/ INCISIONAL HERNIA=CURRENT PROBLEM) Gastroesphageal Reflux (barium swallow done) Heartburn 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, d/t shellfish) Denies:: Diverticulitis Gastrointestinal Bleeding Hiatal Hernia Rectal Bleeding Other GI Pertinent History: S/P APPY HX RECURRENT SBO'S FROM INCISIONAL HERNIA Hx of Problems?: Yes Genitourinary History: Positive for:: Urinary Tract Infection ((RECURRENT) FINISHED ABX 09/18/16) Denies:: HX of Hemodialysis Kidney Stones HX of Peritoneal Dialysis: No Other Pertinent History: HX OF CHRONIC PALENCIA USAGE FOR URINARY RETENTION Male Hx: Positive for:: Prostate Problems (S/P TURP (FOR BPH) 09/10/2016) Denies:: Scrotal Mass Testicular Surgery Skin History: Denies:: History Skin Disorders? Pressure Ulcers Hx Musculoskeletal Problems?: Yes Musculoskeletal History: Positive for:: Osteoarthritis Denies:: Back Injury Joint Replacement Musculoskeletal Trauma Hx of Psycho/Social Problems?: No Psycho Social History: Denies:: Anxiety Bipolar Disorder Hx Depression Suicide Attempt Hx Surgeries?: Yes (CABG X2,PACER,LEAD REPLCMT,APPY,TURP) Hx Any Other Health Problems?: Yes Other History: Positive for:: Hospitalization (SBO) Denies:: Cancer Endocrine Disease Thyroid Disease History Blood Transfusions: Positive for:: Accept Blood Products? Blood Transfusions Denies:: Blood Transfuse Reaction Hx Diabetes: YesBedside Blood Glucose: 167 Hx Alcohol Use: Yes (OCCAS)Hx Substance Use: No Smoking Status: Former Smoker Have You Smoked inLast 12 mo: No Stop/Bang S-Snoring: Do You Snore Loudly: Yes T-Tired: feel tired, fatigued: Yes O-Obsered: Observed not breath: Yes P-Blood Pressure: treated: Yes B- Body Mass Index > 35 kg/m2: No A- Age over 50: Yes N- Neck Large Circumference: Yes G- Gender Male: Yes REAGAN Total Score: 7 REAGAN Risk Assessment: High Risk, =/>3 Yes REAGAN Category 2: Yes Risk Assessment Category Category 1A: Patient has history of documented sleep apnea, and HAS NOT received any narcotic, sedative or anesthesia administration during this stay. Category 1B: Patient has history of documented sleep apnea, and HAS received any narcotic , sedative or anesthesia administration during this stay Category 2: Patient has SUSPECTED Obstructive Sleep Apnea, and HAS received any narcotic , sedative or anesthesia administration during this stay. Category 3: Patient has SUSPECTED Obstructive Sleep Apnea and HAS NOT received narcotic, sedative or anesthesia administration during this stay. Category 4: Outpatient in Procedural Areas with known sleep apnea or who screen positive for High Risk via the STOP/BANG questionnaire. Exam Exam Vital Signs Vital Signs Date Time Temp Pulse Resp B/P Pulse Ox O2 Delivery O2 Flow Rate FiO2 09/24/16 06:12 36.5 68 16 161/62 98 Room Air General Appearance: Alert, Oriented X3, Cooperative, No Acute Distress HEENT/AIRWAY: MP 2 Lungs: Clear to Auscultation, Normal Air Movement Heart: Exam Unremarkable, Regular Rate/Rhythm, No Murmurs/Rubs/Gallops Meds/Labs/Diagnostics Admission Meds Current Medications Lactated Ringer's (Lr) 1,000 ml @ 120 mls/hr Q8H20M IV Last administered on t 05:37; Start 09/24/16 at 05:00; Stop 09/24/16 at 13:19 Bedside Blood Glucose: 167 Plan Impression Patient chart reviewed, patient interviewed and anesthestic plan with risks, benefits, and alternatives discussed, and informed consent obtained. NPO Status: 09/23 at 2100 ASA Physical Status: ASA3 Severe Disease (Pacemaker, DM ) Anesthetic Plan: GA Bene/Risks/Altern/Consents: Yes HP Complete Prior to Induction: Yes Hua Aguilar MD Sep 24, 2016 07:28
[2016-09-24] MEDS ORDERED: Lactated Ringer's 500 ML IV PRN (07:57)
[2016-09-24] MEDS ORDERED: Lactated Ringer's 1,000 ML IV SCH (07:57)
[2016-09-24] MEDS ORDERED: MetoCLOpramide 5 mg/mL 2 mL Inj IVPUSH PRN ×2 (08:00→13:35)
[2016-09-24] MEDS ORDERED: Phenylephrine 10,000 mCg/mL Inj IVPUSH PRN (08:00)
[2016-09-24] MEDS ORDERED: Dexamethasone 4 mg/mL Inj IVPUSH PRN (08:00)
[2016-09-24] MEDS ORDERED: EPHEDrine Sulfate 50 mg/mL Inj IVPUSH PRN (08:00)
[2016-09-24] MEDS ORDERED: Ondansetron 2 mg/mL 2 mL Inj IVPUSH PRN ×2 (08:00→13:35)
[2016-09-24] MEDS ORDERED: Bupivacaine-MPF 0.5% 30 mL Inj INJ ONE (08:12)
[2016-09-24 09:42] LABS: APPEARANCE,URINE CLOUDY (CLEAR,HAZY); COLOR,URINE DARK YELLOW (YELLOW); OCCULT BLOOD,URINE LARGE (NEGATIVE)
[2016-09-24 09:48] LABS: UROBILINOGEN,URINE NORMAL (NORMAL)
[2016-09-24 09:49] LABS: YEAST,URINE MODERATE (NONE SEEN)
[2016-09-24] MEDS ORDERED: Insulin LISPRO 300 Unit/3 mL Inj ONE (10:03)
[2016-09-24] MEDS ORDERED: Lactated Ringer's 1,000 ML IV ONE (11:15)
[2016-09-24] MEDS: HYDROmorphone 1 mg/mL Inj IVPUSH PRN ×2 (13:26→13:46)
[2016-09-24] MEDS ORDERED: D5 0.45% NaCl + KCl 20 mEq/L 1,000 ML IV SCH (13:31)
[2016-09-24] MEDS ORDERED: HYDROmorphone 1 mg/mL Inj IVPUSH PRN (13:35)
--- NOTE | 2016-09-24 13:42 | PCM.SURGPO ---
Immediate Operative Note Date of Surgery: Sep 24, 2016 Pre Operative Diagnosis Incisional hernia with recurrect small bowel obstruction Cholelithiasis Post Operative Diagnosis Incisional hernia with recurrect small bowel obstruction Cholelithiasis Procedure Laparoscopic lysis of adhesions, cholecystectomy, incisional hernia repair with mesh Surgeon and Flare Breaker Surgeon: Stephy Whitehead MD Assistants: Juan Alicea, PAC, Oswaldo Jackson, PAC Findings Extensive adhesions, taken down. 15X8cm defect repaired with 25W50me mesh Complications There were no periprocedural complications identified. Surgical Specimen Removed: Yes Specimen sent to Pathology: Yes Anesthetic Administered: GA Grafts, Implants: Implants-See Implant Record Output, Estimated Blood Loss: 10 Blood Admin during surgery: No Attending Statement drafter assistant listed was medically necessary for the successful completion of the case Stephy Whitehead MD Sep 24, 2016 13:42
[2016-09-24] MEDS: fentaNYL-PF 50 mCg/mL 2 mL Inj IVPUSH PRN ×2 (13:52→13:57)
[2016-09-24 14:00] LABS: BASOPHILS % (AUTO) 0.2 % (0-3); EOSINOPHILS % (AUTO) 1.2 % (0-5); Mean Corpuscular Hemoglobin 29.2 pg (27.0-35.0); Mean Corpuscular Volume 93.7 fL (81-100); NEUTROPHILS % (AUTO) 84.8 % (40-74); Platelet Count 215 bil/L (150-400)
[2016-09-24] MEDS ORDERED: Insulin Human REGular 300 Unit/3 mL Inj SUBQ SCH (14:30)
--- NOTE | 2016-09-24 14:38 | NUR ---
Pt on floor Received report from KURTIS Horowitz at 1400. Pt arrived via bed to room at 1430, SCD's plugged in and on, o2 set at 3L NC, yellow non-skid socks on pt, D51/2NS20K at 150mL/hr, incisions C/D/I, pt drowsy but arouses to voice and answers questions appropriately.
[2016-09-24] MEDS ORDERED: Acetaminophen PO (15:40)
[2016-09-24] MEDS ORDERED: POLY17PO6 PO (15:40)
[2016-09-24] MEDS ORDERED: OXYC5TAB72 PO (15:40)
[2016-09-24] MEDS ORDERED: Ibuprofen PO (15:40)
[2016-09-24] MEDS: NOVOLOG ASPART SUBQ SCH (18:39)
[2016-09-24] MEDS: 0.9% Sodium Chloride 500 ML IV SCH ×2 (19:00→21:30)
[2016-09-24] MEDS: INSULIN DETEMIR 100 UNIT/ML SUBQ SCH (20:30)
[2016-09-24] MEDS ORDERED: Insulin GLARgine 100 Unit/mL Syringe SUBQ SCH (21:00)
--- NOTE | 2016-09-24 22:57 | OP ---
[address] [address] OPERATIVE REPORT PATIENT: SAYRA NGUYEN : 1935 MR#: [id number] ADMIT: 09/24/2016 JOB ID: [id number] DATE OF SURGERY: 09/24/2016 SURGEON: Stephy Whitehead MD PREOPERATIVE DIAGNOSIS(ES): 1. Recurrent small-bowel obstruction from incisional hernia. 2. Cholelithiasis. POSTOPERATIVE DIAGNOSIS(ES): 1. Recurrent small-bowel obstruction from incisional hernia. 2. Cholelithiasis. PROCEDURE PERFORMED: 1. Laparoscopic lysis of adhesions. 2. Laparoscopic cholecystectomy. 3. Laparoscopic incisional hernia repair with mesh. ESTIMATED BLOOD LOSS: 10 mL. COMPLICATIONS: None. CONDITION OF THE PATIENT: Stable. INDICATIONS: The patient is an 81-year-old gentleman who had a perforated appendicitis in the 1970s treated with an open appendectomy in [place]. His skin was left open at that time and was left to heal by secondary intention. He noticed the hernia in that location that showed up years later, but he did not have any significant problems from it until June 2016 when he started developing recurrent bowel obstruction with bowel herniating into the subcutaneous space. He subsequently also developed obstructive uropathy with recurrent urinary tract infections and Dr. Cecilia Pack performed a transurethral resection of prostate on September 10, 2016. He was also found to have gallstones with episodic upper abdominal pain and after discussing the risks, benefits, and alternatives, he is here today for a laparoscopic cholecystectomy with incisional hernia repair after discussing the risks, benefits, and alternatives. PROCEDURE DETAILS: He was placed in a supine position and underwent smooth induction of general anesthesia. Had a Borges catheter placed. The abdomen was prepped and draped in the usual sterile fashion. Surgical time-out was undertaken using safety checklist, and all were in agreement. I began by making an epigastric incision and entered the abdomen using open Dany technique. After obtaining pneumoperitoneum, I placed two additional 5 mm ports in the right upper quadrant. I used these incision ports to explore the abdomen and perform extensive adhesiolysis. He had extensive adhesions of the omentum to the abdominal wall covering the hernia defect. I mobilized these with a combination of bipolar and monopolar electrocautery with the LigaSure device, making sure that I am not anywhere close to or injuring any bowel. After taking down the adhesions all from the abdominal wall sharply, I placed an additional 10 mm port in the supraumbilical location and placed him in a reverse Trendelenburg position and retracted the gallbladder to the right and cephalad and dissected the triangle of Calot anteriorly and posteriorly and clipped the cystic artery and then clipped the cystic duct and divided it. I then mobilized the gallbladder off the liver bed, making especially sure to make sure I did not get into the gallbladder at any point, spilling any bile. After the gallbladder from the liver completely, I placed it in an EndoCatch bag and after we ensured good hemostasis, I extracted the EndoCatch bag through the epigastric port site. We had to make the fascial and skin incisions bigger, given the large stones in the gallbladder to be able to extract the bag. At this point, I removed all the instruments that I was using for the cholecystectomy of the case and changed gloves and changed the ports and removed the supraumbilical port trocar and closed it with an 0 PDS suture. I also placed PDS sutures in the epigastric port site to make the opening again small enough to have a working 12 port from there. To proceed with the mesh repair of the incisional hernia, I had to put an additional 5 mm port in the right lower side of the abdomen under direct vision. At this point, I measured the fenestrated defect in the abdominal wall which, combining all the defects together, measured close to 15 cm superoinferiorly and 8 cm from side to side. At this point, I chose a 20 cm x 15 cm Ventralight dual-sided mesh with echo positioner and placed it into the abdominal cavity through the epigastric port site. Then, I measured the mid point of the hernia defect and pulled the retaining string with the suture passer in that location. Then, making sure to orient the mesh with good overlap of the defect circumferentially, I tacked the mesh in place with absorbable tacker. At that point, I cut the positioning system free at the skin level and removed the device through the 10 mm port. After this, I placed 0 PDS transfascial sutures circumferentially around the mesh for additional security in a clock repair fashion. After that, making sure we had good hemostasis, I infiltrated the sites with 0.5% bupivacaine and desufflated the abdomen and tied the PDS sutures down to close the epigastric port site and closed the skin with 4-0 Monocryl. Dermabond was applied as a dressing. Patient was recovered from anesthesia and was taken to the recovery room in stable condition.
[2016-09-25 01:11] VITALS: BP 123/60; PULSE 67; RESP 18; O2SAT 99
--- NOTE | 2016-09-25 02:20 | NUR ---
IV jose BRYAN at 1915. Tolerating PO intake.
[2016-09-25 05:39] LABS: BASOPHILS % (AUTO) 0 % (0-3); MONOCYTES % (AUTO) 7.2 % (4-12); Mean Corpuscular Hemoglobin 29.4 pg (27.0-35.0); Mean Corpuscular Volume 93.9 fL (81-100); NEUTROPHILS % (AUTO) 87.5 % (40-74); Platelet Count 185 bil/L (150-400)
[2016-09-25 05:41] VITALS: BP 119/61; PULSE 60; RESP 22; O2SAT 100
--- NOTE | 2016-09-25 06:36 | NUR ---
GI Denies flatus, no nausea overnight. Incisional pain rated 1-2, states "sore, tender". Managed with Ibuprophen and Tylenol. VSS, stable, care ongoing.
--- NOTE | 2016-09-25 07:12 | PCM.ANEP1 ---
Post Anesthesia Phase 1 PACU Phase 1 Assessment Date of Service: Sep 24, 2016 Vital Signs Vital Signs Date Time Temp Pulse Resp B/P Pulse Ox O2 Delivery O2 Flow Rate FiO2 09/25/16 05:41 36.6 60 22 119/61 100 Nasal Cannula 1.00 09/25/16 01:11 36.7 67 18 123/60 99 Nasal Cannula 3.00 09/25/16 01:00 Supplement Oxygen Anesthetic Administered: GA Level of Alertness: Sleepy, easy to arouse ROTHMAN's with Equal Strength: Yes Pain: No Pain Scale Score: 2 Nausea or Vomiting: No Oxygen Delivery: Simple Mask Lungs: Clear to Auscultation, Normal Air Movement Dermatome Level: Full Sensation Hua Aguilar MD Sep 25, 2016 07:12
--- NOTE | 2016-09-25 07:12 | PCM.ANEP2 ---
Post Anesthesia Evaluation ASA/CMS Post Anesthesia VS in Patient's Normal Range?: Yes Resp Stable; Airway Patent?: Yes CV Function & Hydration Stable: Yes Mental Status Recovered?: Yes Pain control Satisfactory?: Yes N/V Control Satisfactory?: Yes Hua Aguilar MD Sep 25, 2016 07:12
[2016-09-25 09:26] VITALS: BP 127/55; PULSE 70; RESP 18; O2SAT 96
[2016-09-25] MEDS: Vitamins C,E, Omega-3, Mineral Tablet PO SCH (09:27)
[2016-09-25] MEDS: Polyethylene Glycol (PEG) 17 Gm Powder PO SCH ×2 (09:27→09:30)
[2016-09-25] MEDS: Omega-3-Acid Ethyl Esters 1 Gm Capsule PO SCH (09:27)
[2016-09-25] MEDS: FOLIC ACID PO SCH (09:30)
[2016-09-25] MEDS: NOVOLOG ASPART SUBQ SCH ×4 (09:30→17:30)
[2016-09-25] MEDS: CYANOCOBALAMIN PO SCH (09:30)
--- NOTE | 2016-09-25 11:11 | PCM.PNSURG ---
Subjective Date of Service: Sep 25, 2016 Date of Service: Sep 25, 2016 Visit Information: Reason for Visit Cholelithiasis, Incisional Hernia Surgery/Surgery Date Post-Op Day # Date of Admission: Hospital Day # Subjective: The patient is an 81-year-old gentleman who had a perforated appendicitis in the 1970s treated with an open appendectomy in [place]. His skin was left open at that time and was left to heal by secondary intention. He noticed the hernia in that location that showed up years later, but he did not have any significant problems from it until June 2016 when he started developing recurrent bowel obstruction with bowel herniating into the subcutaneous space. He subsequently also developed obstructive uropathy with recurrent urinary tract infections and Dr. Cecilia Pack performed a transurethral resection of prostate on September 10, 2016. He was also found to have gallstones with episodic upper abdominal pain and after discussing the risks, benefits, and\ alternatives , he is here today for a laparoscopic cholecystectomy with incisional hernia repair after discussing the risks, benefits, and alternatives. Overnight: No significant overnight events. Mr. Cholo Verdugo is POD #1 following laparoscopic cholecystectomy,lysis of adhesions, and incisional hernia repair and is doing well today. He was up in a chair eating breakfast without difficulty. He reports minor belching and denies nausea and vomiting. His pain is well controlled without medications. He denies BM however he is passing flatus. His reports chronic weakness. He reports dark urine but reports it has improved since his TURP ~ 2 weeks ago. He denies dysuria/hematuria. He denies fever, chills, dizziness, chest pain, shortness of breath, inappropriate abdominal pain. The was adamant that she was unable to provide care for the patient this evening but will be available tomorrow. Objective Objective General: Elderly gentleman sitting in chair, No acute distress, well-developed, well-nourished, appropriately interactive HEENT: Normocephalic, atraumatic. External ears without defect. Pupils equal, round, and reactive to light and accommodation. Anicteric sclerae, moist conjunctivae, and no lid lag. Oropharynx free of erythema and cobble stoning with moist mucosa. Neck: Supple with full range of motion. No jugular venous distension. No bruits. No lymphadenopathy or thyromegaly. Cardiovascular: Regular rate and rhythm with paced rhythm, with no murmurs, rubs , or gallops appreciated Pulmonary: Clear to auscultation bilaterally with no crackles, wheezes, or rhonchi. Normal respiratory effort with no use of accessory muscles. Abdomen: Bowel tones present. Soft, appropriately tender, nondistended. Abdominal hernia decreased in size prior to repair. No hepatosplenomegaly or masses appreciated. Extremities: No clubbing, cyanosis, edema, or lymphadenopathy appreciated. Skin: Normal temperature, turgor, and texture; no rash, ulcers, or subcutaneous nodules appreciated. Neurological: Cranial nerves grossly intact. Normal muscle strength, tone, and bulk. Reflexes, coordination, and sensory function within normal limits. Uses cane for ambulation. Psychiatric: Normal mood and affect. Alert and oriented to person, place, and time. Wound. Laparoscopic incision sites intact, clean and dry. Free of erythema and drainage. Vital Sign- Last 8 Hours Date Time Temp Pulse Resp B/P Pulse Ox O2 Delivery O2 Flow Rate FiO2 09/25/16 09:26 36.7 70 18 127/55 96 Room Air 09/25/16 07:12 Simple Mask 09/25/16 05:41 36.6 60 22 119/61 100 Nasal Cannula 1.00 Intake and Output- Last 8 Hour 09/25/16 Cumulative From/Thru 06:59 09/19/16 13:10 - 09/25/16 06:00 Intake Total 800 ml 3111 ml Output Total 375 ml 1045 ml Balance 425 ml 2066 ml Intake Oral 800 ml 1261 ml IV Total 1850 ml Output Urine Total 375 ml 1025 ml Estimated Blood Loss 20 ml # Bowel Movements 0 0 Result Diagram: 09/25/1651909/25/16 0520 Assessment & Plan Impression Post operative management of: 1. Laparoscopic cholecystectomy. 2. Lysis of adhesions. 3. Incisional Abdominal hernia repair. Problems: Plan The patient is an 81-year-old gentleman here for a laparoscopic cholecystectomy with incisional hernia repair. Past medical history significant for recent SBO, recent ground level falls, CAD, DMT2, TURP 2 weeks ago for BPH, HTN. Mr. Cholo Verdugo is POD #1 following laparoscopic cholecystectomy,lysis of adhesions, and incisional hernia repair and is doing well today. 1. Laparoscopic cholecystectomy. - Vitals normal and WBC wnl, Hgb 9.1 (admission 9.2 and 9.7) - Continue PO intake. - No BM, Patient passing flatus and tolerating PO intake well. - Watch for Nausea, vomiting and increased abdominal pain. - Continue increase daily ambulation. 2. Lysis of adhesions. 3. Incisional Abdominal hernia repair. - Recommend wearing abdominal binder for 48-72 hours following surgery. - Do not lift >10 pounds for at least 4 weeks. - Follow up with Dr. Whitehead within 2 weeks for post op check. - We will provide PO pain medications for home use as needed. 4. KAMILLA - Cr 1.5, previously fluctuated between 1.8 on prior admit and baseline of ~ 1.1. - Encourage increased fluid intake. - 500 ml NS @ 125ml/hr - Repeat BMP in AM. - Outpatient follow up recommended. 5. Chronic BPH - Previous indwelling catheter with recent UTI sepsis and KAMILLA - TURP ~ 2 weeks ago - UA packed WBC/RBC, positive leukocyte esterase, few bacteria, negative nitrates. - Spoke with Dr. Hale with Urology, they advised that UA results are normal as long as patient is asymptomatic. - Patient remains asymptomatic, with no signs or symptoms of UTI. Other Chronic Medical conditions: 6. Recent history of Ground level falls. - Physical therapy consulted, 7. Insulin using type 2 diabetes, - continue home regimen. 8. Hypertension. - well controlled while at [facility]. 9. CAD 10. Obesity 11. 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 - Disposition: likely home tomorrow morning. VTE Prophylaxis: SCDs Resuscitation Status: CPR: Attempt Resuscitation Attending Statement: Agree with Dr. Dorsey's assessment and plan. MORGAN DORSEY DO Sep 25, 2016 10:16 Lokesh Pack MD Oct 02, 2016 08:14
--- NOTE | 2016-09-25 11:25 | PCM.DC.SUR ---
Discharge Summary Date of Service: Sep 25, 2016 Date of Hospital Admission: 09/23/16 Date of Operation(s): 09/24/16 Date of Discharge: 09/25/16 Diagnosis at Time of Discharge 1. Laparoscopic cholecystectomy. 2. Lysis of adhesions. 3. Incisional Abdominal hernia repair. 4. KAMILLA 5. Chronic BPH Other Chronic Medical conditions: 6. Recent history of Ground level falls. 7. Insulin using type 2 diabetes, 8. Hypertension. 9. CAD 10. Obesity 11. 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 - Problems: Operation INDICATIONS: The patient is an 81-year-old gentleman who had a perforated appendicitis in the 1970s treated with an open appendectomy in [place]. His skin was left open at that time and was left to heal by secondary intention. He noticed the hernia in that location that showed up years later, but he did not have any significant problems from it until June 2016 when he started developing recurrent bowel obstruction with bowel herniating into the subcutaneous space. He subsequently also developed obstructive uropathy with recurrent urinary tract infections and Dr. Cecilia Pack performed a transurethral resection of prostate on September 10, 2016. He was also found to have gallstones with episodic upper abdominal pain and after discussing the risks, benefits, and alternatives, he is here today for a laparoscopic cholecystectomy with incisional hernia repair after discussing the risks, benefits, and alternatives. PROCEDURE DETAILS: He was placed in a supine position and underwent smooth induction of general anesthesia. Had a Borges catheter placed. The abdomen was prepped and draped in the usual sterile fashion. Surgical time-out was undertaken using safety checklist, and all were in agreement. I began by making an epigastric incision and entered the abdomen using open Dany technique. After obtaining pneumoperitoneum, I placed two additional 5 mm ports in the right upper quadrant. I used these incision ports to explore the abdomen and perform extensive adhesiolysis. He had extensive adhesions of the omentum to the abdominal wall covering the hernia defect. I mobilized these with a combination of bipolar and monopolar electrocautery with the LigaSure device, making sure that I am not anywhere close to or injuring any bowel. After taking down the adhesions all from the abdominal wall sharply, I placed an additional 10 mm port in the supraumbilical location and placed him in a reverse Trendelenburg position and retracted the gallbladder to the right and cephalad and dissected the triangle of Calot anteriorly and posteriorly and clipped the cystic artery and then clipped the cystic duct and divided it. I then mobilized the gallbladder off the liver bed, making especially sure to make sure I did not get into the gallbladder at any point, spilling any bile. After the gallbladder from the liver completely, I placed it in an EndoCatch bag and after we ensured good hemostasis, I extracted the EndoCatch bag through the epigastric port site. We had to make the fascial and skin incisions bigger, given the large stones in the gallbladder to be able to extract the bag. At this point, I removed all the instruments that I was using for the cholecystectomy of the case and changed gloves and changed the ports and removed the supraumbilical port trocar and closed it with an 0 PDS suture. I also placed PDS sutures in the epigastric port site to make the opening again small enough to have a working 12 port from there. To proceed with the mesh repair of the incisional hernia, I had to put an additional 5 mm port in the right lower side of the abdomen under direct vision. At this point, I measured the fenestrated defect in the abdominal wall which, combining all the defects together, measured close to 15 cm superoinferiorly and 8 cm from side to side. At this point, I chose a 20 cm x 15 cm Ventralight dual-sided mesh with echo positioner and placed it into the abdominal cavity through the epigastric port site. Then, I measured the mid point of the hernia defect and pulled the retaining string with the suture passer in that location. Then, making sure to orient the mesh with good overlap of the defect circumferentially, I tacked the mesh in place with absorbable tacker. At that point, I cut the positioning system free at the skin level and removed the device through the 10 mm port. After this, I placed 0 PDS transfascial sutures circumferentially around the mesh for additional security in a clock repair fashion. After that, making sure we had good hemostasis, I infiltrated the sites with 0.5% bupivacaine and desufflated the abdomen and tied the PDS sutures down to close the epigastric port site and closed the skin with 4-0 Monocryl. Dermabond was applied as a dressing. Patient was recovered from anesthesia and was taken to the recovery room in stable condition. Stephy Whitehead MD 09/24/16 15 Report status: Draft Transcribed by: PRECYSE 09/24/16 4064 REPORT#: [id number] cc: Brady Martinez MD; Stephy Whitehead MD [id number] Brief History and Physical: The patient is an 81-year-old gentleman who had a perforated appendicitis in the 1970s treated with an open appendectomy in [place]. His skin was left open at that time and was left to heal by secondary intention. He noticed the hernia in that location that showed up years later, but he did not have any significant problems from it until June 2016 when he started developing recurrent bowel obstruction with bowel herniating into the subcutaneous space. He subsequently also developed obstructive uropathy with recurrent urinary tract infections and Dr. Cecilia Pack performed a transurethral resection of prostate on September 10, 2016. He was also found to have gallstones with episodic upper abdominal pain and after discussing the risks, benefits, and\ alternatives , he is here today for a laparoscopic cholecystectomy with incisional hernia repair after discussing the risks, benefits, and alternatives. General: Elderly gentleman sitting in chair, No acute distress, well-developed, well-nourished, appropriately interactive HEENT: Normocephalic, atraumatic. External ears without defect. Pupils equal, round, and reactive to light and accommodation. Anicteric sclerae, moist conjunctivae, and no lid lag. Oropharynx free of erythema and cobble stoning with moist mucosa. Neck: Supple with full range of motion. No jugular venous distension. No bruits. No lymphadenopathy or thyromegaly. Cardiovascular: Regular rate and rhythm with paced rhythm, with no murmurs, rubs , or gallops appreciated Pulmonary: Clear to auscultation bilaterally with no crackles, wheezes, or rhonchi. Normal respiratory effort with no use of accessory muscles. Abdomen: Bowel tones present. Soft, appropriately tender, nondistended. Abdominal hernia decreased in size prior to repair. No hepatosplenomegaly or masses appreciated. Extremities: No clubbing, cyanosis, edema, or lymphadenopathy appreciated. Skin: Normal temperature, turgor, and texture; no rash, ulcers, or subcutaneous nodules appreciated. Neurological: Cranial nerves grossly intact. Normal muscle strength, tone, and bulk. Reflexes, coordination, and sensory function within normal limits. Uses cane for ambulation. Psychiatric: Normal mood and affect. Alert and oriented to person, place, and time. Wound. Laparoscopic incision sites intact, clean and dry. Free of erythema and drainage. Hospital Course: The patient is an 81-year-old gentleman with longstanding history of large abdominal hernia that has currently started caused SBO's. He has gallstones with episodic upper abdominal pain and after discussing the risks, benefits, and \ alternatives, he is here for a laparoscopic cholecystectomy with incisional hernia repair after discussing the risks, benefits, and alternatives. Mr. Cholo Verdugo is POD #1 following laparoscopic cholecystectomy,lysis of adhesions, and incisional hernia repair and is doing well today. He was up in a chair eating breakfast without difficulty. He reports minor belching and denies nausea and vomiting. His pain is well controlled without medications. He denies BM however he is passing flatus. His reports chronic weakness but expresses desire to go home today. He reports dark urine but reports it has improved since his TURP ~ 2 weeks ago. He denies dysuria/hematuria. He denies fever, chills, dizziness, chest pain, shortness of breath, inappropriate abdominal pain. Pathology: Path reports currently under review. Follow up with Dr. Whitehead for pathology regarding gallbladder. Disposition: Likely home today following okay by PT. Follow-up Plan: ~ 2 weeks follow up with Dr. Whitehead. ([Acetaminophen]) 325 MG TABLET 975 MG PO Q6H ([Ibuprofen]) 200 MG TABLET 400 MG PO WMHS Aspirin (Aspirin) 325 Mg Tablet 325 MG PO HS (Reported) Atorvastatin (Lipitor) 20 Mg Tablet 20 MG PO HS (Reported) Cyanocobalamin/Folic Acid (Vitamin U18-Outvq Acid Tablet) 1 Each Tablet 1 EACH PO DAILY (Reported) Insulin Aspart (NovoLOG U-100 Pen) 100 Unit/Ml Insuln.pen 0-21 UNITS SUBQ ACHS PRN PRN sliding scale (Reported) Insulin Detemir (Levemir Flextouch) 100 Unit/1 Ml Insuln.pen 20 UNITS SUBQ QPM ( Reported) Multivitamin (Multivitamins) 1 Each Capsule 1 EACH PO DAILY (Reported) Nitroglycerin SL (Nitrostat) 0.4 Mg Tab.subl 0.4 MG SL Q5MIN PRN PRN For Chest Pain (Reported) [place]-3S/Dha/Epa/Fish Oil/D3 (Fish Oil + D3 Softgel) 1 Each Capsule 1 EACH PO DAILY (Reported) Polyethylene Glycol 3350 (Miralax) 17 Gm Powd.pack 17 GM PO DAILY Ranitidine (Zantac OTC) 75 Mg Tablet 75 MG PO DAILY PRN PRN For Dyspepsia or Heartburn (Reported) Terazosin (Terazosin) 10 Mg Capsule 10 MG PO HS (Reported) Vit C/Vit E/Lutein/Min/[place]-3 (Ocuvite Softgel) 1 Each Capsule 1 EACH PO DAILY (Reported) oxyCODONE (oxyCODONE) 5 Mg Tablet 5-10 MG PO Q4H PRN PRN For Severe Pain MORGAN DORSEY DO Sep 25, 2016 11:25
--- NOTE | 2016-09-25 11:26 | PCM.DISURG ---
Surgical Discharge Instruction Date of Service Sep 25, 2016 Dates of Hospitalization Date of Hospital Admission 09/23/16 Providers Admitting Physician: Primary Care Physician: Brady Martinez MD Attending Physician: Stephy Whitehead MD Discharge Diagnosis Discharge Diagnosis 1. Laparoscopic cholecystectomy. 2. Lysis of adhesions. 3. Incisional Abdominal hernia repair. 4. KAMILLA 5. Chronic BPH Other Chronic Medical conditions: 6. Recent history of Ground level falls. - Physical therapy consulted, 7. Insulin using type 2 diabetes, - continue home regimen. 8. Hypertension. - well controlled while at [facility]. 9. CAD 10. Obesity 11. 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 - Post Operative diagnosis Incisional hernia with recurrect small bowel obstruction Cholelithiasis Diet Discharge Diet: Diabetic Activity Discharge Activity-General: Balance rest and activity, No lifting >10 pounds for 4-6 weeks, No driving while taking narcotic Dressing and Incisional Care Dressing Care: Other (Keep incision sites clean and dry. ) Dressing Instructions: Continue abdominal binder for 48-72 hours following surgery. Hygiene: DO NOT soak incision under water (Avoid swimming pools and hot tubs for at least 2 weeks. ) Follow Up Plan Follow Up Plan Continue other home medications. Follow up with Dr. Whitehead within 2 weeks time for a post op check up. Follow-up Provider (F9): Stephy Whitehead MD Follow-up appointment: Weeks (~ 2 weeks. ) Call your provider for: Fever, Chills, Shortness of breath, Increasing abdominal pain, Nausea, Vomiting, Increasing wound pain, Discharge @ incision, pus discharge MORGAN DORSEY DO Sep 25, 2016 11:16
[2016-09-25] MEDS: 0.9% Sodium Chloride 500 ML IV SCH ×3 (11:28→15:46)
[2016-09-25 13:19] VITALS: BP 115/62; PULSE 64; RESP 18; O2SAT 97
--- NOTE | 2016-09-25 13:24 | NUR ---
Insulin Admin Spoke with Dr. Sanchez at bedside regarding sliding scale orders, as patient's BS is 253 and order states to contact MD for BS over 211, he stated to go ahead and give 17 units of Novolog to cover the 253 BS and then recheck BS in about an hour.
--- NOTE | 2016-09-25 14:58 | PCM.PNSURG ---
Subjective Date of Service: Sep 25, 2016 Date of Service: Sep 25, 2016 Visit Information: Reason for Visit Cholelithiasis, Incisional Hernia Surgery/Surgery Date Post-Op Day # 1 Date of Admission: Hospital Day # Subjective: Patient seen this pm on surg floor. Although PT has cleared physically, is not sure of ability to care for patient wild. Patient denies chest pain or sob. Notes some moderate abdominal pain at this time. No nausea or vomiting. Gastrointestinal: Tolerating Oral Feedings, No N/V, Passing Flatus Neurological: Weakness Postop Activity: Ambulates with Assist Device, Ambulating in Room Only Objective Vital Sign- Last 8 Hours Date Time Temp Pulse Resp B/P Pulse Ox O2 Delivery O2 Flow Rate FiO2 09/25/16 13:19 36.6 64 18 115/62 97 Room Air 09/25/16 09:26 36.7 70 18 127/55 96 Room Air 09/25/16 07:12 Simple Mask Intake and Output- Last 8 Hour 09/25/16 Cumulative From/Thru 07:00 09/19/16 13:10 - 09/25/16 06:00 Intake Total 800 ml 3111 ml Output Total 375 ml 1045 ml Balance 425 ml 2066 ml Intake Oral 800 ml 1261 ml IV Total 1850 ml Output Urine Total 375 ml 1025 ml Estimated Blood Loss 20 ml # Bowel Movements 0 0 General: Alert, Oriented X3, Cooperative, Mild Distress Lungs: Clear to Auscultation Heart: Regular Rate/Rhythm Chest: clear to auscultation bilaterally. Abdomen: Soft, Appropriately tender, Non-distended, Normoactive bowel tones SURGICAL WOUND : Wound General Appearence: Intact, Well Approximated, No Erythema Dressing & Drainage Status: Intact Extremities: Warm Result Diagram: 09/25/16 0520 09/25/16 0520 Assessment & Plan Impression Moderate improvement s/p lap hernia repair and lap magaly Problems: Plan Will stay overnight and reassess for discharge in AM. Family is not able to care for patient wild. Patient is satisfied with plan. Pain Management: Continue current management VTE Prophylaxis: SCDs Resuscitation Status: CPR: Attempt Resuscitation Geovanny Jackson PA-C Sep 25, 2016 14:58
--- NOTE | 2016-09-25 15:47 | NUR ---
Insulin Admin Dr. Sanchez asked that I give patient another 17 units of Novolog, as BS was 228 upon recheck.
[2016-09-25 21:16] VITALS: BP 118/65; PULSE 71; RESP 18; O2SAT 97
--- NOTE | 2016-09-25 23:00 | NUR ---
BG Pt declined HS Lantus related to BG at 125, pt does not want to drop too low.
[2016-09-25] MEDS: INSULIN DETEMIR 100 UNIT/ML SUBQ SCH (23:23)
[2016-09-26] MEDS: 0.9% Sodium Chloride 500 ML IV SCH ×3 (01:30→09:30)
[2016-09-26 04:35] VITALS: BP 141/60; PULSE 58; RESP 18; O2SAT 97
--- NOTE | 2016-09-26 05:18 | NUR ---
GI / ambulation Pt has not had a BM but reports copious amounts of flatus and frequent belching, active bowel tones. Ambulated 2 full loops around unit tonight with steady gait and no increase in pain. Pain well managed with PO meds. Hourly rounding ongoing.
[2016-09-26] MEDS: CYANOCOBALAMIN PO SCH (08:30)
[2016-09-26] MEDS: FOLIC ACID PO SCH (08:30)
--- NOTE | 2016-09-26 08:45 | PCM.PNSURG ---
Subjective Date of Service: Sep 26, 2016 Date of Service: Sep 26, 2016 Visit Information: Reason for Visit Cholelithiasis, Incisional Hernia Surgery/Surgery Date Sep 24, 2016 Post-Op Day # 2 Date of Admission: Hospital Day # Subjective: Patient seen and examined today on surgical floor. Doing much better today. Able to transfer much easier today with decreased pain. Some belching reported but denies nausea/vomiting. No BM but significant flatus. Decreased abdominal pain noted only with movement. Denies fever and chills, chest pain and shortness of breath. Postop General: No Shortness of Breath, No Chest Pain Gastrointestinal: Tolerating Oral Feedings, No N/V, Passing Flatus Pain Management: Good Pain Control Postop Activity: Ambulates with Assist Device Objective Vital Sign- Last 8 Hours Date Time Temp Pulse Resp B/P Pulse Ox O2 Delivery O2 Flow Rate FiO2 09/26/16 04:35 36.7 58 18 141/60 97 Room Air Intake and Output- Last 8 Hour 09/26/16 Cumulative From/Thru 07:00 09/19/16 13:10 - 09/26/16 06:46 Intake Total 700 ml 6229 ml Output Total 2175 ml 3945 ml Balance -1475 ml 2284 ml Intake Oral 200 ml 3133 ml IV Total 500 ml 3096 ml Output Urine Total 2175 ml 3925 ml Estimated Blood Loss 20 ml # Bowel Movements 0 0 General: Alert, Oriented X3 Neck: Supple Lungs: Clear to Auscultation Heart: Regular Rate/Rhythm, Normal S1, Normal S2 Chest: clear with good excursion bilaterally SURGICAL WOUND : Wound General Appearence: Intact, Well Approximated, No Erythema, No Discharge, No Inflammatory Changes Dressing & Drainage Status: Reinforced, No Purulent Drainage, No Odor Extremities: Distal Pulses Palpable, Warm, Thigh&Calf Soft/Nontender Result Diagram: 09/25/1620 09/25/16 0520 Diagnostics: improved uop now 2175 last 24h Assessment & Plan Impression Satisfactory post operative course post operative day number 2 status post lap magaly and lap incisional hernia repair with mesh Problems: (1) Hx: UTI (urinary tract infection) Status: Acute ICD Code: Z87.440 (2) Gall bladder disease Status: Acute ICD Code: K82.9 (3) Osteoarthritis Status: Acute ICD Code: M19.90 Plan Will discharge today with close follow up in [place] [facility] in 1 week. Keep abdominal binder on until recheck. Percocet for pain control at bedtime with tylenol or ibuprofen during waking hours. Walker use while ambulating Avoid lifting over 15 lbs for 1 month. Pain Management: Percocet ibuprofen tylenol VTE Prophylaxis: SCDs Resuscitation Status: CPR: Attempt Resuscitation copies to: Brady Martinez MD, Samuel L PA-C Sep 26, 2016 08:45
[2016-09-26] MEDS: NOVOLOG ASPART SUBQ SCH (08:46)
[2016-09-26] MEDS: Polyethylene Glycol (PEG) 17 Gm Powder PO SCH (08:46)
[2016-09-26] MEDS: Vitamins C,E, Omega-3, Mineral Tablet PO SCH (08:47)
[2016-09-26] MEDS: Omega-3-Acid Ethyl Esters 1 Gm Capsule PO SCH (08:47)
[2016-09-26 09:29] VITALS: BP 144/58; PULSE 65; RESP 18; O2SAT 99
--- NOTE | 2016-09-26 12:09 | NUR ---
Discharge Pt d/c'd from room 1031 at 1155 via private vehicle home with family. All discharge teaching and instructions done with family at bedside. All questions and concerns addressed. IV d/c'd intact. Home meds given back to pt from medication drawer. No items in the safe. Pt to f/u with MD in 2 weeks. Pt given all hard copy of RX.
--- NOTE | 2016-09-30 16:35 | PATH ---
SURGICAL PATHOLOGY Attending Physician:Stephy Whitehead MD CASE STATUS: Signed Out * Amended * PATIENT NAME: SAYRA NGUYEN PID: [id number] : 1935 DATE COLLECTED:09/24/2016 20:16 SPECIMEN: Gallbladder CLINICAL HISTORY: CHOLELITHIASIS 1). GALLBLADDER FINAL DIAGNOSIS: Gallbladder, Laparoscopic Cholecystectomy: Gallbladder with mild chronic cholecystitis and cholelithiasis. ICD10 K80.6 This case was reviewed and interpreted by Dr. Codi Kendrick. The final diagnosis is unchanged. This amendment is issued in order for the report to cross the interface and be available in the hospital electronic medical record. GROSS DESCRIPTION: The specimen is received in one formalin filled container labeled with the patient's name, sublabeled "gallbladder" and consists of an intact 12.0 x 4.5 x 3.0 CM gallbladder. The serosa is smooth. The wall is 0.2-0.3 CM in thickness. The mucosa is a light to dark green in color. The lumen contains a light green burden mucoid material and approximately 30+ dark brown calculi which range in size from less than 0.1 CM to 2.3 CM in greatest dimension. 5 business development representative sections are studded one cassette. 09/24/2016 [facility] ICD-9 CODES: CPT CODES: 1: 39023 AMENDMENT(S): Amended: 09/30/2016 by Sarah Cobb Reason:Miscellaneous The final diagnosis is unchanged. This amendment is issued in order for the report to cross the interface and be available in the hospital electronic medical record. Previous Signout Date: 09/26/2016 Electronically Signed Out Therese Hyman MD [facility] [address], [place] [address] Technical component performed at [facility], [address] [place] [address] Ave[address], [place], [address]
== END 2016-09-26 11:49 | disposition home or self-care (01) ==
LOC: SAS 05:45 → OSC 14:32 → SAS 09-26 11:49
PROVIDERS: ATTEND Student in an Organized Health Care Education/Training Program
DX: K80.10 Calculus of gallbladder with chronic cholecystitis without obstruction (principal); K43.2 Incisional hernia without obstruction or gangrene; N40.0 Benign prostatic hyperplasia without lower urinary tract symptoms; E11.9 Type 2 diabetes mellitus without complications; I10 Essential (primary) hypertension; I25.10 Atherosclerotic heart disease of native coronary artery without angina pectoris; E66.9 Obesity, unspecified; N17.9 Acute kidney failure, unspecified; I44.2 Atrioventricular block, complete; Z95.0 Presence of cardiac pacemaker; Z79.82 Long term (current) use of aspirin; Z79.4 Long term (current) use of insulin; Z79.899 Other long term (current) drug therapy
CPT/HCPCS: 36415; 47562; 49652; 80053; 81000; 85025; 87086; 87088; 88304; 94640; 97162; 97530; C1781; J1170; J2405; J3010; J7030; J7120